=== PATIENT | female | born 1950 | race African-American/Black ===

== ENCOUNTER 2016-06-17 15:31 | Inpatient (IN) | payer MEDICARE, MEDICAID ==
[~2016-06-17] VITALS: Ht 157.5 cm; Wt 64.9 kg
[~2016-06-17 15:31] MED LIST: ASPIRIN-LOW81 MG PO; BENADRYL25 MG PO; CYMBALTA30 MG PO; DEXILANT30 MG ORAL; LISINOPRIL30 MG ORAL; LOSARTAN POTASS50 MG ORAL; NEURONTIN300 MG PO; NORCO 5-325 TA1 EACH PO; PAROXETINE HCL10 MG PO; PERCOCET 5-3251 EACH PO; PHENERGAN25 M1 PO; PROMETHAZI6.25 MG/1 ORAL; PROTONIX40 MG PO; ROBAXIN100 MG/1 M PO; TIZANIDINE HCL4 MG ORAL; TRAMADOL HCL50 MG PO
--- NOTE | 2016-06-17 15:55 | Emergency Room Report ---
History of Present Illness General Chief Complaint: Abdominal Pain Source: Patient, Medical Record Present Illness HPI Patient presents with complaints of left upper abdominal pain onset 3 days ago Patient reports 6/10 pain sharp Denies any vomiting or diarrhea Patient has had gastric surgery many years ago Denies any constipation denies any dysuria frequency Denies any fall or trauma Denies any radiation Patient had total knee surgery on the left knee about one year ago Denies any change with position, denies any change with eating Allergies: Coded Allergies: MORPHINE (Verified Allergy, Severe, Anaphylaxis, 06/18/16) PT RECEIVED 5 DOSES OF OXYCODONE ON PREVIOUS ADMISSION IN 06/2015. AMOXICILLIN (Verified Allergy, Mild, ITCHING, 06/15/15) itching CITRUS AND DERIVATIVES (Verified Allergy, Unknown, BREAKOUT, 06/15/15) breakout HYDROMORPHONE (Verified Allergy, Unknown, CHEST PAIN, 06/15/15) chest pain IODINE (Verified Allergy, Unknown, SWELLING, 06/15/15) swelling PENICILLINS (Verified Allergy, Unknown, ITCHING, 06/15/15) itching Uncoded Allergies: NYLON TAPE (Adverse Reaction, Intermediate, NIEVES THE SKIN, 06/21/15) Patient History Past Medical History: see triage record Pertinent Family History: none Reviewed Nursing Documentation: PMH: Agreed, PSxH: Agreed Nursing Documentation-PMH Past Medical History: No History, Except For Hx Cardiac Problems: No Hx Hypertension: Yes Hx Asthma: Yes Hx Cancer: No Hx Gastrointestinal Problems: Yes - GASTRITIS 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 Review of Systems All Other Systems: negative except mentioned in HPI Physical Exam Vital Signs Date Time Temp Pulse Resp B/P Pulse Ox O2 Delivery O2 Flow Rate FiO2 06/17/16 15:37 97.2 75 12 98 Room Air Sp02 EP Interpretation: reviewed, normal General Appearance: well appearing, no apparent distress Head: normocephalic, atraumatic Eyes: left eye other - Appears to have conjunctivitis of the left eye, bilateral eye EOMI, bilateral eye PERRL ENT: hearing grossly normal, normal pharynx, TMs + canals normal, uvula midline Neck: full range of motion, supple, no meningismus, no bony tend Respiratory: lungs clear, normal breath sounds, no rhonchi, no respiratory distress, no retraction, no accessory muscle use Cardiovascular #1: normal peripheral pulses, regular rate, rhythm, no edema, no gallop, no JVD, no murmur Gastrointestinal: normal bowel sounds, soft, no mass, no organomegaly, non- distended, no guarding, no hernia, no pulsatile mass, no rebound, tenderness - Left upper abdomen, other - obvious mid abdominal previous surgery Genitourinary: no CVA tenderness Musculoskeletal: normal inspection Neurologic: oriented x3, responsive, 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, motor strength/ tone normal, sensory intact Psychiatric: mood/affect normal Skin: normal color, no rash, warm/dry, palpation normal Lymphatic: normal inspection, no adenopathy Medical Decision Making Diagnostic Impression: Primary Impression: Diverticulitis ER Course With the history exam and presentation, multiple differentials considered, including but not limited to appendicitis, gastritis, cholecystitis, diverticulitis Patient's imaging reveals evidence of acute diverticulitis Patient's white blood for count is mildly elevated Patient was given iv antibiotics here and given her age and discomfort was admitted for further care Labs Test 06/17/16 15:50 06/17/16 18:35 White Blood Count 12.1 K/UL (4.8-10.8) Red Blood Count 4.20 M/UL (4.20-5.40) Hemoglobin 13.0 G/DL (12.0-16.0) Hematocrit 38.1 % (37.0-47.0) Mean Corpuscular Volume 91 FL (80-99) Mean Corpuscular Hemoglobin 30.8 PG (27.0-31.0) Mean Corpuscular Hemoglobin Concent 34.0 G/DL (32.0-36.0) Red Cell Distribution Width 13.4 % (11.6-14.8) Platelet Count 359 K/UL (150-450) Mean Platelet Volume 5.7 FL (6.5-10.1) Neutrophils (%) (Auto) 56.7 % (45.0-75.0) Lymphocytes (%) (Auto) 32.2 % (20.0-45.0) Monocytes (%) (Auto) 6.9 % (1.0-10.0) Eosinophils (%) (Auto) 2.8 % (0.0-3.0) Basophils (%) (Auto) 1.5 % (0.0-2.0) Prothrombin Time 9.8 SEC (9.30-11.50) Prothromb Time International Ratio 1.0 (0.9-1.1) Activated Partial Thromboplast Time 29 SEC (23-33) Sodium Level 144 mEQ/L (135-145) Potassium Level 4.8 mEQ/L (3.4-4.9) Chloride Level 101 mEQ/L (98-107) Carbon Dioxide Level 28 mEQ/L (20-30) Anion Gap 15 (5-15) Blood Urea Nitrogen 15 mg/dL (7-23) Creatinine 0.7 mg/dL (0.5-0.9) Estimat Glomerular Filtration Rate > 60 mL/min (>60) Glucose Level 116 mg/dL (74-106) Calcium Level 9.6 mg/dL (8.6-10.2) Total Bilirubin < 0.2 mg/dL (0.0-1.2) Aspartate Amino Transf (AST/SGOT) 11 U/L (5-40) Alanine Aminotransferase (ALT/SGPT) 7 U/L (3-33) Alkaline Phosphatase 88 U/L (35-104) Total Creatine Kinase 56 U/L (26-140) Creatine Kinase MB 2.0 ng/mL (< 3.8) Creatine Kinase MB Relative Index 3.5 Troponin I < 0.30 ng/mL (<=0.30) Pro-B-Type Natriuretic Peptide 46 pg/mL (0-125) Total Protein 6.6 g/dL (6.6-8.7) Albumin 4.0 g/dL (3.5-5.2) Globulin 2.6 g/dL Albumin/Globulin Ratio 1.5 (1.0-2.7) Lipase 28 U/L (< 60) Urine Color Yellow Urine Appearance Clear Urine pH 5 (4.5-8.0) Urine Specific [place] 1.025 (1.005-1.035) Urine Protein Negative (NEGATIVE) Urine Glucose (UA) Negative (NEGATIVE) Urine Ketones Negative (NEGATIVE) Urine Occult Blood Negative (NEGATIVE) Urine Nitrite Negative (NEGATIVE) Urine Bilirubin Negative (NEGATIVE) Urine Urobilinogen 1 MG/DL (0.0-1.0) Urine Leukocyte Esterase Negative (NEGATIVE) EKG Diagnostic Results Rate: normal Rhythm: NSR ST Segments: no acute changes Rhythm Strip Diag. Results EP Interpretation: yes Rate: 77 Rhythm: NSR, no PVC's, no ectopy CT/MRI/US Diagnostic Results CT/MRI/US Diagnostic Results : Impression CT abdomen pelvis: Evidence of acsending diverticulitis Last Vital Signs Date Time Temp Pulse Resp B/P Pulse Ox O2 Delivery O2 Flow Rate FiO2 06/17/16 15:37 97.2 75 12 98 Room Air Status: improved Disposition: ADMITTED INPATIENT Condition: Serious HOWARD BLAIR D.O. Jun 17, 2016 15:55
[2016-06-17 16:01] VITALS: BP 131/54
[2016-06-17 16:10] LABS: BASOPHILS % (AUTO) 1.5 % (0.0-2.0); EOSINOPHILS % (AUTO) 2.8 % (0.0-3.0); LYMPHOCYTES % (AUTO) 32.2 % (20.0-45.0); MEAN CORPUSCULAR HEMOGLOBIN 30.8 PG (27.0-31.0); MEAN CORPUSCULAR VOLUME 91 FL (80-99); MEAN PLATELET VOLUME 5.7 FL (6.5-10.1); MONOCYTES % (AUTO) 6.9 % (1.0-10.0); NEUTROPHILS % (AUTO) 56.7 % (45.0-75.0); PLATELET COUNT 359 K/UL (150-450); RED CELL DISTRIBUTION WIDTH 13.4 % (11.6-14.8); WHITE BLOOD COUNT 12.1 K/UL (4.8-10.8)
[2016-06-17] MEDS ORDERED: NORCO 10-325 T1 EACH ORAL (16:22)
[2016-06-17] MEDS ORDERED: LOSARTAN POTASS50 MG ORAL (16:35)
[2016-06-17 16:38] LABS: PROTHROMBIN TIME 9.8 SEC (9.30-11.50)
[2016-06-17 16:50] LABS: TROPONIN I < 0.30 ng/mL (<=0.30)
[2016-06-17 16:52] LABS: ALANINE AMINOTRANSFERASE 7 U/L (3-33); ALBUMIN/GLOBULIN RATIO 1.5 (1.0-2.7); ANION GAP 15 (5-15); ASPARTATE AMINO TRANSFERASE 11 U/L (5-40); CALCIUM 9.6 mg/dL (8.6-10.2); CARBON DIOXIDE 28 mEQ/L (20-30); CHLORIDE 101 mEQ/L (98-107); CREATININE 0.7 mg/dL (0.5-0.9); GLOMERULAR FILTRATION RATE > 60 mL/min (>60); HEMOLYSIS 1; LIPASE 28 U/L (< 60); POTASSIUM 4.8 mEQ/L (3.4-4.9); SODIUM 144 mEQ/L (135-145); TOTAL PROTEIN 6.6 g/dL (6.6-8.7)
[2016-06-17 18:13] VITALS: BP 119/45
[2016-06-17] MEDS ORDERED: Norco 10mg/325mg tab ORAL ONE ×2 (18:30→20:45)
[2016-06-17] MEDS ORDERED: Ketorolac 30mg Inj IV ONE (18:30)
[2016-06-17] MEDS ORDERED: metroNIDAZOLE 500mg 100 ML IVPB ONE (19:00)
[2016-06-17 19:01] LABS: APPEARANCE,URINE CLEAR; KETONES,URINE NEGATIVE (NEGATIVE); LEUKOCYTE ESTERASE ,URINE NEGATIVE (NEGATIVE); NITRITE,URINE NEGATIVE (NEGATIVE); PH,URINE 5 (4.5-8.0); PROTEIN,URINE NEGATIVE (NEGATIVE); UROBILINOGEN,URINE 1 MG/DL (0.0-1.0)
[2016-06-17 20:13] VITALS: BP 121/51
[2016-06-17] MEDS ORDERED: DuoNeb 0.5-3(2.5)mg/3ml neb HHN PRN (21:00)
[2016-06-17 21:30] VITALS: BP 128/51
[2016-06-17 21:45] VITALS: BP 122/48
[2016-06-17] MEDS ORDERED: Piperacillin/Tazobactam 3.375 GM in D5W 110 ML IVPB SCH (22:00)
[2016-06-17] MEDS: D5 1/2NS 1,000 ML IV SCH (22:51)
[2016-06-17] MEDS: Heparin 5000 units/ml inj SUBQ SCH (23:01)
[2016-06-17] MEDS ORDERED: ALBUTEROL2.5 MG/3 M INH (23:14)
[2016-06-17] MEDS ORDERED: SPIRIVA18 MCG INH (23:14)
[2016-06-17] MEDS ORDERED: AMBIEN10 M1 ORAL (23:14)
[2016-06-17 23:38] VITALS: BP 138/65
[2016-06-18 04:00] VITALS: BP 132/69
[2016-06-18] MEDS: metroNIDAZOLE 500mg 100 ML IVPB SCH ×3 (05:40→22:00)
[2016-06-18] MEDS: Norco 10mg/325mg tab ORAL PRN (05:40)
[2016-06-18] MEDS ORDERED: ALVESCO6.1 G1 IH (06:45)
[2016-06-18] MEDS ORDERED: Albuterol ud Inhalation HHN PRN (07:00)
[2016-06-18 07:03] LABS: ALANINE AMINOTRANSFERASE 6 U/L (3-33); ALBUMIN/GLOBULIN RATIO 1.1 (1.0-2.7); ANION GAP 14 (5-15); ASPARTATE AMINO TRANSFERASE 12 U/L (5-40); CALCIUM 8.5 mg/dL (8.6-10.2); CARBON DIOXIDE 25 mEQ/L (20-30); CHLORIDE 103 mEQ/L (98-107); CREATININE 0.5 mg/dL (0.5-0.9); GLOMERULAR FILTRATION RATE > 60 mL/min (>60); HEMOLYSIS 22; POTASSIUM 3.9 mEQ/L (3.4-4.9); SODIUM 142 mEQ/L (135-145); TOTAL PROTEIN 5.9 g/dL (6.6-8.7)
[2016-06-18 07:11] LABS: BASOPHILS % (AUTO) 1.6 % (0.0-2.0); EOSINOPHILS % (AUTO) 3.5 % (0.0-3.0); LYMPHOCYTES % (AUTO) 31.8 % (20.0-45.0); MEAN CORPUSCULAR HEMOGLOBIN 29.1 PG (27.0-31.0); MEAN CORPUSCULAR VOLUME 91 FL (80-99); MEAN PLATELET VOLUME 6.1 FL (6.5-10.1); MONOCYTES % (AUTO) 6.5 % (1.0-10.0); NEUTROPHILS % (AUTO) 56.6 % (45.0-75.0); PLATELET COUNT 355 K/UL (150-450); RED BLOOD COUNT 3.96 M/UL (4.20-5.40); RED CELL DISTRIBUTION WIDTH 13.7 % (11.6-14.8)
[2016-06-18 08:00] VITALS: BP 109/51
[2016-06-18] MEDS: Losartan 50mg tab ORAL SCH (09:00)
[2016-06-18] MEDS: Cipro 400mg/D5W 200ml IV SCH ×2 (09:20→21:00)
[2016-06-18] MEDS: Aspirin EC 81mg tab ORAL SCH (09:20)
[2016-06-18] MEDS: PARoxetine 10mg tab ORAL SCH ×2 (09:21→17:38)
[2016-06-18] MEDS: Heparin 5000 units/ml inj SUBQ SCH ×2 (09:25→21:00)
--- NOTE | 2016-06-18 09:50 | Diagnostic Imaging Report ---
Indication: Nonradiating abdominal pain left upper quadrant last 3 days Technique: Spiral acquisitions obtained through the abdomen and pelvis. Patient given oral contrast. No IV contrast utilized, due to history of contrast reaction.. Multiplanar reconstructions were generated. Total dose length product 796 mGycm. CTDIvol(s) 17 mGy. Dose reduction achieved using automated exposure control Comparison: 03/04/2012 Findings: Colonic diverticulosis is again demonstrated. There is infiltration of the pericolonic fat of the ascending colon surrounding a large diverticulum. There is mild associated wall thickening. Small prominent lymph nodes are seen immediately adjacent. No extraluminal fluid or gas demonstrated. The appendix is not clearly demonstrated, but there are no findings to suggest acute appendicitis. No small bowel distention or small bowel wall thickening. No free or loculated intraperitoneal air or fluid. There is evidence of prior gastric bypass surgery and possible gastric fundoplication. The distal esophageal wall appears somewhat thickened. Lack of IV contrast limits assessment of solid organs. The liver is unremarkable. The gallbladder is surgically absent. No biliary ductal dilatation. The pancreas, spleen, adrenals, kidneys are unremarkable. No retroperitoneal or mesenteric mass or adenopathy. No pelvic mass or adenopathy. The uterus is not demonstrated, presumed surgically absent. There is an upper pelvic wall surgical scar. There is atrophy of the rectus abdominis muscle, particularly on the right The lung bases demonstrate posterior dependent atelectatic changes. The bones demonstrate degenerative spondylosis changes. There is evidence of prior laminectomies of T11 and T12, which is a new finding since the previous exam. There is been interim removal of previously demonstrated spinal stimulator. Impression: Infiltration of the pericolonic fat of the ascending colon, slight associated wall thickening. Findings are suspicious for uncomplicated acute ascending diverticulitis. There is also local lymphadenopathy Evidence of prior gastric bypass surgery. Abnormal appearing distal esophagus appears similar to the prior exam. Suspect associated surgical changes such as fundoplication, but esophagitis and/or hiatal hernia is a possibility Surgically absent gallbladder and uterus Evidence of interim T11 and T12 laminectomies and removal of previously demonstrated spinal stimulator Rectus abdominis muscular atrophy, also previously demonstrated This agrees with the preliminary interpretation provided overnight by [facility] teleradiology service. The CT scanner at [facility] is accredited by the [employer] and the scans are performed using protocols designed to limit radiation exposure to as low as reasonably achievable to attain images of sufficient resolution adequate for diagnostic evaluation.
[2016-06-18 12:00] VITALS: BP 130/48
--- NOTE | 2016-06-18 13:43 | Cardiology Report ---
APPROVED REPORT EKG Measurement Heart [id number] Normal sinus rhythm Normal ECG
[2016-06-18 16:00] VITALS: BP 129/88
[2016-06-18] MEDS: D5 1/2NS 1,000 ML IV SCH (17:38)
--- NOTE | 2016-06-18 18:18 | History and Physical Report ---
DATE OF ADMISSION: 06/17/2016 CHIEF COMPLAINT: Acute diverticulitis. HISTORY OF PRESENT ILLNESS: The patient is a 65-year-old female, well known to me. She has a history of hypertensive heart disease, asthma/chronic obstructive pulmonary disease, history of osteoarthritis status post knee replacement surgery. She presented with complaints of one week of lower abdominal pain. According to the patient, she was well until a week prior to admission. She developed left-sided lower abdominal pain, initially the pain was intermittent but it became progressively more severe. The patient had some anorexia but no vomiting. No diarrhea. She eventually presented to the emergency room. On evaluation there CT scan of the abdomen showed pericolic fat infiltration and wall thickening of the ascending colon, suspicious for acute diverticulitis. The patient placed on IV fluids, IV antibiotics, and now admitted for further evaluation and care. PAST MEDICAL HISTORY: As above. PAST SURGICAL HISTORY: As above. CURRENT MEDICATIONS: Reconciled and reviewed. ALLERGIES: Include amoxicillin, citrus, hydromorphone, iodine, morphine, penicillin, nylon. FAMILY HISTORY: Noncontributory. SOCIAL HISTORY: The patient was a prior smoker. No alcohol. No drugs. REVIEW OF SYSTEMS: General: No fever or chills. HEENT: No headaches or visual changes. Cardiopulmonary: No chest pain or shortness of breath. Gastrointestinal: Positive abdominal pain. No nausea. No vomiting. No diarrhea. No melena. No bright red blood per rectum. Genitourinary: No urgency or frequency. Musculoskeletal: No joint pain or swelling. Neurologic: No evidence of seizures. PHYSICAL EXAMINATION: VITAL SIGNS: Temperature 97.5, pulse 68, respirations 16, blood pressure 132/69. GENERAL: The patient is a well-developed female in no apparent distress. HEART: Regular rate and rhythm. LUNGS: Lungs. ABDOMEN: soft. Tender mostly on the midepigastric region to the left side. ABDOMEN: soft, nontender, and nondistended. EXTREMITIES: No clubbing or cyanosis. LABORATORY AND DIAGNOSTIC DATA: White count 26699, hemoglobin 13. Potassium 4.8, creatinine was 0.7. LFTs were unremarkable. ASSESSMENT: 1. THIS IS A PLEASANT FEMALE ADMITTED WITH COMPLAINTS OF ACUTE DIVERTICULITIS: 2. Possible early sepsis. 3. Asthma/chronic obstructive pulmonary disease. 4. Hypertension. PLAN: IV hydration, clear liquid diet. Intravenous antibiotics per ID. Follow up cultures. GI and ID consultation has been obtained. The patient will be otherwise continued on her outpatient cardiac and asthma regimen. Demario Hdz M.D. DR: Elmer JOB#: [id number] CC:
[2016-06-18 20:00] VITALS: BP 133/62
--- NOTE | 2016-06-18 21:38 | Consultation ---
DATE OF CONSULTATION: 06/18/2016 INFECTIOUS DISEASES CONSULTATION CONSULTING PHYSICIAN: Hallie Bullard M.D. REFERRING PHYSICIAN: Demario Hdz M.D. REASON FOR CONSULTATION: Diverticulitis. HISTORY OF PRESENTING ILLNESS: This is a 65-year-old lady with history of asthma, hypertension, gastritis, Christiansen's palsy who came in with abdominal pain on the left side. She also had some diarrhea after contrast administration for CT abdomen. An Infectious Diseases consultation has been obtained for antibiotics as she was found to have a diverticulitis. PAST MEDICAL HISTORY: 1. History of asthma. 2. History of hypertension. 3. History of gastritis. 4. History of left-sided Christiansen's palsy. 5. Left knee arthroplasty. SOCIAL HISTORY: She is a smoker. She drinks alcohol rarely. No history of drug use. FAMILY HISTORY: Positive for breast cancer and pancreatic cancer in a sister. REVIEW OF SYSTEMS: Respiratory: No fever, chills, cough, shortness of breath, or chest pain. Cardiac: No chest pain. No palpitations. No dizziness. No syncope. Gastrointestinal: No nausea. No vomiting. She does have abdominal pain on the left side as well as diarrhea. MEDICATIONS: As an inpatient, she is on Ambien, aspirin, gabapentin, Cozaar, Paxil, Spiriva, Cipro, Flagyl subcutaneous heparin, Benadryl, [place], tizanidine, Protonix, albuterol, Zofran, and Restoril. ALLERGIES: 1. Amoxicillin. 2. [place] and derivatives 3. Hydromorphone. 4. Iodine. 5. Morphine. 6. Nylon tape. 7. Penicillin. PHYSICAL EXAMINATION: VITAL SIGNS: Temperature of 97.5, T-max of 97.8, pulse of 57, respiratory of 16, blood pressure 109/51, O2 saturation of 97%. HEENT: Pupils equally reactive to light and accommodation. Mouth appears clean without thrush. NECK: Supple. No adenopathy. No JVD. CARDIOVASCULAR: Regular rate and rhythm. No murmurs. LUNGS: Clear to auscultation bilaterally. No crackles. No wheezes. ABDOMEN: Soft with left-sided tenderness. No organomegaly. EXTREMITIES: No cyanosis, no clubbing, no edema. LABORATORY AND DIAGNOSTIC DATA: White count 12, hemoglobin 11.5, hematocrit 36.1, MCV 91, platelet count of 355,000. Sodium 142, potassium 3.9, chloride 103, bicarb 25, BUN 14, creatinine 0.5, glucose 83. Calcium 8.5. Total bilirubin 0.3, AST 12, ALT 6, alkaline phosphatase 81. Total protein 5.9. Albumin 3.2. Lipase of 28. UA showing leukocyte esterase negative, nitrite negative. CT abdomen and pelvis on 06/17/2016 showing infiltration of the pericolonic fat of the ascending colon with wall thickening suspicious for ascending diverticulitis and local lymphadenopathy. ASSESSMENT: This is a 65-year-old lady with history of asthma and hypertension who comes in with abdominal pain and is found to have acute diverticulitis. 1. Leukocytosis. 2. Hypertension. 3. Asthma. PLAN: 1. Given the penicillin allergy, continue ciprofloxacin and Flagyl. 2. We would suggest a surgical evaluation. I would like to thank, Dr. Hdz for this consultation. Hallie Bullard M.D. DR: Jena JOB#: [id number] CC: Demario Hdz M.D.
[2016-06-19] VITALS: BP 134/71
[2016-06-19] MEDS: Zolpidem 5mg tab ORAL PRN (01:57)
[2016-06-19 04:00] VITALS: BP 133/76
[2016-06-19] MEDS: metroNIDAZOLE 500mg 100 ML IVPB SCH ×3 (06:00→21:25)
[2016-06-19 08:00] VITALS: BP 133/65
[2016-06-19] MEDS: Aspirin EC 81mg tab ORAL SCH (09:00)
[2016-06-19] MEDS: Losartan 50mg tab ORAL SCH (09:01)
[2016-06-19] MEDS: PARoxetine 10mg tab ORAL SCH ×2 (09:01→17:22)
[2016-06-19] MEDS: Heparin 5000 units/ml inj SUBQ SCH ×2 (09:03→20:21)
[2016-06-19] MEDS: Cipro 400mg/D5W 200ml IV SCH ×2 (09:05→20:19)
--- NOTE | 2016-06-19 09:34 | General Progress Note ---
Assessment/Plan Problem List: (1) COPD exacerbation ICD Codes: J44.1 - Chronic obstructive pulmonary disease with (acute) exacerbation SNOMED: 974981053, 978881782 (2) Diverticulitis ICD Codes: K57.92 - Diverticulitis of intestine, part unspecified, without perforation or abscess without bleeding SNOMED: 379283865 (3) Arthritis of knee, left ICD Codes: M19.90 - Unspecified osteoarthritis, unspecified site SNOMED: 851466001 Status: stable Assessment/Plan abx ivf clears surgery eval called pain rx antiemetics Subjective ROS Limited/Unobtainable: No Constitutional: Reports: malaise, weakness HEENT: Reports: no symptoms Cardiovascular: Reports: no symptoms Respiratory: Reports: no symptoms Gastrointestinal/Abdominal: Reports: abdominal pain Genitourinary: Reports: no symptoms Neurologic/Psychiatric: Reports: no symptoms Endocrine: Reports: no symptoms Hematologic/Lymphatic: Reports: no symptoms Allergies: Coded Allergies: MORPHINE (Verified Allergy, Severe, Anaphylaxis, 06/18/16) PT RECEIVED 5 DOSES OF OXYCODONE ON PREVIOUS ADMISSION IN 06/2015. AMOXICILLIN (Verified Allergy, Mild, ITCHING, 06/15/15) itching CITRUS AND DERIVATIVES (Verified Allergy, Unknown, BREAKOUT, 06/15/15) breakout HYDROMORPHONE (Verified Allergy, Unknown, CHEST PAIN, 06/15/15) chest pain IODINE (Verified Allergy, Unknown, SWELLING, 06/15/15) swelling PENICILLINS (Verified Allergy, Unknown, ITCHING, 06/15/15) itching Uncoded Allergies: NYLON TAPE (Adverse Reaction, Intermediate, NIEVES THE SKIN, 06/21/15) Subjective stable. less abd pain. on clears. +bowel movements. on ivf. id noted Objective Last 24 Hour Vital Signs Date Time Temp Pulse Resp B/P Pulse Ox O2 Delivery O2 Flow Rate FiO2 06/19/16 09:01 133/65 06/19/16 08:00 98.1 61 20 133/65 100 Room Air 06/19/16 04:00 97.9 66 18 133/76 100 Room Air 06/19/16 00:00 98.1 71 18 134/71 92 Room Air 06/18/16 20:00 97.9 62 18 133/62 96 Room Air 06/18/16 16:00 97.3 66 20 129/88 95 Room Air 06/18/16 12:00 96.8 58 20 130/48 95 Room Air Intake and Output 06/18/16 06/19/16 19:00 07:00 Intake Total 990 ml 770 ml Balance 990 ml 770 ml Intake Oral 240 ml 120 ml IV Total 750 ml 650 ml # Voids 4 5 # Bowel Movements 1 Height (Feet): 5 Height (Inches): 2.00 Weight (Pounds): 143 General Appearance: WD/WN, alert Neck: supple Cardiovascular: regular rhythm Respiratory/Chest: lungs clear Abdomen: normal bowel sounds, soft, tender Edema: no edema noted Arm (L), no edema noted Arm (R), no edema noted Leg (L), no edema noted Leg (R), no edema noted Pedal (L), no edema noted Pedal (R), no edema noted Generalized 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
--- NOTE | 2016-06-19 10:26 | Consultation ---
History of Present Illness General Date patient seen: Jun 19, 2016 Chief Complaint: Abdominal Pain Present Illness HPI 65 year old female with medical co-morbidities as below presented with acute left lower quadrant abdominal pain. As per patient, she was in her normal state of health until last week (6-7 days ago) when she first began to note some vague cramping left lower quadrant abdominal pain. At first she did not think much of it and the pain would go away without intervention. Over the subsequent few days pain began to worsen and day prior to admission pain was significantly worse so she decided to seek medical attention. Pain described as cramping left sided abdominal pain without radiation. No associated nausea or emesis. No fever or chills. Has never had prior episodes before. Upon admission had CT abdomen/pelvis which demonstrated acute uncomplicated left sided diverticulitis, leukocytosis of 12k, and focal left sided abdominal pain. Surgery called to evaluate. When seen at bedside, patient states pain has resolved and currently just a vague left sided abdominal pain. Had loose BM today and is passing flatus. Is currently hungry and would like food. Allergies: Coded Allergies: MORPHINE (Verified Allergy, Severe, Anaphylaxis, 06/18/16) PT RECEIVED 5 DOSES OF OXYCODONE ON PREVIOUS ADMISSION IN 06/2015. AMOXICILLIN (Verified Allergy, Mild, ITCHING, 06/15/15) itching CITRUS AND DERIVATIVES (Verified Allergy, Unknown, BREAKOUT, 06/15/15) breakout HYDROMORPHONE (Verified Allergy, Unknown, CHEST PAIN, 06/15/15) chest pain IODINE (Verified Allergy, Unknown, SWELLING, 06/15/15) swelling PENICILLINS (Verified Allergy, Unknown, ITCHING, 06/15/15) itching Uncoded Allergies: NYLON TAPE (Adverse Reaction, Intermediate, NIEVES THE SKIN, 06/21/15) Medication History Scheduled Aspirin (Aspirin EC), 81 MG PO DAILY, (Reported) Ciclesonide ([place]), 6.1 GM IH DAILY, (Reported) Dexlansoprazole (Dexilant), 30 MG ORAL DAILY, (Reported) Diphenhydramine Hcl* (Benadryl*), 25 MG PO DAILY, (Reported) Gabapentin (Neurontin), 600 MG PO QID, (Reported) Losartan Potassium* (Losartan Potassium*), Unknown Dose ORAL DAILY, (Reported) Paroxetine Hcl* (Paxil*), 30 MG PO BID, (Reported) Tiotropium [place]* (Spiriva*), 1 PUFF INH DAILY, (Reported) Scheduled PRN Albuterol Sulfate* (Albuterol Sulfate Hhn*), 3 ML INH Q4H PRN for Shortness of Breath, (Reported) Hydrocodone Bit/Acetaminophen 10-325* ([place] 10-325*), 1 TAB ORAL Q6H PRN for For Pain, (Reported) Promethazine Hcl (Promethazine Hcl*), 5 ML ORAL Q6H PRN for For Cough, (Reported ) Tizanidine Hcl* (Zanaflex*), 4 MG ORAL Q6HR PRN for Muscle Spasm, (Reported) Zolpidem Tartrate* (Ambien*), 10 MG ORAL HS PRN for Insomnia, (Reported) Discontinued Medications Hydrocodone Bit/Acetaminophen 5-325* ([place] 5-325*), 1 TAB PO Q6H Discontinued Reason: Medication dose changed Methocarbamol (Robaxin), 750 MG PO THREE TIMES A DAY, (Reported) Discontinued Reason: Therapy completed Patient History History Provided By: Patient Healthcare decision maker N Resuscitation status Full Code Advanced Directive on File No Past Medical/Surgical History Past Medical/Surgical History: (1) Diverticulitis (2) COPD exacerbation (3) Arthritis of knee, left (4) S/P cholecystectomy (5) H/O gastric bypass (6) History of hysterectomy Review of Systems Constitutional: Denies: chills, fever, malaise, no symptoms, other, see HPI, sweats, weakness Eye: Denies: acuity changes, blurred vision, discharge, double vision, eye pain , no symptoms, nose congestion, nose pain, other, see HPI, tearing ENT: Denies: ear discharge, ear pain, hearing loss, mouth pain, nasal discharge , no symptoms, nose congestion, nose pain, other, see HPI, throat pain, throat swelling Respiratory: Denies: MIKE, cough, no symptoms, orthopnea, other, see HPI, shortness of breath, sputum, stridor, wheezing Cardiovascular: Denies: PND, chest pain, edema, no symptoms, other, palpitations, see HPI, syncope Gastrointestinal: Reports: abdominal pain Genitourinary: Denies: discharge, dysuria, frequency, hematuria, incontinence, no symptoms, other, pain, retention, see HPI, urgency, vag bleed/dc Musculoskeletal: Denies: back pain, gout, joint pain, joint swelling, muscle pain, muscle stiffness, no symptoms, other, see HPI Skin: Denies: change in color, change in hair/nails, dryness, lesions, no symptoms, other, rash, see HPI Psychiatric: Denies: HI, SI, anxiety, depressed feelings, emotional problems, hallucinations, no symptoms, other, prior hx, see HPI Neurological: Denies: dizziness, focal weakness, headache, no symptoms, numbness, other, paresthesia, see HPI, seizure, syncope, tingling, tremors Endocrine: Denies: excessive sweating, flushing, increased thirst, increased urine, intolerance to temperature, no symptoms, other, see HPI, unexplained weight loss Hematologic/Lymphatic: Denies: anemia, blood clots, diathesis, easy bleeding, easy bruising, no symptoms, other, see HPI, swollen glands All Other Systems: negative except mentioned in HPI Physical Exam General Appearance: WD/WN, no apparent distress, alert Lines, tubes and drains: peripheral HEENT: normocephalic, atraumatic, PERRL Neck: supple Respiratory/Chest: lungs clear, normal breath sounds Cardiovascular/Chest: normal peripheral pulses Abdomen: normal bowel sounds, non tender, soft, no mass, other - prior surgical scars well healed. 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 II-XII grossly normal, alert, oriented x 3, responsive Last 24 Hour Vital Signs Date Time Temp Pulse Resp B/P Pulse Ox O2 Delivery O2 Flow Rate FiO2 06/19/16 09:01 133/65 06/19/16 08:00 98.1 61 20 133/65 100 Room Air 06/19/16 04:00 97.9 66 18 133/76 100 Room Air 06/19/16 00:00 98.1 71 18 134/71 92 Room Air 06/18/16 20:00 97.9 62 18 133/62 96 Room Air 06/18/16 16:00 97.3 66 20 129/88 95 Room Air 06/18/16 12:00 96.8 58 20 130/48 95 Room Air Intake and Output 06/18/16 06/19/16 19:00 07:00 Intake Total 990 ml 770 ml Balance 990 ml 770 ml Intake Oral 240 ml 120 ml IV Total 750 ml 650 ml # Voids 4 5 # Bowel Movements 1 Height (Feet): 5 Height (Inches): 2.00 Weight (Pounds): 143 Medications Current Medications Medications (Trade) Dose Ordered Sig/Julita Route PRN Reason Start Time Stop Time Status Last Admin Dose Admin Acetaminophen/ Hydrocodone Bitart ([place] 10/325) 1 ea Q6H PRN ORAL For Pain 06/17/16 21:00 06/24/16 20:59 06/18/16 05:40 Albuterol/ Ipratropium (DuoNeb 0.5-3(2.5)mg/3ml) 3 ml Q4H PRN HHN Shortness of Breath 06/17/16 21:00 06/22/16 20:59 Aspirin (Ecotrin) 81 mg DAILY ORAL 06/18/16 09:00 07/18/16 08:59 06/19/16 09:00 Ciprofloxacin (Cipro 400mg/ 200ml premix bag) 200 ml @ 200 mls/hr Q12HR IV 06/18/16 09:00 06/25/16 08:59 06/19/16 09:05 Dextrose/Sodium Chloride (D5 0.45% NS) 1,000 ml @ 50 mls/hr Q20H IV 06/17/16 21:30 07/17/16 21:29 06/18/16 17:38 Diphenhydramine HCl (Benadryl) 25 mg DAILYPRN PRN ORAL Itching 06/17/16 21:00 07/17/16 20:59 Gabapentin (Neurontin) 600 mg TID ORAL 06/18/16 09:00 07/18/16 08:59 06/19/16 09:00 Heparin Sodium (Porcine) (Heparin 5000 units/ml) 5,000 units EVERY 12 HOURS SUBQ 06/17/16 22:00 07/17/16 21:59 06/19/16 09:03 Losartan Potassium (Cozaar) 50 mg DAILY ORAL 06/18/16 09:00 07/18/16 08:59 06/19/16 09:01 Metronidazole 100 ml @ 100 mls/hr Q8HR IVPB 06/18/16 06:00 06/25/16 05:59 06/19/16 06:00 Non-Formulary Medication 1 ea 1 ea DAILY ORAL 06/18/16 09:00 07/18/16 08:59 UNV Ondansetron HCl (Zofran) 4 mg Q6H PRN IVP Nausea & Vomiting 06/17/16 21:00 07/17/16 20:59 Pantoprazole 40 mg 40 mg EVERY 12 HOURS ORAL 06/17/16 21:00 07/17/16 20:59 06/19/16 09:00 Paroxetine HCl (Paxil) 30 mg BID ORAL 06/18/16 09:00 07/18/16 08:59 06/19/16 09:01 Temazepam (Restoril) 15 mg HSPRN PRN ORAL Insomnia 06/17/16 21:00 06/24/16 20:59 Tiotropium [place] (Spiriva Inhaler) 1 puff DAILY INH 06/18/16 09:00 07/18/16 08:59 06/18/16 09:19 Tizanidine HCl (Zanaflex) 4 mg Q6H PRN ORAL Muscle Spasm 06/17/16 21:00 07/17/16 20:59 Zolpidem Tartrate (Ambien) 5 mg QHS PRN ORAL Insomnia 06/18/16 21:00 07/18/16 20:59 06/19/16 01:57 Assessment/Plan Problem List: (1) Diverticulitis Assessment & Plan: 65 F acute uncomplicated diverticulitis. First episode as per patient. Prior colonoscopy 1-2 years ago and benign. Otherwise well. Afebrile, HD stable, leukocytosis 12k, exam with minimal left sided pain. -No acute surgical intervention necessary at this time -Okay for diet as tolerated. -Can transition to oral Abx when ready for discharge -Spoke with patient about diverticular disease. Given first episode and uncomplicated there is no indication for surgical intervention at this time. But if she continues to have similar episodes we can discuss elective colectomy in the future. Explained to her that she could potentially also have complicated episode that may require surgical intervention in the future. Card and office information given to patient for follow up. Thank you for this consultation and for allowing us to participate in Mel Sheldonkellyleonardo's care. ICD Codes: K57.92 - Diverticulitis of intestine, part unspecified, without perforation or abscess without bleeding SNOMED: [id number] Status: doing well, stable Sincere Strange Jun 19, 2016 10:26
--- NOTE | 2016-06-19 11:28 | Infectious Diseases Prog Note ---
Assessment/Plan Assessment/Plan antibiotics : ciprofloxacin, flagyl A 1. acute diverticulitis 2. leucocytosis 3. HTN P 1. continue ciprofloxacin, flagyl 2. will follow up cultures Subjective Constitutional: Denies: chills, fever Respiratory: Denies: dry cough, shortness of breath Gastrointestinal/Abdominal: Reports: diarrhea, nausea, Denies: vomiting Musculoskeletal: Reports: pain - left abdominal Allergies: Coded Allergies: MORPHINE (Verified Allergy, Severe, Anaphylaxis, 06/18/16) PT RECEIVED 5 DOSES OF OXYCODONE ON PREVIOUS ADMISSION IN 06/2015. AMOXICILLIN (Verified Allergy, Mild, ITCHING, 06/15/15) itching CITRUS AND DERIVATIVES (Verified Allergy, Unknown, BREAKOUT, 06/15/15) breakout HYDROMORPHONE (Verified Allergy, Unknown, CHEST PAIN, 06/15/15) chest pain IODINE (Verified Allergy, Unknown, SWELLING, 06/15/15) swelling PENICILLINS (Verified Allergy, Unknown, ITCHING, 06/15/15) itching Uncoded Allergies: NYLON TAPE (Adverse Reaction, Intermediate, NIEVES THE SKIN, 06/21/15) Objective Vital Signs Last 24 Hour Vital Signs Date Time Temp Pulse Resp B/P Pulse Ox O2 Delivery O2 Flow Rate FiO2 06/19/16 09:01 133/65 06/19/16 08:00 98.1 61 20 133/65 100 Room Air 06/19/16 04:00 97.9 66 18 133/76 100 Room Air 06/19/16 00:00 98.1 71 18 134/71 92 Room Air 06/18/16 20:00 97.9 62 18 133/62 96 Room Air 06/18/16 16:00 97.3 66 20 129/88 95 Room Air 06/18/16 12:00 96.8 58 20 130/48 95 Room Air Height (Feet): 5 Height (Inches): 2.00 Weight (Pounds): 143 Respiratory/Chest: lungs clear Cardiovascular: normal rate, regular rhythm, no gallop/murmur Abdomen: tender - on left side Extremities: no edema CASSIDY NOEL Jun 19, 2016 11:28
[2016-06-19 12:00] VITALS: BP 144/56
[2016-06-19] MEDS: D5 1/2NS 1,000 ML IV SCH (13:30)
[2016-06-19 16:00] VITALS: BP 147/59
[2016-06-19 19:00] VITALS: BP 133/59
[2016-06-19] MEDS: Norco 10mg/325mg tab ORAL PRN (19:52)
[2016-06-19] MEDS: Breo Ellipta 100/25mcg - 14 dose INH SCH (20:15)
[2016-06-20] VITALS: BP 128/62
[2016-06-20] MEDS: D5 1/2NS 1,000 ML IV SCH (02:00)
[2016-06-20 04:00] VITALS: BP 128/63
[2016-06-20] MEDS: metroNIDAZOLE 500mg 100 ML IVPB SCH ×3 (05:05→22:10)
[2016-06-20 06:58] LABS: BASOPHILS % (AUTO) 1.8 % (0.0-2.0); EOSINOPHILS % (AUTO) 4.3 % (0.0-3.0); LYMPHOCYTES % (AUTO) 47.2 % (20.0-45.0); MEAN CORPUSCULAR HEMOGLOBIN 29.5 PG (27.0-31.0); MEAN CORPUSCULAR HGB CONC 32.5 G/DL (32.0-36.0); MEAN CORPUSCULAR VOLUME 91 FL (80-99); MEAN PLATELET VOLUME 6.2 FL (6.5-10.1); MONOCYTES % (AUTO) 10.5 % (1.0-10.0); NEUTROPHILS % (AUTO) 36.3 % (45.0-75.0); PLATELET COUNT 333 K/UL (150-450); RED BLOOD COUNT 3.77 M/UL (4.20-5.40); RED CELL DISTRIBUTION WIDTH 13.2 % (11.6-14.8); WHITE BLOOD COUNT 8.2 K/UL (4.8-10.8)
[2016-06-20 07:17] LABS: ALANINE AMINOTRANSFERASE 5 U/L (3-33); ALBUMIN/GLOBULIN RATIO 1.1 (1.0-2.7); ANION GAP 14 (5-15); ASPARTATE AMINO TRANSFERASE 10 U/L (5-40); CALCIUM 8.5 mg/dL (8.6-10.2); CARBON DIOXIDE 25 mEQ/L (20-30); CHLORIDE 103 mEQ/L (98-107); CREATININE 0.6 mg/dL (0.5-0.9); GLOMERULAR FILTRATION RATE > 60 mL/min (>60); HEMOLYSIS 1; SODIUM 142 mEQ/L (135-145); TOTAL PROTEIN 5.8 g/dL (6.6-8.7)
[2016-06-20] MEDS: Breo Ellipta 100/25mcg - 14 dose INH SCH (07:38)
[2016-06-20 08:15] VITALS: BP 118/67
[2016-06-20] MEDS: Cipro 400mg/D5W 200ml IV SCH ×2 (09:01→20:56)
[2016-06-20] MEDS: Aspirin EC 81mg tab ORAL SCH (09:01)
[2016-06-20] MEDS: PARoxetine 10mg tab ORAL SCH ×2 (09:02→18:10)
[2016-06-20] MEDS: Losartan 50mg tab ORAL SCH (09:02)
[2016-06-20] MEDS: Heparin 5000 units/ml inj SUBQ SCH ×2 (09:03→21:00)
--- NOTE | 2016-06-20 10:36 | General Surgery Progress Note ---
General Surgery-Progress Note Subjective Symptoms: improved, tolerating diet Additional Comments patient seen and examined at bedside. no acute events. states she is feeling better today. some mild dull left sided abdominal pain but improving. still with diarrhea. no n/v/f/c/. Objective Last 24 Hour Vital Signs Date Time Temp Pulse Resp B/P Pulse Ox O2 Delivery O2 Flow Rate FiO2 06/20/16 09:02 118/67 06/20/16 08:15 97.1 77 21 118/67 99 Room Air 06/20/16 07:43 68 19 98 Room Air 06/20/16 07:42 19 98 Room Air 21 06/20/16 07:41 18 98 Room Air 06/20/16 07:40 19 98 Room Air 06/20/16 04:00 98.0 68 18 128/63 97 Room Air 06/20/16 00:00 98.0 69 20 128/62 96 Room Air 06/19/16 19:00 98.4 65 20 133/59 96 Room Air 06/19/16 16:00 98.6 70 20 147/59 94 Room Air 06/19/16 13:06 66 20 96 Room Air 21 06/19/16 13:06 66 20 96 Room Air 21 06/19/16 12:00 98.2 66 20 144/56 96 Room Air I&O Intake and Output 06/19/16 06/20/16 19:00 07:00 Intake Total 370 ml 980 ml Balance 370 ml 980 ml Intake Oral 320 ml 480 ml IV Total 50 ml 500 ml # Voids 4 4 Cardiovascular: RSR Respiratory: clear Abdomen: soft, non-tender, present bowel sounds Extremities: no edema Laboratory Tests Test 06/20/16 05:50 White Blood Count 8.2 K/UL (4.8-10.8) Red Blood Count 3.77 M/UL (4.20-5.40) L Hemoglobin 11.1 G/DL (12.0-16.0) L Hematocrit 34.2 % (37.0-47.0) L Mean Corpuscular Volume 91 FL (80-99) Mean Corpuscular Hemoglobin 29.5 PG (27.0-31.0) Mean Corpuscular Hemoglobin Concent 32.5 G/DL (32.0-36.0) Red Cell Distribution Width 13.2 % (11.6-14.8) Platelet Count 333 K/UL (150-450) Mean Platelet Volume 6.2 FL (6.5-10.1) L Neutrophils (%) (Auto) 36.3 % (45.0-75.0) L Lymphocytes (%) (Auto) 47.2 % (20.0-45.0) H Monocytes (%) (Auto) 10.5 % (1.0-10.0) H Eosinophils (%) (Auto) 4.3 % (0.0-3.0) H Basophils (%) (Auto) 1.8 % (0.0-2.0) Sodium Level 142 mEQ/L (135-145) Potassium Level 4.0 mEQ/L (3.4-4.9) Chloride Level 103 mEQ/L (98-107) Carbon Dioxide Level 25 mEQ/L (20-30) Anion Gap 14 (5-15) Blood Urea Nitrogen 11 mg/dL (7-23) Creatinine 0.6 mg/dL (0.5-0.9) Estimat Glomerular Filtration Rate > 60 mL/min (>60) Glucose Level 86 mg/dL (74-106) Calcium Level 8.5 mg/dL (8.6-10.2) L Total Bilirubin < 0.2 mg/dL (0.0-1.2) Aspartate Amino Transf (AST/SGOT) 10 U/L (5-40) Alanine Aminotransferase (ALT/SGPT) 5 U/L (3-33) Alkaline Phosphatase 74 U/L (35-104) Total Protein 5.8 g/dL (6.6-8.7) L Albumin 3.1 g/dL (3.5-5.2) L Globulin 2.7 g/dL Albumin/Globulin Ratio 1.1 (1.0-2.7) Plan Problems: (1) Diverticulitis Assessment & Plan: 65 F acute uncomplicated diverticulitis. First episode as per patient. Prior colonoscopy 1-2 years ago and benign. Otherwise well. Afebrile, HD stable, leukocytosis resolved today, exam benign -No acute surgical intervention necessary at this time -diet as tolerated. -Can transition to oral Abx when ready for discharge Sincere Strange Jun 20, 2016 10:36
[2016-06-20 12:15] VITALS: BP 129/69
--- NOTE | 2016-06-20 15:26 | Infectious Diseases Prog Note ---
Assessment/Plan Assessment/Plan A 1. Acute diverticulitis 2. leucocytosis resolved 3. HPN P 1. continue ciprofloxacin, Flagyl Subjective ROS Limited/Unobtainable: Yes Allergies: Coded Allergies: MORPHINE (Verified Allergy, Severe, Anaphylaxis, 06/18/16) PT RECEIVED 5 DOSES OF OXYCODONE ON PREVIOUS ADMISSION IN 06/2015. AMOXICILLIN (Verified Allergy, Mild, ITCHING, 06/15/15) itching CITRUS AND DERIVATIVES (Verified Allergy, Unknown, BREAKOUT, 06/15/15) breakout HYDROMORPHONE (Verified Allergy, Unknown, CHEST PAIN, 06/15/15) chest pain IODINE (Verified Allergy, Unknown, SWELLING, 06/15/15) swelling PENICILLINS (Verified Allergy, Unknown, ITCHING, 06/15/15) itching Uncoded Allergies: NYLON TAPE (Adverse Reaction, Intermediate, NIEVES THE SKIN, 06/21/15) Objective Vital Signs Last 24 Hour Vital Signs Date Time Temp Pulse Resp B/P Pulse Ox O2 Delivery O2 Flow Rate FiO2 06/20/16 12:15 97.9 56 22 129/69 96 Room Air 06/20/16 09:02 118/67 06/20/16 08:15 97.1 77 21 118/67 99 Room Air 06/20/16 07:43 68 19 98 Room Air 21 06/20/16 07:42 68 19 98 Room Air 21 06/20/16 07:41 67 18 98 Room Air 21 06/20/16 07:40 67 19 98 Room Air 21 06/20/16 04:00 98.0 68 18 128/63 97 Room Air 06/20/16 00:00 98.0 69 20 128/62 96 Room Air 06/19/16 19:00 98.4 65 20 133/59 96 Room Air 06/19/16 16:00 98.6 70 20 147/59 94 Room Air Height (Feet): 5 Height (Inches): 2.00 Weight (Pounds): 143 General Appearance: no acute distress HEENT: mucous membranes moist Respiratory/Chest: lungs clear Cardiovascular: regular rhythm Abdomen: soft, non tender Extremities: no edema Neurologic/Psychiatric: other - sleeping Laboratory Tests Test 06/20/16 05:50 White Blood Count 8.2 K/UL (4.8-10.8) Red Blood Count 3.77 M/UL (4.20-5.40) L Hemoglobin 11.1 G/DL (12.0-16.0) L Hematocrit 34.2 % (37.0-47.0) L Mean Corpuscular Volume 91 FL (80-99) Mean Corpuscular Hemoglobin 29.5 PG (27.0-31.0) Mean Corpuscular Hemoglobin Concent 32.5 G/DL (32.0-36.0) Red Cell Distribution Width 13.2 % (11.6-14.8) Platelet Count 333 K/UL (150-450) Mean Platelet Volume 6.2 FL (6.5-10.1) L Neutrophils (%) (Auto) 36.3 % (45.0-75.0) L Lymphocytes (%) (Auto) 47.2 % (20.0-45.0) H Monocytes (%) (Auto) 10.5 % (1.0-10.0) H Eosinophils (%) (Auto) 4.3 % (0.0-3.0) H Basophils (%) (Auto) 1.8 % (0.0-2.0) Sodium Level 142 mEQ/L (135-145) Potassium Level 4.0 mEQ/L (3.4-4.9) Chloride Level 103 mEQ/L (98-107) Carbon Dioxide Level 25 mEQ/L (20-30) Anion Gap 14 (5-15) Blood Urea Nitrogen 11 mg/dL (7-23) Creatinine 0.6 mg/dL (0.5-0.9) Estimat Glomerular Filtration Rate > 60 mL/min (>60) Glucose Level 86 mg/dL (74-106) Calcium Level 8.5 mg/dL (8.6-10.2) L Total Bilirubin < 0.2 mg/dL (0.0-1.2) Aspartate Amino Transf (AST/SGOT) 10 U/L (5-40) Alanine Aminotransferase (ALT/SGPT) 5 U/L (3-33) Alkaline Phosphatase 74 U/L (35-104) Total Protein 5.8 g/dL (6.6-8.7) L Albumin 3.1 g/dL (3.5-5.2) L Globulin 2.7 g/dL Albumin/Globulin Ratio 1.1 (1.0-2.7) Current Medications Medications (Trade) Dose Ordered Sig/Julita Route PRN Reason Start Time Stop Time Status Last Admin Dose Admin Acetaminophen/ Hydrocodone Bitart ([place] 10/325) 1 ea Q6H PRN ORAL For Pain 06/17/16 21:00 06/24/16 20:59 06/19/16 19:52 Albuterol/ Ipratropium (DuoNeb 0.5-3(2.5)mg/3ml) 3 ml Q4H PRN HHN Shortness of Breath 06/17/16 21:00 06/22/16 20:59 Aspirin (Ecotrin) 81 mg DAILY ORAL 06/18/16 09:00 07/18/16 08:59 06/20/16 09:01 Ciprofloxacin (Cipro 400mg/ 200ml premix bag) 200 ml @ 200 mls/hr Q12HR IV 06/18/16 09:00 06/25/16 08:59 06/20/16 09:01 Dextrose/Sodium Chloride (D5 0.45% NS) 1,000 ml @ 50 mls/hr Q20H IV 06/17/16 21:30 07/17/16 21:29 06/20/16 02:00 Diphenhydramine HCl (Benadryl) 25 mg DAILYPRN PRN ORAL Itching 06/17/16 21:00 07/17/16 20:59 Fluticasone/ Vilanterol (Breo Ellipta 100/25) 1 DAILY INH 06/19/16 20:15 07/19/16 20:14 06/20/16 07:38 Gabapentin (Neurontin) 600 mg TID ORAL 06/18/16 09:00 07/18/16 08:59 06/20/16 13:26 Heparin Sodium (Porcine) (Heparin 5000 units/ml) 5,000 units EVERY 12 HOURS SUBQ 06/17/16 22:00 07/17/16 21:59 06/20/16 09:03 Losartan Potassium (Cozaar) 50 mg DAILY ORAL 06/18/16 09:00 07/18/16 08:59 06/20/16 09:02 Metronidazole 100 ml @ 100 mls/hr Q8HR IVPB 06/18/16 06:00 06/25/16 05:59 06/20/16 13:26 Ondansetron HCl (Zofran) 4 mg Q6H PRN IVP Nausea & Vomiting 06/17/16 21:00 07/17/16 20:59 Pantoprazole 40 mg 40 mg EVERY 12 HOURS ORAL 06/17/16 21:00 07/17/16 20:59 06/20/16 09:02 Paroxetine HCl (Paxil) 30 mg BID ORAL 06/18/16 09:00 07/18/16 08:59 06/20/16 09:02 Temazepam (Restoril) 15 mg HSPRN PRN ORAL Insomnia 06/17/16 21:00 06/24/16 20:59 06/19/16 21:26 Tiotropium [place] (Spiriva Inhaler) 1 puff DAILY INH 06/18/16 09:00 07/18/16 08:59 06/20/16 07:36 Tizanidine HCl (Zanaflex) 4 mg Q6H PRN ORAL Muscle Spasm 06/17/16 21:00 07/17/16 20:59 Zolpidem Tartrate 5 mg 5 mg QHS PRN ORAL Insomnia 06/18/16 21:00 07/18/16 20:59 06/19/16 01:57 LUKE CLARK Jun 20, 2016 15:26
[2016-06-20 20:00] VITALS: BP 143/60
[2016-06-20] MEDS: Zolpidem 5mg tab ORAL PRN (20:55)
[2016-06-21] VITALS: BP 143/66
[2016-06-21 04:00] VITALS: BP 132/54
[2016-06-21] MEDS: D5 1/2NS 1,000 ML IV SCH (06:06)
[2016-06-21] MEDS: metroNIDAZOLE 500mg 100 ML IVPB SCH ×2 (06:06→14:00)
[2016-06-21 08:10] VITALS: BP 129/60
[2016-06-21] MEDS: Norco 10mg/325mg tab ORAL PRN (08:13)
[2016-06-21] MEDS: Cipro 400mg/D5W 200ml IV SCH (09:34)
[2016-06-21] MEDS: PARoxetine 10mg tab ORAL SCH ×2 (09:36→17:55)
[2016-06-21] MEDS: Aspirin EC 81mg tab ORAL SCH (09:36)
[2016-06-21] MEDS: Heparin 5000 units/ml inj SUBQ SCH ×2 (09:37→21:22)
[2016-06-21] MEDS: Losartan 50mg tab ORAL SCH (09:37)
[2016-06-21] MEDS: Breo Ellipta 100/25mcg - 14 dose INH SCH (09:58)
--- NOTE | 2016-06-21 11:14 | General Surgery Progress Note ---
General Surgery-Progress Note Subjective Additional Comments patient seen and examined at bedside. states that she has been doing well but does have some mild pain after breakfast. has cream of wheat and noted some mild left sided abdominal pain. since pain has resolved. no n/v/f/c. +BM's. Objective Last 24 Hour Vital Signs Date Time Temp Pulse Resp B/P Pulse Ox O2 Delivery O2 Flow Rate FiO2 06/21/16 09:54 74 18 97 Room Air 06/21/16 09:51 74 18 97 Room Air 06/21/16 09:48 74 18 97 Room Air 06/21/16 09:46 74 16 96 Room Air 06/21/16 09:37 129/60 06/21/16 08:10 97.6 57 22 129/60 96 Room Air 06/21/16 04:00 97.2 58 18 132/54 97 Room Air 06/21/16 00:00 98.2 59 18 143/66 97 Room Air 06/20/16 20:00 98.1 61 18 143/60 100 Room Air 06/20/16 12:15 97.9 56 22 129/69 96 Room Air I&O Intake and Output 06/20/16 06/21/16 19:00 07:00 Intake Total 1760 ml Balance 1760 ml Intake Oral 960 ml IV Total 800 ml # Voids 2 5 # Bowel Movements 5 Cardiovascular: RSR Respiratory: clear Abdomen: soft, non-tender, present bowel sounds Plan Problems: (1) Diverticulitis Assessment & Plan: 65 F acute uncomplicated diverticulitis. First episode as per patient. Doing well. Afebrile, HD stable, labs okay, exam benign -No acute surgical intervention necessary at this time -diet as tolerated. -Can transition to oral Abx when ready for discharge -can follow up with our group as an outpatient. office information given to patient Sincere Strange Jun 21, 2016 11:14
[2016-06-21 11:53] VITALS: BP 118/45
--- NOTE | 2016-06-21 15:01 | Infectious Diseases Prog Note ---
Assessment/Plan Assessment/Plan A 1. Acute diverticulitis 2. leucocytosis resolved 3. HPN P 1. continue ciprofloxacin, Flagyl Subjective ROS Limited/Unobtainable: No Respiratory: Reports: no symptoms Gastrointestinal/Abdominal: Reports: nausea, other - left lower abdominal pain , loose stol, vomiting Genitourinary: Reports: no symptoms Allergies: Coded Allergies: MORPHINE (Verified Allergy, Severe, Anaphylaxis, 06/18/16) PT RECEIVED 5 DOSES OF OXYCODONE ON PREVIOUS ADMISSION IN 06/2015. AMOXICILLIN (Verified Allergy, Mild, ITCHING, 06/15/15) itching CITRUS AND DERIVATIVES (Verified Allergy, Unknown, BREAKOUT, 06/15/15) breakout HYDROMORPHONE (Verified Allergy, Unknown, CHEST PAIN, 06/15/15) chest pain IODINE (Verified Allergy, Unknown, SWELLING, 06/15/15) swelling PENICILLINS (Verified Allergy, Unknown, ITCHING, 06/15/15) itching Uncoded Allergies: NYLON TAPE (Adverse Reaction, Intermediate, NIEVES THE SKIN, 06/21/15) Objective Vital Signs Last 24 Hour Vital Signs Date Time Temp Pulse Resp B/P Pulse Ox O2 Delivery O2 Flow Rate FiO2 06/21/16 11:53 97.7 55 21 118/45 97 Room Air 06/21/16 09:54 74 18 97 Room Air 06/21/16 09:51 74 18 97 Room Air 06/21/16 09:48 74 18 97 Room Air 06/21/16 09:46 74 16 96 Room Air 06/21/16 09:37 129/60 06/21/16 09:20 97.6 06/21/16 08:10 97.6 57 22 129/60 96 Room Air 06/21/16 04:00 97.2 58 18 132/54 97 Room Air 06/21/16 00:00 98.2 59 18 143/66 97 Room Air 06/20/16 20:00 98.1 61 18 143/60 100 Room Air Height (Feet): 5 Height (Inches): 2.00 Weight (Pounds): 143 General Appearance: no acute distress HEENT: mucous membranes moist Respiratory/Chest: lungs clear Cardiovascular: normal rate Abdomen: tender, other - old LLQ Extremities: no edema Neurologic/Psychiatric: alert, oriented x 3, responsive Current Medications Medications (Trade) Dose Ordered Sig/Julita Route PRN Reason Start Time Stop Time Status Last Admin Dose Admin Acetaminophen/ Hydrocodone Bitart ([place] 10/325) 1 ea Q6H PRN ORAL For Pain 06/17/16 21:00 06/24/16 20:59 06/21/16 08:13 Albuterol/ Ipratropium (DuoNeb 0.5-3(2.5)mg/3ml) 3 ml Q4H PRN HHN Shortness of Breath 06/17/16 21:00 06/22/16 20:59 Aspirin (Ecotrin) 81 mg DAILY ORAL 06/18/16 09:00 07/18/16 08:59 06/21/16 09:36 Ciprofloxacin (Cipro 500mg tab) 500 mg EVERY 12 HOURS ORAL 06/21/16 21:00 06/28/16 20:59 Dextrose/Sodium Chloride (D5 0.45% NS) 1,000 ml @ 50 mls/hr Q20H IV 06/17/16 21:30 07/17/16 21:29 06/21/16 06:06 Diphenhydramine HCl (Benadryl) 25 mg DAILYPRN PRN ORAL Itching 06/17/16 21:00 07/17/16 20:59 Fluticasone/ Vilanterol (Breo Ellipta 100/25) 1 DAILY INH 06/19/16 20:15 07/19/16 20:14 06/21/16 09:58 Gabapentin (Neurontin) 600 mg TID ORAL 06/18/16 09:00 07/18/16 08:59 06/21/16 14:00 Heparin Sodium (Porcine) (Heparin 5000 units/ml) 5,000 units EVERY 12 HOURS SUBQ 06/17/16 22:00 07/17/16 21:59 06/21/16 09:37 Losartan Potassium (Cozaar) 50 mg DAILY ORAL 06/18/16 09:00 07/18/16 08:59 06/21/16 09:37 Metronidazole (Flagyl) 500 mg Q8HR ORAL 06/21/16 22:00 06/28/16 21:59 Ondansetron HCl (Zofran) 4 mg Q6H PRN IVP Nausea & Vomiting 06/17/16 21:00 07/17/16 20:59 Pantoprazole 40 mg 40 mg EVERY 12 HOURS ORAL 06/17/16:00 07/17/16 20:59 06/21/16 09:36 Paroxetine HCl (Paxil) 30 mg BID ORAL 06/18/16 09:00 07/18/16 08:59 06/21/16 09:36 Temazepam (Restoril) 15 mg HSPRN PRN ORAL Insomnia 06/17/16 21:00 06/24/16 20:59 06/19/16 21:26 Tiotropium [place] (Spiriva Inhaler) 1 puff DAILY INH 06/18/16 09:00 07/18/16 08:59 06/21/16 09:54 Tizanidine HCl (Zanaflex) 4 mg Q6H PRN ORAL Muscle Spasm 06/17/16 21:00 07/17/16 20:59 Zolpidem Tartrate (Ambien) 5 mg QHS PRN ORAL Insomnia 06/18/16 21:00 07/18/16 20:59 06/20/16 20:55 LUKE CLARK Jun 21, 2016 15:01
[2016-06-21 16:08] VITALS: BP 115/57
[2016-06-21 20:00] VITALS: BP 124/48
[2016-06-21] MEDS: Ciprofloxacin 500mg tab ORAL SCH (21:15)
[2016-06-21] MEDS: metroNIDAZOLE 500mg tab ORAL SCH (22:05)
[2016-06-21] MEDS: Zolpidem 5mg tab ORAL PRN (22:05)
[2016-06-22] VITALS: BP 132/55
[2016-06-22] MEDS: D5 1/2NS 1,000 ML IV SCH ×2 (01:30→11:42)
--- NOTE | 2016-06-22 01:58 | Progress Note ---
DATE: 06/21/2016 INTERNAL MEDICINE PROGRESS NOTE SUBJECTIVE: The patient remains on antibiotics. Vital signs are stable. No fevers. Pain is improving. She is still has loose stool and vomiting. OBJECTIVE: NECK: Supple. LUNGS: Clear. ABDOMEN: Soft. Mild left lower quadrant tenderness. CARDIAC: Regular. Normal S1 and S2. EXTREMITIES: No edema. IMPRESSION: 1. Diverticulitis, slowly resolving. 2. Hypertension, controlled. PLAN: Continue current therapy. We will reassess for discharge over the next 24 hours. Rosendo Palacios M.D. DR: FAWN JOB#: [id number] CC:
[2016-06-22 04:00] VITALS: BP 135/53
--- NOTE | 2016-06-22 04:17 | Progress Note ---
DATE: 06/20/2016 SUBJECTIVE: Still with some diarrhea. Less abdominal pain. Some nausea. No vomiting today. Tolerating bland diet, mostly liquids. OBJECTIVE: VITAL SIGNS: Blood pressure 118/67, heart rate 77, and respiratory rate 21. NECK: Supple. LUNGS: Clear. CARDIAC: Regular rhythm and rate. Normal S1, S2. No murmur. ABDOMEN: Soft, tender in the left lower quadrant. No guarding. EXTREMITIES: No edema. IMPRESSION: 1. Diverticulitis. 2. Hypertension. 3. Hypovolemia. 4. Dehydration. 5. Protein-calorie malnutrition. PLAN: All improving with current regimen. We will observe as is. Rosendo Palacios M.D. DR: Daryl JOB#: [id number] CC:
[2016-06-22] MEDS: metroNIDAZOLE 500mg tab ORAL SCH ×3 (05:40→22:05)
[2016-06-22 07:28] LABS: EOSINOPHILS % (AUTO) 3.6 % (0.0-3.0); LYMPHOCYTES % (AUTO) 40.8 % (20.0-45.0); MEAN CORPUSCULAR HGB CONC 31.8 G/DL (32.0-36.0); MEAN CORPUSCULAR VOLUME 91 FL (80-99); MONOCYTES % (AUTO) 10.4 % (1.0-10.0); NEUTROPHILS % (AUTO) 43.2 % (45.0-75.0); PLATELET COUNT 370 K/UL (150-450); RED CELL DISTRIBUTION WIDTH 13.5 % (11.6-14.8); WHITE BLOOD COUNT 8.9 K/UL (4.8-10.8)
[2016-06-22 08:01] LABS: ALANINE AMINOTRANSFERASE 5 U/L (3-33); ALBUMIN/GLOBULIN RATIO 1.1 (1.0-2.7); ANION GAP 11 (5-15); ASPARTATE AMINO TRANSFERASE 10 U/L (5-40); CALCIUM 8.8 mg/dL (8.6-10.2); CARBON DIOXIDE 27 mEQ/L (20-30); CHLORIDE 104 mEQ/L (98-107); CREATININE 0.7 mg/dL (0.5-0.9); GLOMERULAR FILTRATION RATE > 60 mL/min (>60); HEMOLYSIS 2; POTASSIUM 4.8 mEQ/L (3.4-4.9); SODIUM 142 mEQ/L (135-145); TOTAL PROTEIN 5.9 g/dL (6.6-8.7)
[2016-06-22 08:06] VITALS: BP 134/64
[2016-06-22] MEDS: Breo Ellipta 100/25mcg - 14 dose INH SCH (08:44)
[2016-06-22] MEDS: Aspirin EC 81mg tab ORAL SCH (09:09)
[2016-06-22] MEDS: Losartan 50mg tab ORAL SCH (09:09)
[2016-06-22] MEDS: Ciprofloxacin 500mg tab ORAL SCH ×2 (09:10→20:56)
[2016-06-22] MEDS: Heparin 5000 units/ml inj SUBQ SCH ×2 (09:11→20:58)
[2016-06-22] MEDS: PARoxetine 10mg tab ORAL SCH ×2 (10:36→17:47)
--- NOTE | 2016-06-22 11:26 | Infectious Diseases Prog Note ---
Assessment/Plan Assessment/Plan antibiotics : ciprofloxacin, flagyl A 1. acute diverticulitis 2. leucocytosis 3. HTN P 1. continue ciprofloxacin, flagyl 2. will follow up cultures Subjective Constitutional: Denies: chills, fever Respiratory: Denies: dry cough, shortness of breath Gastrointestinal/Abdominal: Reports: nausea, vomiting - yesterday, Denies: diarrhea Musculoskeletal: Reports: pain - abdominal decreased Allergies: Coded Allergies: MORPHINE (Verified Allergy, Severe, Anaphylaxis, 06/18/16) PT RECEIVED 5 DOSES OF OXYCODONE ON PREVIOUS ADMISSION IN 06/2015. AMOXICILLIN (Verified Allergy, Mild, ITCHING, 06/15/15) itching CITRUS AND DERIVATIVES (Verified Allergy, Unknown, BREAKOUT, 06/15/15) breakout HYDROMORPHONE (Verified Allergy, Unknown, CHEST PAIN, 06/15/15) chest pain IODINE (Verified Allergy, Unknown, SWELLING, 06/15/15) swelling PENICILLINS (Verified Allergy, Unknown, ITCHING, 06/15/15) itching Uncoded Allergies: NYLON TAPE (Adverse Reaction, Intermediate, NIEVES THE SKIN, 06/21/15) Objective Vital Signs Last 24 Hour Vital Signs Date Time Temp Pulse Resp B/P Pulse Ox O2 Delivery O2 Flow Rate FiO2 06/22/16 09:09 134/64 06/22/16 08:40 78 18 96 Room Air 21 06/22/16 08:40 78 16 96 Room Air 06/22/16 08:40 78 16 96 Room Air 06/22/16 08:40 78 18 96 Room Air 21 06/22/16 08:06 98.4 63 15 134/64 98 Room Air 06/22/16 04:00 98.2 58 20 135/53 94 Room Air 06/22/16 00:00 97.7 65 20 132/55 95 Room Air 21 06/21/16 20:00 98.2 59 20 124/48 94 Room Air 06/21/16 16:08 98.0 62 19 115/57 97 Room Air 06/21/16 11:53 97.7 55 21 118/45 97 Room Air Height (Feet): 5 Height (Inches): 2.00 Weight (Pounds): 143 Respiratory/Chest: lungs clear Cardiovascular: normal rate, regular rhythm, no gallop/murmur Abdomen: tender - LLQ Extremities: no edema Laboratory Tests Test 06/22/16 06:19 White Blood Count 8.9 K/UL (4.8-10.8) Red Blood Count 3.70 M/UL (4.20-5.40) L Hemoglobin 10.7 G/DL (12.0-16.0) L Hematocrit 33.8 % (37.0-47.0) L Mean Corpuscular Volume 91 FL (80-99) Mean Corpuscular Hemoglobin 29.0 PG (27.0-31.0) Mean Corpuscular Hemoglobin Concent 31.8 G/DL (32.0-36.0) L Red Cell Distribution Width 13.5 % (11.6-14.8) Platelet Count 370 K/UL (150-450) Mean Platelet Volume 6.0 FL (6.5-10.1) L Neutrophils (%) (Auto) 43.2 % (45.0-75.0) L Lymphocytes (%) (Auto) 40.8 % (20.0-45.0) Monocytes (%) (Auto) 10.4 % (1.0-10.0) H Eosinophils (%) (Auto) 3.6 % (0.0-3.0) H Basophils (%) (Auto) 2.0 % (0.0-2.0) Sodium Level 142 mEQ/L (135-145) Potassium Level 4.8 mEQ/L (3.4-4.9) Chloride Level 104 mEQ/L (98-107) Carbon Dioxide Level 27 mEQ/L (20-30) Anion Gap 11 (5-15) Blood Urea Nitrogen 11 mg/dL (7-23) Creatinine 0.7 mg/dL (0.5-0.9) Estimat Glomerular Filtration Rate > 60 mL/min (>60) Glucose Level 94 mg/dL (74-106) Calcium Level 8.8 mg/dL (8.6-10.2) Magnesium Level 2.0 mg/dL (1.7-2.5) Total Bilirubin < 0.2 mg/dL (0.0-1.2) Aspartate Amino Transf (AST/SGOT) 10 U/L (5-40) Alanine Aminotransferase (ALT/SGPT) 5 U/L (3-33) Alkaline Phosphatase 72 U/L (35-104) Total Protein 5.9 g/dL (6.6-8.7) L Albumin 3.1 g/dL (3.5-5.2) L Globulin 2.8 g/dL Albumin/Globulin Ratio 1.1 (1.0-2.7) CASSIDY NOEL Jun 22, 2016 11:26
[2016-06-22 11:36] VITALS: BP 126/64
--- NOTE | 2016-06-22 13:44 | General Surgery Progress Note ---
General Surgery-Progress Note Subjective Symptoms: improved, pain absent, tolerating diet, voiding well, passing flatus , BM Objective Last 24 Hour Vital Signs Date Time Temp Pulse Resp B/P Pulse Ox O2 Delivery O2 Flow Rate FiO2 06/22/16 11:36 98.1 64 16 126/64 96 Room Air 06/22/16 09:09 134/64 06/22/16 08:40 78 18 96 Room Air 21 06/22/16 08:40 78 16 96 Room Air 06/22/16 08:40 78 16 96 Room Air 06/22/16 08:40 78 18 96 Room Air 21 06/22/16 08:06 98.4 63 15 134/64 98 Room Air 06/22/16 04:00 98.2 58 20 135/53 94 Room Air 06/22/16 00:00 97.7 65 20 132/55 95 Room Air 06/21/16 20:00 98.2 59 20 124/48 94 Room Air 06/21/16 16:08 98.0 62 19 115/57 97 Room Air I&O Intake and Output 06/21/16 06/22/16 19:00 07:00 Intake Total 1520 ml 450 ml Balance 1520 ml 450 ml Intake Oral 720 ml IV Total 800 ml 450 ml # Voids 1 1 Cardiovascular: RSR Respiratory: clear Abdomen: soft, non-tender, present bowel sounds Extremities: no edema Laboratory Tests Test 06/22/16 06:19 White Blood Count 8.9 K/UL (4.8-10.8) Red Blood Count 3.70 M/UL (4.20-5.40) L Hemoglobin 10.7 G/DL (12.0-16.0) L Hematocrit 33.8 % (37.0-47.0) L Mean Corpuscular Volume 91 FL (80-99) Mean Corpuscular Hemoglobin 29.0 PG (27.0-31.0) Mean Corpuscular Hemoglobin Concent 31.8 G/DL (32.0-36.0) L Red Cell Distribution Width 13.5 % (11.6-14.8) Platelet Count 370 K/UL (150-450) Mean Platelet Volume 6.0 FL (6.5-10.1) L Neutrophils (%) (Auto) 43.2 % (45.0-75.0) L Lymphocytes (%) (Auto) 40.8 % (20.0-45.0) Monocytes (%) (Auto) 10.4 % (1.0-10.0) H Eosinophils (%) (Auto) 3.6 % (0.0-3.0) H Basophils (%) (Auto) 2.0 % (0.0-2.0) Sodium Level 142 mEQ/L (135-145) Potassium Level 4.8 mEQ/L (3.4-4.9) Chloride Level 104 mEQ/L (98-107) Carbon Dioxide Level 27 mEQ/L (20-30) Anion Gap 11 (5-15) Blood Urea Nitrogen 11 mg/dL (7-23) Creatinine 0.7 mg/dL (0.5-0.9) Estimat Glomerular Filtration Rate > 60 mL/min (>60) Glucose Level 94 mg/dL (74-106) Calcium Level 8.8 mg/dL (8.6-10.2) Magnesium Level 2.0 mg/dL (1.7-2.5) Total Bilirubin < 0.2 mg/dL (0.0-1.2) Aspartate Amino Transf (AST/SGOT) 10 U/L (5-40) Alanine Aminotransferase (ALT/SGPT) 5 U/L (3-33) Alkaline Phosphatase 72 U/L (35-104) Total Protein 5.9 g/dL (6.6-8.7) L Albumin 3.1 g/dL (3.5-5.2) L Globulin 2.8 g/dL Albumin/Globulin Ratio 1.1 (1.0-2.7) Plan Problems: (1) Diverticulitis Assessment & Plan: 65 F acute uncomplicated diverticulitis. First episode as per patient. colonoscopy 2013 and negative. Doing well. Afebrile, HD stable, labs okay, exam benign -No acute surgical intervention necessary at this time -Can transition to oral Abx when ready for discharge -okay to d/c from surgical standpoint -can follow up with our group as an outpatient. office information given to patient Sincere Strange Jun 22, 2016 13:44
[2016-06-22 15:45] VITALS: BP 128/51
[2016-06-22 20:00] VITALS: BP 137/57
[2016-06-22] MEDS: Zolpidem 5mg tab ORAL PRN (20:56)
[2016-06-22] MEDS ORDERED: Tubing IV Secondary IV ONE (22:41)
[2016-06-22] MEDS ORDERED: D5 1/2NS 1000ml IV ONE (22:41)
[2016-06-23] VITALS: BP 121/58
--- NOTE | 2016-06-23 03:58 | Progress Note ---
DATE: 06/22/2016 INTERNAL MEDICINE PROGRESS NOTE SUBJECTIVE: Abdominal pain has decreased. Oral intake has improved. No fevers or chills. Still some nausea. No diarrhea. OBJECTIVE: VITAL SIGNS: Afebrile. Blood pressure 126/64, pulse 64, and respiratory rate 16. NECK: Supple. LUNGS: Clear. CARDIAC: Regular rhythm and rate. Normal S1 and S2 with a fourth heart sound. ABDOMEN: Left lower quadrant of abdomen has minimal tenderness. EXTREMITIES: With no edema. LABORATORY DATA: White count 8.9 and hemoglobin 10.7. BUN 11, creatinine 0.7, potassium 4.8, and bicarbonate 27. IMPRESSION: 1. Diverticulitis, improving. 2. History of benign colon polyps. 3. Rehydrated. 4. Calorie malnutrition moderate, now on protein supplement. 5. Hypertension, controlled. PLAN: 1. Transition from IV to oral antibiotics. 2. Oral pain control. 3. Mobilize. 4. Advance diet as tolerated including protein. 5. Discharge planning. Rosendo Palacios M.D. DR: TIARA JOB#: [id number] CC:
[2016-06-23 04:00] VITALS: BP 119/57
[2016-06-23] MEDS: metroNIDAZOLE 500mg tab ORAL SCH (05:27)
[2016-06-23 08:10] VITALS: BP 140/74
[2016-06-23 08:23] VITALS: BP 140/74
[2016-06-23] MEDS: Losartan 50mg tab ORAL SCH (08:23)
[2016-06-23] MEDS: Ciprofloxacin 500mg tab ORAL SCH (08:24)
[2016-06-23] MEDS: Aspirin EC 81mg tab ORAL SCH (08:24)
[2016-06-23] MEDS: PARoxetine 10mg tab ORAL SCH (08:24)
[2016-06-23] MEDS: Heparin 5000 units/ml inj SUBQ SCH (08:27)
[2016-06-23] MEDS ORDERED: CIPROFLOXACIN500 MG PO (08:37)
[2016-06-23] MEDS ORDERED: METRONIDAZOLE500 MG ORAL (08:39)
--- NOTE | 2016-06-26 11:53 | Discharge Summary ---
Discharge Summary Hospital Course Date of Admission Jun 17, 2016 at 20:48 Date of Discharge Jun 23, 2016 at 10:39 Admitting Diagnosis acute diverticulitis HPI Mel Yusuf is a 65 year old female who was admitted on Jun 17, 2016 at 20:48 for Acute Diverticulitis Hospital Course dc summary #[id number] Discharge Medications Continued Medications: Albuterol Sulfate* (Albuterol Sulfate Hhn*) 2.5 Mg/3 Ml Vial.neb 3 ML INH Q4H PRN for Shortness of Breath, EA Aspirin (Aspirin EC) 81 Mg Tabec 81 MG PO DAILY Ciclesonide (Alvesco) 6.1 Gm Hfa.aer.ad 6.1 GM IH DAILY Ciprofloxacin/Ciprofloxa Hcl (Ciprofloxacin Er 500 Mg Tablet) 500 Mg Tbmp.24hr 500 MG PO Q12HR for 5 Days, TAB Dexlansoprazole (Dexilant) 30 Mg Cap.dr.bp 30 MG ORAL DAILY, MG Diphenhydramine Hcl* (Benadryl*) 25 Mg Capsule 25 MG PO DAILY, #15 CAP Take 1 tablet by mouth every 6 hours as needed for itching/rash. Gabapentin (Neurontin) 300 Mg Cap 600 MG PO QID, #15 CAP Take 1 capsule by mouth three times a day. Hydrocodone Bit/Acetaminophen 10-325* ([place] 10-325*) 1 Each Tablet 1 TAB ORAL Q6H PRN for For Pain, #10 TAB 0 Refills PRN PAIN Losartan Potassium* (Losartan Potassium*) 50 Mg Tablet Unknown Dose ORAL DAILY, TAB Metronidazole* (Flagyl*) 500 Mg Tablet 500 MG ORAL THREE TIMES A DAY for 5 Days, #21 TAB 0 Refills Paroxetine Hcl* (Paxil*) 10 Mg Tablet 30 MG PO BID Promethazine Hcl (Promethazine Hcl*) 6.25 Mg/5 Ml Syrup 5 ML ORAL Q6H PRN for For Cough, #120 ML 0 Refills Tiotropium Strang* (Spiriva*) 18 Mcg Cap.w.dev 1 PUFF INH DAILY, EA Tizanidine Hcl* (Zanaflex*) 4 Mg Tablet 4 MG ORAL Q6HR PRN for Muscle Spasm, #90 TAB 0 Refills Zolpidem Tartrate* (Ambien*) 10 Mg Tablet 10 MG ORAL HS PRN for Insomnia, TAB Discharge Condition Upon Discharge: stable Discharge Disposition Patient was discharged to Home (01) Discharge Diagnoses: Discharge Instructions Discharge Instructions Special Instructions I have been assigned to complete a D/C Summary on this account. I was not involved in the patient management Yin Griffin NP (Vanchtein) Jun 26, 2016 11:53
--- NOTE | 2016-06-27 03:08 | Discharge Summary 2 SIG ---
DATE OF ADMISSION: 06/17/2016 DATE OF DISCHARGE: 06/23/2016 REASON FOR ADMISSION: This is a 65-year-old female with a history of hypertensive heart disease, asthma, COPD, osteoarthritis, status post knee replacement, presented with complaints of one week of lower abdominal pain. Left-sided lower abdominal pain initially intermittent, but became progressively more severe. The patient had some anorexia but no vomiting. No diarrhea. She denied fever. Denied chills. On evaluation in the emergency department, CT revealed pericolic fat infiltration and wall thickening of the ascending colon, suspicious for acute uncomplicated ascending diverticulitis. The patient was started on IV fluids, antibiotics, and admitted to the hospital for further management. ADMITTING DIAGNOSES: 1. Acute diverticulitis, possible early sepsis, chronic obstructive pulmonary disease/asthma. 2. Hypertension. HOSPITAL STAY: The patient was admitted. The patient was started on the IV fluids and antibiotics. Surgery consult and Infectious Disease consult were requested. The patient was started on clear liquid diet. Outpatient cardiac and asthma regimen was resumed. The patient was on empiric antibiotics, Levaquin and Flagyl, which was transitioned to oral upon discharge. Surgeon seen and evaluated the patient. This is her first episode of diverticulitis. At this point, no surgical intervention necessary. The surgeon had a lengthy discussion with the patient regarding diverticular disease. Given first and uncomplicated episode, there was no indication for surgical intervention at this time. However, if the patient continued to have similar episode, the patient may be in need of elective colectomy in the future. The patient may also have some complicated episode that may require surgical intervention in the future. office information provided to the patient for followup. The patient was started on clear liquid diet, slowly progressed, able to tolerate diet. Pain management was addressed. DVT and GI prophylaxis provided. Mild leukocytosis initially present resolved. The patient was stable for discharge. DISCHARGE DIAGNOSES: 1. Acute ascending uncomplicated diverticulitis. 2. Possibly early sepsis. 3. Chronic obstructive pulmonary disease/asthma. 4. Hypertension. DISCHARGE MEDICATIONS: See medication reconciliation list. DISCHARGE INSTRUCTIONS: The patient was discharged home. Prescription for antibiotics provided. The patient was educated on low-residue diet for first three weeks until diverticulitis completely resolves. The patient was just to follow up with the surgeon as outpatient. Demario Hdz M.D. I have been assigned to dictate discharge summary on this account and I was not involved in the patient's management. Yin Griffin (vanchtein) [id number] DR: Malissa JOB#: [id number] CC:
== END 2016-06-23 10:39 | disposition home or self-care (01) | DRG 872 ==
LOC: EMR 15:58 → EDBEDREQ 19:22 → 4E 20:48
DX: A41.9 Sepsis, unspecified organism (principal); E44.0 Moderate protein-calorie malnutrition; J44.9 Chronic obstructive pulmonary disease, unspecified; K57.92 Diverticulitis of intestine, part unspecified, without perforation or abscess without bleeding; I11.9 Hypertensive heart disease without heart failure; E46 Unspecified protein-calorie malnutrition; Z88.6 Allergy status to analgesic agent; Z88.1 Allergy status to other antibiotic agents; Z88.0 Allergy status to penicillin; Z88.8 Allergy status to other drugs, medicaments and biological substances; F17.200 Nicotine dependence, unspecified, uncomplicated; M17.12 Unilateral primary osteoarthritis, left knee; E86.0 Dehydration; E86.1 Hypovolemia
CPT/HCPCS: 36415; 74176; 80053; 81003; 82550; 82553; 83690; 83735; 83880; 84484; 85025; 85610; 85730; 93005; 94640

== ENCOUNTER 2016-07-13 10:17 | Emergency (ER) | payer MEDICARE, MEDICAID ==
[~2016-07-13] VITALS: Ht 162.6 cm; Wt 72.6 kg
[~2016-07-13 10:17] MED LIST changes: +ALBUTEROL2.5 MG/3 M INH; +ALVESCO6.1 G1 IH; +AMBIEN10 M1 ORAL; +CIPROFLOXACIN500 MG PO; +METRONIDAZOLE500 MG ORAL; +NORCO 10-325 T1 EACH ORAL; +SPIRIVA18 MCG INH
[2016-07-13 10:54] VITALS: BP 119/57
--- NOTE | 2016-07-13 11:03 | Emergency Room Report ---
History of Present Illness General Chief Complaint: Skin Rash/Abscess Source: Patient Present Illness HPI Patient presents with complaints of redness and swelling to the left forearm Patient reports it has been ongoing for the past several days Patient is emotionally upset reports that she recently lost a family member And wasn't quite sure exactly when this problem started Denies any fevers denies any chest pain or shortness of breath Patient reports pain to that area 6/10 Worse with touch Denies any discharge Allergies: Coded Allergies: MORPHINE (Verified Allergy, Severe, Anaphylaxis, 06/18/16) PT RECEIVED 5 DOSES OF OXYCODONE ON PREVIOUS ADMISSION IN 06/2015. AMOXICILLIN (Verified Allergy, Mild, ITCHING, 06/15/15) itching CITRUS AND DERIVATIVES (Verified Allergy, Unknown, BREAKOUT, 06/15/15) breakout HYDROMORPHONE (Verified Allergy, Unknown, CHEST PAIN, 06/15/15) chest pain IODINE (Verified Allergy, Unknown, SWELLING, 06/15/15) swelling PENICILLINS (Verified Allergy, Unknown, ITCHING, 06/15/15) itching Uncoded Allergies: NYLON TAPE (Adverse Reaction, Intermediate, NIEVES THE SKIN, 06/21/15) Patient History Past Medical History: see triage record Pertinent Family History: none Reviewed Nursing Documentation: PMH: Agreed, PSxH: Agreed Nursing Documentation-PMH Hx Cardiac Problems: No Hx Hypertension: No Hx Pacemaker: No Hx Asthma: No Hx COPD: No Hx Diabetes: No Hx Cancer: No Hx Gastrointestinal Problems: No Hx Dialysis: No History Of Psychiatric Problem: No Hx Neurological Problems: Yes - 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 Hx Cerebrovascular Accident: Yes Hx Seizures: No Review of Systems All Other Systems: negative except mentioned in HPI Physical Exam Vital Signs Date Time Temp Pulse Resp B/P Pulse Ox O2 Delivery O2 Flow Rate FiO2 07/13/16 10:19 98.2 78 16 124/76 98 Room Air Sp02 EP Interpretation: reviewed, normal General Appearance: well appearing, no apparent distress Head: normocephalic, atraumatic Eyes: left eye other - drooping of left eye, bilateral eye EOMI, bilateral eye PERRL ENT: hearing grossly normal, normal pharynx, TMs + canals normal, uvula midline Neck: full range of motion, supple, no meningismus, no bony tend Respiratory: lungs clear, normal breath sounds, no rhonchi, no respiratory distress, no retraction, no accessory muscle use Cardiovascular #1: normal peripheral pulses, regular rate, rhythm, no edema, no gallop, no JVD, no murmur Gastrointestinal: normal bowel sounds, non tender, soft, no mass, no organomegaly, non-distended, no guarding, no hernia, no pulsatile mass, no rebound Genitourinary: no CVA tenderness Musculoskeletal: other - Mild erythema to the left forearm approximately 2 x 3 cm, no obvious fluctuance Neurologic: oriented x3, responsive, director of software development III-XII nml as tested, motor strength/ tone normal, sensory intact Psychiatric: mood/affect normal Skin: other - As above Lymphatic: normal inspection, no adenopathy Medical Decision Making Diagnostic Impression: Primary Impression: Rash and other nonspecific skin eruption Additional Impression: Cellulitis ER Course Multiple differentials considered including but not limited to Cellulitis, abscess, DVT The general appearance appears to be in line with a likely local reaction possible insect bite versus previous IV insertion with cellulitis Patient's blood work is normal Patient maintains afebrile does not appear septic or toxic At this time stable for initial conservative outpatient trial, Labs Test 07/13/16 11:20 White Blood Count 8.0 K/UL (4.8-10.8) Red Blood Count 4.39 M/UL (4.20-5.40) Hemoglobin 12.7 G/DL (12.0-16.0) Hematocrit 39.4 % (37.0-47.0) Mean Corpuscular Volume 90 FL (80-99) Mean Corpuscular Hemoglobin 28.9 PG (27.0-31.0) Mean Corpuscular Hemoglobin Concent 32.2 G/DL (32.0-36.0) Red Cell Distribution Width 13.8 % (11.6-14.8) Platelet Count 315 K/UL (150-450) Mean Platelet Volume 6.0 FL (6.5-10.1) Neutrophils (%) (Auto) 43.1 % (45.0-75.0) Lymphocytes (%) (Auto) 46.2 % (20.0-45.0) Monocytes (%) (Auto) 6.4 % (1.0-10.0) Eosinophils (%) (Auto) 2.9 % (0.0-3.0) Basophils (%) (Auto) 1.4 % (0.0-2.0) Sodium Level 142 mEQ/L (135-145) Potassium Level 4.2 mEQ/L (3.4-4.9) Chloride Level 102 mEQ/L (98-107) Carbon Dioxide Level 25 mEQ/L (20-30) Anion Gap 15 (5-15) Blood Urea Nitrogen 12 mg/dL (7-23) Creatinine 0.5 mg/dL (0.5-0.9) Estimat Glomerular Filtration Rate > 60 mL/min (>60) Glucose Level 90 mg/dL (74-106) Calcium Level 9.0 mg/dL (8.6-10.2) Rhythm Strip Diag. Results EP Interpretation: yes Rate: 77 Rhythm: NSR, no PVC's, no ectopy Last Vital Signs Date Time Temp Pulse Resp B/P Pulse Ox O2 Delivery O2 Flow Rate FiO2 07/13/16 10:54 66 20 119/57 Room Air 07/13/16 10:19 98.2 98 Status: improved Disposition: HOME, SELF-CARE Condition: Improved Scripts Trimethoprim/Sulfamethoxazole 160/800* (BACTRIM DS TABLET*) 1 Each Tablet 1 TAB ORAL Q12H, #10 TAB 0 Refills Prov: HOWARD BLAIR D.O. 07/13/16 Additional Instructions: Patient is provided with the discharge instructions notified to follow up with primary doctor in the next 2-3 days otherwise return to the er with any worsening symptoms. Please note that this report is being documented using DRAGON technology. This can lead to erroneous entry secondary to incorrect interpretation by the dictating instrument. HOWARD BLAIR D.O. July 13, 2016 11:03
[2016-07-13 11:47] LABS: BASOPHILS % (AUTO) 1.4 % (0.0-2.0); EOSINOPHILS % (AUTO) 2.9 % (0.0-3.0); LYMPHOCYTES % (AUTO) 46.2 % (20.0-45.0); MEAN CORPUSCULAR HEMOGLOBIN 28.9 PG (27.0-31.0); MEAN CORPUSCULAR HGB CONC 32.2 G/DL (32.0-36.0); MEAN CORPUSCULAR VOLUME 90 FL (80-99); MONOCYTES % (AUTO) 6.4 % (1.0-10.0); NEUTROPHILS % (AUTO) 43.1 % (45.0-75.0); PLATELET COUNT 315 K/UL (150-450); RED BLOOD COUNT 4.39 M/UL (4.20-5.40); RED CELL DISTRIBUTION WIDTH 13.8 % (11.6-14.8)
[2016-07-13 12:05] LABS: ANION GAP 15 (5-15); CARBON DIOXIDE 25 mEQ/L (20-30); CHLORIDE 102 mEQ/L (98-107); CREATININE 0.5 mg/dL (0.5-0.9); GLOMERULAR FILTRATION RATE > 60 mL/min (>60); HEMOLYSIS 74; POTASSIUM 4.2 mEQ/L (3.4-4.9); SODIUM 142 mEQ/L (135-145)
[2016-07-13] MEDS ORDERED: BACTRIM DS TAB1 EAC1 ORAL (12:19)
[2016-07-13 12:27] VITALS: BP 138/70
== END 2016-07-13 12:30 | disposition home or self-care (01) ==
LOC: EMR 10:43
DX: R21 Rash and other nonspecific skin eruption (principal); L03.90 Cellulitis, unspecified; M79.89 Other specified soft tissue disorders; Z88.5 Allergy status to narcotic agent; Z88.0 Allergy status to penicillin; Z88.8 Allergy status to other drugs, medicaments and biological substances; Z91.018 Allergy to other foods; Z91.048 Other nonmedicinal substance allergy status; Z86.69 Personal history of other diseases of the nervous system and sense organs; Z86.73 Personal history of transient ischemic attack (TIA), and cerebral infarction without residual deficits
CPT/HCPCS: 36415; 80048; 85025; 87040; 99282

== ENCOUNTER 2016-09-26 10:05 | Outpatient (CLI) | payer MEDICARE, MEDICAID ==
[~2016-09-26 10:05] MED LIST changes: +BACTRIM DS TAB1 EAC1 ORAL
--- NOTE | 2016-09-26 12:03 | Diagnostic Imaging Report ---
Indication: Pain, radiculopathy Technique: Sagittal T1 FLAIR PROPELLER, sagittal T2 PROPELLOR, sagittal STIR, axial T2 PROPELLER, axial 3D COSMIC ASPIR images were obtained through the cervical spine Comparison: No comparison MRIs. Reference made to cervical spine radiographs dated 02/17/2006 Findings: The bony alignment is normal. Vertebral marrow signal is normal. Vertebral body heights are preserved. Disc spaces are preserved. The intrinsic cord signal is normal At C3-4, there is minimal circumferential annular bulge, which does not significantly narrow the spinal canal. The neural foramina are preserved. At C4-5, there is circumferential annular bulge, which results in borderline stenosis of the spinal canal, narrowing it to 9 mm on AP dimension. In addition, more focal protrusion on the right may impinge slightly on the right side of the cord. No significant neural foraminal stenosis is evident. At C5-6, there is mild circumferential annular bulge. This results in borderline narrowing of the spinal canal, to just under 10 mm. There is minimal narrowing of the right neural foramen due to facet hypertrophy. No significant left neural foraminal narrowing. At C6-7, there is mild circumferential annular bulge. This results in borderline narrowing of the spinal canal, just under 10 mm, and equivocal slight impingement centrally in the cord. Hypertrophy of the posterior longitudinal ligament extends caudad from the disc, but does not result in any significant spinal canal narrowing. No significant neural foraminal narrowing At the remaining disc levels, no significant disc bulge or protrusion, spinal stenosis, or neural foraminal stenosis. The included extraspinal soft tissues are unremarkable. Impression: Mild multilevel disc bulge, resulting in borderline spinal stenosis at C4-5, C5-6, and C6-7, most notable at C4-5. There may be slight impingement upon the right side of the cord at C4-5 by the asymmetrically bulging disc. No other evidence of significant neural impingement is demonstrated Minimal right C5-6 neural foraminal stenosis Other degenerative changes, as detailed a level by level basis above
== END 2016-09-26 12:05 | disposition home or self-care (01) ==
LOC: MRI 10:05
DX: M54.12 Radiculopathy, cervical region (principal)
CPT/HCPCS: 72141

== ENCOUNTER 2016-10-18 11:17 | Emergency (ER) | payer MEDICARE, MEDICAID ==
[~2016-10-18] VITALS: Ht 157.5 cm; Wt 66.2 kg
[2016-10-18] MEDS ORDERED: SIMVASTATIN40 MG ORAL (11:49)
[2016-10-18 11:50] VITALS: BP 118/71
[2016-10-18] MEDS ORDERED: NUCYNTA ER50 MG PO (11:50)
--- NOTE | 2016-10-18 12:01 | Emergency Room Report ---
History of Present Illness General Chief Complaint: Pain Source: Patient Present Illness HPI Patient presents with complaints of left leg pain Initially reports that she had felt discomfort in the calf area she now feels the pain in the back of the upper leg into the left hip area and some lower back region as well Denies any fall or trauma Patient had recent MRI imaging of her cervical spine Otherwise denies any acute fall or trauma denies any neuropathy However the pain is cramping in nature And worse with movement Denies any saddle paresthesia Allergies: Coded Allergies: MORPHINE (Verified Allergy, Severe, Anaphylaxis, 06/18/16) PT RECEIVED 5 DOSES OF OXYCODONE ON PREVIOUS ADMISSION IN 06/2015. AMOXICILLIN (Verified Allergy, Mild, ITCHING, 06/15/15) itching CITRUS AND DERIVATIVES (Verified Allergy, Unknown, BREAKOUT, 06/15/15) breakout HYDROMORPHONE (Verified Allergy, Unknown, CHEST PAIN, 06/15/15) chest pain IODINE (Verified Allergy, Unknown, SWELLING, 06/15/15) swelling PENICILLINS (Verified Allergy, Unknown, ITCHING, 06/15/15) itching Uncoded Allergies: NYLON TAPE (Adverse Reaction, Intermediate, NIEVES THE SKIN, 06/21/15) Patient History Past Medical History: see triage record Pertinent Family History: none Reviewed Nursing Documentation: PMH: Agreed, PSxH: Agreed Nursing Documentation-PMH Hx Cardiac Problems: No Hx Hypertension: No Hx Pacemaker: No Hx Asthma: No Hx COPD: Yes Hx Diabetes: No Hx Cancer: No Hx Gastrointestinal Problems: No Hx Dialysis: No Hx Neurological Problems: Yes - 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 Hx Cerebrovascular Accident: Yes - TIA Hx Seizures: No Review of Systems All Other Systems: negative except mentioned in HPI Physical Exam Vital Signs Date Time Temp Pulse Resp B/P Pulse Ox O2 Delivery O2 Flow Rate FiO2 10/18/16 11:23 98.8 76 20 119/73 100 Room Air Sp02 EP Interpretation: reviewed, normal General Appearance: mild distress - appeared uncomfortable Head: normocephalic, atraumatic Eyes: bilateral eye EOMI, bilateral eye PERRL ENT: hearing grossly normal, normal pharynx, TMs + canals normal, uvula midline Neck: full range of motion, supple, no meningismus, no bony tend Respiratory: lungs clear, normal breath sounds, no rhonchi, no respiratory distress, no retraction, no accessory muscle use Cardiovascular #1: normal peripheral pulses, regular rate, rhythm, no edema, no gallop, no JVD, no murmur Gastrointestinal: normal bowel sounds, non tender, soft, no mass, no organomegaly, non-distended, no guarding, no hernia, no pulsatile mass, no rebound Genitourinary: no CVA tenderness Musculoskeletal: other - Patient has discomfort to the left calf on palpation very minimal swelling is noted compared to the right side patient has also increased discomfort with any leg raising on the left side no obvious focality seen Neurologic: oriented x3, responsive, farm 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-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 nml as tested, sensory intact Psychiatric: mood/affect normal Skin: normal color, no rash, warm/dry, palpation normal Lymphatic: normal inspection, no adenopathy Medical Decision Making Diagnostic Impression: Primary Impression: Myalgia Additional Impression: Sciatic leg pain ER Course Given the patient's history examined the presentation multiple differentials are considered including but not limited to vascular, musculoskeletal, orthopedic, Given the patient's description I did obtain ultrasound which was negative for DVT patient's baseline blood work including potassium are normal Patient has done well with anti-inflammatory intervention in the ER I did make contact with the patient's primary physician patient has had recent MRI of C-spine And likely will benefit from L-spine MRI as well and is appropriate for close outpatient followup Labs Test 10/18/16 12:30 White Blood Count 9.4 K/UL (4.8-10.8) Red Blood Count 4.74 M/UL (4.20-5.40) Hemoglobin 14.2 G/DL (12.0-16.0) Hematocrit 43.7 % (37.0-47.0) Mean Corpuscular Volume 92 FL (80-99) Mean Corpuscular Hemoglobin 30.1 PG (27.0-31.0) Mean Corpuscular Hemoglobin Concent 32.6 G/DL (32.0-36.0) Red Cell Distribution Width 13.2 % (11.6-14.8) Platelet Count 373 K/UL (150-450) Mean Platelet Volume 6.2 FL (6.5-10.1) Neutrophils (%) (Auto) 46.0 % (45.0-75.0) Lymphocytes (%) (Auto) 42.9 % (20.0-45.0) Monocytes (%) (Auto) 6.9 % (1.0-10.0) Eosinophils (%) (Auto) 2.6 % (0.0-3.0) Basophils (%) (Auto) 1.7 % (0.0-2.0) Sodium Level 136 mEQ/L (135-145) Potassium Level 4.2 mEQ/L (3.4-4.9) Chloride Level 99 mEQ/L (98-107) Carbon Dioxide Level 26 mEQ/L (20-30) Anion Gap 11 (5-15) Blood Urea Nitrogen 12 mg/dL (7-23) Creatinine 0.6 mg/dL (0.5-0.9) Estimat Glomerular Filtration Rate > 60 mL/min (>60) Glucose Level 96 mg/dL (74-106) Calcium Level 9.2 mg/dL (8.6-10.2) CT/MRI/US Diagnostic Results CT/MRI/US Diagnostic Results : Impression Left lower extremity ultrasound: Negative for DVT Last Vital Signs Date Time Temp Pulse Resp B/P Pulse Ox O2 Delivery O2 Flow Rate FiO2 10/18/16 11:23 98.8 76 20 119/73 100 Room Air Status: improved Disposition: HOME, SELF-CARE Condition: Improved Additional Instructions: Patient is provided with the discharge instructions notified to follow up with primary doctor in the next 2-3 days otherwise return to the er with any worsening symptoms. Please note that this report is being documented using [facility] technology. This can lead to erroneous entry secondary to incorrect interpretation by the dictating instrument. HOWARD BLAIR D.O. Oct 18, 2016 12:01
[2016-10-18 13:00] LABS: BASOPHILS % (AUTO) 1.7 % (0.0-2.0); EOSINOPHILS % (AUTO) 2.6 % (0.0-3.0); LYMPHOCYTES % (AUTO) 42.9 % (20.0-45.0); MEAN CORPUSCULAR HEMOGLOBIN 30.1 PG (27.0-31.0); MEAN CORPUSCULAR HGB CONC 32.6 G/DL (32.0-36.0); MEAN CORPUSCULAR VOLUME 92 FL (80-99); MEAN PLATELET VOLUME 6.2 FL (6.5-10.1); MONOCYTES % (AUTO) 6.9 % (1.0-10.0); PLATELET COUNT 373 K/UL (150-450); RED BLOOD COUNT 4.74 M/UL (4.20-5.40); RED CELL DISTRIBUTION WIDTH 13.2 % (11.6-14.8); WHITE BLOOD COUNT 9.4 K/UL (4.8-10.8)
[2016-10-18] MEDS ORDERED: Ketorolac 30mg Inj IV ONE (13:00)
[2016-10-18 13:07] LABS: ANION GAP 11 (5-15); CALCIUM 9.2 mg/dL (8.6-10.2); CARBON DIOXIDE 26 mEQ/L (20-30); CHLORIDE 99 mEQ/L (98-107); CREATININE 0.6 mg/dL (0.5-0.9); GLOMERULAR FILTRATION RATE > 60 mL/min (>60); HEMOLYSIS 24; POTASSIUM 4.2 mEQ/L (3.4-4.9); SODIUM 136 mEQ/L (135-145)
[2016-10-18 13:23] VITALS: BP 110/54
--- NOTE | 2016-10-21 17:51 | Diagnostic Imaging Report ---
APPROVED REPORT CPT Code: 94588 Present Symptoms Comments: Swelling and pain LEFT LEG: Venous imaging reveals a patent deep venous system. There is no evidence of thrombus within the femoral, popliteal or tibial segments. The greater saphenous vein is also within normal limits. Doppler indicates normal spontaneous flow within these segments.
== END 2016-10-18 13:32 | disposition home or self-care (01) ==
LOC: EMR 12:00
DX: M79.1 Myalgia (principal); M54.32 Sciatica, left side; J44.9 Chronic obstructive pulmonary disease, unspecified; Z86.73 Personal history of transient ischemic attack (TIA), and cerebral infarction without residual deficits
CPT/HCPCS: 36415; 80048; 85025; 93971; 96374; 99284; J1885

== ENCOUNTER 2016-11-13 11:12 | Inpatient (IN) | payer MEDICARE, MEDICAID ==
[~2016-11-13] VITALS: Ht 157.5 cm; Wt 72.6 kg
[~2016-11-13 11:12] MED LIST changes: +NUCYNTA ER50 MG PO; +SIMVASTATIN40 MG ORAL
--- NOTE | 2016-11-13 11:36 | Emergency Room Report ---
History of Present Illness General Chief Complaint: Headache Source: Patient, Family Member Present Illness HPI Patient presents with complaints of general weakness And with sounds to be a possible syncope versus near syncopal episode Patient is somewhat groggy and lethargic Reports that she had procedures on both of her feet to remove toenails yesterday Today while sitting at the porch patient began feeling weak and lightheaded And help herself to the ground however it is unclear if she had any last of consciousness patient does complain of a chronic headache at this time however feels is mildly exacerbated diffuse Denies any chest pain or shortness of breath denies any vomiting or diarrhea denies any fevers or chills Allergies: Coded Allergies: MORPHINE (Verified Allergy, Severe, Anaphylaxis, 06/18/16) PT RECEIVED 5 DOSES OF OXYCODONE ON PREVIOUS ADMISSION IN 06/2015. AMOXICILLIN (Verified Allergy, Mild, ITCHING, 06/15/15) itching CITRUS AND DERIVATIVES (Verified Allergy, Unknown, BREAKOUT, 06/15/15) breakout HYDROMORPHONE (Verified Allergy, Unknown, CHEST PAIN, 06/15/15) chest pain IODINE (Verified Allergy, Unknown, SWELLING, 06/15/15) swelling PENICILLINS (Verified Allergy, Unknown, ITCHING, 06/15/15) itching Uncoded Allergies: NYLON TAPE (Adverse Reaction, Intermediate, NIEVES THE SKIN, 06/21/15) Patient History Past Medical History: see triage record Pertinent Family History: none Reviewed Nursing Documentation: PMH: Agreed, PSxH: Agreed Nursing Documentation-PMH Hx Cardiac Problems: No Hx Hypertension: No Hx Pacemaker: No Hx Asthma: No Hx COPD: Yes Hx Diabetes: No Hx Cancer: No Hx Gastrointestinal Problems: No Hx Dialysis: No Hx Neurological Problems: Yes - 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 Hx Cerebrovascular Accident: Yes - TIA Hx Seizures: No Review of Systems All Other Systems: negative except mentioned in HPI Physical Exam Vital Signs Date Time Temp Pulse Resp B/P (MAP) Pulse Ox O2 Delivery O2 Flow Rate FiO2 11/13/16 11:20 97.5 62 13 102/58 99 Room Air Sp02 EP Interpretation: reviewed, normal General Appearance: no apparent distress Head: normocephalic, atraumatic Eyes: bilateral eye PERRL, bilateral eye EOMI ENT: hearing grossly normal, normal pharynx, TMs + canals normal, uvula midline , other - Drooping of the right side of her face, this has been noted on previous visits Neck: full range of motion, supple, no meningismus, no bony tend Respiratory: lungs clear, normal breath sounds, no rhonchi, no respiratory distress, no retraction, no accessory muscle use Cardiovascular #1: normal peripheral pulses, regular rate, rhythm, no edema, no gallop, no JVD, no murmur Gastrointestinal: normal bowel sounds, non tender, soft, no mass, no organomegaly, non-distended, no guarding, no hernia, no pulsatile mass, no rebound Genitourinary: no CVA tenderness Musculoskeletal: other - Patient is generally weak and malaise, history professor are equal bilaterally, no focal deficit Neurologic: oriented x3, responsive, executive steward III-XII nml as tested, sensory intact Psychiatric: other - somewhat of a blunted affect Skin: normal color, no rash, warm/dry, palpation normal Lymphatic: normal inspection, no adenopathy Medical Decision Making Diagnostic Impression: Primary Impression: Syncope Additional Impression: Weakness ER Course Patient is a fairly complex patient with multiple differential to consideration including but not limited to cardiac cardiopulmonary and vascular emergencies Patient has no showing signs of any acute CVA CAT scan does not show any acute pathology Patient's blood work is at baseline levels Given the patient's presentation General lethargy and my concern for outpatient disposition patient was admitted for further care Labs Test 11/13/16 12:00 11/13/16 12:50 White Blood Count 8.0 K/UL (4.8-10.8) Red Blood Count 4.28 M/UL (4.20-5.40) Hemoglobin 13.0 G/DL (12.0-16.0) Hematocrit 40.2 % (37.0-47.0) Mean Corpuscular Volume 94 FL (80-99) Mean Corpuscular Hemoglobin 30.4 PG (27.0-31.0) Mean Corpuscular Hemoglobin Concent 32.3 G/DL (32.0-36.0) Red Cell Distribution Width 13.0 % (11.6-14.8) Platelet Count 342 K/UL (150-450) Mean Platelet Volume 5.8 FL (6.5-10.1) Neutrophils (%) (Auto) 65.6 % (45.0-75.0) Lymphocytes (%) (Auto) 24.2 % (20.0-45.0) Monocytes (%) (Auto) 6.5 % (1.0-10.0) Eosinophils (%) (Auto) 2.4 % (0.0-3.0) Basophils (%) (Auto) 1.3 % (0.0-2.0) Sodium Level 140 mEQ/L (135-145) Potassium Level 4.1 mEQ/L (3.4-4.9) Chloride Level 103 mEQ/L (98-107) Carbon Dioxide Level 26 mEQ/L (20-30) Anion Gap 11 (5-15) Blood Urea Nitrogen 13 mg/dL (7-23) Creatinine 0.6 mg/dL (0.5-0.9) Estimat Glomerular Filtration Rate > 60 mL/min (>60) Glucose Level 116 mg/dL (74-106) Calcium Level 8.7 mg/dL (8.6-10.2) Total Bilirubin 0.2 mg/dL (0.0-1.2) Aspartate Amino Transf (AST/SGOT) 48 U/L (5-40) Alanine Aminotransferase (ALT/SGPT) 27 U/L (3-33) Alkaline Phosphatase 90 U/L (35-104) Total Creatine Kinase 69 U/L (26-140) Creatine Kinase MB 1.8 ng/mL (< 3.8) Creatine Kinase MB Relative Index 2.6 Troponin I < 0.30 ng/mL (<=0.30) Total Protein 6.6 g/dL (6.6-8.7) Albumin 3.7 g/dL (3.5-5.2) Globulin 2.9 g/dL Albumin/Globulin Ratio 1.2 (1.0-2.7) Lipase 18 U/L (< 60) Urine Color Pale yellow Urine Appearance Clear Urine pH 6.5 (4.5-8.0) Urine Specific [place] 1.005 (1.005-1.035) Urine Protein Negative (NEGATIVE) Urine Glucose (UA) Negative (NEGATIVE) Urine Ketones Negative (NEGATIVE) Urine Occult Blood Negative (NEGATIVE) Urine Nitrite Negative (NEGATIVE) Urine Bilirubin Negative (NEGATIVE) Urine Urobilinogen Normal MG/DL (0.0-1.0) Urine Leukocyte Esterase Negative (NEGATIVE) EKG Diagnostic Results Rate: normal Rhythm: NSR ST Segments: no acute changes Rhythm Strip Diag. Results EP Interpretation: yes Rate: 67 Rhythm: NSR, no PVC's, no ectopy Chest X-Ray Diagnostic Results Chest X-Ray Diagnostic Results : Chest X-Ray Ordered: Yes Indication: Chest Pain EP Interpretation: Yes Interpretation: no consolidation, no effusion, no pneumothorax Impression: No acute disease Electronically Signed by: Deshawn Blair, DO CT/MRI/US Diagnostic Results CT/MRI/US Diagnostic Results : Impression CT head no acute disease Last Vital Signs Date Time Temp Pulse Resp B/P (MAP) Pulse Ox O2 Delivery O2 Flow Rate FiO2 11/13/16 11:20 97.5 62 13 102/58 99 Room Air Status: improved Disposition: ADMITTED INPATIENT Condition: Serious DESHAWN BLAIR D.O. Nov 13, 2016 11:36
[2016-11-13] MEDS ORDERED: PRAVASTATIN SOD20 M1 ORAL (11:47)
[2016-11-13] MEDS ORDERED: NUCYNTA50 MG PO (11:47)
[2016-11-13] MEDS ORDERED: FLECTOR1 EACH TP (11:47)
[2016-11-13] MEDS ORDERED: COMBIVENT RESPIM4 GM IH ×2 (11:47→14:09)
[2016-11-13] MEDS ORDERED: PLAVIX75 MG ORAL (11:47)
[2016-11-13 12:32] LABS: BASOPHILS % (AUTO) 1.3 % (0.0-2.0); EOSINOPHILS % (AUTO) 2.4 % (0.0-3.0); LYMPHOCYTES % (AUTO) 24.2 % (20.0-45.0); MEAN CORPUSCULAR HEMOGLOBIN 30.4 PG (27.0-31.0); MEAN CORPUSCULAR HGB CONC 32.3 G/DL (32.0-36.0); MEAN CORPUSCULAR VOLUME 94 FL (80-99); MEAN PLATELET VOLUME 5.8 FL (6.5-10.1); MONOCYTES % (AUTO) 6.5 % (1.0-10.0); NEUTROPHILS % (AUTO) 65.6 % (45.0-75.0); PLATELET COUNT 342 K/UL (150-450); RED BLOOD COUNT 4.28 M/UL (4.20-5.40)
[2016-11-13 12:46] LABS: TROPONIN I < 0.30 ng/mL (<=0.30)
[2016-11-13 12:49] LABS: ALANINE AMINOTRANSFERASE 27 U/L (3-33); ALBUMIN/GLOBULIN RATIO 1.2 (1.0-2.7); ANION GAP 11 (5-15); ASPARTATE AMINO TRANSFERASE 48 U/L (5-40); CALCIUM 8.7 mg/dL (8.6-10.2); CARBON DIOXIDE 26 mEQ/L (20-30); CHLORIDE 103 mEQ/L (98-107); CREATININE 0.6 mg/dL (0.5-0.9); GLOMERULAR FILTRATION RATE > 60 mL/min (>60); HEMOLYSIS 13; LIPASE 18 U/L (< 60); POTASSIUM 4.1 mEQ/L (3.4-4.9); SODIUM 140 mEQ/L (135-145); TOTAL PROTEIN 6.6 g/dL (6.6-8.7)
[2016-11-13 12:59] LABS: CKMB 1.8 ng/mL (< 3.8)
[2016-11-13 13:06] LABS: APPEARANCE,URINE CLEAR; KETONES,URINE NEGATIVE (NEGATIVE); LEUKOCYTE ESTERASE ,URINE NEGATIVE (NEGATIVE); NITRITE,URINE NEGATIVE (NEGATIVE); PH,URINE 6.5 (4.5-8.0); PROTEIN,URINE NEGATIVE (NEGATIVE); UROBILINOGEN,URINE NORMAL MG/DL (0.0-1.0)
--- NOTE | 2016-11-13 13:10 | Diagnostic Imaging Report ---
Indication: Altered mental status Technique: Contiguous 5 mm thick transaxial imaging of the head obtained in a Siemens Sensation [address] scanner. Soft tissue and bone windows generated. Total Dose length Product (DLP): [address] Dose Index Volume (CTDIvol): 70.38, 0.15 mGy Comparison: 12/02/11 Findings: Minimal, patchy, nonspecific, white matter hypoattenuation is noted throughout the brain consistent with chronic small vessel disease. Asymmetric more focal area of low attenuation involving right olivares radiata demonstrated on the right side. This is likely billing representative of an old white matter infarct There is no midline shift, edema, acute hemorrhage, mass effect, or abnormal extra-axial fluid collections. Bones and extra osseous soft tissues are unremarkable. Impression: No acute intracranial bleed, mass effect or edema. Nonspecific white matter hypoattenuation probably due to chronic small vessel disease. 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 is accredited by the [employer] and the scans are performed using dose optimization techniques as appropriate to a performed exam including Automatic Exposure control.
[2016-11-13 13:15] VITALS: BP 125/60
--- NOTE | 2016-11-13 13:31 | Diagnostic Imaging Report ---
Indication: Chest Comparison: 11/30/15 A single view chest radiograph was obtained. Findings: Cardiomediastinal appearance is within normal limits for age. Minimal subsegmental atelectasis demonstrated at the left lung base. Pulmonary vascularity is appropriate. The diaphragmatic contour is smooth and costophrenic angles are sharp. No pleural effusions are identified. The bones are osteopenic. Impression: No acute findings
[2016-11-13 13:47] VITALS: BP 129/60
[2016-11-13] MEDS ORDERED: BREO ELLIPTA 11 EACH IH (14:09)
[2016-11-13] MEDS ORDERED: Zolpidem 5mg tab ORAL PRN (15:00)
[2016-11-13 16:52] VITALS: BP 133/88
[2016-11-13] MEDS: PARoxetine 10mg tab ORAL SCH (17:48)
[2016-11-13 20:00] VITALS: BP 136/89
[2016-11-13] MEDS: Heparin 5000 units/ml inj SUBQ SCH (20:41)
[2016-11-14] VITALS: BP 151/75
[2016-11-14 04:00] VITALS: BP 156/76
[2016-11-14 08:23] LABS: TROPONIN I < 0.30 ng/mL (<=0.30)
[2016-11-14 08:25] VITALS: BP 101/58
[2016-11-14] MEDS: Losartan 50mg tab ORAL SCH (08:43)
[2016-11-14] MEDS: PARoxetine 10mg tab ORAL SCH ×2 (08:43→17:28)
[2016-11-14] MEDS: Heparin 5000 units/ml inj SUBQ SCH ×2 (08:45→21:01)
[2016-11-14] MEDS: Breo Ellipta 100/25mcg - 14 dose INH SCH (09:43)
[2016-11-14 12:38] VITALS: BP 125/57
--- NOTE | 2016-11-14 12:40 | Consultation ---
DATE OF CONSULTATION: 11/13/2016 CARDIOLOGY CONSULTATION CONSULTING PHYSICIAN: Rosendo Palacios M.D. REQUESTING PHYSICIAN: Demario Hdz M.D. REASON FOR CONSULTATION: Syncope. History Of Present Illness: History is known to me from prior care. This 65-year-old -[place] female has a known history of cerebrovascular disease with occluded carotid artery on the right. She has adequate left-sided collaterals. She has been evaluated as an outpatient and felt to be a nonsurgical candidate due to the anatomy. The patient has had some podiatric surgery yesterday and today felt increasingly weak, lethargic, and possibly passed out. She was lightheaded and had to help herself to the ground, but is not sure if she lost consciousness. She has had a headache that was worse during the past day. She has not had any worsening weakness or noted loss of bladder or bowel function. Past Medical History: Hypertension, COPD, right carotid occlusion, and history of cerebrovascular accident. MEDICATIONS: Reviewed and reconciled. Allergies: The patient's allergies include morphine, hydromorphone, iodine, and penicillin as well as nylon tape. Review Of Systems: No fevers or chills. No upper respiratory infection. No cough. No sputum production. No leg swelling. No dysuria. No change in bowel habits. No history of diabetes or thyroid impairment. PHYSICAL EXAMINATION: Vital signs: Afebrile, blood pressure 102/58, pulse 62, and respiratory rate 13. HEENT: Mild facial asymmetry. Conjunctivae are pink. Sclerae are anicteric. Oropharynx is clear. NECK: Supple. LUNGS: Clear. Cardiac: Regular rhythm and rate. Normal S1 and S2 with a fourth heart sound. ABDOMEN: Soft and nontender. EXTREMITIES: Good pulses. No edema. Neurologic: Reveals symmetric strength. No asterixis and no confusion. Diagnostic data: CAT scan of the brain revealed no acute process. EKG with sinus rhythm, no acute abnormalities. Laboratory data: White count is 8 and hemoglobin 13. Potassium is 4.1, BUN 13, and creatinine 0.6. IMPRESSION: 1. Near syncopal episode. 2. Possible transient ischemic attack in the setting of known cerebrovascular disease. 3. Possible vasovagally mediated event due to recent podiatric surgery. 4. Possible orthostatic syncope due to antiHTN meds. PLAN: 1. Cardiac monitoring. 2. Neuro checks. 3. Maintain adequate hydration. 4. Continue anti-platelet therapy. 5. Avoid tight blood pressure control. 6. Carotid Duplex. 7. Consider MRI/MRA. Rosendo Palacios M.D. DR: Usman JOB#: [id number] CC: JAYLIN
--- NOTE | 2016-11-14 14:47 | Cardiology Report ---
APPROVED REPORT EKG Measurement Heart [id number] MI [id number] Normal sinus rhythm Nonspecific ST and T wave abnormality Abnormal ECG
[2016-11-14] MEDS: Norco 10mg/325mg tab ORAL PRN (14:54)
[2016-11-14 16:21] VITALS: BP 139/58
--- NOTE | 2016-11-14 17:31 | History and Physical Report ---
DATE OF ADMISSION: 11/13/2016 CHIEF COMPLAINT: Syncope. History of Present Illness: The patient is a 65-year-old female, well known to me. She has a history of peripheral artery disease, stroke, [place] palsy, COPD, osteoarthritis, and hypertension. She presented from home after a syncopal episode. According to the patient, she was well. She apparently had an ingrown toenail. Procedure done in the morning of admission, she did receive a dose of Tylenol No.3, felt fine but on driving home noticed that she felt a little dizzy. She got to her daughter's house and upon getting out of a car while walking up to the front door she felt as if she was going to pass out, she sat down, she leaned over a bench, and her daughter came out. According to the daughter, she did appear to be unconscious. The patient denies any chest pain. She denies any heart palpitations. She states her p.o. intake has been good. On evaluation in the emergency room, CT scan of the head showed no acute infarct. The patient has been started on IV hydration and is now admitted for further evaluation and care. Initial enzymes have been negative. PAST MEDICAL HISTORY: As above. PAST SURGICAL HISTORY: Includes vascular surgery on the leg. CURRENT MEDICATIONS: Reconciled and reviewed. Allergies: The patient has multiple drug allergies including penicillin, citrus, Dilaudid, iodine, morphine, nylon tape. Social History: The patient is a prior heavy smoker. No alcohol. No drugs. FAMILY HISTORY: Noncontributory. Review Of Systems: General: Positive generalized weakness and malaise. HEENT: No headaches or visual changes. Cardiopulmonary: Positive chest pain. No shortness of breath. Gastrointestinal: No nausea or vomiting. Genitourinary: No urgency or frequency. Musculoskeletal: No joint pain or swelling. Neurologic: No evidence of seizures. PHYSICAL EXAMINATION: Vital Signs: Temperature 98 degrees, blood pressure 156/76, pulse 74, and respirations 20. General: The patient is well-developed female, in no apparent distress. She is awake, alert, and oriented x4. HEENT: Pupils are equal, round, and reactive to light. Sclerae anicteric. Oropharynx clear. NECK: Supple. HEART: Regular rate and rhythm. LUNGS: Clear. ABDOMEN: Soft, nontender, and nondistended. EXTREMITIES: Without clubbing, cyanosis, or edema. Laboratory And Diagnostic Data: White count was 8, hemoglobin 13, and platelet count 342,000. Sodium 140, potassium 4.1, and creatinine was 0.6. Troponins negative x2. Urine was clear. CT scan of the head showed chronic changes. Assessment: This is a pleasant female admitted with complaints of syncope. 1. Syncope, unclear etiology. 2. Chest pain. 3. History of carotid stenosis. 4. Peripheral artery disease. 5. Hypertension. 6. Chronic obstructive pulmonary disease. Plan: Aggressive hydration. Monitor orthostatics. Cardiology consultation. Check her carotid duplex and an echo. PT and OT evaluations. Wound care for foot. Demario Hdz M.D. DR: CHANDLER JOB#: [id number] CC:
[2016-11-14] MEDS ORDERED: Bacitracin Oint UD TOPIC PRN (18:00)
[2016-11-14 20:00] VITALS: BP 123/58
[2016-11-15] VITALS (7 sets, daily range): BP systolic 127–145; BP diastolic 50–92
--- NOTE | 2016-11-15 05:15 | Progress Note ---
DATE: 11/14/2016 CARDIOLOGY PROGRESS NOTE Subjective: The patient does not feel 100% improved yet. She still feels weak, but she has no focal findings or complaints. She denies difficulty chewing, salivation, weakness, nausea, vomiting, or headache. She is ambulating as usual. The patient's carotid duplex is unchanged from prior studies confirming intracranial occlusion of 100% on the right side. The left side remains patent without any significant stenosis. OBJECTIVE: Vital Signs: Blood pressure 125/57, pulse 72, respiratory rate 18, and afebrile. HEENT: Mild facial asymmetry unchanged from baseline. NECK: Supple. No bruits. LUNGS: Clear. Cardiac: Regular rhythm and rate. Normal S1 and S2 with a fourth heart sound. ABDOMEN: Soft. EXTREMITIES: No edema. Gait is unimpaired. IMPRESSION: 1. Unclear etiology for near syncopal episode, likely vasovagal mediated due to hypovolemia and possibly transient cerebrovascular hypoperfusion. The patient has a known right carotid occlusion and prior stroke. Her current clinical parameters are unchanged from despite her baseline. 2. Recommend to continue anti-platelet therapy. 3. Maintain adequate hydration. 4. Avoid tight blood pressure control. 5. Avoid hypovolemia. 6. Physical and occupational therapy assessments. 7. Continue statin drug for anti-lipid benefits. Rosendo Palacios M.D. DR: YANG JOB#: [id number] CC:
[2016-11-15] MEDS: Breo Ellipta 100/25mcg - 14 dose INH SCH (08:19)
--- NOTE | 2016-11-15 08:30 | General Progress Note ---
Assessment/Plan Problem List: (1) Carotid stenosis ICD Codes: I65.29 - Occlusion and stenosis of unspecified carotid artery SNOMED: 24302383 (2) Hemoptysis ICD Codes: R04.2 - Hemoptysis SNOMED: 71757903 (3) Syncope ICD Codes: R55 - Syncope and collapse SNOMED: 032716542 Status: stable, progressing Assessment/Plan sputum cultures ct chest ivf antiplt rx- monitor for worsening hemoptysis pt/ot resp care cough rx Subjective ROS Limited/Unobtainable: No Constitutional: Reports: malaise, weakness HEENT: Reports: no symptoms Cardiovascular: Reports: chest pain Respiratory: Reports: cough Gastrointestinal/Abdominal: Reports: no symptoms Genitourinary: Reports: no symptoms Neurologic/Psychiatric: Reports: pre-existing deficit Endocrine: Reports: no symptoms Hematologic/Lymphatic: Reports: no symptoms Allergies: Coded Allergies: MORPHINE (Verified Allergy, Severe, Anaphylaxis, 11/14/16) PT RECEIVED 5 DOSES OF OXYCODONE ON PREVIOUS ADMISSION IN 06/2015. As per conversation with the patient. Patient denies having allergy reaction with [place]. She said " I have been taking [place] before and i have no allergy reactions. AMOXICILLIN (Verified Allergy, Mild, ITCHING, 06/15/15) itching CITRUS AND DERIVATIVES (Verified Allergy, Unknown, BREAKOUT, 06/15/15) breakout HYDROMORPHONE (Verified Allergy, Unknown, CHEST PAIN, 06/15/15) chest pain IODINE (Verified Allergy, Unknown, SWELLING, 06/15/15) swelling PENICILLINS (Verified Allergy, Unknown, ITCHING, 06/15/15) itching Uncoded Allergies: NYLON TAPE (Adverse Reaction, Intermediate, NIEVES THE SKIN, 06/21/15) All Systems: reviewed and negative except above Subjective c/o chest pain and cough +hemoptysis no dizziness. carotid duplex unchanged. Objective Last 24 Hour Vital Signs Date Time Temp Pulse Resp B/P (MAP) Pulse Ox O2 Delivery O2 Flow Rate FiO2 11/15/16 08:20 72 18 95 Nasal Cannula 2.0 28 11/15/16 08:19 69 18 94 Nasal Cannula 2.0 28 11/15/16 04:00 54 11/15/16 04:00 97.0 53 20 140/50 95 Room Air 11/15/16 00:00 57 11/15/16 00:00 97.0 58 20 132/63 95 Room Air 11/14/16 20:00 97.9 59 20 123/58 93 Nasal Cannula 2.0 11/14/16 20:00 59 11/14/16 16:21 98.2 66 18 139/58 97 Nasal Cannula 2.0 11/14/16 16:00 68 11/14/16 12:38 98.6 72 18 125/57 97 Nasal Cannula 2.0 11/14/16 12:00 68 11/14/16 09:45 69 18 94 Nasal Cannula 2.0 28 11/14/16 09:42 69 18 94 Nasal Cannula 2.0 28 11/14/16 08:43 156/76 Height (Feet): 5 Height (Inches): 2.00 Weight (Pounds): 160 General Appearance: WD/WN, alert Neck: supple Cardiovascular: normal rate, regular rhythm Respiratory/Chest: chest wall non-tender, lungs clear, normal breath sounds, no respiratory distress, no accessory muscle use Abdomen: normal bowel sounds, non tender, soft, no organomegaly, abnormal bowel sounds Edema: no edema noted Arm (L), no edema noted Arm (R), no edema noted Leg (L), no edema noted Leg (R), no edema noted Pedal (L), no edema noted Pedal (R), no edema noted Generalized JOEY CASTILLO Nov 15, 2016 08:30
[2016-11-15] MEDS: Losartan 50mg tab ORAL SCH (09:23)
[2016-11-15] MEDS: Norco 10mg/325mg tab ORAL PRN (09:23)
[2016-11-15] MEDS: PARoxetine 10mg tab ORAL SCH ×2 (09:24→17:23)
[2016-11-15] MEDS: Heparin 5000 units/ml inj SUBQ SCH ×2 (09:26→20:41)
[2016-11-15] MEDS: Promethazine/Codeine 5ml UD ORAL PRN (10:28)
[2016-11-15] MEDS: DuoNeb 0.5-3(2.5)mg/3ml neb HHN SCH ×4 (10:30→19:21)
--- NOTE | 2016-11-15 11:08 | Diagnostic Imaging Report ---
Indication: Chest pain Technique: Continuous helical transaxial imaging of the chest was obtained from the thoracic inlet to the upper abdomen. No intravenous contrast was administered. Coronal 2-D reformats were also obtained. Total Dose length Product (DLP): [address] Dose Index Volume (CTDIvol): 20 mGy Comparison: none Findings: There is a moderate size hiatal hernia. There are staple lines in the stomach consistent with prior gastric bypass surgery. Cholecystectomy also noted. Diverticula are demonstrated within the colon. A patchy consolidation and/or atelectasis noted at the medial right lung base and left lung base. Please correlate clinically. No pleural effusion seen. No adenopathy definitely identified. Axilla. Clear. Impression: Basilar infiltrate versus atelectasis right worse on left. Status post gastric bypass Status post cholecystectomy Atherosclerotic vascular disease Diverticulosis of the colon. The CT scanner at [facility] is accredited by the [employer] and the scans are performed using dose optimization techniques as appropriate to a performed exam including Automatic Exposure control.
[2016-11-15] MEDS: cefTRIAXone 1gm/D5W 55ml IVPB SCH ×2 (20:24)
[2016-11-16] MEDS: DuoNeb 0.5-3(2.5)mg/3ml neb HHN SCH ×4 (01:00→20:07)
[2016-11-16 04:01] VITALS: BP 131/58
--- NOTE | 2016-11-16 05:45 | Progress Note ---
DATE: 11/15/2016 CARDIOLOGY PROGRESS NOTE Subjective: The patient complains of cough and congestion with hemoptysis. She is not short of breath. She has not had fevers or chills. PHYSICAL EXAMINATION: Vital Signs: Blood pressure 145/55, pulse 68, and respirations 19. Afebrile. Oxygen saturation on 3 liters is 98%. LUNGS: Bilateral breath sounds with rhonchi. Heart: Regular rhythm and rate. Normal S1 and S2 with a fourth heart sound. ABDOMEN: Soft. EXTREMITIES: No edema. NEUROLOGIC: No new neurologic deficits. Diagnostic Data: CAT scan of the chest revealed basilar infiltrate versus atelectasis, right greater than left. IMPRESSION: 1. Pneumonia. 2. Hemoptysis. 3. Recent syncopal episodes. 4. Chronic right carotid occlusion. 5. Cerebrovascular disease. 6. Hypertension. PLAN: 1. Cautiously maintain anti-platelet therapy. 2. Observe for worsening hemoptysis. 3. Inhaled bronchodilators. 4. Sputum cultures. 5. Start IV antibiotics empirically. 6. Continue anti-lipid therapy. 7. Avoid hypotension. 8. Respiratory hygiene. Rosendo Palacios M.D. DR: SNEHA JOB#: [id number] CC:
[2016-11-16 06:56] LABS: BASOPHILS % (AUTO) 1.2 % (0.0-2.0); EOSINOPHILS % (AUTO) 3.9 % (0.0-3.0); LYMPHOCYTES % (AUTO) 38.6 % (20.0-45.0); MEAN CORPUSCULAR HEMOGLOBIN 31.8 PG (27.0-31.0); MEAN CORPUSCULAR HGB CONC 33.6 G/DL (32.0-36.0); MEAN CORPUSCULAR VOLUME 95 FL (80-99); MEAN PLATELET VOLUME 5.9 FL (6.5-10.1); MONOCYTES % (AUTO) 8.4 % (1.0-10.0); NEUTROPHILS % (AUTO) 47.9 % (45.0-75.0); PLATELET COUNT 287 K/UL (150-450); RED BLOOD COUNT 3.55 M/UL (4.20-5.40); RED CELL DISTRIBUTION WIDTH 13.2 % (11.6-14.8)
[2016-11-16 07:12] LABS: ALANINE AMINOTRANSFERASE 16 U/L (3-33); ALBUMIN/GLOBULIN RATIO 1.1 (1.0-2.7); ANION GAP 9 (5-15); ASPARTATE AMINO TRANSFERASE 15 U/L (5-40); CALCIUM 8.6 mg/dL (8.6-10.2); CARBON DIOXIDE 27 mEQ/L (20-30); CHLORIDE 108 mEQ/L (98-107); CREATININE 0.6 mg/dL (0.5-0.9); GLOMERULAR FILTRATION RATE > 60 mL/min (>60); HEMOLYSIS 1; MAGNESIUM 1.9 mg/dL (1.7-2.5); SODIUM 144 mEQ/L (135-145); TOTAL PROTEIN 5.9 g/dL (6.6-8.7)
[2016-11-16 08:00] VITALS: BP 150/100
[2016-11-16] MEDS: Breo Ellipta 100/25mcg - 14 dose INH SCH (08:42)
--- NOTE | 2016-11-16 08:50 | General Progress Note ---
Assessment/Plan Problem List: (1) Carotid stenosis ICD Codes: I65.29 - Occlusion and stenosis of unspecified carotid artery SNOMED: 31259489 (2) Hemoptysis ICD Codes: R04.2 - Hemoptysis SNOMED: 14060752 (3) Syncope ICD Codes: R55 - Syncope and collapse SNOMED: 486462650 Status: stable, progressing Assessment/Plan sputum cultures iv abx ivf pulm eval antiplt rx- monitor for worsening hemoptysis pt/ot resp care cough rx Subjective ROS Limited/Unobtainable: No Constitutional: Reports: malaise, weakness HEENT: Reports: no symptoms Cardiovascular: Reports: no symptoms Respiratory: Reports: cough, shortness of breath, wheezing Gastrointestinal/Abdominal: Reports: no symptoms Genitourinary: Reports: no symptoms Neurologic/Psychiatric: Reports: no symptoms Endocrine: Reports: no symptoms Hematologic/Lymphatic: Reports: no symptoms Allergies: Coded Allergies: MORPHINE (Verified Allergy, Severe, Anaphylaxis, 11/14/16) PT RECEIVED 5 DOSES OF OXYCODONE ON PREVIOUS ADMISSION IN 06/2015. As per conversation with the patient. Patient denies having allergy reaction with [place]. She said " I have been taking [place] before and i have no allergy reactions. AMOXICILLIN (Verified Allergy, Mild, ITCHING, 06/15/15) itching CITRUS AND DERIVATIVES (Verified Allergy, Unknown, BREAKOUT, 06/15/15) breakout HYDROMORPHONE (Verified Allergy, Unknown, CHEST PAIN, 06/15/15) chest pain IODINE (Verified Allergy, Unknown, SWELLING, 06/15/15) swelling PENICILLINS (Verified Allergy, Unknown, ITCHING, 06/15/15) itching Uncoded Allergies: NYLON TAPE (Adverse Reaction, Intermediate, NIEVES THE SKIN, 06/21/15) All Systems: reviewed and negative except above Subjective c/o chest pain and cough +hemoptysis Ct shows pna/infiltrate still sob/ruiz Objective Last 24 Hour Vital Signs Date Time Temp Pulse Resp B/P (MAP) Pulse Ox O2 Delivery O2 Flow Rate FiO2 11/16/16 08:43 76 18 96 Nasal Cannula 2.0 28 11/16/16 08:43 75 18 96 Nasal Cannula 2.0 28 11/16/16 08:00 97.5 67 20 150/100 94 Room Air 11/16/16 07:24 Nasal Cannula 2.0 28 9/15/17 07:23 Nasal Cannula 2.0 11/16/16 04:01 98.1 63 17 131/58 95 Nasal Cannula 3.0 11/16/16 04:00 57 11/16/16 01:30 Nasal Cannula 2.0 11/16/16 01:30 2.0 28 11/16/16 00:00 62 11/15/16 23:49 97.7 65 18 143/92 98 Nasal Cannula 3.0 11/15/16 20:00 67 11/15/16 19:52 98.6 68 19 145/55 98 Nasal Cannula 3.0 11/15/16 19:31 28 11/15/16 19:30 79 18 98 Nasal Cannula 2.0 28 11/15/16 19:23 64 18 98 Nasal Cannula 2.0 28 11/15/16 16:00 61 11/15/16 16:00 97.7 62 20 131/61 100 Nasal Cannula 2.0 11/15/16 13:44 81 18 98 Nasal Cannula 2.0 28 11/15/16 13:34 78 18 95 Nasal Cannula 2.0 28 11/15/16 13:34 28 11/15/16 12:00 98.0 54 20 127/61 98 Nasal Cannula 2.0 11/15/16 12:00 66 11/15/16 10:22 97.5 11/15/16 09:23 143/63 Laboratory Tests 11/16/16 04:40: White Blood Count 7.0, Red Blood Count 3.55L, Hemoglobin 11.3L, Hematocrit 33.6L , Mean Corpuscular Volume 95, Mean Corpuscular Hemoglobin 31.8H, Mean Corpuscular Hemoglobin Concent 33.6, Red Cell Distribution Width 13.2, Platelet Count 287, Mean Platelet Volume 5.9L, Neutrophils (%) (Auto) 47.9, Lymphocytes ( %) (Auto) 38.6, Monocytes (%) (Auto) 8.4, Eosinophils (%) (Auto) 3.9H, Basophils (%) (Auto) 1.2, Sodium Level 144, Potassium Level 4.0, Chloride Level 108H, Carbon Dioxide Level 27, Anion Gap 9, Blood Urea Nitrogen 8, Creatinine 0.6, Estimat Glomerular Filtration Rate > 60, Glucose Level 86, Calcium Level 8.6, Magnesium Level 1.9, Total Bilirubin 0.2, Aspartate Amino Transf (AST/SGOT ) 15, Alanine Aminotransferase (ALT/SGPT) 16, Alkaline Phosphatase 77, Total Protein 5.9L, Albumin 3.1L, Globulin 2.8, Albumin/Globulin Ratio 1.1 Height (Feet): 5 Height (Inches): 2.00 Weight (Pounds): 160 Objective General Appearance: WD/WN, alert Neck: supple Cardiovascular: normal rate, regular rhythm Respiratory/Chest: chest wall non-tender, lungs clear, normal breath sounds, no respiratory distress, no accessory muscle use Abdomen: normal bowel sounds, non tender, soft, no organomegaly, abnormal bowel sounds Edema: no edema noted Arm (L), no edema noted Arm (R), no edema noted Leg (L), no edema noted Leg (R), no edema noted Pedal (L), no edema noted Pedal (R), no edema noted Generalized JOEY CASTILLO Nov 16, 2016 08:50
[2016-11-16] MEDS: Losartan 50mg tab ORAL SCH (08:57)
[2016-11-16] MEDS: PARoxetine 10mg tab ORAL SCH ×2 (08:58→18:17)
[2016-11-16] MEDS: Heparin 5000 units/ml inj SUBQ SCH ×2 (08:59→21:13)
[2016-11-16] MEDS: Promethazine/Codeine 5ml UD ORAL PRN ×2 (10:08→21:12)
--- NOTE | 2016-11-16 11:44 | Physician Query ---
PLEASE COMPLETE DOCUMENT BEFORE SIGNING Dear Dr. Estes Date: _11/16/2016 E Business Manager/CDS Name: _Meghana Gaviria MD__ E Business Manager/CDS Phone No.: _Ext# [phone] Exercise your independent professional judgment when responding to the query. Questions asked do not imply a particular answer is desired or expected. We greatly appreciate your clarification on this issue. CLINICAL DOCUMENTATION STATES: "Pneumonia" as per Dr. Palacios's Progress Note on 11/16/2016 Clarification is needed for one (or more) of the following conditions in order to accurately assign the "present on admission' indicator. Please choose the answer that best indicates whether the associated condition was present at the time of the order for inpatient admission. Thank you. DIAGNOSIS:_Pneumonia Was the _Pneumonia__ Present on admission? [ ] YES [ ] NO [ ] Clinically Undeterminable Please also document in your Progress Notes and/or Discharge Summary and indicate if the condition was present on admission. Rosendo Palacios M.D. Date & Time [facility]
[2016-11-16 12:00] VITALS: BP 147/71
[2016-11-16 16:00] VITALS: BP 113/48
[2016-11-16] MEDS: Norco 10mg/325mg tab ORAL PRN (18:21)
[2016-11-16 20:00] VITALS: BP 145/60
[2016-11-16] MEDS: cefTRIAXone 1gm/D5W 55ml IVPB SCH ×2 (20:02)
[2016-11-17] VITALS: BP 158/78
[2016-11-17] MEDS: DuoNeb 0.5-3(2.5)mg/3ml neb HHN SCH ×4 (01:00→19:22)
--- NOTE | 2016-11-17 03:30 | Consultation ---
DATE OF CONSULTATION: 11/16/2016 PULMONARY CONSULTATION CONSULTING PHYSICIAN: Sandeep Roberosn M.D. REASON FOR EVALUATION: Abnormal CAT scan and hemoptysis. History Of Present Illness: This is a 65-year-old female, admitted to the hospital on 11/13/2016. The patient was seen and admitted by Dr. Hdz to the [facility] for concern of carotid artery occlusion. The patient also had hemoptysis and syncope. I was called to assist and evaluate the patient's overall pulmonary problems. The patient has a history of peripheral arterial disease as well as history of COPD, history of arthritis. The patient apparently was dizzy upon getting out of her daughter's house. The patient had a workup including a CT of the head. The patient had been started on IV hydration and had been started on antiplatelet agents. She had some mild hemoptysis. I was asked to evaluate and recommend further. The patient denies any sputum production at this time. The patient has no history of recent smoking from reviewing chart and discussion with the patient. Past Medical History: The patient's past medical history is notable for hypertension, COPD, right carotid artery occlusion, and history of CVA. MEDICATIONS: Reviewed and reconciled. ALLERGIES: Noted and they are multiple. Review Of Systems: All 10 points reviewed, otherwise noncontributory, with the exception of the above. Social History: Reviewed. The patient does have a heavy smoking history prior, but none recent. No alcohol. No drugs. PHYSICAL EXAMINATION: GENERAL: A well-developed female, comfortable at present. Vital Signs: Blood pressure 147/71, heart rate 59, temperature 97 degrees, and O2 saturation 96% on 2 liters. HEENT: Normocephalic and atraumatic. The patient's extraocular movements are grossly intact. Oropharynx is moist. The patient has no evidence of bleeding at this time. The patient has no epistaxis. LUNGS: Moderate air entry. Some crackles at the bases. Cardiac: S1 and S2. Regular rate and rhythm without murmurs, rubs, or gallops. ABDOMEN: Soft, nontender. No distention. EXTREMITIES: No cyanosis or clubbing. No significant edema. Laboratory Data: Reviewed. White count 7, hemoglobin 11, hematocrit 33, and platelets of 287,000. Chemistry is noted, appeared to be essentially normal. The patient's lab data was reviewed. Sputum Gram stain is pending. CAT scan of the chest shows evidence of probable atelectasis. IMPRESSION: 1. Basilar atelectasis without significant pneumonia. 2. Hemoptysis, possibly due to patient's use of antiplatelet agents. 3. Syncope and collapse. 4. Chronic obstructive pulmonary disease per history. Recommendations: Continue same. Monitor clinically and recommend further. Monitor degree of hemoptysis. Consider discontinuation of heparin if hemoptysis persists. Consider bronchoscopy if hemoptysis continues. Care discussed with the patient and updated her son about care and management. Sandeep Roberson M.D. DR: Michelle JOB#: [id number] CC:
[2016-11-17 04:00] VITALS: BP 147/66
--- NOTE | 2016-11-17 07:30 | Progress Note ---
DATE: 11/16/2016 CARDIOLOGY PROGRESS NOTE Subjective: The patient has less shortness of breath, but still with cough, congestion, and some hemoptysis. No chest pain. No focal weakness. No dizziness. She ambulated around the room with no tendencies to fall. OBJECTIVE: Vital Signs: Blood pressure 113/48 to 145/60, heart rate 67, respiratory rate 20, and afebrile. Oxygen saturation on 2 liters 96% to 99%. LUNGS: Few rhonchi at bases. HEART: Regular rhythm and rate. Normal S1 and S2. ABDOMEN: Soft. EXTREMITIES: No edema. Baseline facial asymmetry. No other abnormalities. Laboratory Data: White count 7 and hemoglobin 11. Potassium 4, BUN 8, and creatinine 0.6. Albumin 3.1. IMPRESSION: 1. Pneumonia. 2. Vasovagal syncope. 3. Chronic right carotid occlusion. 4. Cerebrovascular disease. 5. Mild protein-calorie malnutrition. 6. Hypertension. PLAN: 1. Maintain adequate hydration. 2. Protein supplement. 3. Anti-platelet and anti-lipid therapy. 4. DVT prophylaxis. 5. Continue empiric antibiotics. 6. Follow up sputum study. 7. Check natriuretic peptide assay. 8. Continue bronchodilators. Rosendo Palacios M.D. DR: YANG JOB#: [id number] CC: JAYLIN
[2016-11-17 08:08] LABS: EOSINOPHILS % (AUTO) 3.7 % (0.0-3.0); LYMPHOCYTES % (AUTO) 38.2 % (20.0-45.0); MEAN CORPUSCULAR HEMOGLOBIN 30.2 PG (27.0-31.0); MEAN CORPUSCULAR VOLUME 94 FL (80-99); MEAN PLATELET VOLUME 5.5 FL (6.5-10.1); MONOCYTES % (AUTO) 7.7 % (1.0-10.0); NEUTROPHILS % (AUTO) 48.4 % (45.0-75.0); PLATELET COUNT 325 K/UL (150-450); RED BLOOD COUNT 3.84 M/UL (4.20-5.40); RED CELL DISTRIBUTION WIDTH 12.9 % (11.6-14.8); WHITE BLOOD COUNT 7.5 K/UL (4.8-10.8)
[2016-11-17] MEDS: Losartan 50mg tab ORAL SCH (08:13)
[2016-11-17] MEDS: PARoxetine 10mg tab ORAL SCH ×2 (08:14→17:17)
[2016-11-17] MEDS: Heparin 5000 units/ml inj SUBQ SCH ×2 (08:16→20:48)
[2016-11-17 08:19] VITALS: BP 157/65
[2016-11-17 08:37] LABS: ALANINE AMINOTRANSFERASE 13 U/L (3-33); ALBUMIN/GLOBULIN RATIO 1.1 (1.0-2.7); ANION GAP 11 (5-15); ASPARTATE AMINO TRANSFERASE 13 U/L (5-40); CALCIUM 8.6 mg/dL (8.6-10.2); CARBON DIOXIDE 26 mEQ/L (20-30); CHLORIDE 107 mEQ/L (98-107); CREATININE 0.6 mg/dL (0.5-0.9); GLOMERULAR FILTRATION RATE > 60 mL/min (>60); HEMOLYSIS 1; MAGNESIUM 1.8 mg/dL (1.7-2.5); POTASSIUM 4.1 mEQ/L (3.4-4.9); SODIUM 144 mEQ/L (135-145); TOTAL PROTEIN 6.3 g/dL (6.6-8.7)
--- NOTE | 2016-11-17 09:06 | Pulmonology Progress Note ---
Assessment/Plan Assessment/Plan IMPRESSION: 1. Basilar atelectasis without significant pneumonia. 2. Hemoptysis, possibly due to patient's use of antiplatelet agents. 3. Syncope and collapse. 4. Chronic obstructive pulmonary disease per history 5. Respiratory infection PLAN sputum with GNR IV rocephin respiratory care oxygen followup imaging bronchoscopy as outpatient if needed notes no clear OLD history- will obtain outpatient PFT. Subjective Allergies: Coded Allergies: MORPHINE (Verified Allergy, Severe, Anaphylaxis, 11/14/16) PT RECEIVED 5 DOSES OF OXYCODONE ON PREVIOUS ADMISSION IN 06/2015. As per conversation with the patient. Patient denies having allergy reaction with [place]. She said " I have been taking [place] before and i have no allergy reactions. AMOXICILLIN (Verified Allergy, Mild, ITCHING, 06/15/15) itching CITRUS AND DERIVATIVES (Verified Allergy, Unknown, BREAKOUT, 06/15/15) breakout HYDROMORPHONE (Verified Allergy, Unknown, CHEST PAIN, 06/15/15) chest pain IODINE (Verified Allergy, Unknown, SWELLING, 06/15/15) swelling PENICILLINS (Verified Allergy, Unknown, ITCHING, 06/15/15) itching Uncoded Allergies: NYLON TAPE (Adverse Reaction, Intermediate, NIEVES THE SKIN, 06/21/15) Subjective comfortable scant hemoptysis on oxygen Objective Last 24 Hour Vital Signs Date Time Temp Pulse Resp B/P (MAP) Pulse Ox O2 Delivery O2 Flow Rate FiO2 11/17/16 08:19 97.3 64 19 157/65 98 Nasal Cannula 2.0 11/17/16 08:13 157/65 11/17/16 04:00 60 11/17/16 04:00 97.5 63 20 147/66 94 Nasal Cannula 2.0 28 11/17/16 01:56 Nasal Cannula 2.0 11/17/16 01:56 2.0 28 11/17/16 00:00 98.2 65 20 158/78 94 Nasal Cannula 2.0 28 11/17/16 00:00 67 11/16/16 20:18 72 18 99 Nasal Cannula 2.0 28 11/16/16 20:08 28 11/16/16 20:08 75 18 99 Nasal Cannula 2.0 28 11/16/16 20:00 97.9 67 20 145/60 99 Nasal Cannula 2.0 28 11/16/16 20:00 70 11/16/16 16:00 75 11/16/16 16:00 97.9 68 21 113/48 99 Nasal Cannula 2.0 11/16/16 13:17 69 18 98 Nasal Cannula 2.0 28 11/16/16 13:12 28 11/16/16 13:12 68 18 96 Nasal Cannula 2.0 28 11/16/16 12:00 97.7 75 20 147/71 94 Room Air 11/16/16 12:00 59 Intake and Output 11/17/16 11/18/16 19:00 07:00 Intake Total 285 ml Balance 285 ml Intake Oral 285 ml Objective WDWN NAD clear breath sounds bilaterally with some rhonchi [id number] without MRG NABS nontender no HSM no CCE nonfocal Microbiology Date/Time Source Procedure Growth Status 11/15/16 08:50 Sputum Gram Stain - Final Resulted 11/15/16 08:50 Sputum Culture - Preliminary Gram Negative Joe Resulted Laboratory Tests 11/17/16 07:20: White Blood Count 7.5, Red Blood Count 3.84L, Hemoglobin 11.6L, Hematocrit 36.3L , Mean Corpuscular Volume 94, Mean Corpuscular Hemoglobin 30.2, Mean Corpuscular Hemoglobin Concent 32.0, Red Cell Distribution Width 12.9, Platelet Count 325, Mean Platelet Volume 5.5L, Neutrophils (%) (Auto) 48.4, Lymphocytes ( %) (Auto) 38.2, Monocytes (%) (Auto) 7.7, Eosinophils (%) (Auto) 3.7H, Basophils (%) (Auto) 2.0, Sodium Level 144, Potassium Level 4.1, Chloride Level 107, Carbon Dioxide Level 26, Anion Gap 11, Blood Urea Nitrogen 8, Creatinine 0.6, Estimat Glomerular Filtration Rate > 60, Glucose Level 80, Calcium Level 8.6, Magnesium Level 1.8, Total Bilirubin 0.3, Aspartate Amino Transf (AST/SGOT ) 13, Alanine Aminotransferase (ALT/SGPT) 13, Alkaline Phosphatase 78, Pro-B- Type Natriuretic Peptide 467H, Total Protein 6.3L, Albumin 3.4L, Globulin 2.9, Albumin/Globulin Ratio 1.1 Current Medications Medications (Trade) Dose Ordered Sig/Julita Route PRN Reason Start Time Stop Time Status Last Admin Dose Admin Acetaminophen/ Hydrocodone Bitart ([place] 10/325) 1 ea Q4H PRN ORAL For Pain 11/14/16 12:45 11/21/16 12:44 11/16/16 18:21 Albuterol/ Ipratropium (DuoNeb 0.5-3(2.5)mg/3ml) 3 ml Q6HRT HHN 11/15/16 10:30 11/20/16 10:29 11/16/16 20:07 Bacitracin (Bacitracin) 1 applic DAILYPRN PRN TOPIC DRESSING CHANGE 11/14/16 18:00 12/14/16 17:59 Ceftriaxone Sodium 1 gm/ Dextrose 55 ml @ 110 mls/hr Q24H IVPB 11/15/16 20:00 11/22/16 19:59 11/16/16 20:02 Diphenhydramine HCl (Benadryl) 50 mg DAILYPRN PRN ORAL Itching 11/13/16 18:30 12/13/16 18:29 Fluticasone/ Vilanterol (Breo Ellipta 100/25) 1 DAILY INH 11/14/16 09:00 12/14/16 08:59 11/16/16 08:42 Gabapentin (Neurontin) 600 mg QID ORAL 11/13/16 18:00 12/13/16 17:59 11/17/16 08:14 Heparin Sodium (Porcine) (Heparin 5000 units/ml) 5,000 units EVERY 12 HOURS SUBQ 11/13/16 21:00 12/13/16 20:59 11/17/16 08:16 Losartan Potassium (Cozaar) 50 mg DAILY ORAL 11/14/16 09:00 12/14/16 08:59 11/17/16 08:13 Pantoprazole (Protonix) 40 mg ACBREAKFAST ORAL 11/16/16 06:30 12/14/16 08:59 11/17/16 06:38 Paroxetine HCl (Paxil) 30 mg BID ORAL 11/13/16 18:00 12/13/16 17:59 11/17/16 08:14 Pravastatin Sodium (Pravachol) 20 mg BEDTIME ORAL 11/13/16 21:00 12/13/16 20:59 11/16/16 21:12 Promethazine HCl/ Codeine (Phenergan with Codeine) 5 ml Q4H PRN ORAL For Cough 11/15/16 10:30 12/15/16 10:29 11/16/16 21:12 Sodium Chloride 1,000 ml @ 75 mls/hr [id number] IV 11/13/16 21:00 12/13/16 20:59 11/17/16 05:00 Tizanidine HCl (Zanaflex) 4 mg Q6H PRN ORAL Muscle Spasm 11/13/16 15:00 12/13/16 14:59 11/14/16 06:45 Zolpidem Tartrate (Ambien) 5 mg HSPRN PRN ORAL Insomnia 11/13/16 15:00 11/20/16 14:59 MARSHALL RUGGIERO Nov 17, 2016 09:06
--- NOTE | 2016-11-17 09:45 | General Progress Note ---
Assessment/Plan Problem List: (1) Carotid stenosis ICD Codes: I65.29 - Occlusion and stenosis of unspecified carotid artery SNOMED: 00708379 (2) Hemoptysis ICD Codes: R04.2 - Hemoptysis SNOMED: 03222288 (3) Syncope ICD Codes: R55 - Syncope and collapse SNOMED: 395204922 Status: stable, progressing Assessment/Plan sputum cultures iv abx ivf pulm eval appreciated antiplt rx- monitor for worsening hemoptysis pt/ot resp care cough rx outpt bronch Subjective ROS Limited/Unobtainable: No Constitutional: Reports: malaise, weakness HEENT: Reports: no symptoms Cardiovascular: Reports: no symptoms Respiratory: Reports: cough, shortness of breath Gastrointestinal/Abdominal: Reports: no symptoms Genitourinary: Reports: no symptoms Neurologic/Psychiatric: Reports: pre-existing deficit Endocrine: Reports: no symptoms Hematologic/Lymphatic: Reports: no symptoms Allergies: Coded Allergies: MORPHINE (Verified Allergy, Severe, Anaphylaxis, 11/14/16) PT RECEIVED 5 DOSES OF OXYCODONE ON PREVIOUS ADMISSION IN 06/2015. As per conversation with the patient. Patient denies having allergy reaction with [place]. She said " I have been taking [place] before and i have no allergy reactions. AMOXICILLIN (Verified Allergy, Mild, ITCHING, 06/15/15) itching CITRUS AND DERIVATIVES (Verified Allergy, Unknown, BREAKOUT, 06/15/15) breakout HYDROMORPHONE (Verified Allergy, Unknown, CHEST PAIN, 06/15/15) chest pain IODINE (Verified Allergy, Unknown, SWELLING, 06/15/15) swelling PENICILLINS (Verified Allergy, Unknown, ITCHING, 06/15/15) itching Uncoded Allergies: NYLON TAPE (Adverse Reaction, Intermediate, NIEVES THE SKIN, 06/21/15) All Systems: reviewed and negative except above Subjective still with sob and chest tightness. less hemoptysis. Objective Last 24 Hour Vital Signs Date Time Temp Pulse Resp B/P (MAP) Pulse Ox O2 Delivery O2 Flow Rate FiO2 11/17/16 08:19 97.3 64 19 157/65 98 Nasal Cannula 2.0 11/17/16 08:13 157/65 11/17/16 04:00 60 11/17/16 04:00 97.5 63 20 147/66 94 Nasal Cannula 2.0 28 11/17/16 01:56 Nasal Cannula 2.0 11/17/16 01:56 2.0 28 11/17/16 00:00 98.2 65 20 158/78 94 Nasal Cannula 2.0 28 11/17/16 00:00 67 11/16/16 20:18 72 18 99 Nasal Cannula 2.0 28 11/16/16 20:08 28 11/16/16 20:08 75 18 99 Nasal Cannula 2.0 28 11/16/16 20:00 97.9 67 20 145/60 99 Nasal Cannula 2.0 28 11/16/16 20:00 70 11/16/16 16:00 75 11/16/16 16:00 97.9 68 21 113/48 99 Nasal Cannula 2.0 11/16/16 13:17 69 18 98 Nasal Cannula 2.0 28 11/16/16 13:12 28 11/16/16 13:12 68 18 96 Nasal Cannula 2.0 28 11/16/16 12:00 97.7 75 20 147/71 94 Room Air 11/16/16 12:00 59 Intake and Output 11/17/16 11/18/16 19:00 07:00 Intake Total 285 ml Balance 285 ml Intake Oral 285 ml Laboratory Tests 11/17/16 07:20: White Blood Count 7.5, Red Blood Count 3.84L, Hemoglobin 11.6L, Hematocrit 36.3L , Mean Corpuscular Volume 94, Mean Corpuscular Hemoglobin 30.2, Mean Corpuscular Hemoglobin Concent 32.0, Red Cell Distribution Width 12.9, Platelet Count 325, Mean Platelet Volume 5.5L, Neutrophils (%) (Auto) 48.4, Lymphocytes ( %) (Auto) 38.2, Monocytes (%) (Auto) 7.7, Eosinophils (%) (Auto) 3.7H, Basophils (%) (Auto) 2.0, Sodium Level 144, Potassium Level 4.1, Chloride Level 107, Carbon Dioxide Level 26, Anion Gap 11, Blood Urea Nitrogen 8, Creatinine 0.6, Estimat Glomerular Filtration Rate > 60, Glucose Level 80, Calcium Level 8.6, Magnesium Level 1.8, Total Bilirubin 0.3, Aspartate Amino Transf (AST/SGOT ) 13, Alanine Aminotransferase (ALT/SGPT) 13, Alkaline Phosphatase 78, Pro-B- Type Natriuretic Peptide 467H, Total Protein 6.3L, Albumin 3.4L, Globulin 2.9, Albumin/Globulin Ratio 1.1 Height (Feet): 5 Height (Inches): 2.00 Weight (Pounds): 160 Objective General Appearance: WD/WN, alert Neck: supple Cardiovascular: normal rate, regular rhythm Respiratory/Chest: chest wall non-tender, lungs clear, normal breath sounds, no respiratory distress, no accessory muscle use Abdomen: normal bowel sounds, non tender, soft, no organomegaly, abnormal bowel sounds Edema: no edema noted Arm (L), no edema noted Arm (R), no edema noted Leg (L), no edema noted Leg (R), no edema noted Pedal (L), no edema noted Pedal (R), no edema noted Generalized JOEY CASTILLO Nov 17, 2016 09:45
[2016-11-17 11:38] VITALS: BP 129/53
[2016-11-17] MEDS: Breo Ellipta 100/25mcg - 14 dose INH SCH (11:45)
[2016-11-17] MEDS ORDERED: Tubing IV Secondary IV ONE (16:18)
[2016-11-17 16:37] VITALS: BP 120/61
[2016-11-17] MEDS: Promethazine/Codeine 5ml UD ORAL PRN (17:27)
[2016-11-17 20:00] VITALS: BP 148/68
[2016-11-17] MEDS: cefTRIAXone 1gm/D5W 55ml IVPB SCH ×2 (20:44)
[2016-11-18] VITALS: BP 151/65
[2016-11-18] MEDS: DuoNeb 0.5-3(2.5)mg/3ml neb HHN SCH ×4 (01:00→20:18)
[2016-11-18] MEDS: Promethazine/Codeine 5ml UD ORAL PRN ×3 (03:59→23:26)
[2016-11-18 04:00] VITALS: BP 169/74
--- NOTE | 2016-11-18 06:45 | Progress Note ---
DATE: 11/17/2016 CARDIOLOGY PROGRESS NOTE Subjective: Cough is diminished slightly and there is only scant hemoptysis noted. She has less congestion with the respiratory bronchodilator treatments. OBJECTIVE: Vital Signs: Blood pressure 157/65, heart rate 64, and respiratory rate 19. LUNGS: Few rhonchi. HEART: Regular rhythm and rate. Normal S1 and S2. ABDOMEN: Soft. EXTREMITIES: No edema. IMPRESSION: 1. Atelectasis and community-acquired pneumonia with hemoptysis. 2. Vasovagal mediated syncopal episode. 3. Possible chronic obstructive pulmonary disease. 4. Hypertensive heart disease. 5. Chronic right carotid occlusion. PLAN: 1. Antibiotics. 2. Bronchodilators. 3. Nasal oxygen. 4. Titrate antihypertensive. 5. Continue anti-platelet and anti-lipid drugs. Rosendo Palacios M.D. DR: YANG JOB#: [id number] CC:
--- NOTE | 2016-11-18 07:41 | General Progress Note ---
Assessment/Plan Problem List: (1) Carotid stenosis ICD Codes: I65.29 - Occlusion and stenosis of unspecified carotid artery SNOMED: 72524142 (2) Hemoptysis ICD Codes: R04.2 - Hemoptysis SNOMED: 32589548 (3) Syncope ICD Codes: R55 - Syncope and collapse SNOMED: 037132365 Status: stable, not improved Assessment/Plan sputum cultures pending ID eval iv abx cxr pulm eval appreciated antiplt rx- monitor for worsening hemoptysis pt/ot resp care/rx cough rx increase outpt bronch Subjective ROS Limited/Unobtainable: No Constitutional: Reports: malaise, weakness HEENT: Reports: no symptoms Cardiovascular: Reports: no symptoms Respiratory: Reports: cough, sputum Gastrointestinal/Abdominal: Reports: no symptoms Genitourinary: Reports: no symptoms Neurologic/Psychiatric: Reports: pre-existing deficit Endocrine: Reports: no symptoms Hematologic/Lymphatic: Reports: no symptoms Allergies: Coded Allergies: MORPHINE (Verified Allergy, Severe, Anaphylaxis, 11/14/16) PT RECEIVED 5 DOSES OF OXYCODONE ON PREVIOUS ADMISSION IN 06/2015. As per conversation with the patient. Patient denies having allergy reaction with [place]. She said " I have been taking [place] before and i have no allergy reactions. AMOXICILLIN (Verified Allergy, Mild, ITCHING, 06/15/15) itching CITRUS AND DERIVATIVES (Verified Allergy, Unknown, BREAKOUT, 06/15/15) breakout HYDROMORPHONE (Verified Allergy, Unknown, CHEST PAIN, 06/15/15) chest pain IODINE (Verified Allergy, Unknown, SWELLING, 06/15/15) swelling PENICILLINS (Verified Allergy, Unknown, ITCHING, 06/15/15) itching Uncoded Allergies: NYLON TAPE (Adverse Reaction, Intermediate, NIEVES THE SKIN, 06/21/15) All Systems: reviewed and negative except above Subjective still with sob and chest tightness. less hemoptysis. feels "worse." couldnt sleep due to cough. up all night. now with back pain. sputum with gnr Objective Last 24 Hour Vital Signs Date Time Temp Pulse Resp B/P (MAP) Pulse Ox O2 Delivery O2 Flow Rate FiO2 11/18/16 07:25 77 18 100 Nasal Cannula 2.0 28 11/18/16 07:20 74 18 98 Nasal Cannula 2.0 28 11/18/16 07:20 28 11/18/16 04:00 98.2 75 18 169/74 94 Nasal Cannula 11/18/16 04:00 77 11/18/16 01:33 Nasal Cannula 2.0 11/18/16 01:33 2.0 28 11/18/16 00:00 68 11/18/16 00:00 97.4 68 18 151/65 93 Nasal Cannula 2.0 11/17/16 20:00 70 11/17/16 20:00 97.7 78 18 148/68 97 Nasal Cannula 2.0 11/17/16 19:30 75 18 100 Nasal Cannula 2.0 28 11/17/16 19:22 28 11/17/16 19:22 75 18 98 Nasal Cannula 2.0 28 11/17/16 16:37 98.6 80 20 120/61 93 Room Air 11/17/16 16:00 76 11/17/16 13:35 72 18 100 Nasal Cannula 2.0 28 11/17/16 13:30 28 11/17/16 13:30 68 18 99 Nasal Cannula 2.0 28 11/17/16 12:00 64 11/17/16 11:38 98.1 67 20 129/53 93 Nasal Cannula 2.0 11/17/16 09:00 72 18 96 Nasal Cannula 2.0 28 11/17/16 09:00 70 18 98 Nasal Cannula 2.0 28 11/17/16 08:19 97.3 64 19 157/65 98 Nasal Cannula 2.0 11/17/16 08:13 157/65 11/17/16 08:00 73 Height (Feet): 5 Height (Inches): 2.00 Weight (Pounds): 160 Objective General Appearance: WD/WN, alert Neck: supple Cardiovascular: normal rate, regular rhythm Respiratory/Chest: chest wall non-tender, lungs clear, normal breath sounds, no respiratory distress, no accessory muscle use Abdomen: normal bowel sounds, non tender, soft, no organomegaly, abnormal bowel sounds Edema: no edema noted Arm (L), no edema noted Arm (R), no edema noted Leg (L), no edema noted Leg (R), no edema noted Pedal (L), no edema noted Pedal (R), no edema noted Generalized JOEY CASTILLO Nov 18, 2016 07:41
[2016-11-18 08:36] VITALS: BP 138/54
[2016-11-18] MEDS: Losartan 50mg tab ORAL SCH (08:50)
[2016-11-18] MEDS: PARoxetine 10mg tab ORAL SCH ×2 (08:52→18:27)
[2016-11-18] MEDS ORDERED: Cefepime HCl 1 GM in D5W 55 ML IVPB SCH (09:00)
[2016-11-18] MEDS: Heparin 5000 units/ml inj SUBQ SCH ×2 (09:09→21:16)
[2016-11-18] MEDS: Ertapenem 1 GM in NS 55 ML IVPB SCH (09:12)
[2016-11-18] MEDS: Breo Ellipta 100/25mcg - 14 dose INH SCH (09:20)
[2016-11-18] MEDS: Norco 10mg/325mg tab ORAL PRN ×2 (10:03→10:05)
--- NOTE | 2016-11-18 10:06 | Pulmonology Progress Note ---
Assessment/Plan Assessment/Plan IMPRESSION: 1. Basilar atelectasis without significant pneumonia. 2. Hemoptysis, possibly due to patient's use of antiplatelet agents. 3. Syncope and collapse. 4. Chronic obstructive pulmonary disease per history 5. Respiratory infection PLAN sputum with GNR IV rocephin changed to ertapenam respiratory care oxygen followup imaging bronchoscopy as outpatient if needed notes no clear OLD history- will obtain outpatient PFT. will follow up and recommend Subjective Allergies: Coded Allergies: MORPHINE (Verified Allergy, Severe, Anaphylaxis, 11/14/16) PT RECEIVED 5 DOSES OF OXYCODONE ON PREVIOUS ADMISSION IN 06/2015. As per conversation with the patient. Patient denies having allergy reaction with [place]. She said " I have been taking [place] before and i have no allergy reactions. AMOXICILLIN (Verified Allergy, Mild, ITCHING, 06/15/15) itching CITRUS AND DERIVATIVES (Verified Allergy, Unknown, BREAKOUT, 06/15/15) breakout HYDROMORPHONE (Verified Allergy, Unknown, CHEST PAIN, 06/15/15) chest pain IODINE (Verified Allergy, Unknown, SWELLING, 06/15/15) swelling PENICILLINS (Verified Allergy, Unknown, ITCHING, 06/15/15) itching Uncoded Allergies: NYLON TAPE (Adverse Reaction, Intermediate, NIEVES THE SKIN, 06/21/15) Subjective some sob and chest tightness minimal hemoptysis Objective Last 24 Hour Vital Signs Date Time Temp Pulse Resp B/P (MAP) Pulse Ox O2 Delivery O2 Flow Rate FiO2 11/18/16 09:20 80 18 98 Nasal Cannula 2.0 28 11/18/16 09:20 80 18 97 Nasal Cannula 2.0 28 11/18/16 08:50 138/54 11/18/16 08:36 101.2 81 20 138/54 94 Nasal Cannula 2.0 11/18/16 07:25 77 18 100 Nasal Cannula 2.0 28 11/18/16 07:20 74 18 98 Nasal Cannula 2.0 28 11/18/16 07:20 28 11/18/16 04:00 98.2 75 18 169/74 94 Nasal Cannula 11/18/16 04:00 77 11/18/16 01:33 Nasal Cannula 2.0 11/18/16 01:33 2.0 28 11/18/16 00:00 68 11/18/16 00:00 97.4 68 18 151/65 93 Nasal Cannula 2.0 11/17/16 20:00 70 11/17/16 20:00 97.7 78 18 148/68 97 Nasal Cannula 2.0 11/17/16 19:30 75 18 100 Nasal Cannula 2.0 28 11/17/16 19:22 28 11/17/16 19:22 75 18 98 Nasal Cannula 2.0 28 11/17/16 16:37 98.6 80 20 120/61 93 Room Air 11/17/16 16:00 76 11/17/16 13:35 72 18 100 Nasal Cannula 2.0 28 11/17/16 13:30 28 11/17/16 13:30 68 18 99 Nasal Cannula 2.0 28 11/17/16 12:00 64 11/17/16 11:38 98.1 67 20 129/53 93 Nasal Cannula 2.0 Objective WDWN NAD clear breath sounds bilaterally with minimal rhonchi [id number] without MRG NABS nontender no HSM no CCE nonfocal Current Medications Medications (Trade) Dose Ordered Sig/Julita Route PRN Reason Start Time Stop Time Status Last Admin Dose Admin Acetaminophen (Tylenol) 650 mg Q4H PRN ORAL Mild Pain/Temp > 100.5 11/18/16 08:00 12/18/16 07:59 11/18/16 08:54 Acetaminophen/ Hydrocodone Bitart ([place] 10/325) 1 ea Q4H PRN ORAL For Pain 11/14/16 12:45 11/21/16 12:44 11/18/16 10:03 Albuterol/ Ipratropium (DuoNeb 0.5-3(2.5)mg/3ml) 3 ml Q6HRT HHN 11/15/16 10:30 11/20/16 10:29 11/18/16 07:38 Bacitracin (Bacitracin) 1 applic DAILYPRN PRN TOPIC DRESSING CHANGE 11/14/16 18:00 12/14/16 17:59 Diphenhydramine HCl (Benadryl) 50 mg DAILYPRN PRN ORAL Itching 11/13/16 18:30 12/13/16 18:29 Ertapenem 1 gm/ Sodium Chloride 55 ml @ 110 mls/hr Q24H IVPB 11/18/16 09:00 11/23/16 08:59 11/18/16 09:12 Fluticasone/ Vilanterol (Breo Ellipta 100/25) 1 DAILY INH 11/14/16 09:00 12/14/16 08:59 11/18/16 09:20 Gabapentin (Neurontin) 600 mg QID ORAL 11/13/16 18:00 12/13/16 17:59 11/18/16 09:09 Heparin Sodium (Porcine) (Heparin 5000 units/ml) 5,000 units EVERY 12 HOURS SUBQ 11/13/16 21:00 12/13/16 20:59 11/18/16 09:09 Losartan Potassium (Cozaar) 50 mg DAILY ORAL 11/14/16 09:00 12/14/16 08:59 11/18/16 08:50 Pantoprazole (Protonix) 40 mg ACBREAKFAST ORAL 11/16/16 06:30 12/14/16 08:59 11/18/16 06:06 Paroxetine HCl (Paxil) 30 mg BID ORAL 11/13/16 18:00 12/13/16 17:59 11/18/16 08:52 Pravastatin Sodium (Pravachol) 20 mg BEDTIME ORAL 11/13/16 21:00 12/13/16 20:59 11/17/16 20:44 Promethazine HCl/ Codeine (Phenergan with Codeine) 10 ml Q4H PRN ORAL For Cough 11/18/16 10:30 12/18/16 10:29 Sodium Chloride 1,000 ml @ 75 mls/hr [id number] IV 11/13/16 21:00 12/13/16 20:59 11/18/16 07:02 Tizanidine HCl (Zanaflex) 4 mg Q6H PRN ORAL Muscle Spasm 11/13/16 15:00 12/13/16 14:59 11/14/16 06:45 Zolpidem Tartrate (Ambien) 5 mg HSPRN PRN ORAL Insomnia 11/13/16 15:00 11/20/16 14:59 MARSHALL RUGGIERO Nov 18, 2016 10:06
--- NOTE | 2016-11-18 11:15 | Diagnostic Imaging Report ---
Indication: Dyspnea Comparison: 11/13/16 A single view chest radiograph was obtained. Findings: Heart size is normal. Lungs are essentially clear and hypoinflated. Bones are osteopenic. Cholecystectomy clips noted. Impression: No acute disease
[2016-11-18 12:00] VITALS: BP 115/64
[2016-11-18 16:00] VITALS: BP 138/76
[2016-11-18 20:06] VITALS: BP 146/71
--- NOTE | 2016-11-18 23:16 | Diagnostic Imaging Report ---
APPROVED REPORT CPT Code: 43417 Vascular Symptoms Syncope Doppler Spectral Velocity Analysis RightLeft RIGHT SIDE: CCA - The Doppler spectral flow analysis is abnormal (resistive) in the common carotid artery, suggestive of an intracranial occlusion. ICA- Imaging reveals an occlusion in the right internal carotid artery. ECA - Imaging reveals irregular plaque in the external carotid artery. The Doppler signal indicates the degree of stenosis is mild (30-50%) in the external carotid artery. VERTEBRAL - The vertebral artery is patent, without evidence of stenosis or steal. carotid arteries. ECA - Imaging reveals irregular plaque in the external carotid artery. The Doppler signal indicates the degree of stenosis is mild (30-50%) in the external carotid artery. VERTEBRAL - The vertebral artery is patent, without evidence of stenosis or steal. LOUIS Martin was notified of abnormal results at 1100 hours.
[2016-11-19] VITALS: BP 137/62
--- NOTE | 2016-11-19 01:15 | Progress Note ---
DATE: 11/18/2016 CARDIOLOGY PROGRESS NOTE Subjective: The patient is without chest pain and has less shortness of breath, cough, and congestion. Antibiotics have been adjusted for sputum culture results. OBJECTIVE: Vital Signs: Blood pressure 169/74, pulse 75, and respirations 18. Afebrile. LUNGS: Clear. CARDIAC: Regular. Normal S1 and S2 with a fourth heart sound. ABDOMEN: Soft. EXTREMITIES: No edema. IMPRESSION: 1. Pleuritic chest pain. 2. Bronchopneumonia with polymicrobial gram-negative pathogen. 3. Possible chronic obstructive pulmonary disease. 4. Hypertensive heart disease with labile blood pressure. 5. Right carotid occlusion. 6. Status post vasovagally mediated syncope. PLAN: 1. Antimicrobials. 2. Respiratory hygiene. 3. Avoid tighter blood pressure control for now. 4. We will reassess the overall antihypertensive regimen prior to discharge. 5. Continue anti-platelet and statin drugs without change. Rosendo Palacios M.D. DR: SNEHA JOB#: [id number] CC:
[2016-11-19] MEDS: DuoNeb 0.5-3(2.5)mg/3ml neb HHN SCH ×4 (01:47→20:29)
[2016-11-19 04:00] VITALS: BP 139/57
[2016-11-19 08:00] VITALS: BP 132/54
[2016-11-19] MEDS: Breo Ellipta 100/25mcg - 14 dose INH SCH (08:18)
--- NOTE | 2016-11-19 08:37 | General Progress Note ---
Assessment/Plan Problem List: (1) Carotid stenosis ICD Codes: I65.29 - Occlusion and stenosis of unspecified carotid artery SNOMED: 49612025 (2) Hemoptysis ICD Codes: R04.2 - Hemoptysis SNOMED: 11521000 (3) Syncope ICD Codes: R55 - Syncope and collapse SNOMED: 432337908 Status: stable, progressing Assessment/Plan sputum cultures pending ID eval pending iv abx cxr pulm eval appreciated antiplt rx- monitor for worsening hemoptysis. dc subcut heparin pt/ot resp care/rx cough rx increase outpt bronch Subjective ROS Limited/Unobtainable: No Constitutional: Reports: malaise, weakness HEENT: Reports: no symptoms Cardiovascular: Reports: no symptoms Respiratory: Reports: cough, other - scant hemoptysis Gastrointestinal/Abdominal: Reports: no symptoms Genitourinary: Reports: no symptoms Neurologic/Psychiatric: Reports: pre-existing deficit Endocrine: Reports: no symptoms Hematologic/Lymphatic: Reports: no symptoms Allergies: Coded Allergies: MORPHINE (Verified Allergy, Severe, Anaphylaxis, 11/14/16) PT RECEIVED 5 DOSES OF OXYCODONE ON PREVIOUS ADMISSION IN 06/2015. As per conversation with the patient. Patient denies having allergy reaction with [place]. She said " I have been taking [place] before and i have no allergy reactions. AMOXICILLIN (Verified Allergy, Mild, ITCHING, 06/15/15) itching CITRUS AND DERIVATIVES (Verified Allergy, Unknown, BREAKOUT, 06/15/15) breakout HYDROMORPHONE (Verified Allergy, Unknown, CHEST PAIN, 06/15/15) chest pain IODINE (Verified Allergy, Unknown, SWELLING, 06/15/15) swelling PENICILLINS (Verified Allergy, Unknown, ITCHING, 06/15/15) itching Uncoded Allergies: NYLON TAPE (Adverse Reaction, Intermediate, NIEVES THE SKIN, 06/21/15) All Systems: reviewed and negative except above Subjective a little better today. still with cough and sob. no chest pain. scant hemoptysis. sputum with kleb and ecoli. abx changed to imipenem Objective Last 24 Hour Vital Signs Date Time Temp Pulse Resp B/P (MAP) Pulse Ox O2 Delivery O2 Flow Rate FiO2 11/19/16 07:58 78 20 Room Air 21 11/19/16 07:49 72 20 94 Room Air 21 11/19/16 04:00 68 11/19/16 04:00 97.8 74 22 139/57 94 Nasal Cannula 2.0 11/19/16 01:48 74 20 97 Nasal Cannula 2.0 28 11/19/16 01:48 70 20 95 Nasal Cannula 2.0 28 11/19/16 00:00 97.7 73 21 137/62 94 Nasal Cannula 11/19/16 00:00 70 11/18/16 20:06 97.9 78 20 146/71 94 Nasal Cannula 2.0 11/18/16 20:00 71 11/18/16 19:40 78 20 99 Nasal Cannula 2.0 28 11/18/16 19:30 72 20 96 Nasal Cannula 2.0 28 11/18/16 16:23 73 11/18/16 16:00 97.5 70 21 138/76 94 11/18/16 13:18 75 18 98 Nasal Cannula 2.0 28 11/18/16 13:13 28 11/18/16 13:13 71 18 98 Nasal Cannula 2.0 28 11/18/16 12:00 80 11/18/16 12:00 99.2 84 18 115/64 99 Room Air 11/18/16 09:20 80 18 98 Nasal Cannula 2.0 28 11/18/16 09:20 80 18 97 Nasal Cannula 2.0 28 11/18/16 08:50 138/54 11/18/16 08:36 101.2 81 20 138/54 94 Nasal Cannula 2.0 Height (Feet): 5 Height (Inches): 2.00 Weight (Pounds): 160 Objective General Appearance: WD/WN, alert Neck: supple Cardiovascular: normal rate, regular rhythm Respiratory/Chest: chest wall non-tender, lungs clear, normal breath sounds, no respiratory distress, no accessory muscle use Abdomen: normal bowel sounds, non tender, soft, no organomegaly, abnormal bowel sounds Edema: no edema noted Arm (L), no edema noted Arm (R), no edema noted Leg (L), no edema noted Leg (R), no edema noted Pedal (L), no edema noted Pedal (R), no edema noted Generalized JOEY CASTILLO Nov 19, 2016 08:37
--- NOTE | 2016-11-19 08:53 | Pulmonology Progress Note ---
Assessment/Plan Assessment/Plan IMPRESSION: 1. Basilar atelectasis without significant pneumonia. 2. Hemoptysis, possibly due to patient's use of antiplatelet agents. 3. Syncope and collapse. 4. Chronic obstructive pulmonary disease per history 5. Respiratory infection PLAN sputum with Klebsiella IV rocephin changed to ertapenam respiratory care as is hold heparin oxygen followup imaging now negative bronchoscopy as outpatient if needed notes no clear OLD history- will obtain outpatient PFT. will follow up and recommend Subjective Allergies: Coded Allergies: MORPHINE (Verified Allergy, Severe, Anaphylaxis, 11/14/16) PT RECEIVED 5 DOSES OF OXYCODONE ON PREVIOUS ADMISSION IN 06/2015. As per conversation with the patient. Patient denies having allergy reaction with [place]. She said " I have been taking [place] before and i have no allergy reactions. AMOXICILLIN (Verified Allergy, Mild, ITCHING, 06/15/15) itching CITRUS AND DERIVATIVES (Verified Allergy, Unknown, BREAKOUT, 06/15/15) breakout HYDROMORPHONE (Verified Allergy, Unknown, CHEST PAIN, 06/15/15) chest pain IODINE (Verified Allergy, Unknown, SWELLING, 06/15/15) swelling PENICILLINS (Verified Allergy, Unknown, ITCHING, 06/15/15) itching Uncoded Allergies: NYLON TAPE (Adverse Reaction, Intermediate, NIEVES THE SKIN, 06/21/15) Subjective reduced sob and chest tightness minimal hemoptysis care noted and reviewed Objective Last 24 Hour Vital Signs Date Time Temp Pulse Resp B/P (MAP) Pulse Ox O2 Delivery O2 Flow Rate FiO2 11/19/16 07:58 78 20 Room Air 21 11/19/16 07:49 72 20 94 Room Air 21 11/19/16 04:00 68 11/19/16 04:00 97.8 74 22 139/57 94 Nasal Cannula 2.0 11/19/16 01:48 74 20 97 Nasal Cannula 2.0 28 11/19/16 01:48 70 20 95 Nasal Cannula 2.0 28 11/19/16 00:00 97.7 73 21 137/62 94 Nasal Cannula 11/19/16 00:00 70 11/18/16 20:06 97.9 78 20 146/71 94 Nasal Cannula 2.0 11/18/16 20:00 71 11/18/16 19:40 78 20 99 Nasal Cannula 2.0 28 11/18/16 19:30 72 20 96 Nasal Cannula 2.0 28 11/18/16 16:23 73 11/18/16 16:00 97.5 70 21 138/76 94 11/18/16 13:18 75 18 98 Nasal Cannula 2.0 28 11/18/16 13:13 28 11/18/16 13:13 71 18 98 Nasal Cannula 2.0 28 11/18/16 12:00 80 11/18/16 12:00 99.2 84 18 115/64 99 Room Air 11/18/16 09:20 80 18 98 Nasal Cannula 2.0 28 11/18/16 09:20 80 18 97 Nasal Cannula 2.0 28 Objective WDWN NAD reduced breath sounds bilaterally with minimal rhonchi [id number] without MRG NABS nontender no HSM no CCE nonfocal Current Medications Medications (Trade) Dose Ordered Sig/Julita Route PRN Reason Start Time Stop Time Status Last Admin Dose Admin Acetaminophen (Tylenol) 650 mg Q4H PRN ORAL Mild Pain/Temp > 100.5 11/18/16 08:00 12/18/16 07:59 11/18/16 08:54 Acetaminophen/ Hydrocodone Bitart ([place] 10/325) 1 ea Q4H PRN ORAL For Pain 11/14/16 12:45 11/21/16 12:44 11/18/16 10:05 Albuterol/ Ipratropium (DuoNeb 0.5-3(2.5)mg/3ml) 3 ml Q6HRT HHN 11/15/16 10:30 11/20/16 10:29 11/19/16 08:18 Bacitracin (Bacitracin) 1 applic DAILYPRN PRN TOPIC DRESSING CHANGE 11/14/16 18:00 12/14/16 17:59 Diphenhydramine HCl (Benadryl) 50 mg DAILYPRN PRN ORAL Itching 11/13/16 18:30 12/13/16 18:29 Ertapenem 1 gm/ Sodium Chloride 55 ml @ 110 mls/hr Q24H IVPB 11/18/16 09:00 11/23/16 08:59 11/18/16 09:12 Fluticasone/ Vilanterol (Breo Ellipta 100/25) 1 DAILY INH 11/14/16 09:00 12/14/16 08:59 9/18/17 08:18 Gabapentin (Neurontin) 600 mg QID ORAL 11/13/16 18:00 12/13/16 17:59 11/18/16 21:14 Losartan Potassium (Cozaar) 50 mg DAILY ORAL 11/14/16 09:00 12/14/16 08:59 11/18/16 08:50 Pantoprazole (Protonix) 40 mg ACBREAKFAST ORAL 11/16/16 06:30 12/14/16 08:59 11/19/16 06:23 Paroxetine HCl (Paxil) 30 mg BID ORAL 11/13/16 18:00 12/13/16 17:59 11/18/16 18:27 Pravastatin Sodium (Pravachol) 20 mg BEDTIME ORAL 11/13/16 21:00 12/13/16 20:59 11/18/16 21:13 Promethazine HCl/ Codeine (Phenergan with Codeine) 10 ml Q4H PRN ORAL For Cough 11/18/16 10:30 12/18/16 10:29 11/18/16 23:26 Sodium Chloride 1,000 ml @ 75 mls/hr [id number] IV 11/13/16 21:00 12/13/16 20:59 11/18/16 21:12 Tizanidine HCl (Zanaflex) 4 mg Q6H PRN ORAL Muscle Spasm 11/13/16 15:00 12/13/16 14:59 11/14/16 06:45 Zolpidem Tartrate (Ambien) 5 mg HSPRN PRN ORAL Insomnia 11/13/16 15:00 11/20/16 14:59 MARSHALL RUGGIERO Nov 19, 2016 08:53
[2016-11-19] MEDS: PARoxetine 10mg tab ORAL SCH ×2 (09:10→18:04)
[2016-11-19] MEDS: Ertapenem 1 GM in NS 55 ML IVPB SCH (09:11)
[2016-11-19] MEDS: Losartan 50mg tab ORAL SCH (09:11)
--- NOTE | 2016-11-19 09:16 | Consultation ---
DATE OF CONSULTATION: INFECTIOUS DISEASES CONSULTATION This consult is for coverage of Dr. Bullard. CONSULTING PHYSICIAN: Oni Polk M.D. PRIMARY ATTENDING PHYSICIAN: Demario Hdz M.D. REASON FOR CONSULT: Pneumonia. History Of Present Illness: This is a 65-year-old female admitted on 11/13/2016 initially for a syncopal episode. The patient had some podiatric surgery for ingrown toenail the day before admission. She has since then loss of consciousness. Today after admission to the hospital, the patient had coughing and hemoptysis. The patient is afebrile and has leukocytosis. Past Medical History: COPD, hypertension, osteoarthritis, history of peripheral arterial disease, CVA, and Christiansen's palsy. PAST SURGICAL HISTORY: She has history of cholecystectomy. Allergies: Allergic to amoxicillin, penicillin, morphine, iodine, hydromorphone, seafoods, . Medications: Phenergan, cefepime, Protonix, DuoNeb inhaler, [place],losartan, Zanaflex, and Ambien. Social History: She is a smoker, smoking five to six cigarettes a day. She has alcohol and drug abuse. . Currently single, has children, originally from [place]. The patient had this year influenza vaccination. Family History: Significant for cancer in the brother and sister. Sister has pancreatic cancer and found to have cirrhosis and liver cancer. Mother has emphysema and leukemia. Review Of Systems: Productive coughing but there is no more blood in it. No nausea. No vomiting. No diarrhea. PHYSICAL EXAMINATION: VITAL SIGNS: Temperature 98.2, pulse 77, and blood pressure 169/74. Laboratory And Diagnostic Data: Sodium 144, potassium 4.9, chloride 107, bicarbonate 26, BUN 8, and creatinine 0.6. Albumin 3.4. WBC 7.5, hemoglobin 11.6, hematocrit 36.3, and platelets 325. The patient had a sputum culture that grew Klebsiella and E. coli. Klebsiella is resistant to cephalosporin. The patient had a CT scan of the chest that showed atelectasis versus pneumonia in basilar area. IMPRESSION: 1. Aspiration pneumonia. The patient has chronic obstructive pulmonary disease and is active smoker. 2. Carotid stenosis 3. Hemoptysis. 4. Hypertension. Recommendation: We will change antibiotics from cefepime to ertapenem. At the end of my exam, I thank, Dr. Hdz, for involving me in the care of this patient. Oni Polk M.D. DR: RICKY JOB#: [id number] CC: JAYLIN
--- NOTE | 2016-11-19 10:13 | Physician Query ---
PLEASE COMPLETE DOCUMENT BEFORE SIGNING Dear Dr. Soria Date: _11/19/2016 Project Management Professional/CDS Name: _Meghana Gaviria MD__ Project Management Professional/CDS Phone No.: _Ext# [phone] Exercise your independent professional judgment when responding to the query. Questions asked do not imply a particular answer is desired or expected. We greatly appreciate your clarification on this issue. CLINICAL DOCUMENTATION STATES: "Aspiration Pneumonia" as per Dr. Polk's Progress Note on 11/18/2016 Clarification is needed for one (or more) of the following conditions in order to accurately assign the "present on admission' indicator. Please choose the answer that best indicates whether the associated condition was present at the time of the order for inpatient admission. Thank you. DIAGNOSIS:_Aspiration Pneumonia Was the Aspiration Pneumonia Present on admission? [ ] YES [ ] NO [ ] Clinically Undeterminable Please also document in your Progress Notes and/or Discharge Summary and indicate if the condition was present on admission. Oni Polk M.D. Date & Time MTDD
[2016-11-19] MEDS: Promethazine/Codeine 5ml UD ORAL PRN (11:06)
[2016-11-19 12:00] VITALS: BP 114/53
[2016-11-19] MEDS ORDERED: Bacitracin Oint UD TOPIC PRN (12:00)
--- NOTE | 2016-11-19 13:26 | Infectious Diseases Prog Note ---
Assessment/Plan Assessment/Plan antibiotics : ertapenem A 1. klebsiella | e.coli aspiration pneumonia 2. HTN 3. COPD P 1. continue ertapenem 2. will follow up cultures Subjective Constitutional: Denies: fever, chills Respiratory: Reports: shortness of breath, productive cough Gastrointestinal/Abdominal: Denies: nausea, vomiting, diarrhea Musculoskeletal: Reports: pain Allergies: Coded Allergies: MORPHINE (Verified Allergy, Severe, Anaphylaxis, 11/14/16) PT RECEIVED 5 DOSES OF OXYCODONE ON PREVIOUS ADMISSION IN 06/2015. As per conversation with the patient. Patient denies having allergy reaction with [place]. She said " I have been taking [place] before and i have no allergy reactions. AMOXICILLIN (Verified Allergy, Mild, ITCHING, 06/15/15) itching CITRUS AND DERIVATIVES (Verified Allergy, Unknown, BREAKOUT, 06/15/15) breakout HYDROMORPHONE (Verified Allergy, Unknown, CHEST PAIN, 06/15/15) chest pain IODINE (Verified Allergy, Unknown, SWELLING, 06/15/15) swelling PENICILLINS (Verified Allergy, Unknown, ITCHING, 06/15/15) itching Uncoded Allergies: NYLON TAPE (Adverse Reaction, Intermediate, NIEVES THE SKIN, 06/21/15) Objective Vital Signs Last 24 Hour Vital Signs Date Time Temp Pulse Resp B/P (MAP) Pulse Ox O2 Delivery O2 Flow Rate FiO2 11/19/16 09:11 132/54 11/19/16 08:20 76 18 Nasal Cannula 2.0 28 11/19/16 08:18 75 18 98 Room Air 21 11/19/16 08:00 72 11/19/16 08:00 98.2 68 18 132/54 Room Air 11/19/16 07:58 78 20 Room Air 21 11/19/16 07:49 72 20 94 Room Air 21 11/19/16 04:00 68 11/19/16 04:00 97.8 74 22 139/57 94 Nasal Cannula 2.0 11/19/16 01:48 74 20 97 Nasal Cannula 2.0 28 11/19/16 01:48 70 20 95 Nasal Cannula 2.0 28 11/19/16 00:00 97.7 73 21 137/62 94 Nasal Cannula 11/19/16 00:00 70 11/18/16 20:06 97.9 78 20 146/71 94 Nasal Cannula 2.0 11/18/16 20:00 71 11/18/16 19:40 78 20 99 Nasal Cannula 2.0 28 11/18/16 19:30 72 20 96 Nasal Cannula 2.0 28 11/18/16 16:23 73 11/18/16 16:00 97.5 70 21 138/76 94 Height (Feet): 5 Height (Inches): 2.00 Weight (Pounds): 160 Respiratory/Chest: lungs clear Cardiovascular: normal rate, regular rhythm, no gallop/murmur Abdomen: soft, non tender Extremities: no edema CASSIDY NOEL Nov 19, 2016 13:26
[2016-11-19 16:00] VITALS: BP 119/71
[2016-11-19 20:00] VITALS: BP 136/98
[2016-11-19] MEDS ORDERED: Zolpidem 5mg tab ORAL PRN (21:00)
[2016-11-20] VITALS (7 sets, daily range): BP systolic 116–138; BP diastolic 54–88
[2016-11-20] MEDS: DuoNeb 0.5-3(2.5)mg/3ml neb HHN SCH ×2 (01:36→08:26)
[2016-11-20] MEDS: Promethazine/Codeine 5ml UD ORAL PRN ×3 (06:14→21:07)
[2016-11-20 06:32] LABS: BASOPHILS % (AUTO) 2.3 % (0.0-2.0); EOSINOPHILS % (AUTO) 3.4 % (0.0-3.0); LYMPHOCYTES % (AUTO) 23.8 % (20.0-45.0); MEAN CORPUSCULAR HEMOGLOBIN 31.1 PG (27.0-31.0); MEAN CORPUSCULAR HGB CONC 32.4 G/DL (32.0-36.0); MEAN CORPUSCULAR VOLUME 96 FL (80-99); MEAN PLATELET VOLUME 5.7 FL (6.5-10.1); MONOCYTES % (AUTO) 7.9 % (1.0-10.0); NEUTROPHILS % (AUTO) 62.6 % (45.0-75.0); PLATELET COUNT 350 K/UL (150-450); RED BLOOD COUNT 3.72 M/UL (4.20-5.40); RED CELL DISTRIBUTION WIDTH 13.3 % (11.6-14.8); WHITE BLOOD COUNT 10.2 K/UL (4.8-10.8)
[2016-11-20 06:33] LABS: ALANINE AMINOTRANSFERASE 13 U/L (3-33); ALBUMIN/GLOBULIN RATIO 1.6 (1.0-2.7); ANION GAP 12 (5-15); ASPARTATE AMINO TRANSFERASE 18 U/L (5-40); CALCIUM 8.9 mg/dL (8.6-10.2); CARBON DIOXIDE 29 mEQ/L (20-30); CHLORIDE 104 mEQ/L (98-107); HEMOLYSIS 0; POTASSIUM 4.7 mEQ/L (3.4-4.9); SODIUM 145 mEQ/L (135-145); TOTAL PROTEIN 6.7 g/dL (6.6-8.7)
[2016-11-20 07:03] LABS: CREATININE 0.6 mg/dL (0.5-0.9); GLOMERULAR FILTRATION RATE > 60 mL/min (>60)
--- NOTE | 2016-11-20 07:16 | Progress Note ---
DATE: 11/19/2016 CARDIOLOGY PROGRESS NOTE Subjective: The patient has less congestion, less shortness of breath, and less hemoptysis. No chest pain. OBJECTIVE: Vital Signs: Blood pressure 139/57, pulse 74, and respiratory rate 22. LUNGS: Coarse breath sounds. Few rhonchi. HEART: Regular rhythm and rate. Normal S1, S2. ABDOMEN: Soft. EXTREMITIES: No edema. Neurologic: Mild facial asymmetry. Unchanged from baseline. No new neurologic deficits. IMPRESSION: 1. Polymicrobial bronchopneumonia. 2. Possible chronic obstructive pulmonary disease. 3. Vasovagally-mediated syncope. 4. Chronic right carotid occlusion. 5. Hypertensive heart disease. 6. Acute diastolic congestive heart failure, clinically compensated. PLAN: 1. Maintain anti-lipid and anti-platelet therapy. 2. Antimicrobials per Infectious Disease sap ppm consultant. 3. Bronchodilators. 4. Analgesics. 5. Recheck laboratory studies. 6. Avoid positive fluid balance. 7. Consider further tightening of blood pressure control over the next 24 hours. Rosendo Palacios M.D. DR: SNEHA JOB#: [id number] CC:
[2016-11-20] MEDS: Ertapenem 1 GM in NS 55 ML IVPB SCH (08:17)
[2016-11-20] MEDS: Norco 10mg/325mg tab ORAL PRN ×3 (08:18→18:05)
[2016-11-20] MEDS: PARoxetine 10mg tab ORAL SCH ×2 (08:18→18:05)
[2016-11-20] MEDS: Losartan 50mg tab ORAL SCH (08:19)
[2016-11-20] MEDS: Breo Ellipta 100/25mcg - 14 dose INH SCH (08:28)
--- NOTE | 2016-11-20 08:58 | Pulmonology Progress Note ---
Assessment/Plan Assessment/Plan IMPRESSION: 1. Basilar atelectasis without significant pneumonia. 2. Hemoptysis, possibly due to patient's use of antiplatelet agents. 3. Syncope and collapse. 4. Chronic obstructive pulmonary disease per history 5. Respiratory infection PLAN sputum with Klebsiella IV ertapenam respiratory care as is hold heparin oxygen as needed followup imaging now negative bronchoscopy as outpatient to discuss notes no clear OLD history- will obtain outpatient PFT. will follow up and recommend Subjective Allergies: Coded Allergies: MORPHINE (Verified Allergy, Severe, Anaphylaxis, 11/14/16) PT RECEIVED 5 DOSES OF OXYCODONE ON PREVIOUS ADMISSION IN 06/2015. As per conversation with the patient. Patient denies having allergy reaction with [place]. She said " I have been taking [place] before and i have no allergy reactions. AMOXICILLIN (Verified Allergy, Mild, ITCHING, 06/15/15) itching CITRUS AND DERIVATIVES (Verified Allergy, Unknown, BREAKOUT, 06/15/15) breakout HYDROMORPHONE (Verified Allergy, Unknown, CHEST PAIN, 06/15/15) chest pain IODINE (Verified Allergy, Unknown, SWELLING, 06/15/15) swelling PENICILLINS (Verified Allergy, Unknown, ITCHING, 06/15/15) itching Uncoded Allergies: NYLON TAPE (Adverse Reaction, Intermediate, NIEVES THE SKIN, 06/21/15) Subjective stable overall no distress care noted and reviewed Objective Last 24 Hour Vital Signs Date Time Temp Pulse Resp B/P (MAP) Pulse Ox O2 Delivery O2 Flow Rate FiO2 11/20/16 08:28 72 18 Nasal Cannula 2.0 28 11/20/16 08:28 70 18 98 Room Air 11/20/16 08:26 72 20 98 Room Air 11/20/16 08:20 70 20 96 Room Air 11/20/16 08:19 138/71 11/20/16 08:17 98.2 70 19 138/71 95 Room Air 11/20/16 04:18 98.3 68 20 133/56 96 Room Air 11/20/16 01:37 70 20 98 Room Air 11/20/16 01:36 69 20 95 Room Air 11/20/16 00:00 98.2 63 20 133/88 100 Room Air 11/19/16 20:32 72 20 100 Room Air 11/19/16 20:31 70 20 97 Room Air 11/19/16 20:00 98.2 67 19 136/98 100 Room Air 11/19/16 16:00 97.7 86 17 119/71 97 Room Air 11/19/16 13:31 74 18 Room Air 21 11/19/16 13:20 70 20 Room Air 21 11/19/16 12:00 98.4 71 20 114/53 93 Room Air 11/19/16 09:11 132/54 Objective WDWN NAD reduced breath sounds bilaterally with minimal rhonchi [id number] without MRG NABS nontender no HSM no CCE nonfocal Laboratory Tests 11/20/16 06:00: White Blood Count 10.2, Red Blood Count 3.72L, Hemoglobin 11.6L, Hematocrit 35.7L, Mean Corpuscular Volume 96, Mean Corpuscular Hemoglobin 31.1H, Mean Corpuscular Hemoglobin Concent 32.4, Red Cell Distribution Width 13.3, Platelet Count 350, Mean Platelet Volume 5.7L, Neutrophils (%) (Auto) 62.6, Lymphocytes ( %) (Auto) 23.8, Monocytes (%) (Auto) 7.9, Eosinophils (%) (Auto) 3.4H, Basophils (%) (Auto) 2.3H, Sodium Level 145, Potassium Level 4.7, Chloride Level 104, Carbon Dioxide Level 29, Anion Gap 12, Blood Urea Nitrogen 9, Creatinine 0.6, Estimat Glomerular Filtration Rate > 60, Glucose Level 88, Calcium Level 8.9, Total Bilirubin 0.2, Aspartate Amino Transf (AST/SGOT) 18, Alanine Aminotransferase (ALT/SGPT) 13, Alkaline Phosphatase 79, Pro-B-Type Natriuretic Peptide 248H, Total Protein 6.7, Albumin 4.2, Globulin 2.5, Albumin/ Globulin Ratio 1.6 Current Medications Medications (Trade) Dose Ordered Sig/Julita Route PRN Reason Start Time Stop Time Status Last Admin Dose Admin Acetaminophen (Tylenol) 650 mg Q4H PRN ORAL Mild Pain/Temp > 100.5 11/19/16 12:00 12/18/16 07:59 Acetaminophen/ Hydrocodone Bitart ([place] 10/325) 1 ea Q4H PRN ORAL For Pain 11/19/16 12:00 11/21/16 11:59 11/20/16 08:18 Albuterol/ Ipratropium (DuoNeb 0.5-3(2.5)mg/3ml) 3 ml Q6HRT HHN 11/19/16 13:00 11/20/16 10:29 11/20/16 08:26 Bacitracin (Bacitracin) 1 applic DAILYPRN PRN TOPIC DRESSING CHANGE 11/19/16 12:00 12/14/16 11:59 Diphenhydramine HCl (Benadryl) 50 mg DAILYPRN PRN ORAL Itching 11/19/16 12:00 12/13/16 11:59 Ertapenem 1 gm/ Sodium Chloride 55 ml @ 110 mls/hr Q24H IVPB 11/20/16 09:00 11/23/16 08:59 11/20/16 08:17 Fluticasone/ Vilanterol (Breo Ellipta 100/25) 1 DAILY INH 11/20/16 09:00 12/14/16 08:59 11/20/16 08:28 Gabapentin (Neurontin) 600 mg QID ORAL 11/19/16 13:00 12/13/16 17:59 11/20/16 08:17 Losartan Potassium (Cozaar) 50 mg DAILY ORAL 11/20/16 09:00 12/14/16 08:59 11/20/16 08:19 Pantoprazole (Protonix) 40 mg ACBREAKFAST ORAL 11/20/16 06:30 12/14/16 08:59 11/20/16 06:02 Paroxetine HCl (Paxil) 30 mg BID ORAL 11/19/16 18:00 12/13/16 17:59 11/20/16 08:18 Pravastatin Sodium (Pravachol) 20 mg BEDTIME ORAL 11/19/16 21:00 12/13/16 20:59 11/19/16 20:11 Promethazine HCl/ Codeine (Phenergan with Codeine) 10 ml Q4H PRN ORAL For Cough 11/19/16 15:00 12/18/16 14:59 11/20/16 06:14 Sodium Chloride 1,000 ml @ 75 mls/hr [id number] IV 11/19/16 13:00 12/13/16 12:59 11/20/16 01:19 Tizanidine HCl (Zanaflex) 4 mg Q6H PRN ORAL Muscle Spasm 11/19/16 12:30 12/13/16 12:29 Zolpidem Tartrate (Ambien) 5 mg HSPRN PRN ORAL Insomnia 11/19/16 21:00 11/20/16 20:59 MARSHALL RUGGIERO Nov 20, 2016 08:58
--- NOTE | 2016-11-20 10:10 | General Progress Note ---
Assessment/Plan Problem List: (1) Carotid stenosis ICD Codes: I65.29 - Occlusion and stenosis of unspecified carotid artery SNOMED: 96706285 (2) Hemoptysis ICD Codes: R04.2 - Hemoptysis SNOMED: 39888647 (3) Syncope ICD Codes: R55 - Syncope and collapse SNOMED: 161613131 Status: stable, progressing Assessment/Plan iv abx per id monitor cxr antiplt rx- monitor for worsening hemoptysis. dc subcut heparin pt/ot resp care/rx cough rx increased yesterday. per staff pt not asking for cough meds all the time outpt bronch consider snf to complete iv abx. Subjective ROS Limited/Unobtainable: No Constitutional: Reports: malaise, weakness HEENT: Reports: no symptoms Cardiovascular: Reports: no symptoms Respiratory: Reports: cough, shortness of breath, sputum Gastrointestinal/Abdominal: Reports: no symptoms Genitourinary: Reports: no symptoms Neurologic/Psychiatric: Reports: pre-existing deficit Endocrine: Reports: no symptoms Hematologic/Lymphatic: Reports: no symptoms Allergies: Coded Allergies: MORPHINE (Verified Allergy, Severe, Anaphylaxis, 11/14/16) PT RECEIVED 5 DOSES OF OXYCODONE ON PREVIOUS ADMISSION IN 06/2015. As per conversation with the patient. Patient denies having allergy reaction with [place]. She said " I have been taking [place] before and i have no allergy reactions. AMOXICILLIN (Verified Allergy, Mild, ITCHING, 06/15/15) itching CITRUS AND DERIVATIVES (Verified Allergy, Unknown, BREAKOUT, 06/15/15) breakout HYDROMORPHONE (Verified Allergy, Unknown, CHEST PAIN, 06/15/15) chest pain IODINE (Verified Allergy, Unknown, SWELLING, 06/15/15) swelling PENICILLINS (Verified Allergy, Unknown, ITCHING, 06/15/15) itching Uncoded Allergies: NYLON TAPE (Adverse Reaction, Intermediate, NIEVES THE SKIN, 06/21/15) All Systems: reviewed and negative except above Subjective continued cough, congestion and sob. c/o chest tightness. still with intermittent hemoptysis. Objective Last 24 Hour Vital Signs Date Time Temp Pulse Resp B/P (MAP) Pulse Ox O2 Delivery O2 Flow Rate FiO2 11/20/16 09:17 98.3 11/20/16 08:28 72 18 Nasal Cannula 2.0 28 11/20/16 08:28 70 18 98 Room Air 21 11/20/16 08:26 72 20 98 Room Air 21 11/20/16 08:20 70 20 96 Room Air 11/20/16 08:19 138/71 11/20/16 08:17 98.2 70 19 138/71 95 Room Air 11/20/16 04:18 98.3 68 20 133/56 96 Room Air 11/20/16 01:37 70 20 98 Room Air 11/20/16 01:36 69 20 95 Room Air 21 11/20/16 00:00 98.2 63 20 133/88 100 Room Air 11/19/16 20:32 72 20 100 Room Air 11/19/16 20:31 70 20 97 Room Air 11/19/16 20:00 98.2 67 19 136/98 100 Room Air 11/19/16 16:00 97.7 86 17 119/71 97 Room Air 11/19/16 13:31 74 18 Room Air 11/19/16 13:20 70 20 Room Air 11/19/16 12:00 98.4 71 20 114/53 93 Room Air Laboratory Tests 11/20/16 06:00: White Blood Count 10.2, Red Blood Count 3.72L, Hemoglobin 11.6L, Hematocrit 35.7L, Mean Corpuscular Volume 96, Mean Corpuscular Hemoglobin 31.1H, Mean Corpuscular Hemoglobin Concent 32.4, Red Cell Distribution Width 13.3, Platelet Count 350, Mean Platelet Volume 5.7L, Neutrophils (%) (Auto) 62.6, Lymphocytes ( %) (Auto) 23.8, Monocytes (%) (Auto) 7.9, Eosinophils (%) (Auto) 3.4H, Basophils (%) (Auto) 2.3H, Sodium Level 145, Potassium Level 4.7, Chloride Level 104, Carbon Dioxide Level 29, Anion Gap 12, Blood Urea Nitrogen 9, Creatinine 0.6, Estimat Glomerular Filtration Rate > 60, Glucose Level 88, Calcium Level 8.9, Total Bilirubin 0.2, Aspartate Amino Transf (AST/SGOT) 18, Alanine Aminotransferase (ALT/SGPT) 13, Alkaline Phosphatase 79, Pro-B-Type Natriuretic Peptide 248H, Total Protein 6.7, Albumin 4.2, Globulin 2.5, Albumin/ Globulin Ratio 1.6 Height (Feet): 5 Height (Inches): 2.00 Weight (Pounds): 160 Objective General Appearance: WD/WN, alert Neck: supple Cardiovascular: normal rate, regular rhythm Respiratory/Chest: chest wall non-tender, lungs clear, normal breath sounds, no respiratory distress, no accessory muscle use Abdomen: normal bowel sounds, non tender, soft, no organomegaly, abnormal bowel sounds Edema: no edema noted Arm (L), no edema noted Arm (R), no edema noted Leg (L), no edema noted Leg (R), no edema noted Pedal (L), no edema noted Pedal (R), no edema noted Generalized JOEY CASTILLO Nov 20, 2016 10:10
--- NOTE | 2016-11-20 12:55 | Infectious Diseases Prog Note ---
Assessment/Plan Assessment/Plan A 1. klebsiella | e.coli aspiration pneumonia 2. HPN 3. COPD 4. Nicotine dependence P 1. continue ertapenem 2. add NicoDerm Subjective ROS Limited/Unobtainable: No Respiratory: Reports: productive cough Cardiovascular: Reports: no symptoms Gastrointestinal/Abdominal: Reports: no symptoms Genitourinary: Reports: no symptoms Allergies: Coded Allergies: MORPHINE (Verified Allergy, Severe, Anaphylaxis, 11/14/16) PT RECEIVED 5 DOSES OF OXYCODONE ON PREVIOUS ADMISSION IN 06/2015. As per conversation with the patient. Patient denies having allergy reaction with [place]. She said " I have been taking [place] before and i have no allergy reactions. AMOXICILLIN (Verified Allergy, Mild, ITCHING, 06/15/15) itching CITRUS AND DERIVATIVES (Verified Allergy, Unknown, BREAKOUT, 06/15/15) breakout HYDROMORPHONE (Verified Allergy, Unknown, CHEST PAIN, 06/15/15) chest pain IODINE (Verified Allergy, Unknown, SWELLING, 06/15/15) swelling PENICILLINS (Verified Allergy, Unknown, ITCHING, 06/15/15) itching Uncoded Allergies: NYLON TAPE (Adverse Reaction, Intermediate, NIEVES THE SKIN, 06/21/15) Objective Vital Signs Last 24 Hour Vital Signs Date Time Temp Pulse Resp B/P (MAP) Pulse Ox O2 Delivery O2 Flow Rate FiO2 11/20/16 11:35 97.9 68 19 137/74 99 Room Air 11/20/16 09:17 98.3 11/20/16 08:28 72 18 Nasal Cannula 2.0 11/20/16 08:28 70 18 98 Room Air 11/20/16 08:26 72 20 98 Room Air 11/20/16 08:20 70 20 96 Room Air 11/20/16 08:19 138/71 11/20/16 08:17 98.2 70 19 138/71 95 Room Air 11/20/16 04:18 98.3 68 20 133/56 96 Room Air 11/20/16 01:37 70 20 98 Room Air 11/20/16 01:36 69 20 95 Room Air 11/20/16 00:00 98.2 63 20 133/88 100 Room Air 11/19/16 20:32 72 20 100 Room Air 11/19/16 20:31 70 20 97 Room Air 21 11/19/16 20:00 98.2 67 19 136/98 100 Room Air 11/19/16 16:00 97.7 86 17 119/71 97 Room Air 11/19/16 13:31 74 18 Room Air 21 11/19/16 13:20 70 20 Room Air 21 Height (Feet): 5 Height (Inches): 2.00 Weight (Pounds): 160 General Appearance: no acute distress HEENT: mucous membranes moist Respiratory/Chest: lungs clear Cardiovascular: normal rate Abdomen: soft, non tender Extremities: no edema Neurologic/Psychiatric: alert, oriented x 3, responsive Laboratory Tests Test 11/20/16 06:00 White Blood Count 10.2 K/UL (4.8-10.8) Red Blood Count 3.72 M/UL (4.20-5.40) L Hemoglobin 11.6 G/DL (12.0-16.0) L Hematocrit 35.7 % (37.0-47.0) L Mean Corpuscular Volume 96 FL (80-99) Mean Corpuscular Hemoglobin 31.1 PG (27.0-31.0) H Mean Corpuscular Hemoglobin Concent 32.4 G/DL (32.0-36.0) Red Cell Distribution Width 13.3 % (11.6-14.8) Platelet Count 350 K/UL (150-450) Mean Platelet Volume 5.7 FL (6.5-10.1) L Neutrophils (%) (Auto) 62.6 % (45.0-75.0) Lymphocytes (%) (Auto) 23.8 % (20.0-45.0) Monocytes (%) (Auto) 7.9 % (1.0-10.0) Eosinophils (%) (Auto) 3.4 % (0.0-3.0) H Basophils (%) (Auto) 2.3 % (0.0-2.0) H Sodium Level 145 mEQ/L (135-145) Potassium Level 4.7 mEQ/L (3.4-4.9) Chloride Level 104 mEQ/L (98-107) Carbon Dioxide Level 29 mEQ/L (20-30) Anion Gap 12 (5-15) Blood Urea Nitrogen 9 mg/dL (7-23) Creatinine 0.6 mg/dL (0.5-0.9) Estimat Glomerular Filtration Rate > 60 mL/min (>60) Glucose Level 88 mg/dL (74-106) Calcium Level 8.9 mg/dL (8.6-10.2) Total Bilirubin 0.2 mg/dL (0.0-1.2) Aspartate Amino Transf (AST/SGOT) 18 U/L (5-40) Alanine Aminotransferase (ALT/SGPT) 13 U/L (3-33) Alkaline Phosphatase 79 U/L (35-104) Pro-B-Type Natriuretic Peptide 248 pg/mL (0-125) H Total Protein 6.7 g/dL (6.6-8.7) Albumin 4.2 g/dL (3.5-5.2) Globulin 2.5 g/dL Albumin/Globulin Ratio 1.6 (1.0-2.7) Current Medications Medications (Trade) Dose Ordered Sig/Julita Route PRN Reason Start Time Stop Time Status Last Admin Dose Admin Acetaminophen (Tylenol) 650 mg Q4H PRN ORAL Mild Pain/Temp > 100.5 11/19/16 12:00 12/18/16 07:59 Acetaminophen/ Hydrocodone Bitart ([place] 10/325) 1 ea Q4H PRN ORAL For Pain 11/19/16 12:00 11/21/16 11:59 11/20/16 12:46 Bacitracin (Bacitracin) 1 applic DAILYPRN PRN TOPIC DRESSING CHANGE 11/19/16 12:00 12/14/16 11:59 Diphenhydramine HCl (Benadryl) 50 mg DAILYPRN PRN ORAL Itching 11/19/16 12:00 12/13/16 11:59 Ertapenem 1 gm/ Sodium Chloride 55 ml @ 110 mls/hr Q24H IVPB 11/20/16 09:00 11/23/16 08:59 11/20/16 08:17 Fluticasone/ Vilanterol (Breo Ellipta 100/25) 1 DAILY INH 11/20/16 09:00 12/14/16 08:59 11/20/16 08:28 Gabapentin (Neurontin) 600 mg QID ORAL 11/19/16 13:00 12/13/16 17:59 11/20/16 12:45 Losartan Potassium (Cozaar) 50 mg DAILY ORAL 11/20/16 09:00 12/14/16 08:59 11/20/16 08:19 Pantoprazole (Protonix) 40 mg ACBREAKFAST ORAL 11/20/16 06:30 12/14/16 08:59 11/20/16 06:02 Paroxetine HCl (Paxil) 30 mg BID ORAL 11/19/16 18:00 12/13/16 17:59 11/20/16 08:18 Pravastatin Sodium (Pravachol) 20 mg BEDTIME ORAL 11/19/16 21:00 12/13/16 20:59 11/19/16 20:11 Promethazine HCl/ Codeine (Phenergan with Codeine) 10 ml Q4H PRN ORAL For Cough 11/19/16 15:00 12/18/16 14:59 11/20/16 12:46 Sodium Chloride 1,000 ml @ 75 mls/hr [id number] IV 11/19/16 13:00 12/13/16 12:59 11/20/16 01:19 Tizanidine HCl (Zanaflex) 4 mg Q6H PRN ORAL Muscle Spasm 11/19/16 12:30 12/13/16 12:29 Zolpidem Tartrate (Ambien) 5 mg HSPRN PRN ORAL Insomnia 11/19/16 21:00 11/20/16 20:59 LUKE CLARK Nov 20, 2016 12:55
[2016-11-21] VITALS: BP 129/60
[2016-11-21 04:00] VITALS: BP 140/69
--- NOTE | 2016-11-21 07:35 | General Progress Note ---
Assessment/Plan Problem List: (1) Carotid stenosis ICD Codes: I65.29 - Occlusion and stenosis of unspecified carotid artery SNOMED: 51395611 (2) Hemoptysis ICD Codes: R04.2 - Hemoptysis SNOMED: 34960260 (3) Syncope ICD Codes: R55 - Syncope and collapse SNOMED: 119303534 Status: stable, progressing Assessment/Plan iv abx per id monitor cxr antiplt rx- monitor for worsening hemoptysis. dc subcut heparin pt/ot resp care/rx cough rx increased yesterday. per staff pt not asking for cough meds all the time outpt bronch pt declined snf or aru can dc once iv abx complete- defer to id Subjective ROS Limited/Unobtainable: No Constitutional: Reports: malaise, weakness HEENT: Reports: no symptoms Cardiovascular: Reports: no symptoms Respiratory: Reports: cough, sputum Gastrointestinal/Abdominal: Reports: no symptoms Genitourinary: Reports: no symptoms Neurologic/Psychiatric: Reports: pre-existing deficit Endocrine: Reports: no symptoms Hematologic/Lymphatic: Reports: no symptoms Allergies: Coded Allergies: MORPHINE (Verified Allergy, Severe, Anaphylaxis, 11/14/16) PT RECEIVED 5 DOSES OF OXYCODONE ON PREVIOUS ADMISSION IN 06/2015. As per conversation with the patient. Patient denies having allergy reaction with [place]. She said " I have been taking [place] before and i have no allergy reactions. AMOXICILLIN (Verified Allergy, Mild, ITCHING, 06/15/15) itching CITRUS AND DERIVATIVES (Verified Allergy, Unknown, BREAKOUT, 06/15/15) breakout HYDROMORPHONE (Verified Allergy, Unknown, CHEST PAIN, 06/15/15) chest pain IODINE (Verified Allergy, Unknown, SWELLING, 06/15/15) swelling PENICILLINS (Verified Allergy, Unknown, ITCHING, 06/15/15) itching Uncoded Allergies: NYLON TAPE (Adverse Reaction, Intermediate, NIEVES THE SKIN, 06/21/15) All Systems: reviewed and negative except above Subjective continued cough, congestion and sob. c/o chest tightness. still with intermittent hemoptysis. overall less and starting to feel better. offered are or snf to complete abx and get therapy. pt declined. Objective Last 24 Hour Vital Signs Date Time Temp Pulse Resp B/P (MAP) Pulse Ox O2 Delivery O2 Flow Rate FiO2 11/21/16 04:00 97.5 67 20 140/69 91 Room Air 11/21/16 00:00 97.9 68 20 129/60 98 Room Air 11/20/16 20:30 116/59 11/20/16 20:03 Room Air 11/20/16 20:03 Room Air 11/20/16 20:00 97.7 66 21 132/54 92 Room Air 11/20/16 19:04 97.6 11/20/16 16:00 97.6 73 18 126/65 95 Room Air 11/20/16 11:35 97.9 68 19 137/74 99 Room Air 11/20/16 08:28 72 18 Nasal Cannula 2.0 28 11/20/16 08:28 70 18 98 Room Air 21 11/20/16 08:26 72 20 98 Room Air 21 11/20/16 08:20 70 20 96 Room Air 21 11/20/16 08:19 138/71 11/20/16 08:17 98.2 70 19 138/71 95 Room Air Height (Feet): 5 Height (Inches): 2.00 Weight (Pounds): 160 Objective General Appearance: WD/WN, alert Neck: supple Cardiovascular: normal rate, regular rhythm Respiratory/Chest: chest wall non-tender, lungs clear, normal breath sounds, no respiratory distress, no accessory muscle use Abdomen: normal bowel sounds, non tender, soft, no organomegaly, abnormal bowel sounds Edema: no edema noted Arm (L), no edema noted Arm (R), no edema noted Leg (L), no edema noted Leg (R), no edema noted Pedal (L), no edema noted Pedal (R), no edema noted Generalized JOEY CASTILLO Nov 21, 2016 07:35
[2016-11-21 08:00] VITALS: BP 121/75
[2016-11-21] MEDS: Breo Ellipta 100/25mcg - 14 dose INH SCH (08:35)
[2016-11-21] MEDS: Ertapenem 1 GM in NS 55 ML IVPB SCH (08:58)
[2016-11-21] MEDS: Losartan 50mg tab ORAL SCH (08:59)
[2016-11-21] MEDS: PARoxetine 10mg tab ORAL SCH ×2 (08:59→17:57)
[2016-11-21] MEDS: Promethazine/Codeine 5ml UD ORAL PRN ×3 (09:10→20:53)
--- NOTE | 2016-11-21 12:35 | Infectious Diseases Prog Note ---
Assessment/Plan Assessment/Plan antibiotics : ertapenem A 1. klebsiella | e.coli aspiration pneumonia 2. HTN 3. COPD P 1. continue ertapenem 3 more days 2. will follow up cultures Subjective Constitutional: Denies: fever, chills Respiratory: Reports: shortness of breath, productive cough Gastrointestinal/Abdominal: Denies: nausea, vomiting, diarrhea Musculoskeletal: Reports: pain Allergies: Coded Allergies: MORPHINE (Verified Allergy, Severe, Anaphylaxis, 11/14/16) PT RECEIVED 5 DOSES OF OXYCODONE ON PREVIOUS ADMISSION IN 06/2015. As per conversation with the patient. Patient denies having allergy reaction with [place]. She said " I have been taking [place] before and i have no allergy reactions. AMOXICILLIN (Verified Allergy, Mild, ITCHING, 06/15/15) itching CITRUS AND DERIVATIVES (Verified Allergy, Unknown, BREAKOUT, 06/15/15) breakout HYDROMORPHONE (Verified Allergy, Unknown, CHEST PAIN, 06/15/15) chest pain IODINE (Verified Allergy, Unknown, SWELLING, 06/15/15) swelling PENICILLINS (Verified Allergy, Unknown, ITCHING, 06/15/15) itching Uncoded Allergies: NYLON TAPE (Adverse Reaction, Intermediate, NIEVES THE SKIN, 06/21/15) Objective Vital Signs Last 24 Hour Vital Signs Date Time Temp Pulse Resp B/P (MAP) Pulse Ox O2 Delivery O2 Flow Rate FiO2 11/21/16 08:59 121/75 11/21/16 08:37 78 18 Nasal Cannula 2.0 28 11/21/16 08:35 78 18 98 Room Air 21 11/21/16 08:00 98.2 66 18 121/75 94 Room Air 11/21/16 04:00 97.5 67 20 140/69 91 Room Air 11/21/16 00:00 97.9 68 20 129/60 98 Room Air 11/20/16 20:30 116/59 11/20/16 20:03 Room Air 11/20/16 20:03 Room Air 11/20/16 20:00 97.7 66 21 132/54 92 Room Air 11/20/16 19:04 97.6 11/20/16 16:00 97.6 73 18 126/65 95 Room Air Height (Feet): 5 Height (Inches): 2.00 Weight (Pounds): 160 Respiratory/Chest: lungs clear Cardiovascular: normal rate, regular rhythm, no gallop/murmur Abdomen: soft, non tender Extremities: no edema CASSIDY NOEL Nov 21, 2016 12:35
[2016-11-21 12:39] VITALS: BP 124/77
[2016-11-21 16:00] VITALS: BP 120/68
--- NOTE | 2016-11-21 17:33 | Pulmonology Progress Note ---
Assessment/Plan Assessment/Plan IMPRESSION: 1. Basilar atelectasis without significant pneumonia. 2. Hemoptysis, possibly due to patient's use of antiplatelet agents. 3. Syncope and collapse. 4. Chronic obstructive pulmonary disease per history 5. Respiratory infection PLAN sputum with Klebsiella IV ertapenam to complete respiratory care as is hold heparin oxygen as needed followup imaging now negative bronchoscopy as outpatient to discuss notes no clear OLD history- will obtain outpatient PFT. arrange for outpatient followup for testing and recommendations off heparin impression, plan, and exam edited and reviewed in detail care discussed with RN Subjective Allergies: Coded Allergies: MORPHINE (Verified Allergy, Severe, Anaphylaxis, 11/14/16) PT RECEIVED 5 DOSES OF OXYCODONE ON PREVIOUS ADMISSION IN 06/2015. As per conversation with the patient. Patient denies having allergy reaction with [place]. She said " I have been taking [place] before and i have no allergy reactions. AMOXICILLIN (Verified Allergy, Mild, ITCHING, 06/15/15) itching CITRUS AND DERIVATIVES (Verified Allergy, Unknown, BREAKOUT, 06/15/15) breakout HYDROMORPHONE (Verified Allergy, Unknown, CHEST PAIN, 06/15/15) chest pain IODINE (Verified Allergy, Unknown, SWELLING, 06/15/15) swelling PENICILLINS (Verified Allergy, Unknown, ITCHING, 06/15/15) itching Uncoded Allergies: NYLON TAPE (Adverse Reaction, Intermediate, NIEVES THE SKIN, 06/21/15) Subjective stable overall no distress care noted and reviewed asking for cough syrup Objective Last 24 Hour Vital Signs Date Time Temp Pulse Resp B/P (MAP) Pulse Ox O2 Delivery O2 Flow Rate FiO2 11/21/16 16:00 98.0 71 18 120/68 97 Room Air 11/21/16 12:39 98.3 69 18 124/77 96 Room Air 11/21/16 08:59 121/75 11/21/16 08:37 78 18 Nasal Cannula 2.0 28 11/21/16 08:35 78 18 98 Room Air 21 11/21/16 08:00 98.2 66 18 121/75 94 Room Air 11/21/16 04:00 97.5 67 20 140/69 91 Room Air 11/21/16 00:00 97.9 68 20 129/60 98 Room Air 11/20/16 20:30 116/59 11/20/16 20:03 Room Air 11/20/16 20:03 Room Air 11/20/16 20:00 97.7 66 21 132/54 92 Room Air 11/20/16 19:04 97.6 Objective WDWN NAD reduced breath sounds bilaterally without rhonchi or wheeze [id number] without MRG NABS nontender no HSM no CCE nonfocal Current Medications Medications (Trade) Dose Ordered Sig/Julita Route PRN Reason Start Time Stop Time Status Last Admin Dose Admin Acetaminophen (Tylenol) 650 mg Q4H PRN ORAL Mild Pain/Temp > 100.5 11/19/16 12:00 12/18/16 07:59 11/21/16 15:30 Bacitracin (Bacitracin) 1 applic DAILYPRN PRN TOPIC DRESSING CHANGE 11/19/16 12:00 12/14/16 11:59 Diphenhydramine HCl (Benadryl) 50 mg DAILYPRN PRN ORAL Itching 11/19/16 12:00 12/13/16 11:59 Ertapenem 1 gm/ Sodium Chloride 55 ml @ 110 mls/hr Q24H IVPB 11/20/16 09:00 11/26/16 08:59 11/21/16 08:58 Fluticasone/ Vilanterol (Breo Ellipta 100/25) 1 DAILY INH 11/20/16 09:00 12/14/16 08:59 11/21/16 08:35 Gabapentin (Neurontin) 600 mg QID ORAL 11/19/16 13:00 12/13/16 17:59 11/21/16 13:08 Losartan Potassium (Cozaar) 50 mg DAILY ORAL 11/20/16 09:00 12/14/16 08:59 11/21/16 08:59 Nicotine (Nicoderm) 1 patch Q24H TDERMAL 11/20/16 13:00 12/20/16 12:59 11/21/16 13:07 Pantoprazole (Protonix) 40 mg ACBREAKFAST ORAL 11/20/16 06:30 12/14/16 08:59 11/21/16 05:52 Paroxetine HCl (Paxil) 30 mg BID ORAL 11/19/16 18:00 12/13/16 17:59 11/21/16 08:59 Pravastatin Sodium (Pravachol) 20 mg BEDTIME ORAL 11/19/16 21:00 12/13/16 20:59 11/20/16 21:07 Promethazine HCl/ Codeine (Phenergan with Codeine) 10 ml Q4H PRN ORAL For Cough 11/19/16 15:00 12/18/16 14:59 11/21/16 15:29 Sodium Chloride 1,000 ml @ 75 mls/hr [id number] IV 11/19/16 13:00 12/13/16 12:59 11/21/16 05:43 Tizanidine HCl (Zanaflex) 4 mg Q6H PRN ORAL Muscle Spasm 11/19/16 12:30 12/13/16 12:29 MARSHALL RUGGIERO Nov 21, 2016 17:33
[2016-11-21 20:00] VITALS: BP 124/58
[2016-11-22] VITALS: BP 125/55
[2016-11-22] MEDS: Promethazine/Codeine 5ml UD ORAL PRN ×2 (06:32→22:54)
[2016-11-22 06:34] VITALS: BP 149/70
--- NOTE | 2016-11-22 07:47 | General Progress Note ---
Assessment/Plan Problem List: (1) Carotid stenosis ICD Codes: I65.29 - Occlusion and stenosis of unspecified carotid artery SNOMED: 45953713 (2) Hemoptysis ICD Codes: R04.2 - Hemoptysis SNOMED: 39770730 (3) Syncope ICD Codes: R55 - Syncope and collapse SNOMED: [id number] Status: stable, progressing Assessment/Plan iv abx per id monitor cxr antiplt rx- monitor for worsening hemoptysis. pt/ot resp care/rx cough rx increased yesterday. per staff pt not asking for cough meds all the time outpt bronch pt declined snf or aru can dc once iv abx complete- defer to id Subjective ROS Limited/Unobtainable: No Constitutional: Reports: malaise, weakness HEENT: Reports: no symptoms Cardiovascular: Reports: no symptoms Respiratory: Reports: no symptoms, cough Gastrointestinal/Abdominal: Reports: no symptoms Genitourinary: Reports: no symptoms Neurologic/Psychiatric: Reports: pre-existing deficit Endocrine: Reports: no symptoms Hematologic/Lymphatic: Reports: anemia Allergies: Coded Allergies: MORPHINE (Verified Allergy, Severe, Anaphylaxis, 11/14/16) PT RECEIVED 5 DOSES OF OXYCODONE ON PREVIOUS ADMISSION IN 06/2015. As per conversation with the patient. Patient denies having allergy reaction with [place]. She said " I have been taking [place] before and i have no allergy reactions. AMOXICILLIN (Verified Allergy, Mild, ITCHING, 06/15/15) itching CITRUS AND DERIVATIVES (Verified Allergy, Unknown, BREAKOUT, 06/15/15) breakout HYDROMORPHONE (Verified Allergy, Unknown, CHEST PAIN, 06/15/15) chest pain IODINE (Verified Allergy, Unknown, SWELLING, 06/15/15) swelling PENICILLINS (Verified Allergy, Unknown, ITCHING, 06/15/15) itching Uncoded Allergies: NYLON TAPE (Adverse Reaction, Intermediate, NIEVES THE SKIN, 06/21/15) All Systems: reviewed and negative except above Subjective continued cough, congestion and sob. c/o chest tightness. still with intermittent hemoptysis. overall less and starting to feel better. offered are or snf to complete abx and get therapy. pt declined. mental health case manager also arranged home iv abx. pt declined, doesnt fell well enough. still has "chest tightness" Objective Last 24 Hour Vital Signs Date Time Temp Pulse Resp B/P (MAP) Pulse Ox O2 Delivery O2 Flow Rate FiO2 11/22/16 06:34 97.7 72 20 149/70 95 11/22/16 00:00 97.7 74 18 125/55 93 Room Air 11/21/16 20:00 97.5 69 19 124/58 93 Room Air 11/21/16 16:00 98.0 71 18 120/68 97 Room Air 11/21/16 12:39 98.3 69 18 124/77 96 Room Air 11/21/16 08:59 121/75 11/21/16 08:37 78 18 Nasal Cannula 2.0 28 11/21/16 08:35 78 18 98 Room Air 21 11/21/16 08:00 98.2 66 18 121/75 94 Room Air Height (Feet): 5 Height (Inches): 2.00 Weight (Pounds): 160 Objective General Appearance: WD/WN, alert Neck: supple Cardiovascular: normal rate, regular rhythm Respiratory/Chest: chest wall non-tender, minimal wheeaing, no respiratory distress, no accessory muscle use Abdomen: normal bowel sounds, non tender, soft, no organomegaly, abnormal bowel sounds Edema: no edema noted Arm (L), no edema noted Arm (R), no edema noted Leg (L), no edema noted Leg (R), no edema noted Pedal (L), no edema noted Pedal (R), no edema noted Generalized JOEY CASTILLO Nov 22, 2016 07:47
[2016-11-22 08:15] VITALS: BP 149/78
[2016-11-22] MEDS: Breo Ellipta 100/25mcg - 14 dose INH SCH (09:19)
[2016-11-22] MEDS: Losartan 50mg tab ORAL SCH (09:37)
[2016-11-22] MEDS: PARoxetine 10mg tab ORAL SCH ×2 (09:37→17:37)
[2016-11-22] MEDS: Ertapenem 1 GM in NS 55 ML IVPB SCH (09:37)
[2016-11-22 12:12] VITALS: BP 129/69
--- NOTE | 2016-11-22 15:14 | Pulmonology Progress Note ---
Assessment/Plan Assessment/Plan IMPRESSION: 1. Basilar atelectasis without significant pneumonia. 2. Hemoptysis, possibly due to patient's use of antiplatelet agents. 3. Syncope and collapse. 4. Chronic obstructive pulmonary disease per history 5. Respiratory infection PLAN sputum with Klebsiella IV ertapenam to complete per ID respiratory care as is hold heparin bronchoscopy as outpatient to discuss if needed notes no clear OLD history- will obtain outpatient PFT. arrange for outpatient followup for testing and recommendations ok to dc per pulmonary impression, plan, and exam edited and reviewed in detail care discussed with RN Subjective Allergies: Coded Allergies: MORPHINE (Verified Allergy, Severe, Anaphylaxis, 11/14/16) PT RECEIVED 5 DOSES OF OXYCODONE ON PREVIOUS ADMISSION IN 06/2015. As per conversation with the patient. Patient denies having allergy reaction with [place]. She said " I have been taking [place] before and i have no allergy reactions. AMOXICILLIN (Verified Allergy, Mild, ITCHING, 06/15/15) itching CITRUS AND DERIVATIVES (Verified Allergy, Unknown, BREAKOUT, 06/15/15) breakout HYDROMORPHONE (Verified Allergy, Unknown, CHEST PAIN, 06/15/15) chest pain IODINE (Verified Allergy, Unknown, SWELLING, 06/15/15) swelling PENICILLINS (Verified Allergy, Unknown, ITCHING, 06/15/15) itching Uncoded Allergies: NYLON TAPE (Adverse Reaction, Intermediate, NIEVES THE SKIN, 06/21/15) Subjective stable overall no distress care noted and reviewed cough and congestion improved Objective Last 24 Hour Vital Signs Date Time Temp Pulse Resp B/P (MAP) Pulse Ox O2 Delivery O2 Flow Rate FiO2 11/22/16 12:12 98.0 69 21 129/69 99 Room Air 11/22/16 09:37 149/78 11/22/16 09:20 79 18 100 Nasal Cannula 2.0 28 11/22/16 09:19 77 18 98 Room Air 21 11/22/16 08:15 99.5 77 21 149/78 93 Room Air 11/22/16 06:34 97.7 72 20 149/70 95 11/22/16 00:00 97.7 74 18 125/55 93 Room Air 11/21/16 20:00 97.5 69 19 124/58 93 Room Air 11/21/16 16:00 98.0 71 18 120/68 97 Room Air Intake and Output 11/22/16 11/23/16 19:00 07:00 Intake Total 240 ml Balance 240 ml Intake Oral 240 ml # Voids 1 # Bowel Movements 1 Objective WDWN NAD reduced breath sounds bilaterally without rhonchi or wheeze [id number] without MRG NABS nontender no HSM no CCE nonfocal Current Medications Medications (Trade) Dose Ordered Sig/Julita Route PRN Reason Start Time Stop Time Status Last Admin Dose Admin Acetaminophen (Tylenol) 650 mg Q4H PRN ORAL Mild Pain/Temp > 100.5 11/19/16 12:00 12/18/16 07:59 11/21/16 15:30 Bacitracin (Bacitracin) 1 applic DAILYPRN PRN TOPIC DRESSING CHANGE 11/19/16 12:00 12/14/16 11:59 Diphenhydramine HCl (Benadryl) 50 mg DAILYPRN PRN ORAL Itching 11/19/16 12:00 12/13/16 11:59 Ertapenem 1 gm/ Sodium Chloride 55 ml @ 110 mls/hr Q24H IVPB 11/20/16 09:00 11/26/16 08:59 11/22/16 09:37 Fluticasone/ Vilanterol (Breo Ellipta 100/25) 1 DAILY INH 11/20/16 09:00 12/14/16 08:59 11/22/16 09:19 Gabapentin (Neurontin) 600 mg QID ORAL 11/19/16 13:00 12/13/16 17:59 11/22/16 13:20 Losartan Potassium (Cozaar) 50 mg DAILY ORAL 11/20/16 09:00 12/14/16 08:59 11/22/16 09:37 Nicotine (Nicoderm) 1 patch Q24H TDERMAL 11/20/16 13:00 12/20/16 12:59 11/22/16 13:19 Pantoprazole (Protonix) 40 mg ACBREAKFAST ORAL 11/20/16 06:30 12/14/16 08:59 11/22/16 06:30 Paroxetine HCl (Paxil) 30 mg BID ORAL 11/19/16 18:00 12/13/16 17:59 11/22/16 09:37 Pravastatin Sodium (Pravachol) 20 mg BEDTIME ORAL 11/19/16 21:00 12/13/16 20:59 11/21/16 20:53 Promethazine HCl/ Codeine (Phenergan with Codeine) 10 ml Q4H PRN ORAL For Cough 11/19/16 15:00 12/18/16 14:59 11/22/16 06:32 Sodium Chloride 1,000 ml @ 75 mls/hr [id number] IV 11/19/16 13:00 12/13/16 12:59 11/22/16 09:38 Tizanidine HCl (Zanaflex) 4 mg Q6H PRN ORAL Muscle Spasm 11/19/16 12:30 12/13/16 12:29 MARSHALL RUGGIERO Nov 22, 2016 15:14
[2016-11-22 15:56] VITALS: BP 120/51
[2016-11-22 20:00] VITALS: BP 150/73
[2016-11-23] VITALS: BP 147/69
[2016-11-23 04:00] VITALS: BP 129/79
--- NOTE | 2016-11-23 05:30 | Progress Note ---
DATE: 11/20/2016 CARDIOLOGY PROGRESS NOTE Late entry for 11/20/2016 Subjective: The patient still has cough, congestion. Less hemoptysis. Less shortness of breath. No chest pain. OBJECTIVE: Vital Signs: Blood pressure 138/71, pulse rate 70, respiratory rate 19, and afebrile. LUNGS: Few rhonchi. No wheezing. Heart: Regular rhythm and rate. Normal S1, S2 with a fourth heart sound. ABDOMEN: Soft. EXTREMITIES: No edema. Laboratory Studies: White count 10.2, hemoglobin 11.6. Potassium 4.7, BUN 9, and creatinine 0.6. Pro-natriuretic peptide 248. IMPRESSION: 1. Polymicrobial bronchopneumonia. 2. History of cerebrovascular accident. 3. Chronic right carotid occlusion. 4. Hypertensive heart disease. 5. Chronic diastolic congestive heart failure. 6. Protein-calorie malnutrition, recovered. Plan Of Care: Plan of care in place with continued antibiotics, bronchodilators, respiratory hygiene, antitussives. Continue current cardiovascular medications. No plan for additional diuresis at this time. Rosendo Palacios M.D. DR: Daryl JOB#: [id number] CC:
--- NOTE | 2016-11-23 06:30 | Progress Note ---
DATE: 11/22/2016 CARDIOLOGY PROGRESS NOTE Subjective: Some cough and congestion. Less hemoptysis. No shortness of breath. No leg swelling. OBJECTIVE: Vital Signs: Blood pressure 125/55 to 149/70, heart rate 69 to 74, respiratory rate 18 to 20, and afebrile. LUNGS: Good breath sounds. Few rhonchi. HEART: Regular rhythm and rate. Normal S1 and S2. ABDOMEN: Soft. EXTREMITIES: No edema. NEUROLOGIC: Mild facial asymmetry. IMPRESSION: 1. Recovered bronchopneumonia due to polymicrobial, but gram-negative pathogen component of chronic obstructive pulmonary disease. 2. Hypertensive heart disease. 3. Chronic diastolic congestive heart failure. 4. Chronic right carotid occlusion. 5. Prior cerebrovascular accidents. PLAN: 1. Plan of care reviewed. 2. No change in current cardiovascular regimen. 3. Will follow as outpatient. Rosendo Palacios M.D. DR: YANG JOB#: [id number] CC:
--- NOTE | 2016-11-23 08:07 | Pulmonology Progress Note ---
Assessment/Plan Assessment/Plan IMPRESSION: 1. Basilar atelectasis without significant pneumonia. 2. Hemoptysis, possibly due to patient's use of antiplatelet agents. 3. Syncope and collapse. 4. Chronic obstructive pulmonary disease per history 5. Respiratory infection PLAN sputum with Klebsiella IV ertapenam to complete per ID respiratory care as is hold heparin bronchoscopy as outpatient to discuss if needed notes no clear OLD history- will obtain outpatient PFT. arrange for outpatient followup for testing and recommendations ok to dc per pulmonary events noted and reviewed care discussed with patient in detail impression, plan, and exam edited and reviewed in detail care discussed with RN Subjective Allergies: Coded Allergies: MORPHINE (Verified Allergy, Severe, Anaphylaxis, 11/14/16) PT RECEIVED 5 DOSES OF OXYCODONE ON PREVIOUS ADMISSION IN 06/2015. As per conversation with the patient. Patient denies having allergy reaction with [place]. She said " I have been taking [place] before and i have no allergy reactions. AMOXICILLIN (Verified Allergy, Mild, ITCHING, 06/15/15) itching CITRUS AND DERIVATIVES (Verified Allergy, Unknown, BREAKOUT, 06/15/15) breakout HYDROMORPHONE (Verified Allergy, Unknown, CHEST PAIN, 06/15/15) chest pain IODINE (Verified Allergy, Unknown, SWELLING, 06/15/15) swelling PENICILLINS (Verified Allergy, Unknown, ITCHING, 06/15/15) itching Uncoded Allergies: NYLON TAPE (Adverse Reaction, Intermediate, NIEVES THE SKIN, 06/21/15) Subjective stable overall no distress care noted and reviewed cough and congestion stable Objective Last 24 Hour Vital Signs Date Time Temp Pulse Resp B/P (MAP) Pulse Ox O2 Delivery O2 Flow Rate FiO2 11/23/16 04:00 97.2 70 20 129/79 98 Room Air 11/23/16 00:00 98.0 62 20 147/69 94 Room Air 11/22/16 20:00 98.1 66 20 150/73 91 Room Air 11/22/16 15:56 97.4 70 20 120/51 97 Room Air 11/22/16 12:12 98.0 69 21 129/69 99 Room Air 11/22/16 09:37 149/78 11/22/16 09:20 79 18 100 Nasal Cannula 2.0 28 11/22/16 09:19 77 18 98 Room Air 11/22/16 08:15 99.5 77 21 149/78 93 Room Air Objective WDWN NAD reduced breath sounds bilaterally without rhonchi or wheeze [id number] without MRG NABS nontender no HSM no CCE nonfocal Current Medications Medications (Trade) Dose Ordered Sig/Julita Route PRN Reason Start Time Stop Time Status Last Admin Dose Admin Acetaminophen (Tylenol) 650 mg Q4H PRN ORAL Mild Pain/Temp > 100.5 11/19/16 12:00 12/18/16 07:59 11/21/16 15:30 Bacitracin (Bacitracin) 1 applic DAILYPRN PRN TOPIC DRESSING CHANGE 11/19/16 12:00 12/14/16 11:59 Diphenhydramine HCl (Benadryl) 50 mg DAILYPRN PRN ORAL Itching 11/19/16 12:00 12/13/16 11:59 Ertapenem 1 gm/ Sodium Chloride 55 ml @ 110 mls/hr Q24H IVPB 11/20/16 09:00 11/26/16 08:59 11/22/16 09:37 Fluticasone/ Vilanterol (Breo Ellipta 100/25) 1 DAILY INH 11/20/16 09:00 12/14/16 08:59 11/22/16 09:19 Gabapentin (Neurontin) 600 mg QID ORAL 11/19/16 13:00 12/13/16 17:59 11/22/16 22:07 Losartan Potassium (Cozaar) 50 mg DAILY ORAL 11/20/16 09:00 12/14/16 08:59 11/22/16 09:37 Nicotine (Nicoderm) 1 patch Q24H TDERMAL 11/20/16 13:00 12/20/16 12:59 11/22/16 13:19 Pantoprazole (Protonix) 40 mg ACBREAKFAST ORAL 11/20/16 06:30 12/14/16 08:59 11/22/16 22:08 Paroxetine HCl (Paxil) 30 mg BID ORAL 11/19/16 18:00 12/13/16 17:59 11/22/16 17:37 Pravastatin Sodium (Pravachol) 20 mg BEDTIME ORAL 11/19/16 21:00 12/13/16 20:59 11/22/16 22:08 Promethazine HCl/ Codeine (Phenergan with Codeine) 10 ml Q4H PRN ORAL For Cough 11/19/16 15:00 12/18/16 14:59 11/22/16 22:54 Sodium Chloride 1,000 ml @ 75 mls/hr [id number] IV 11/19/16 13:00 12/13/16 12:59 11/22/16 22:13 Tizanidine HCl (Zanaflex) 4 mg Q6H PRN ORAL Muscle Spasm 11/19/16 12:30 12/13/16 12:29 MARSHALL RUGGIERO Nov 23, 2016 08:07
[2016-11-23 08:31] VITALS: BP 142/71
[2016-11-23] MEDS: Ertapenem 1 GM in NS 55 ML IVPB SCH (08:43)
[2016-11-23] MEDS: PARoxetine 10mg tab ORAL SCH ×2 (08:43→17:10)
[2016-11-23] MEDS: Losartan 50mg tab ORAL SCH (08:43)
--- NOTE | 2016-11-23 09:03 | General Progress Note ---
Assessment/Plan Problem List: (1) Carotid stenosis ICD Codes: I65.29 - Occlusion and stenosis of unspecified carotid artery SNOMED: 94114604 (2) Hemoptysis ICD Codes: R04.2 - Hemoptysis SNOMED: 26686046 (3) Syncope ICD Codes: R55 - Syncope and collapse SNOMED: 019896674 Status: stable, progressing Assessment/Plan iv abx per id. last dose tomorrow monitor cxr antiplt rx- monitor for worsening hemoptysis. pt/ot resp care/rx cough rx increased yesterday. per staff pt not asking for cough meds all the time outpt bronch pt declined snf or aru can dc tomorrow after last dose of abx Subjective ROS Limited/Unobtainable: No Constitutional: Reports: malaise, weakness HEENT: Reports: no symptoms Cardiovascular: Reports: no symptoms Respiratory: Reports: cough Gastrointestinal/Abdominal: Reports: no symptoms Genitourinary: Reports: no symptoms Neurologic/Psychiatric: Reports: pre-existing deficit Endocrine: Reports: no symptoms Hematologic/Lymphatic: Reports: anemia Allergies: Coded Allergies: MORPHINE (Verified Allergy, Severe, Anaphylaxis, 11/14/16) PT RECEIVED 5 DOSES OF OXYCODONE ON PREVIOUS ADMISSION IN 06/2015. As per conversation with the patient. Patient denies having allergy reaction with [place]. She said " I have been taking [place] before and i have no allergy reactions. AMOXICILLIN (Verified Allergy, Mild, ITCHING, 06/15/15) itching CITRUS AND DERIVATIVES (Verified Allergy, Unknown, BREAKOUT, 06/15/15) breakout HYDROMORPHONE (Verified Allergy, Unknown, CHEST PAIN, 06/15/15) chest pain IODINE (Verified Allergy, Unknown, SWELLING, 06/15/15) swelling PENICILLINS (Verified Allergy, Unknown, ITCHING, 06/15/15) itching Uncoded Allergies: NYLON TAPE (Adverse Reaction, Intermediate, NIEVES THE SKIN, 06/21/15) All Systems: reviewed and negative except above Subjective less cough. no chest pain less wheezing. no fevers. on iv abx- last dose tomorrow Objective Last 24 Hour Vital Signs Date Time Temp Pulse Resp B/P (MAP) Pulse Ox O2 Delivery O2 Flow Rate FiO2 11/23/16 08:43 142/71 11/23/16 08:31 97.7 73 19 142/71 95 Room Air 11/23/16 04:00 97.2 70 20 129/79 98 Room Air 11/23/16 00:00 98.0 62 20 147/69 94 Room Air 11/22/16 20:00 98.1 66 20 150/73 91 Room Air 11/22/16 15:56 97.4 70 20 120/51 97 Room Air 11/22/16 12:12 98.0 69 21 129/69 99 Room Air 11/22/16 09:37 149/78 11/22/16 09:20 79 18 100 Nasal Cannula 2.0 28 11/22/16 09:19 77 18 98 Room Air 21 Intake and Output 11/23/16 11/24/16 19:00 07:00 # Bowel Movements 1 Height (Feet): 5 Height (Inches): 2.00 Weight (Pounds): 160 Objective General Appearance: WD/WN, alert Neck: supple Cardiovascular: normal rate, regular rhythm Respiratory/Chest: chest wall non-tender, minimal wheeaing, no respiratory distress, no accessory muscle use Abdomen: normal bowel sounds, non tender, soft, no organomegaly, abnormal bowel sounds Edema: no edema noted Arm (L), no edema noted Arm (R), no edema noted Leg (L), no edema noted Leg (R), no edema noted Pedal (L), no edema noted Pedal (R), no edema noted Generalized JOEY CASTILLO Nov 23, 2016 09:03
--- NOTE | 2016-11-23 09:03 | Progress Note ---
DATE: 11/21/2016 CARDIOLOGY PROGRESS NOTE Late entry for November 21, 2016. Subjective: Slow progress, improving, still with hemoptysis, continued on IV antibiotics. OBJECTIVE: Vital Signs: Blood pressure is 140/59, pulse 67, and respiratory rate 20. LUNGS: Few rhonchi. Heart: Regular rhythm and rate. Normal S1 and S2 with a fourth heart sound. ABDOMEN: Soft. EXTREMITIES: No edema. IMPRESSION: Improved, stable cardiovascular parameters. PLAN: 1. Continue current therapy. 2. Home on current cardiovascular regimen once off IV antibiotics. Rosendo Palacios M.D. DR: Usman JOB#: [id number] CC:
[2016-11-23] MEDS: Breo Ellipta 100/25mcg - 14 dose INH SCH (10:48)
[2016-11-23 11:40] VITALS: BP 142/58
--- NOTE | 2016-11-23 12:12 | Infectious Diseases Prog Note ---
Assessment/Plan Assessment/Plan antibiotics : ertapenem A 1. klebsiella | e.coli aspiration pneumonia improving 2. HTN 3. COPD P 1. continue ertapenem 1 more day 2. will follow up cultures Subjective Constitutional: Denies: fever, chills Respiratory: Reports: shortness of breath - decreasing, productive cough - decreasing Gastrointestinal/Abdominal: Denies: nausea, vomiting, diarrhea Musculoskeletal: Reports: pain Allergies: Coded Allergies: MORPHINE (Verified Allergy, Severe, Anaphylaxis, 11/14/16) PT RECEIVED 5 DOSES OF OXYCODONE ON PREVIOUS ADMISSION IN 06/2015. As per conversation with the patient. Patient denies having allergy reaction with [place]. She said " I have been taking [place] before and i have no allergy reactions. AMOXICILLIN (Verified Allergy, Mild, ITCHING, 06/15/15) itching CITRUS AND DERIVATIVES (Verified Allergy, Unknown, BREAKOUT, 06/15/15) breakout HYDROMORPHONE (Verified Allergy, Unknown, CHEST PAIN, 06/15/15) chest pain IODINE (Verified Allergy, Unknown, SWELLING, 06/15/15) swelling PENICILLINS (Verified Allergy, Unknown, ITCHING, 06/15/15) itching Uncoded Allergies: NYLON TAPE (Adverse Reaction, Intermediate, NIEVES THE SKIN, 06/21/15) Objective Vital Signs Last 24 Hour Vital Signs Date Time Temp Pulse Resp B/P (MAP) Pulse Ox O2 Delivery O2 Flow Rate FiO2 11/23/16 11:40 97.8 63 19 142/58 96 Room Air 11/23/16 09:23 68 18 9 Nasal Cannula 2.0 28 11/23/16 09:20 63 18 96 Room Air 21 11/23/16 08:43 142/71 11/23/16 08:31 97.7 73 19 142/71 95 Room Air 11/23/16 04:00 97.2 70 20 129/79 98 Room Air 11/23/16 00:00 98.0 62 20 147/69 94 Room Air 11/22/16 20:00 98.1 66 20 150/73 91 Room Air 11/22/16 15:56 97.4 70 20 120/51 97 Room Air 11/22/16 12:12 98.0 69 21 129/69 99 Room Air Height (Feet): 5 Height (Inches): 2.00 Weight (Pounds): 160 Respiratory/Chest: lungs clear Cardiovascular: normal rate, regular rhythm, no gallop/murmur Abdomen: soft, non tender Extremities: no edema CASSIDY NOEL Nov 23, 2016 12:12
[2016-11-23 15:35] VITALS: BP 145/75
[2016-11-23 20:56] VITALS: BP 134/62
[2016-11-23] MEDS: Promethazine/Codeine 5ml UD ORAL PRN (21:02)
[2016-11-24 00:30] VITALS: BP 141/73
--- NOTE | 2016-11-24 04:15 | Progress Note ---
DATE: 11/23/2016 CARDIOLOGY PROGRESS NOTE Subjective: The patient continues to improve. She remains on IV antibiotics. No chest pain. No shortness of breath. Blood pressure parameters remained overall well-controlled. OBJECTIVE: Vital Signs: Range of blood pressure 120 to 150/50 to 80, heart rate in the 60s, and respiratory rate 18 to 20. No fevers. LUNGS: With few rhonchi. CARDIAC: Regular. No murmur. ABDOMEN: Soft. EXTREMITIES: No edema. IMPRESSION: 1. Stable cardiovascular parameters. 2. Chronic right carotid occlusion. 3. Prior cerebrovascular accident, recovering. 4. Gram-negative polymicrobial. 5. Bronchopneumonia. 6. Chronic obstructive pulmonary disease. PLAN: 1. Complete antibiotics. 2. Maintain current anti-platelet, anti-lipid, and antihypertensive regimen. 3. Outpatient follow up. Rosendo Palacios M.D. DR: YANG JOB#: [id number] CC:
[2016-11-24 04:39] VITALS: BP 107/37
--- NOTE | 2016-11-24 06:02 | Pulmonology Progress Note ---
Assessment/Plan Assessment/Plan IMPRESSION: 1. Basilar atelectasis without significant pneumonia. 2. Hemoptysis, possibly due to patient's use of antiplatelet agents. 3. Syncope and collapse. 4. Chronic obstructive pulmonary disease per history 5. Respiratory infection PLAN sputum with Klebsiella IV ertapenam to complete per ID today respiratory care as is bronchoscopy as outpatient to discuss if needed notes no clear OLD history- will obtain outpatient PFT. arrange for outpatient followup for testing and recommendations ok to dc per pulmonary events noted and reviewed care discussed with patient in detail hope to dc today impression, plan, and exam edited and reviewed in detail care discussed with RN Subjective Allergies: Coded Allergies: MORPHINE (Verified Allergy, Severe, Anaphylaxis, 11/14/16) PT RECEIVED 5 DOSES OF OXYCODONE ON PREVIOUS ADMISSION IN 06/2015. As per conversation with the patient. Patient denies having allergy reaction with [place]. She said " I have been taking [place] before and i have no allergy reactions. AMOXICILLIN (Verified Allergy, Mild, ITCHING, 06/15/15) itching CITRUS AND DERIVATIVES (Verified Allergy, Unknown, BREAKOUT, 06/15/15) breakout HYDROMORPHONE (Verified Allergy, Unknown, CHEST PAIN, 06/15/15) chest pain IODINE (Verified Allergy, Unknown, SWELLING, 06/15/15) swelling PENICILLINS (Verified Allergy, Unknown, ITCHING, 06/15/15) itching Uncoded Allergies: NYLON TAPE (Adverse Reaction, Intermediate, NIEVES THE SKIN, 06/21/15) Subjective stable overall no distress care noted and reviewed cough and congestion controlled per ID, dc antibiotics today Objective Last 24 Hour Vital Signs Date Time Temp Pulse Resp B/P (MAP) Pulse Ox O2 Delivery O2 Flow Rate FiO2 11/24/16 04:39 97.7 61 20 107/37 96 Room Air 11/24/16 00:30 97.7 62 20 141/73 Room Air 11/23/16 20:56 97.7 75 20 134/62 100 Nasal Cannula 11/23/16 15:35 97.9 71 19 145/75 96 Room Air 11/23/16 11:40 97.8 63 19 142/58 96 Room Air 11/23/16 09:23 68 18 9 Nasal Cannula 2.0 28 11/23/16 09:20 63 18 96 Room Air 21 11/23/16 08:43 142/71 11/23/16 08:31 97.7 73 19 142/71 95 Room Air Objective WDWN NAD reduced breath sounds bilaterally without rhonchi or wheeze [id number] without MRG NABS nontender no HSM no CCE nonfocal alert Current Medications Medications (Trade) Dose Ordered Sig/Julita Route PRN Reason Start Time Stop Time Status Last Admin Dose Admin Acetaminophen (Tylenol) 650 mg Q4H PRN ORAL Mild Pain/Temp > 100.5 11/19/16 12:00 12/18/16 07:59 11/21/16 15:30 Bacitracin (Bacitracin) 1 applic DAILYPRN PRN TOPIC DRESSING CHANGE 11/19/16 12:00 12/14/16 11:59 Diphenhydramine HCl (Benadryl) 50 mg DAILYPRN PRN ORAL Itching 11/19/16 12:00 12/13/16 11:59 Ertapenem 1 gm/ Sodium Chloride 55 ml @ 110 mls/hr Q24H IVPB 11/20/16 09:00 11/26/16 08:59 11/23/16 08:43 Fluticasone/ Vilanterol (Breo Ellipta 100/25) 1 DAILY INH 11/20/16 09:00 12/14/16 08:59 11/23/16 10:48 Gabapentin (Neurontin) 600 mg QID ORAL 11/19/16 13:00 12/13/16 17:59 11/23/16 20:59 Losartan Potassium (Cozaar) 50 mg DAILY ORAL 11/20/16 09:00 12/14/16 08:59 11/23/16 08:43 Nicotine (Nicoderm) 1 patch Q24H TDERMAL 11/20/16 13:00 12/20/16 12:59 11/23/16 12:56 Pantoprazole (Protonix) 40 mg ACBREAKFAST ORAL 11/20/16 06:30 12/14/16 08:59 11/22/16 22:08 Paroxetine HCl (Paxil) 30 mg BID ORAL 11/19/16 18:00 12/13/16 17:59 11/23/16 17:10 Pravastatin Sodium (Pravachol) 20 mg BEDTIME ORAL 11/19/16 21:00 12/13/16 20:59 9/22/17 20:58 Promethazine HCl/ Codeine (Phenergan with Codeine) 10 ml Q4H PRN ORAL For Cough 11/19/16 15:00 12/18/16 14:59 11/23/16 21:02 Sodium Chloride 1,000 ml @ 75 mls/hr [id number] IV 11/19/16 13:00 12/13/16 12:59 11/24/16 00:12 Tizanidine HCl (Zanaflex) 4 mg Q6H PRN ORAL Muscle Spasm 11/19/16 12:30 12/13/16 12:29 MARSHALL RUGGIERO Nov 24, 2016 06:02
[2016-11-24 08:19] VITALS: BP 148/64
[2016-11-24] MEDS: Breo Ellipta 100/25mcg - 14 dose INH SCH (08:21)
[2016-11-24] MEDS: Ertapenem 1 GM in NS 55 ML IVPB SCH (08:37)
[2016-11-24] MEDS: Losartan 50mg tab ORAL SCH (08:37)
[2016-11-24] MEDS: PARoxetine 10mg tab ORAL SCH (08:38)
[2016-11-24 12:00] VITALS: BP 140/72
--- NOTE | 2016-11-24 17:45 | Discharge Summary ---
DATE OF ADMISSION: 11/13/2016 DATE OF DISCHARGE: 11/24/2016 ADMISSION DIAGNOSES: 1. Syncope. 2. Dehydration. 3. Community-acquired pneumonia. 4. Hypertension. 5. History of stroke. 6. History of carotid stenosis. DISCHARGE DIAGNOSES: 1. Syncope. 2. Dehydration. 3. Community-acquired pneumonia. 4. Hypertension. 5. History of stroke. 6. History of carotid stenosis. Hospital Course: The patient is a pleasant female, who was admitted with a syncopal episode. She was admitted and hydrated. She was noted to have some cough. Upon admission, she had worsening cough and hemoptysis. She had a CAT scan of the chest that showed a possible pneumonia. She was started on broad-spectrum IV antibiotic therapy. She also had a COPD exacerbation. Her course was prolonged because of continued cough and hemoptysis, she did improve. She was treated with IV antibiotic therapy, was recommended that she go to a long-term facility or go home with home IV antibiotics but the patient refused. She completed all IV antibiotic therapy here in house. Discharge Medications: Please see discharge medication list for discharge medications. DIET: Cardiac diet. ACTIVITIES: Ad-litzy. Followup: The patient will be followed up in the office in one to two weeks. Demario Hdz M.D. DR: MAKAYLA JOB#: [id number] CC:
--- NOTE | 2016-11-24 18:15 | Progress Note ---
DATE: 11/24/2016 CARDIOLOGY PROGRESS NOTE Subjective: The patient is completing IV antibiotics today. Her cough has diminished. She has no hemoptysis. She is not short of breath. She denies leg swelling. OBJECTIVE: Vital Signs: Blood pressure is 107/37, pulse 61, and respiratory rate 20. LUNGS: Good breath sounds. Few rhonchi. Cardiac: Regular rhythm and rate. Normal S1 and S2 with a fourth heart sound. ABDOMEN: Soft. No edema. Mild facial asymmetry. IMPRESSION: 1. Polymicrobial gram-negative bronchopneumonia, resolved. 2. Possible chronic obstructive pulmonary disease, stable with no bronchospasm. 3. Hypertensive heart disease with controlled blood pressure. 4. Chronic right carotid occlusion with no acute neurologic deficits. 5. Vasovagally-mediated syncope on admission likely due to acute infection. PLAN: 1. Off antibiotics. 2. Continue current cardiovascular regimen including anti-platelet and anti-lipid drugs as well as current antihypertensive. 3. Outpatient followup. Rosendo Palacios M.D. DR: RIDDHI JOB#: [id number] CC:
== END 2016-11-24 13:43 | disposition home or self-care (01) | DRG 178 ==
LOC: EMR 12:00 → 2E 12:33 → EDBEDREQ 12:49 → 4E 11-19 11:10
DX: J69.0 Pneumonitis due to inhalation of food and vomit (principal); R04.2 Hemoptysis; I50.32 Chronic diastolic (congestive) heart failure; J44.9 Chronic obstructive pulmonary disease, unspecified; I11.0 Hypertensive heart disease with heart failure; E44.1 Mild protein-calorie malnutrition; E86.1 Hypovolemia; I65.21 Occlusion and stenosis of right carotid artery; R55 Syncope and collapse; Z86.73 Personal history of transient ischemic attack (TIA), and cerebral infarction without residual deficits; Z68.29 Body mass index [BMI] 29.0-29.9, adult; Z88.6 Allergy status to analgesic agent; Z88.0 Allergy status to penicillin; Z88.8 Allergy status to other drugs, medicaments and biological substances; F17.200 Nicotine dependence, unspecified, uncomplicated; I73.9 Peripheral vascular disease, unspecified; J15.5 Pneumonia due to Escherichia coli; J15.0 Pneumonia due to Klebsiella pneumoniae
CPT/HCPCS: 36415; 70450; 71010; 71250; 80053; 80300; 81003; 82550; 82553; 83690; 83735; 83880; 84484; 85025; 87070; 87181; 87205; 93005; 93880; 94640; 99285; J7620

== ENCOUNTER 2017-01-03 09:54 | Inpatient (IN) | payer MEDICARE, MEDICAID ==
[~2017-01-03] VITALS: Ht 157.5 cm; Wt 73.5 kg
[2017-01-03 02:00] VITALS: BP 121/50
[2017-01-03 04:02] VITALS: BP 121/50
[~2017-01-03 09:54] MED LIST changes: +BREO ELLIPTA 11 EACH IH; +COMBIVENT RESPIM4 GM IH; +FLECTOR1 EACH TP; +NUCYNTA50 MG PO; +PLAVIX75 MG ORAL; +PRAVASTATIN SOD20 M1 ORAL
[2017-01-03 10:01] VITALS: BP 129/66
[2017-01-03] MEDS ORDERED: Sodium Chloride 500ML 500 ML IV ONE (10:12)
[2017-01-03] MEDS ORDERED: Ipratropium 0.02% Inh Soln 2.5ml UD HHN ONE (10:15)
[2017-01-03] MEDS ORDERED: Solu-MEDROL 125mg Inj IVP ONE (10:15)
[2017-01-03] MEDS ORDERED: Albuterol ud Inhalation HHN ONE (10:15)
[2017-01-03 10:54] LABS: HEMATOCRIT 41.1 % (37.0-47.0); HEMOGLOBIN 13.3 G/DL (12.0-16.0); MEAN CORPUSCULAR VOLUME 94 FL (80-99); PLATELET COUNT 376 K/UL (150-450); RED BLOOD COUNT 4.35 M/UL (4.20-5.40); RED CELL DISTRIBUTION WIDTH 13.3 % (11.6-14.8); WHITE BLOOD COUNT 21.1 K/UL (4.8-10.8)
[2017-01-03 11:19] LABS: ALANINE AMINOTRANSFERASE 14 U/L (12-78); ALBUMIN 3.6 G/DL (3.4-5.0); ALKALINE PHOSPHATASE 87 U/L (46-116); ANION GAP 7 mmol/L (5-15); ASPARTATE AMINO TRANSFERASE 17 U/L (15-37); BILIRUBIN,TOTAL 0.3 MG/DL (0.2-1.0); BLOOD UREA NITROGEN 11 mg/dL (7-18); CALCIUM 8.7 MG/DL (8.5-10.1); CARBON DIOXIDE 27 MMOL/L (21-32); CHLORIDE 102 MMOL/L (98-107); CKMB 1.5 NG/ML (0.0-3.6); CREATINE KINASE 75 U/L (26-308); CREATININE 0.8 MG/DL (0.55-1.30); POTASSIUM 3.8 MMOL/L (3.5-5.1); SODIUM 136 MMOL/L (136-145)
[2017-01-03] MEDS ORDERED: NS 1000ml 2,200 ML IVLG ONE (11:45)
[2017-01-03 12:00] VITALS: BP 113/82
[2017-01-03] MEDS ORDERED: Norco 10mg/325mg tab ORAL PRN (13:15)
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
--- NOTE | 2017-01-03 15:11 | Diagnostic Imaging Report ---
Indication: SOB Technique: One view of the chest Comparison: 11/18/2016 Findings: Interim development of infiltrate at the left lung base. Normal heart size. There is some atelectasis at the right lung base. The aorta is tortuous. Impression: Left basilar infiltrate and right basilar atelectasis, new since 11/18/2016
[2017-01-03] MEDS: Albuterol/Ipratropium 3ml neb HHN SCH ×3 (15:48→22:22)
[2017-01-03] MEDS: PARoxetine 10mg tab ORAL SCH (17:17)
[2017-01-03] MEDS: cefTRIAXone 1 GM in D5W 55 ML IVPB SCH (17:18)
[2017-01-03] MEDS: Solu-MEDROL 40mg Inj IVP SCH (17:18)
[2017-01-03 20:00] VITALS: BP 121/50
[2017-01-03] MEDS ORDERED: Zolpidem 5mg tab ORAL PRN (21:00)
[2017-01-04] MEDS: Albuterol/Ipratropium 3ml neb HHN SCH ×6 (03:43→23:08)
[2017-01-04 04:00] VITALS: BP 119/56
[2017-01-04] MEDS: Solu-MEDROL 40mg Inj IVP SCH ×2 (05:30→22:35)
[2017-01-04 08:00] VITALS: BP 129/47
--- NOTE | 2017-01-04 08:55 | General Progress Note ---
Assessment/Plan Problem List: (1) Hemoptysis ICD Codes: R04.2 - Hemoptysis SNOMED: 65070174 (2) Carotid stenosis ICD Codes: I65.29 - Occlusion and stenosis of unspecified carotid artery SNOMED: 52608008 (3) Pneumonia ICD Codes: J18.9 - Pneumonia, unspecified organism SNOMED: 067234784 Qualifiers: Qualified Codes: J18.9 - Pneumonia, unspecified organism (4) COPD exacerbation ICD Codes: J44.1 - Chronic obstructive pulmonary disease with (acute) exacerbation SNOMED: 803905528, [id number] Status: stable, progressing Status Narrative iv steroids resp rx iv abx follow up cultures cough rx consider chest ct Subjective ROS Limited/Unobtainable: No Constitutional: Reports: fever, malaise, weakness HEENT: Reports: no symptoms Cardiovascular: Reports: no symptoms Respiratory: Reports: cough, sputum Gastrointestinal/Abdominal: Reports: no symptoms Genitourinary: Reports: no symptoms Neurologic/Psychiatric: Reports: pre-existing deficit Endocrine: Reports: no symptoms Hematologic/Lymphatic: Reports: no symptoms Allergies: Coded Allergies: MORPHINE (Verified Allergy, Severe, Anaphylaxis, 11/14/16) PT RECEIVED 5 DOSES OF OXYCODONE ON PREVIOUS ADMISSION IN 06/2015. As per conversation with the patient. Patient denies having allergy reaction with [place]. She said " I have been taking [place] before and i have no allergy reactions. AMOXICILLIN (Verified Allergy, Mild, ITCHING, 06/15/15) itching CITRUS AND DERIVATIVES (Verified Allergy, Unknown, BREAKOUT, 06/15/15) breakout HYDROMORPHONE (Verified Allergy, Unknown, CHEST PAIN, 06/15/15) chest pain IODINE (Verified Allergy, Unknown, SWELLING, 06/15/15) swelling PENICILLINS (Verified Allergy, Unknown, ITCHING, 06/15/15) itching Uncoded Allergies: NYLON TAPE (Adverse Reaction, Intermediate, NIEVES THE SKIN, 06/21/15) Subjective feels a little better today. still with cough and sob. +hemoptysis Objective Last 24 Hour Vital Signs Date Time Temp Pulse Resp B/P (MAP) Pulse Ox O2 Delivery O2 Flow Rate FiO2 01/04/17 08:38 78 16 99 Nasal Cannula 3.0 32 01/04/17 08:30 28 01/04/17 08:30 81 16 96 Nasal Cannula 2.0 28 01/04/17 08:00 97.5 80 19 129/47 93 Room Air 01/04/17 04:00 97.9 85 16 119/56 Nasal Cannula 3.0 01/04/17 04:00 81 01/04/17 03:51 72 16 96 Nasal Cannula 3.0 32 01/04/17 03:42 72 16 94 Nasal Cannula 3.0 32 01/04/17 03:42 32 01/04/17 00:00 73 01/03/17 22:39 68 16 94 Nasal Cannula 3.0 32 01/03/17 22:24 28 01/03/17 22:23 66 16 92 Nasal Cannula 2.0 28 01/03/17 20:00 97.5 69 18 121/50 Room Air 01/03/17 20:00 97.5 69 121/50 100 Room Air 01/03/17 19:54 74 18 95 Nasal Cannula 2.0 01/03/17 19:46 70 18 92 Nasal Cannula 2.0 01/03/17 19:46 28 01/03/17 16:00 85 01/03/17 15:45 28 01/03/17 15:45 85 18 93 Nasal Cannula 2.0 01/03/17 14:15 99.0 89 16 106/78 97 Nasal Cannula 2.0 01/03/17 12:00 99.0 99 20 113/82 98 Nasal Cannula 2.0 01/03/17 10:37 90 18 99 Nasal Cannula 2.0 01/03/17 10:22 95 18 95 Nasal Cannula 2.0 01/03/17 10:22 28 01/03/17 10:22 95 18 Nasal Cannula 2.0 01/03/17 10:01 100.2 101 20 129/66 94 Room Air 01/03/17 10:01 101 20 Room Air 01/03/17 10:01 100.2 101 20 129/66 94 Room Air Laboratory Tests 01/03/17 10:45: White Blood Count 21.1H, Red Blood Count 4.35, Hemoglobin 13.3, Hematocrit 41.1 , Mean Corpuscular Volume 94, Mean Corpuscular Hemoglobin 30.4, Mean Corpuscular Hemoglobin Concent 32.2, Red Cell Distribution Width 13.3, Platelet Count 376, Mean Platelet Volume 6.3L, Neutrophils (%) (Auto) , Lymphocytes (%) ( Auto) , Monocytes (%) (Auto) , Eosinophils (%) (Auto) , Basophils (%) (Auto) , Differential Total Cells Counted 100, Neutrophils % (Manual) 81H, Lymphocytes % (Manual) 5L, Monocytes % (Manual) 4, Eosinophils % (Manual) 0, Basophils % ( Manual) 0, Band Neutrophils 10H, Platelet Estimate Adequate, Platelet Morphology Normal, Red Blood Cell Morphology Normal, Sodium Level 136, Potassium Level 3.8, Chloride Level 102, Carbon Dioxide Level 27, Anion Gap 7, Blood Urea Nitrogen 11, Creatinine 0.8, Estimat Glomerular Filtration Rate > 60 , Glucose Level 97, Lactic Acid Level 2.00, Calcium Level 8.7, Total Bilirubin 0.3, Aspartate Amino Transf (AST/SGOT) 17, Alanine Aminotransferase (ALT/SGPT) 14, Alkaline Phosphatase 87, Total Creatine Kinase 75, Creatine Kinase MB 1.5, Creatine Kinase MB Relative Index 2.0, Troponin I 0.017, Pro-B-Type Natriuretic Peptide 122, Total Protein 7.1, Albumin 3.6, Globulin 3.5, Albumin/Globulin Ratio 1.0 01/03/17 11:40: Lactic Acid Level 2.30H 01/04/17 08:10: Lactic Acid Level [Pending] Height (Feet): 5 Height (Inches): 2.00 Weight (Pounds): 162 General Appearance: WD/WN, alert Neck: supple Cardiovascular: normal rate Respiratory/Chest: rhonchi - bilaterally, expiratory wheezing Abdomen: normal bowel sounds, non tender, soft, no organomegaly Edema: no edema noted Arm (L), no edema noted Arm (R), no edema noted Leg (L), no edema noted Leg (R), no edema noted Pedal (L), no edema noted Pedal (R), no edema noted Generalized JOEY CASTILLO Jan 04, 2017 08:55
[2017-01-04] MEDS: Levofloxacin 500mg tab ORAL SCH (09:02)
[2017-01-04] MEDS: Losartan 50mg tab ORAL SCH (09:02)
[2017-01-04] MEDS: Aspirin EC 81mg tab ORAL SCH (09:03)
[2017-01-04] MEDS: PARoxetine 10mg tab ORAL SCH ×2 (09:03→17:50)
--- NOTE | 2017-01-04 11:46 | Infectious Diseases Prog Note ---
Assessment/Plan Assessment/Plan Full consult dictated: A) 1) cap pna, influenza negative, copd, sepsis, leukocytosis, fevers, ? viral syndrome 2) pmh noted 3) allergies - pcn, multiple P) 1) ceftriaxone and levofloxacin 2) check cultures, serology and chest x-ray, f/u labs 3) orders entered 4) thank you Subjective Allergies: Coded Allergies: MORPHINE (Verified Allergy, Severe, Anaphylaxis, 11/14/16) PT RECEIVED 5 DOSES OF OXYCODONE ON PREVIOUS ADMISSION IN 06/2015. As per conversation with the patient. Patient denies having allergy reaction with [place]. She said " I have been taking [place] before and i have no allergy reactions. AMOXICILLIN (Verified Allergy, Mild, ITCHING, 06/15/15) itching CITRUS AND DERIVATIVES (Verified Allergy, Unknown, BREAKOUT, 06/15/15) breakout HYDROMORPHONE (Verified Allergy, Unknown, CHEST PAIN, 06/15/15) chest pain IODINE (Verified Allergy, Unknown, SWELLING, 06/15/15) swelling PENICILLINS (Verified Allergy, Unknown, ITCHING, 06/15/15) itching Uncoded Allergies: NYLON TAPE (Adverse Reaction, Intermediate, NIEVES THE SKIN, 06/21/15) Objective Vital Signs Last 24 Hour Vital Signs Date Time Temp Pulse Resp B/P (MAP) Pulse Ox O2 Delivery O2 Flow Rate FiO2 01/04/17 11:28 83 16 98 Nasal Cannula 3.0 32 01/04/17 11:20 75 16 94 Nasal Cannula 2.0 28 01/04/17 11:20 28 01/04/17 09:02 129/47 01/04/17 08:38 78 16 99 Nasal Cannula 3.0 32 01/04/17 08:30 28 01/04/17 08:30 81 16 96 Nasal Cannula 2.0 28 01/04/17 08:00 97.5 80 19 129/47 93 Room Air 01/04/17 04:00 97.9 85 16 119/56 Nasal Cannula 3.0 01/04/17 04:00 81 01/04/17 03:51 72 16 96 Nasal Cannula 3.0 32 01/04/17 03:42 72 16 94 Nasal Cannula 3.0 32 01/04/17 03:42 32 01/04/17 00:00 73 01/03/17 22:39 68 16 94 Nasal Cannula 3.0 32 01/03/17 22:24 28 01/03/17 22:23 66 16 92 Nasal Cannula 2.0 28 01/03/17 20:00 97.5 69 18 121/50 Room Air 01/03/17 20:00 97.5 69 121/50 100 Room Air 01/03/17 19:54 74 18 95 Nasal Cannula 2.0 28 01/03/17 19:46 70 18 92 Nasal Cannula 2.0 28 01/03/17 19:46 28 01/03/17 16:00 85 01/03/17 15:45 28 01/03/17 15:45 85 18 93 Nasal Cannula 2.0 28 01/03/17 14:15 99.0 89 16 106/78 97 Nasal Cannula 2.0 28 01/03/17 12:00 99.0 99 20 113/82 98 Nasal Cannula 2.0 28 Height (Feet): 5 Height (Inches): 2.00 Weight (Pounds): 162 Microbiology Date/Time Source Procedure Growth Status 01/03/17 11:00 Nasal Nares Influenza Types A,B Antigen (GERBER) - Final Complete Laboratory Tests Test 01/04/17 08:10 Lactic Acid Level 4.10 mmol/L (0.66-2.22) H Current Medications Medications (Trade) Dose Ordered Sig/Julita Route PRN Reason Start Time Stop Time Status Last Admin Dose Admin Acetaminophen/ Hydrocodone Bitart ([place] 10/325) 1 ea Q4H PRN ORAL PAIN 4-10 01/03/17 13:15 01/10/17 13:14 Albuterol/ Ipratropium (Albuterol/ Ipratropium) 3 ml Q4HRT HHN 01/03/17 15:00 01/08/17 14:59 01/04/17 11:20 Aspirin (Ecotrin) 81 mg DAILY ORAL 01/04/17 09:00 02/03/17 08:59 01/04/17 09:03 Ceftriaxone Sodium 1 gm/ Dextrose 55 ml @ 110 mls/hr Q24H IVPB 01/03/17 16:00 01/10/17 15:59 01/03/17 17:18 Clopidogrel Bisulfate (Plavix) 75 mg DAILY ORAL 01/04/17 09:00 02/03/17 08:59 01/04/17 09:03 Gabapentin (Neurontin) 600 mg Q6HR ORAL 01/03/17 18:00 02/02/17 17:59 01/04/17 05:30 Levofloxacin (Levaquin) 500 mg DAILY ORAL 01/04/17 09:00 01/11/17 08:59 01/04/17 09:02 Losartan Potassium (Cozaar) 50 mg DAILY ORAL 01/04/17 09:00 02/03/17 08:59 01/04/17 09:02 Methylprednisolone Sodium Succinate (Solu-MEDROL) 40 mg EVERY 8 HOURS IVP 01/03/17 18:00 02/02/17 17:59 01/04/17 05:30 Pantoprazole (Protonix) 40 mg ACBREAKFAST ORAL 01/04/17 06:30 02/03/17 06:29 01/04/17 05:30 Paroxetine HCl (Paxil) 30 mg BID ORAL 01/03/17 18:00 02/02/17 17:59 01/04/17 09:03 Pravastatin Sodium (Pravachol) 20 mg BEDTIME ORAL 01/03/17 21:00 02/02/17 20:59 01/03/17 22:52 Promethazine HCl/ Codeine (Phenergan with Codeine) 5 ml Q4H PRN ORAL For Cough 01/04/17 09:00 02/03/17 08:59 Tizanidine HCl (Zanaflex) 4 mg Q6H PRN ORAL Muscle Spasm 01/03/17 13:15 02/02/17 13:14 Zolpidem Tartrate (Ambien) 5 mg QHS PRN ORAL Insomnia 01/03/17 21:00 01/10/17 20:59 CHANDLER CASTRO Jan 04, 2017 11:46
[2017-01-04 11:50] VITALS: BP 131/53
[2017-01-04] MEDS: Promethazine/Codeine 5ml UD ORAL PRN ×2 (12:22→22:37)
[2017-01-04 12:42] LABS: APPEARANCE,URINE SLIGHTLY CLOUDY; BILIRUBIN, URINE NEGATIVE (NEGATIVE); GLUCOSE, URINE (UA) NEGATIVE (NEGATIVE); KETONES,URINE NEGATIVE (NEGATIVE); LEUKOCYTE ESTERASE ,URINE 1+ (NEGATIVE); NITRITE,URINE NEGATIVE (NEGATIVE); PH,URINE 5 (4.5-8.0); PROTEIN,URINE 1+ (NEGATIVE); UROBILINOGEN,URINE NORMAL MG/DL (0.0-1.0)
[2017-01-04 12:46] LABS: COLOR,URINE YELLOW
[2017-01-04] MEDS: cefTRIAXone 1 GM in D5W 55 ML IVPB SCH (15:41)
[2017-01-04 16:00] VITALS: BP 126/55
[2017-01-04 16:43] LABS: HEMATOCRIT 35.4 % (37.0-47.0); HEMOGLOBIN 11.6 G/DL (12.0-16.0); MEAN CORPUSCULAR VOLUME 93 FL (80-99); PLATELET COUNT 318 K/UL (150-450); RED BLOOD COUNT 3.79 M/UL (4.20-5.40); RED CELL DISTRIBUTION WIDTH 13.2 % (11.6-14.8)
[2017-01-04 16:55] LABS: WHITE BLOOD COUNT 29.1 K/UL (4.8-10.8)
[2017-01-04 17:25] LABS: ALANINE AMINOTRANSFERASE 12 U/L (12-78); ALBUMIN/GLOBULIN RATIO 0.8 (1.0-2.7); ALKALINE PHOSPHATASE 69 U/L (46-116); ANION GAP 12 mmol/L (5-15); ASPARTATE AMINO TRANSFERASE 9 U/L (15-37); BILIRUBIN,TOTAL 0.2 MG/DL (0.2-1.0); BLOOD UREA NITROGEN 15 mg/dL (7-18); CALCIUM 8.7 MG/DL (8.5-10.1); CARBON DIOXIDE 23 MMOL/L (21-32); CHLORIDE 106 MMOL/L (98-107); CREATININE 0.9 MG/DL (0.55-1.30); SODIUM 141 MMOL/L (136-145)
[2017-01-04] MEDS ORDERED: metroNIDAZOLE 500mg tab ORAL SCH (18:00)
[2017-01-04 20:00] VITALS: BP 132/52
--- NOTE | 2017-01-04 21:00 | History and Physical Report ---
DATE OF ADMISSION: 01/03/2017 HISTORY OF PRESENT ILLNESS: This patient was seen in the emergency room. The patient is a pleasant 66-year-old female who presents with complaints of shortness of breath, fevers, and chills. The patient was previously seen in the office just several days prior to admission, was doing well. On the evening of admission, the patient developed fevers, rigors and chills, cough and shortness of breath. She took a nebulizer but her shortness of breath did not improve. She presented to the emergency room where she was diagnosed with COPD exacerbation as well as community-acquired pneumonia. She has been started on broad-spectrum IV antibiotic therapy and is now admitted for further evaluation and care. PAST MEDICAL HISTORY: As above. She has a history of stroke, hypertension, Christiansen's palsy, history of COPD, and history of carotid stenosis. CURRENT MEDICATIONS: Reconciled and reviewed. ALLERGIES: Include amoxicillin, citrus, Dilaudid, iodine, morphine, and penicillin. FAMILY HISTORY: Noncontributory. SOCIAL HISTORY: There is no known history of tobacco, ethanol, or drugs. REVIEW OF SYSTEMS: GENERAL: Positive fevers and chills but no night sweats. HEENT: No headaches or visual changes. CARDIOPULMONARY: Positive shortness of breath, chest pain, and shortness of breath. Positive productive cough. GASTROINTESTINAL: No nausea or vomiting. MUSCULOSKELETAL: No joint pain or swelling. NEUROLOGIC: No evidence of seizures. PHYSICAL EXAMINATION: VITAL SIGNS: Temperature 98 degrees, blood pressure 120/52, pulse 70, and respirations 20. GENERAL: The patient is a well-developed female, in no apparent distress. She is dyspneic and short of breath. NECK: Supple. There is no jugular vein distention. HEART: Regular rate and rhythm. LUNGS: Significant for bilateral wheezes and rhonchi. ABDOMEN: Soft, nontender, and nondistended. EXTREMITIES: Without clubbing, cyanosis, or edema. PERTINENT DATA: Chest x-ray showed left basilar infiltrate. [place] count [place] [address]. Lactic acid was 2.3. ASSESSMENT: This is a pleasant female with history of chronic obstructive pulmonary disease, hypertension, history of stroke, atherosclerotic heart disease, carotid stenosis admitted with community-acquired pneumonia and chronic obstructive pulmonary disease exacerbation. 1. Community acquired pneumonia. 2. Chronic obstructive pulmonary disease exacerbation. 3. Hypertension. 4. Prior history of stroke and carotid stenosis. PLAN: Broad-spectrum IV antibiotic therapy. Intravenous steroids. Respiratory treatments [id number]. Continue outpatient cardiac regimen. We will followup cultures. Demario Hdz M.D. DR: CHANDLER JOB#: [id number] CC:
[2017-01-04] MEDS: Heparin 5000 units/ml inj SUBQ SCH (22:36)
--- NOTE | 2017-01-04 23:30 | Progress Note ---
DATE: 01/04/2017 CARDIOLOGY PROGRESS NOTE SUBJECTIVE: The patient continues to have cough, productive of sputum, and shortness of breath. No chest pain. The patient's sputum is reviewed. It was seen during her evaluation and was noted to be bloody. OBJECTIVE: VITAL SIGNS: Blood pressure 131/53, pulse 83, and respiratory rate 20. She is afebrile. Room air oxygen saturation 99%. LUNGS: Coarse breath sounds. Scattered rhonchi. Few wheezes. HEART: Regular rhythm and rate. Normal S1 and S2 with a fourth heart sound. ABDOMEN: Soft. EXTREMITIES: No edema. LABORATORY DATA: Lactic acid this morning is 4.1. Remaining labs are pending. IMPRESSION: 1. Pneumonia. 2. Sepsis. 3. Lactic acidosis. 4. Acute myocardial ischemia. 5. Chronic obstructive pulmonary disease exacerbation with acute bronchospasm. 6. Hemoptysis. PLAN: 1. Serial lactic acid. 2. Hydration. 3. Antimicrobials. 4. Inhaled bronchodilators. 5. Steroids with taper. 6. Antiplatelet therapy and antitussives. 7. Repeat chest x-ray. 8. Follow up sputum cultures. Rosendo Palacios M.D. DR: YANG JOB#: [id number] CC:
[2017-01-04 23:58] VITALS: BP 120/60
--- NOTE | 2017-01-05 00:15 | Consultation ---
DATE OF CONSULTATION: 01/03/2017 CARDIOLOGY CONSULTATION CONSULTING PHYSICIAN: Rosendo Palacios M.D. REQUESTING PHYSICIAN: Demario Hdz M.D. REASON FOR CONSULTATION: Shortness of breath. HISTORY OF PRESENT ILLNESS: This is an 66-year-old female, who was seen in my office earlier today. She noted no shortness of breath, cough, or congestion and was doing quite well. She even had a 2D echocardiogram that revealed no pulmonary hypertension. That evening, she went to bed, feeling well; however, during the night, she became congested, short of breath, and had wheezing. She felt regurgitation as well as food contents and started coughing. She took a breathing treatment, but did not improve and came to the emergency room. PAST MEDICAL HISTORY: Cerebrovascular disease with cerebrovascular accident, right carotid stenosis, COPD, hypertension, and hyperlipidemia. MEDICATIONS: Medications prior to admission reviewed and reconciled. ALLERGIES: Penicillin, morphine, hydromorphone, iodine, and citrus derivatives as well as nylon tape. SOCIAL HISTORY: Negative for smoking, alcohol, or substance abuse. FAMILY HISTORY: Noncontributory. REVIEW OF SYSTEMS: A 10-point review of systems performed. All systems negative other than noted above. PHYSICAL EXAMINATION: VITAL SIGNS: Blood pressure 129/66, heart rate 101, respiratory rate 20, temperature 100.2, oxygen saturation on room air 94%. HEENT: Normocephalic and atraumatic. Right facial asymmetry. Oropharynx clear with no thrush. No accessory muscle use. NECK: Supple. LUNGS: With coarse breath sounds, rhonchi, and few expiratory wheezes. CARDIAC: Regular rhythm and rate. Normal S1, S2 with a 4th heart sound. ABDOMEN: Soft and nontender. EXTREMITIES: With no edema. LABORATORY AND DIAGNOSTIC DATA: EKG with sinus rhythm. No acute ST-T wave changes. Chest x-ray with basilar infiltrates on the right greater than left. Labs, white count 21, hemoglobin 13, potassium 3.8, BUN 11, creatinine 0.8. Lactic acid 2. Repeat lactic acid 2.3. Troponin 0.017. IMPRESSION: 1. Acute bronchospasm. 2. Acute pneumonia, likely aspiration. 3. Lactic acidosis. 4. Acute myocardial ischemia and possible non-ST elevation infarction. 5. Chronic obstructive pulmonary disease with exacerbation and bronchospasm. PLAN: 1. Panculture, broad-spectrum antibiotics, intravenous steroids, and inhaled bronchodilators. 2. DVT prophylaxis. 3. Antiplatelet therapy with aspirin. Rosendo Palacios M.D. DR: Daryl JOB#: [id number] CC:
[2017-01-05] MEDS: Albuterol/Ipratropium 3ml neb HHN SCH ×5 (03:21→23:04)
[2017-01-05 04:00] VITALS: BP 126/62
[2017-01-05 08:01] LABS: HEMATOCRIT 35.3 % (37.0-47.0); HEMOGLOBIN 11.5 G/DL (12.0-16.0); MEAN CORPUSCULAR VOLUME 95 FL (80-99); PLATELET COUNT 345 K/UL (150-450); RED BLOOD COUNT 3.72 M/UL (4.20-5.40); RED CELL DISTRIBUTION WIDTH 13.5 % (11.6-14.8); WHITE BLOOD COUNT 8.6 K/UL (4.8-10.8)
[2017-01-05 08:17] LABS: ALANINE AMINOTRANSFERASE 13 U/L (12-78); ALBUMIN/GLOBULIN RATIO 0.9 (1.0-2.7); ALKALINE PHOSPHATASE 70 U/L (46-116); ANION GAP 9 mmol/L (5-15); ASPARTATE AMINO TRANSFERASE 9 U/L (15-37); BILIRUBIN,TOTAL 0.2 MG/DL (0.2-1.0); BLOOD UREA NITROGEN 13 mg/dL (7-18); CALCIUM 8.4 MG/DL (8.5-10.1); CARBON DIOXIDE 24 MMOL/L (21-32); CHLORIDE 110 MMOL/L (98-107); CREATININE 0.7 MG/DL (0.55-1.30); POTASSIUM 4.5 MMOL/L (3.5-5.1); SODIUM 143 MMOL/L (136-145)
[2017-01-05 08:40] VITALS: BP 140/74
[2017-01-05] MEDS: Losartan 50mg tab ORAL SCH (10:09)
[2017-01-05] MEDS: Aspirin EC 81mg tab ORAL SCH (10:10)
[2017-01-05] MEDS: Levofloxacin 500mg tab ORAL SCH (10:10)
[2017-01-05] MEDS: PARoxetine 10mg tab ORAL SCH ×2 (10:10→18:17)
[2017-01-05] MEDS: Solu-MEDROL 40mg Inj IVP SCH (10:11)
[2017-01-05] MEDS: Promethazine/Codeine 5ml UD ORAL PRN ×2 (10:12→16:15)
[2017-01-05] MEDS: Heparin 5000 units/ml inj SUBQ SCH ×2 (10:14→20:21)
[2017-01-05 11:53] VITALS: BP 103/67
--- NOTE | 2017-01-05 12:20 | General Progress Note ---
Assessment/Plan Problem List: (1) Hemoptysis ICD Codes: R04.2 - Hemoptysis SNOMED: 72215911 (2) Carotid stenosis ICD Codes: I65.29 - Occlusion and stenosis of unspecified carotid artery SNOMED: 04590510 (3) Pneumonia ICD Codes: J18.9 - Pneumonia, unspecified organism SNOMED: 306594529 Qualifiers: Qualified Codes: J18.9 - Pneumonia, unspecified organism (4) COPD exacerbation ICD Codes: J44.1 - Chronic obstructive pulmonary disease with (acute) exacerbation SNOMED: 048929666, [id number] Status: stable, progressing Assessment/Plan iv abx wean steroids resp rx cough rx pain rx bp rx per cards antiplt rx Subjective ROS Limited/Unobtainable: No Constitutional: Reports: fever, malaise HEENT: Reports: no symptoms Cardiovascular: Reports: no symptoms Respiratory: Reports: cough, sputum Gastrointestinal/Abdominal: Reports: no symptoms Genitourinary: Reports: no symptoms Neurologic/Psychiatric: Reports: pre-existing deficit Endocrine: Reports: no symptoms Hematologic/Lymphatic: Reports: no symptoms Allergies: Coded Allergies: MORPHINE (Verified Allergy, Severe, Anaphylaxis, 11/14/16) PT RECEIVED 5 DOSES OF OXYCODONE ON PREVIOUS ADMISSION IN 06/2015. As per conversation with the patient. Patient denies having allergy reaction with [place]. She said " I have been taking [place] before and i have no allergy reactions. AMOXICILLIN (Verified Allergy, Mild, ITCHING, 06/15/15) itching CITRUS AND DERIVATIVES (Verified Allergy, Unknown, BREAKOUT, 06/15/15) breakout HYDROMORPHONE (Verified Allergy, Unknown, CHEST PAIN, 06/15/15) chest pain IODINE (Verified Allergy, Unknown, SWELLING, 06/15/15) swelling PENICILLINS (Verified Allergy, Unknown, ITCHING, 06/15/15) itching Uncoded Allergies: NYLON TAPE (Adverse Reaction, Intermediate, NIEVES THE SKIN, 06/21/15) All Systems: reviewed and negative except above Subjective feels a little better today. still with cough and sob. feels cold. no cp Objective Last 24 Hour Vital Signs Date Time Temp Pulse Resp B/P (MAP) Pulse Ox O2 Delivery O2 Flow Rate FiO2 01/05/17 11:53 97.5 77 18 103/67 98 Room Air 01/05/17 11:12 78 19 95 Nasal Cannula 2.0 28 01/05/17 10:59 75 20 100 Nasal Cannula 2.0 28 01/05/17 10:09 140/74 01/05/17 08:40 97.2 89 20 140/74 98 Room Air 01/05/17 07:31 80 18 99 Nasal Cannula 2.0 28 01/05/17 07:20 Nasal Cannula 2.0 28 01/05/17 07:20 98 Nasal Cannula 2.0 28 01/05/17 07:20 81 18 98 Nasal Cannula 2.0 28 01/05/17 04:00 84 01/05/17 04:00 97.6 79 20 126/62 96 Nasal Cannula 2.0 01/05/17 03:31 82 18 98 Nasal Cannula 2.0 28 01/05/17 03:21 86 20 94 Nasal Cannula 2.0 28 01/05/17 00:00 84 01/04/17 23:58 97.9 84 20 120/60 94 Nasal Cannula 2.0 01/04/17 23:16 80 18 98 Nasal Cannula 2.0 28 01/04/17 23:08 73 18 93 Nasal Cannula 2.0 28 01/04/17 20:00 97.7 73 20 132/52 96 Nasal Cannula 2.0 01/04/17 20:00 84 01/04/17 19:43 79 18 99 Nasal Cannula 2.0 28 01/04/17 19:35 94 Nasal Cannula 2.0 28 01/04/17 19:35 Nasal Cannula 2.0 28 01/04/17 19:35 76 18 94 Nasal Cannula 2.0 28 01/04/17 16:00 97.2 73 19 126/55 98 Room Air 01/04/17 16:00 74 01/04/17 15:47 77 18 94 Nasal Cannula 2.0 28 01/04/17 15:37 76 18 93 Room Air 21 Intake and Output 01/05/17 01/06/17 19:00 07:00 Intake Total 120 ml Balance 120 ml Intake Oral 120 ml Laboratory Tests 01/04/17 12:22: Urine Color Yellow, Urine Appearance Slightly cloudy, Urine pH 5, Urine Specific [place] 1.020, Urine Protein 1+H, Urine Glucose (UA) Negative, Urine Ketones Negative, Urine Occult Blood Negative, Urine Nitrite Negative, Urine Bilirubin Negative, Urine Urobilinogen Normal, Urine Leukocyte Esterase 1+H, Urine RBC 0-2, Urine WBC 2-4, Urine Squamous Epithelial Cells ModerateH, Urine Bacteria Few 01/04/17 16:00: White Blood Count 29.1*H, Red Blood Count 3.79L, Hemoglobin 11.6L, Hematocrit 35.4L, Mean Corpuscular Volume 93, Mean Corpuscular Hemoglobin 30.5, Mean Corpuscular Hemoglobin Concent 32.6, Red Cell Distribution Width 13.2, Platelet Count 318, Mean Platelet Volume 6.3L, Neutrophils (%) (Auto) , Lymphocytes (%) ( Auto) , Monocytes (%) (Auto) , Eosinophils (%) (Auto) , Basophils (%) (Auto) , Differential Total Cells Counted 100, Neutrophils % (Manual) 89H, Lymphocytes % (Manual) 7L, Monocytes % (Manual) 4, Eosinophils % (Manual) 0, Basophils % ( Manual) 0, Band Neutrophils 0, Platelet Estimate Adequate, Platelet Morphology Normal, Hypochromasia 1+, Anisocytosis 1+, Sodium Level 141, Potassium Level 4.0 , Chloride Level 106, Carbon Dioxide Level 23, Anion Gap 12, Blood Urea Nitrogen 15, Creatinine 0.9, Estimat Glomerular Filtration Rate > 60, Glucose Level 151H, Lactic Acid Level 2.50H, Calcium Level 8.7, Total Bilirubin 0.2, Aspartate Amino Transf (AST/SGOT) 9L, Alanine Aminotransferase (ALT/SGPT) 12, Alkaline Phosphatase 69, Troponin I 0.000, Total Protein 6.7, Albumin 3.0L, Globulin 3.7, Albumin/Globulin Ratio 0.8L 01/05/17 05:20: White Blood Count 8.6#, Red Blood Count 3.72L, Hemoglobin 11.5L, Hematocrit 35.3L, Mean Corpuscular Volume 95, Mean Corpuscular Hemoglobin 31.1H, Mean Corpuscular Hemoglobin Concent 32.7, Red Cell Distribution Width 13.5, Platelet Count 345, Mean Platelet Volume 6.6, Neutrophils (%) (Auto) , Lymphocytes (%) ( Auto) , Monocytes (%) (Auto) , Eosinophils (%) (Auto) , Basophils (%) (Auto) , Differential Total Cells Counted 100, Neutrophils % (Manual) 90H, Lymphocytes % (Manual) 8L, Monocytes % (Manual) 2, Eosinophils % (Manual) 0, Basophils % ( Manual) 0, Band Neutrophils 0, Platelet Estimate Adequate, Platelet Morphology Normal, Sodium Level 143, Potassium Level 4.5, Chloride Level 110H, Carbon Dioxide Level 24, Anion Gap 9, Blood Urea Nitrogen 13, Creatinine 0.7, Estimat Glomerular Filtration Rate > 60, Glucose Level 116H, Lactic Acid Level 1.90, Calcium Level 8.4L, Total Bilirubin 0.2, Aspartate Amino Transf (AST/SGOT) 9L, Alanine Aminotransferase (ALT/SGPT) 13, Alkaline Phosphatase 70, Total Protein 6.5, Albumin 3.0L, Globulin 3.5, Albumin/Globulin Ratio 0.9L Height (Feet): 5 Height (Inches): 2.00 Weight (Pounds): 162 General Appearance: WD/WN, alert Neck: supple Cardiovascular: normal rate, regular rhythm Respiratory/Chest: chest wall non-tender, rhonchi - bilaterally, expiratory wheezing Abdomen: normal bowel sounds, non tender, soft, no organomegaly Neurologic: gaming 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
--- NOTE | 2017-01-05 12:20 | General Progress Note ---
Assessment/Plan Problem List: (1) Hemoptysis ICD Codes: R04.2 - Hemoptysis SNOMED: 76792225 (2) Carotid stenosis ICD Codes: I65.29 - Occlusion and stenosis of unspecified carotid artery SNOMED: 72746623 (3) Pneumonia ICD Codes: J18.9 - Pneumonia, unspecified organism SNOMED: 521160194 Qualifiers: Qualified Codes: J18.9 - Pneumonia, unspecified organism (4) COPD exacerbation ICD Codes: J44.1 - Chronic obstructive pulmonary disease with (acute) exacerbation SNOMED: 443220651, 061771288 Status: stable, progressing Assessment/Plan iv abx wean steroids resp rx cough rx pain rx bp rx per cards antiplt rx Subjective ROS Limited/Unobtainable: No Constitutional: Reports: fever, malaise HEENT: Reports: no symptoms Cardiovascular: Reports: no symptoms Respiratory: Reports: cough, sputum Gastrointestinal/Abdominal: Reports: no symptoms Genitourinary: Reports: no symptoms Neurologic/Psychiatric: Reports: pre-existing deficit Endocrine: Reports: no symptoms Hematologic/Lymphatic: Reports: no symptoms Allergies: Coded Allergies: MORPHINE (Verified Allergy, Severe, Anaphylaxis, 11/14/16) PT RECEIVED 5 DOSES OF OXYCODONE ON PREVIOUS ADMISSION IN 06/2015. As per conversation with the patient. Patient denies having allergy reaction with [place]. She said " I have been taking [place] before and i have no allergy reactions. AMOXICILLIN (Verified Allergy, Mild, ITCHING, 06/15/15) itching CITRUS AND DERIVATIVES (Verified Allergy, Unknown, BREAKOUT, 06/15/15) breakout HYDROMORPHONE (Verified Allergy, Unknown, CHEST PAIN, 06/15/15) chest pain IODINE (Verified Allergy, Unknown, SWELLING, 06/15/15) swelling PENICILLINS (Verified Allergy, Unknown, ITCHING, 06/15/15) itching Uncoded Allergies: NYLON TAPE (Adverse Reaction, Intermediate, NIEVES THE SKIN, 06/21/15) All Systems: reviewed and negative except above Subjective feels a little better today. still with cough and sob. feels cold. no cp Objective Last 24 Hour Vital Signs Date Time Temp Pulse Resp B/P (MAP) Pulse Ox O2 Delivery O2 Flow Rate FiO2 01/05/17 11:53 97.5 77 18 103/67 98 Room Air 01/05/17 11:12 78 19 95 Nasal Cannula 2.0 28 01/05/17 10:59 75 20 100 Nasal Cannula 2.0 28 01/05/17 10:09 140/74 01/05/17 08:40 97.2 89 20 140/74 98 Room Air 01/05/17 07:31 80 18 99 Nasal Cannula 2.0 28 01/05/17 07:20 Nasal Cannula 2.0 28 01/05/17 07:20 98 Nasal Cannula 2.0 28 01/05/17 07:20 81 18 98 Nasal Cannula 2.0 28 01/05/17 04:00 84 01/05/17 04:00 97.6 79 20 126/62 96 Nasal Cannula 2.0 01/05/17 03:31 82 18 98 Nasal Cannula 2.0 28 01/05/17 03:21 86 20 94 Nasal Cannula 2.0 28 01/05/17 00:00 84 01/04/17 23:58 97.9 84 20 120/60 94 Nasal Cannula 2.0 01/04/17 23:16 80 18 98 Nasal Cannula 2.0 28 01/04/17 23:08 73 18 93 Nasal Cannula 2.0 28 01/04/17 20:00 97.7 73 20 132/52 96 Nasal Cannula 2.0 01/04/17 20:00 84 01/04/17 19:43 79 18 99 Nasal Cannula 2.0 28 01/04/17 19:35 94 Nasal Cannula 2.0 28 01/04/17 19:35 Nasal Cannula 2.0 28 01/04/17 19:35 76 18 94 Nasal Cannula 2.0 28 01/04/17 16:00 97.2 73 19 126/55 98 Room Air 01/04/17 16:00 74 01/04/17 15:47 77 18 94 Nasal Cannula 2.0 28 01/04/17 15:37 76 18 93 Room Air 21 Intake and Output 01/05/17 01/06/17 19:00 07:00 Intake Total 120 ml Balance 120 ml Intake Oral 120 ml Laboratory Tests 01/04/17 12:22: Urine Color Yellow, Urine Appearance Slightly cloudy, Urine pH 5, Urine Specific [place] 1.020, Urine Protein 1+H, Urine Glucose (UA) Negative, Urine Ketones Negative, Urine Occult Blood Negative, Urine Nitrite Negative, Urine Bilirubin Negative, Urine Urobilinogen Normal, Urine Leukocyte Esterase 1+H, Urine RBC 0-2, Urine WBC 2-4, Urine Squamous Epithelial Cells ModerateH, Urine Bacteria Few 01/04/17 16:00: White Blood Count 29.1*H, Red Blood Count 3.79L, Hemoglobin 11.6L, Hematocrit 35.4L, Mean Corpuscular Volume 93, Mean Corpuscular Hemoglobin 30.5, Mean Corpuscular Hemoglobin Concent 32.6, Red Cell Distribution Width 13.2, Platelet Count 318, Mean Platelet Volume 6.3L, Neutrophils (%) (Auto) , Lymphocytes (%) ( Auto) , Monocytes (%) (Auto) , Eosinophils (%) (Auto) , Basophils (%) (Auto) , Differential Total Cells Counted 100, Neutrophils % (Manual) 89H, Lymphocytes % (Manual) 7L, Monocytes % (Manual) 4, Eosinophils % (Manual) 0, Basophils % ( Manual) 0, Band Neutrophils 0, Platelet Estimate Adequate, Platelet Morphology Normal, Hypochromasia 1+, Anisocytosis 1+, Sodium Level 141, Potassium Level 4.0 , Chloride Level 106, Carbon Dioxide Level 23, Anion Gap 12, Blood Urea Nitrogen 15, Creatinine 0.9, Estimat Glomerular Filtration Rate > 60, Glucose Level 151H, Lactic Acid Level 2.50H, Calcium Level 8.7, Total Bilirubin 0.2, Aspartate Amino Transf (AST/SGOT) 9L, Alanine Aminotransferase (ALT/SGPT) 12, Alkaline Phosphatase 69, Troponin I 0.000, Total Protein 6.7, Albumin 3.0L, Globulin 3.7, Albumin/Globulin Ratio 0.8L 01/05/17 05:20: White Blood Count 8.6#, Red Blood Count 3.72L, Hemoglobin 11.5L, Hematocrit 35.3L, Mean Corpuscular Volume 95, Mean Corpuscular Hemoglobin 31.1H, Mean Corpuscular Hemoglobin Concent 32.7, Red Cell Distribution Width 13.5, Platelet Count 345, Mean Platelet Volume 6.6, Neutrophils (%) (Auto) , Lymphocytes (%) ( Auto) , Monocytes (%) (Auto) , Eosinophils (%) (Auto) , Basophils (%) (Auto) , Differential Total Cells Counted 100, Neutrophils % (Manual) 90H, Lymphocytes % (Manual) 8L, Monocytes % (Manual) 2, Eosinophils % (Manual) 0, Basophils % ( Manual) 0, Band Neutrophils 0, Platelet Estimate Adequate, Platelet Morphology Normal, Sodium Level 143, Potassium Level 4.5, Chloride Level 110H, Carbon Dioxide Level 24, Anion Gap 9, Blood Urea Nitrogen 13, Creatinine 0.7, Estimat Glomerular Filtration Rate > 60, Glucose Level 116H, Lactic Acid Level 1.90, Calcium Level 8.4L, Total Bilirubin 0.2, Aspartate Amino Transf (AST/SGOT) 9L, Alanine Aminotransferase (ALT/SGPT) 13, Alkaline Phosphatase 70, Total Protein 6.5, Albumin 3.0L, Globulin 3.5, Albumin/Globulin Ratio 0.9L Height (Feet): 5 Height (Inches): 2.00 Weight (Pounds): 162 General Appearance: WD/WN, alert Neck: supple Cardiovascular: normal rate, regular rhythm Respiratory/Chest: chest wall non-tender, rhonchi - bilaterally, expiratory wheezing Abdomen: normal bowel sounds, non tender, soft, no organomegaly Neurologic: repairing calibrator II-XII grossly normal, no motor/sensory deficits, abnormal gait , alert, oriented x 3 Lymphatic: normal anterior cervical (L), normal anterior cervical (R), normal posterior cervical (L), normal posterior cervical (R), normal submandibular (L) , normal submandibular (R), normal supraclavicular (L), normal supraclavicular ( R), normal axillary (L), normal axillary (R), normal inguinal (L), normal inguinal (R), normal other JOEY CASTILLO Jan 05, 2017 12:20
--- NOTE | 2017-01-05 14:50 | Cardiology Report ---
APPROVED REPORT EKG Measurement Heart [id number] 136P45 [id number] Normal sinus rhythm Normal ECG
--- NOTE | 2017-01-05 14:50 | Cardiology Report ---
APPROVED REPORT EKG Measurement Heart [id number] 136P45 [id number] Normal sinus rhythm Normal ECG
--- NOTE | 2017-01-05 14:50 | Cardiology Report ---
APPROVED REPORT EKG Measurement Heart [id number] [place] 136P45 [id number] Normal sinus rhythm Normal ECG
--- NOTE | 2017-01-05 14:50 | Infectious Diseases Prog Note ---
Assessment/Plan Assessment/Plan Full consult dictated: A) 1) cap pna, influenza negative, copd, sepsis, leukocytosis, fevers, ? viral syndrome, steroids 2) pmh noted 3) allergies - pcn, multiple P) 1) ceftriaxone and levofloxacin, flagyl 2) check cultures, serology and chest x-ray, f/u labs 3) orders entered 4) continue per primary and consultants Subjective Allergies: Coded Allergies: MORPHINE (Verified Allergy, Severe, Anaphylaxis, 11/14/16) PT RECEIVED 5 DOSES OF OXYCODONE ON PREVIOUS ADMISSION IN 06/2015. As per conversation with the patient. Patient denies having allergy reaction with [place]. She said " I have been taking [place] before and i have no allergy reactions. AMOXICILLIN (Verified Allergy, Mild, ITCHING, 06/15/15) itching CITRUS AND DERIVATIVES (Verified Allergy, Unknown, BREAKOUT, 06/15/15) breakout HYDROMORPHONE (Verified Allergy, Unknown, CHEST PAIN, 06/15/15) chest pain IODINE (Verified Allergy, Unknown, SWELLING, 06/15/15) swelling PENICILLINS (Verified Allergy, Unknown, ITCHING, 06/15/15) itching Uncoded Allergies: NYLON TAPE (Adverse Reaction, Intermediate, NIEVES THE SKIN, 06/21/15) Objective Vital Signs Last 24 Hour Vital Signs Date Time Temp Pulse Resp B/P (MAP) Pulse Ox O2 Delivery O2 Flow Rate FiO2 01/05/17 11:53 97.5 77 18 103/67 98 Room Air 01/05/17 11:12 78 19 95 Nasal Cannula 2.0 01/05/17 10:59 75 20 100 Nasal Cannula 2.0 01/05/17 10:09 140/74 01/05/17 08:40 97.2 89 20 140/74 98 Room Air 01/05/17 08:00 89 01/05/17 07:31 80 18 99 Nasal Cannula 2.0 28 01/05/17 07:20 Nasal Cannula 2.0 28 01/05/17 07:20 98 Nasal Cannula 2.0 28 01/05/17 07:20 81 18 98 Nasal Cannula 2.0 28 01/05/17 04:00 84 01/05/17 04:00 97.6 79 20 126/62 96 Nasal Cannula 2.0 01/05/17 03:31 82 18 98 Nasal Cannula 2.0 28 01/05/17 03:21 86 20 94 Nasal Cannula 2.0 28 01/05/17 00:00 84 01/04/17 23:58 97.9 84 20 120/60 94 Nasal Cannula 2.0 01/04/17 23:16 80 18 98 Nasal Cannula 2.0 28 01/04/17 23:08 73 18 93 Nasal Cannula 2.0 28 01/04/17 20:00 97.7 73 20 132/52 96 Nasal Cannula 2.0 01/04/17 20:00 84 01/04/17 19:43 79 18 99 Nasal Cannula 2.0 28 01/04/17 19:35 94 Nasal Cannula 2.0 28 01/04/17 19:35 Nasal Cannula 2.0 28 01/04/17 19:35 76 18 94 Nasal Cannula 2.0 28 01/04/17 16:00 97.2 73 19 126/55 98 Room Air 01/04/17 16:00 74 01/04/17 15:47 77 18 94 Nasal Cannula 2.0 28 01/04/17 15:37 76 18 93 Room Air 21 Height (Feet): 5 Height (Inches): 2.00 Weight (Pounds): 162 Microbiology Date/Time Source Procedure Growth Status 01/03/17 11:40 Blood Blood Culture - Preliminary NO GROWTH AFTER 24 HOURS Resulted 01/03/17 11:20 Blood Blood Culture - Preliminary NO GROWTH AFTER 24 HOURS Resulted 01/04/17 12:22 Sputum Induced Gram Stain - Final Resulted 01/04/17 12:22 Sputum Induced Sputum Culture Pending Resulted 01/03/17 11:00 Nasal Nares Influenza Types A,B Antigen (GERBER) - Final Complete Laboratory Tests Test 01/04/17 16:00 01/05/17 05:20 White Blood Count 29.1 K/UL (4.8-10.8) *H 8.6 K/UL (4.8-10.8) # Red Blood Count 3.79 M/UL (4.20-5.40) L 3.72 M/UL (4.20-5.40) L Hemoglobin 11.6 G/DL (12.0-16.0) L 11.5 G/DL (12.0-16.0) L Hematocrit 35.4 % (37.0-47.0) L 35.3 % (37.0-47.0) L Mean Corpuscular Volume 93 FL (80-99) 95 FL (80-99) Mean Corpuscular Hemoglobin 30.5 PG (27.0-31.0) 31.1 PG (27.0-31.0) H Mean Corpuscular Hemoglobin Concent 32.6 G/DL (32.0-36.0) 32.7 G/DL (32.0-36.0) Red Cell Distribution Width 13.2 % (11.6-14.8) 13.5 % (11.6-14.8) Platelet Count 318 K/UL (150-450) 345 K/UL (150-450) Mean Platelet Volume 6.3 FL (6.5-10.1) L 6.6 FL (6.5-10.1) Neutrophils (%) (Auto) % (45.0-75.0) % (45.0-75.0) Lymphocytes (%) (Auto) % (20.0-45.0) % (20.0-45.0) Monocytes (%) (Auto) % (1.0-10.0) % (1.0-10.0) Eosinophils (%) (Auto) % (0.0-3.0) % (0.0-3.0) Basophils (%) (Auto) % (0.0-2.0) % (0.0-2.0) Differential Total Cells Counted 100 100 Neutrophils % (Manual) 89 % (45-75) H 90 % (45-75) H Lymphocytes % (Manual) 7 % (20-45) L 8 % (20-45) L Monocytes % (Manual) 4 % (1-10) 2 % (1-10) Eosinophils % (Manual) 0 % (0-3) 0 % (0-3) Basophils % (Manual) 0 % (0-2) 0 % (0-2) Band Neutrophils 0 % (0-8) 0 % (0-8) Platelet Estimate Adequate Adequate Platelet Morphology Normal Normal Hypochromasia 1+ Anisocytosis 1+ Sodium Level 141 MMOL/L (136-145) 143 MMOL/L (136-145) Potassium Level 4.0 MMOL/L (3.5-5.1) 4.5 MMOL/L (3.5-5.1) Chloride Level 106 MMOL/L (98-107) 110 MMOL/L (98-107) H Carbon Dioxide Level 23 MMOL/L (21-32) 24 MMOL/L (21-32) Anion Gap 12 mmol/L (5-15) 9 mmol/L (5-15) Blood Urea Nitrogen 15 mg/dL (7-18) 13 mg/dL (7-18) Creatinine 0.9 MG/DL (0.55-1.30) 0.7 MG/DL (0.55-1.30) Estimat Glomerular Filtration Rate > 60 mL/min (>60) > 60 mL/min (>60) Glucose Level 151 MG/DL (74-106) H 116 MG/DL (74-106) H Lactic Acid Level 2.50 mmol/L (0.66-2.22) H 1.90 mmol/L (0.66-2.22) Calcium Level 8.7 MG/DL (8.5-10.1) 8.4 MG/DL (8.5-10.1) L Total Bilirubin 0.2 MG/DL (0.2-1.0) 0.2 MG/DL (0.2-1.0) Aspartate Amino Transf (AST/SGOT) 9 U/L (15-37) L 9 U/L (15-37) L Alanine Aminotransferase (ALT/SGPT) 12 U/L (12-78) 13 U/L (12-78) Alkaline Phosphatase 69 U/L (46-116) 70 U/L (46-116) Troponin I 0.000 ng/mL (0.000-0.056) Total Protein 6.7 G/DL (6.4-8.2) 6.5 G/DL (6.4-8.2) Albumin 3.0 G/DL (3.4-5.0) L 3.0 G/DL (3.4-5.0) L Globulin 3.7 g/dL 3.5 g/dL Albumin/Globulin Ratio 0.8 (1.0-2.7) L 0.9 (1.0-2.7) L Current Medications Medications (Trade) Dose Ordered Sig/Julita Route PRN Reason Start Time Stop Time Status Last Admin Dose Admin Acetaminophen/ Hydrocodone Bitart ([place] 10/325) 1 ea Q4H PRN ORAL PAIN 4-10 01/03/17 13:15 01/10/17 13:14 01/05/17 14:28 Albuterol/ Ipratropium (Albuterol/ Ipratropium) 3 ml Q4HRT HHN 01/03/17 15:00 01/08/17 14:59 01/05/17 10:59 Aspirin (Ecotrin) 81 mg DAILY ORAL 01/04/17 09:00 02/03/17 08:59 01/05/17 10:10 Ceftriaxone Sodium 1 gm/ Dextrose 55 ml @ 110 mls/hr Q24H IVPB 01/03/17 16:00 01/10/17 15:59 01/04/17 15:41 Clopidogrel Bisulfate (Plavix) 75 mg DAILY ORAL 01/04/17 09:00 02/03/17 08:59 01/05/17 10:10 Gabapentin (Neurontin) 600 mg Q6HR ORAL 01/03/17 18:00 02/02/17 17:59 01/05/17 12:57 Heparin Sodium (Porcine) (Heparin 5000 units/ml) 5,000 units EVERY 12 HOURS SUBQ 01/04/17 21:00 02/03/17 20:59 01/05/17 10:14 Levofloxacin (Levaquin) 500 mg DAILY ORAL 01/04/17 09:00 01/11/17 08:59 01/05/17 10:10 Losartan Potassium (Cozaar) 50 mg DAILY ORAL 01/04/17 09:00 02/03/17 08:59 01/05/17 10:09 Methylprednisolone Sodium Succinate (Solu-MEDROL) 40 mg DAILY IVP 01/06/17 09:00 02/02/17 17:59 Metronidazole 100 ml @ 100 mls/hr Q8HR IVPB 01/04/17 18:00 01/11/17 17:59 01/05/17 04:32 Pantoprazole (Protonix) 40 mg ACBREAKFAST ORAL 01/04/17 06:30 02/03/17 06:29 01/05/17 04:32 Paroxetine HCl (Paxil) 30 mg BID ORAL 01/03/17 18:00 02/02/17 17:59 01/05/17 10:10 Pravastatin Sodium (Pravachol) 20 mg BEDTIME ORAL 01/03/17 21:00 02/02/17 20:59 01/04/17 22:28 Promethazine HCl/ Codeine (Phenergan with Codeine) 5 ml Q4H PRN ORAL For Cough 01/04/17 09:00 02/03/17 08:59 01/05/17 10:12 Sodium Chloride 1,000 ml @ 100 mls/hr Q10H IV 01/04/17 13:45 02/03/17 13:44 01/05/17 10:11 Tizanidine HCl (Zanaflex) 4 mg Q6H PRN ORAL Muscle Spasm 01/03/17 13:15 02/02/17 13:14 Zolpidem Tartrate (Ambien) 5 mg QHS PRN ORAL Insomnia 01/03/17 21:00 01/10/17 20:59 CHANDLER CASTRO Jan 05, 2017 14:50
[2017-01-05 16:00] VITALS: BP 159/72
[2017-01-05] MEDS: cefTRIAXone 1 GM in D5W 55 ML IVPB SCH (16:12)
[2017-01-05] MEDS ORDERED: Tubing IV Secondary IV ONE (17:56)
[2017-01-05] MEDS ORDERED: NS 275ml ONE (17:56)
[2017-01-05 20:00] VITALS: BP 127/54
--- NOTE | 2017-01-05 20:15 | Consultation ---
DATE OF CONSULTATION: 01/05/2017 INFECTIOUS DISEASE CONSULTATION CONSULTING PHYSICIAN: Scott Hair M.D. ATTENDING PHYSICIAN: Demario Hdz M.D. REASON FOR CONSULTATION: Pneumonia, possible sepsis, leukocytosis, and fevers. CHIEF COMPLAINT: The patient's chief complaint coming in is COPD exacerbation. HISTORY OF PRESENT ILLNESS: This is a 66-year-old female, who comes in to [facility] with congestion, shortness of breath, and COPD exacerbation. The patient was noted to have pneumonia, likely has community-acquired pneumonia with secondary sepsis, leukocytosis, and fevers. She is on steroids. Infectious disease consultation was requested for antibiotic management. The patient was seen yesterday and placed on Rocephin and Levaquin. I have added Flagyl because her white count worsened; however, she is on steroids. Sputum culture at this time is pending and other serology is pending. MAR was noted. Orders were noted. Notes and records were reviewed. The patient has had symptoms for at least 48-72 hours. These symptoms include congestion, shortness of breath, and cough. PAST MEDICAL HISTORY: The patient's past medical history includes history of the following. The patient has past medical history of COPD. She has history of stroke, CVA, hypertension, Christiansen palsy. She has history of COPD, history of carotid stenosis, hypertension, CVA. She has history of TIA. Please see past medical history in medical order. She could also have history of hyperlipidemia. MEDICATIONS: Upon reviewing the MAR, she is on the following medications. She is on methylprednisolone, heparin. She is on Rocephin, Flagyl, Levaquin. She is on clopidogrel, losartan, Cozaar, promethazine, pantoprazole, atorvastatin, zolpidem, Neurontin, paroxetine, albuterol, hydrocodone, and Zanaflex. ALLERGIES: Include amoxicillin, citrus derivatives, hydromorphone, iodine, morphine, nylon, and penicillin. SOCIAL HISTORY: At this time, negative for smoking, alcohol, and drug abuse. FAMILY HISTORY: Noncontributory. Negative for exposure to tuberculosis or cancer. REVIEW OF SYSTEMS: CONSTITUTIONAL: The patient has generalized weakness and fatigue. She came in with fever and chills. HEAD AND NECK: No head pain or neck pain. She has no thrush or dysphagia. CARDIAC: No chest pain or palpitation. GASTROINTESTINAL: No nausea, vomiting, or diarrhea. GENITOURINARY: No dysuria or frequency. PULMONARY: She has congestion and shortness of breath. She has no hemoptysis or secretions. SKIN: No rash or itching. EXTREMITIES: No extremity pain. NEUROLOGIC: No seizures. PHYSICAL EXAMINATION: VITAL SIGNS: Temperature 97.5, pulse rate 77, respiratory rate 18, blood pressure 103/67, and saturation 98%. Pulse rate has been as high as 105 and respiratory rate has been as high as 20. GENERAL: Alert, responsive, and in no acute distress. She is alert and oriented x3. HEAD AND NECK: Oral exam, no thrush. Eye exam, no icterus. Normocephalic. No facial droop. No neck stiffness. Neck is supple. HEART: Regular. No gallop or murmur. ABDOMEN: Soft. Positive bowel sounds. Nontender. No organomegaly. LUNGS: Right-sided rales. Few rhonchi bilaterally also. SKIN: No rash. MUSCULOSKELETAL: No effusion. EXTREMITIES: Legs are without cellulitis. PERIPHERAL VASCULAR: No cyanosis or gangrene. RECTAL: Deferred. GENITOURINARY: No Roman. No CVA tenderness. LINES: Line sites without phlebitis. NEUROLOGIC: She has generalized weakness but responsive. LABORATORY AND DIAGNOSTIC DATA: Laboratory data as follows. White count on admission 21.1, followup white count 29.1, and now it is 8.6 and hemoglobin 11.5. Creatinine 0.7. Sputum culture is pending. Serology for Legionella and Mycoplasma is pending. Blood cultures are negative. Urinalysis was 2-4 white blood cells. Chest x-ray was reviewed and noted and showed left basilar infiltrate and right basilar atelectasis. ASSESSMENT AND PLAN: 1. The patient has likely community-acquired pneumonia. The patient is also at risk for aspiration pneumonia with sepsis, leukocytosis, and fevers. Continue Rocephin, Levaquin, and Flagyl. Check sputum culture, Legionella, and Mycoplasma. Continue antibiotics. Check followup labs, chest x-ray, serology, and sputum culture. Continue Levaquin, Flagyl, and Rocephin for now. 2. The patient had anemia. 3. Sepsis, elevated white count, and fevers. 4. Systemic inflammatory response syndrome criteria. 5. Anemia. 6. Hypertension. 7. Possible hyperlipidemia. 8. Chronic obstructive pulmonary disease. 9. Stroke. 10. Cerebrovascular accident, transient ischemic attack. 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 12. Carotid stenosis. 13. Social history is negative. 14. Family history is noncontributory. 15. MAR was noted. 16. Case was discussed with RN. 17. Allergies to amoxicillin, citrus, hydromorphone, iodine, morphine, nylon tape, and penicillin. 18. Continue treatment per primary consultants. 19. Notes and records were noted. Scott Hair M.D. DR: Hood JOB#: [id number] CC:
[2017-01-05] MEDS ORDERED: Zolpidem 5mg tab ORAL PRN (21:00)
[2017-01-05 21:03] VITALS: BP 127/54
[2017-01-06] VITALS (7 sets, daily range): BP systolic 137–171; BP diastolic 63–80
--- NOTE | 2017-01-06 00:02 | Progress Note ---
DATE: 01/05/2017 CARDIOLOGY PROGRESS NOTE SUBJECTIVE: The patient remains on riveter, sinus rhythm noted, no ectopy. The patient still has cough with hemoptysis at this time and congestion. She is not short of breath at rest. OBJECTIVE: VITAL SIGNS: Blood pressure 103/67, pulse 77, respiratory rate 18, and afebrile. NECK: Supple. LUNGS: Coarse breath sounds and rhonchi. CARDIAC: Regular rhythm and rate. Normal S1 and S2 with a fourth heart sound. ABDOMEN: Soft. No edema. LABORATORY DATA: White count 8.6, hemoglobin 11.5, potassium 4.5, BUN 13, and creatinine 0.7. Lactic acid now 1.9. Albumin 3. Troponin negative. IMPRESSION: 1. Pneumonia. 2. Sepsis. 3. Recovered lactic acidosis. 4. Mild protein-calorie malnutrition. 5. Chronic obstructive pulmonary disease. 6. Hypertensive heart disease. 7. Cerebrovascular disease. 8. Steroid-induced hyperglycemia. PLAN: 1. Discontinue cardiac monitoring. 2. Continue antimicrobials. 3. Inhaled bronchodilators. 4. Respiratory hygiene. 5. Protein supplement. 6. Maintain anti-lipid and anti-platelet therapy. 7. Monitor for further bleeding. 8. Consider CAT scan of the chest. Rosendo Palacios M.D. DR: ANTHONY JOB#: [id number] CC:
--- NOTE | 2017-01-06 00:02 | Progress Note ---
DATE: 01/05/2017 CARDIOLOGY PROGRESS NOTE SUBJECTIVE: The patient remains on cardiac monitor technician, sinus rhythm noted, no ectopy. The patient still has cough with hemoptysis at this time and congestion. She is not short of breath at rest. OBJECTIVE: VITAL SIGNS: Blood pressure 103/67, pulse 77, respiratory rate 18, and afebrile. NECK: Supple. LUNGS: Coarse breath sounds and rhonchi. CARDIAC: Regular rhythm and rate. Normal S1 and S2 with a fourth heart sound. ABDOMEN: Soft. No edema. LABORATORY DATA: White count 8.6, hemoglobin 11.5, potassium 4.5, BUN 13, and creatinine 0.7. Lactic acid now 1.9. Albumin 3. Troponin negative. IMPRESSION: 1. Pneumonia. 2. Sepsis. 3. Recovered lactic acidosis. 4. Mild protein-calorie malnutrition. 5. Chronic obstructive pulmonary disease. 6. Hypertensive heart disease. 7. Cerebrovascular disease. 8. Steroid-induced hyperglycemia. PLAN: 1. Discontinue cardiac monitoring. 2. Continue antimicrobials. 3. Inhaled bronchodilators. 4. Respiratory hygiene. 5. Protein supplement. 6. Maintain anti-lipid and anti-platelet therapy. 7. Monitor for further bleeding. 8. Consider CAT scan of the chest. Rosendo Palacios M.D. DR: ANTHONY JOB#: [id number] CC:
--- NOTE | 2017-01-06 00:02 | Progress Note ---
DATE: 01/05/2017 CARDIOLOGY PROGRESS NOTE SUBJECTIVE: The patient remains on classroom monitor, sinus rhythm noted, no ectopy. The patient still has cough with hemoptysis at this time and congestion. She is not short of breath at rest. OBJECTIVE: VITAL SIGNS: Blood pressure 103/67, pulse 77, respiratory rate 18, and afebrile. NECK: Supple. LUNGS: Coarse breath sounds and rhonchi. CARDIAC: Regular rhythm and rate. Normal S1 and S2 with a fourth heart sound. ABDOMEN: Soft. No edema. LABORATORY DATA: White count 8.6, hemoglobin 11.5, potassium 4.5, BUN 13, and creatinine 0.7. Lactic acid now 1.9. Albumin 3. Troponin negative. IMPRESSION: 1. Pneumonia. 2. Sepsis. 3. Recovered lactic acidosis. 4. Mild protein-calorie malnutrition. 5. Chronic obstructive pulmonary disease. 6. Hypertensive heart disease. 7. Cerebrovascular disease. 8. Steroid-induced hyperglycemia. PLAN: 1. Discontinue cardiac monitoring. 2. Continue antimicrobials. 3. Inhaled bronchodilators. 4. Respiratory hygiene. 5. Protein supplement. 6. Maintain anti-lipid and anti-platelet therapy. 7. Monitor for further bleeding. 8. Consider CAT scan of the chest. Rosendo Palacios M.D. DR: ANTHONY JOB#: [id number] CC:
[2017-01-06] MEDS: Albuterol/Ipratropium 3ml neb HHN SCH ×6 (03:00→23:17)
[2017-01-06] MEDS: Promethazine/Codeine 5ml UD ORAL PRN ×2 (04:53→20:19)
[2017-01-06 07:14] LABS: BASOPHILS % (AUTO) 0.5 % (0.0-2.0); EOSINOPHILS % (AUTO) 0.3 % (0.0-3.0); HEMATOCRIT 33.7 % (37.0-47.0); HEMOGLOBIN 10.8 G/DL (12.0-16.0); LYMPHOCYTES % (AUTO) 24.3 % (20.0-45.0); MEAN CORPUSCULAR VOLUME 95 FL (80-99); MONOCYTES % (AUTO) 6.6 % (1.0-10.0); NEUTROPHILS % (AUTO) 68.4 % (45.0-75.0); PLATELET COUNT 327 K/UL (150-450); RED BLOOD COUNT 3.56 M/UL (4.20-5.40); RED CELL DISTRIBUTION WIDTH 13.2 % (11.6-14.8); WHITE BLOOD COUNT 15.3 K/UL (4.8-10.8)
[2017-01-06 07:29] LABS: ANION GAP 8 mmol/L (5-15); BLOOD UREA NITROGEN 10 mg/dL (7-18); CALCIUM 8.4 MG/DL (8.5-10.1); CARBON DIOXIDE 26 MMOL/L (21-32); CHLORIDE 111 MMOL/L (98-107); CREATININE 0.6 MG/DL (0.55-1.30); POTASSIUM 3.8 MMOL/L (3.5-5.1); SODIUM 145 MMOL/L (136-145)
--- NOTE | 2017-01-06 08:43 | General Progress Note ---
Assessment/Plan Problem List: (1) Hemoptysis ICD Codes: R04.2 - Hemoptysis SNOMED: 48068901 (2) Carotid stenosis ICD Codes: I65.29 - Occlusion and stenosis of unspecified carotid artery SNOMED: 81118424 (3) Pneumonia ICD Codes: J18.9 - Pneumonia, unspecified organism SNOMED: 542805936 Qualifiers: Qualified Codes: J18.9 - Pneumonia, unspecified organism (4) COPD exacerbation ICD Codes: J44.1 - Chronic obstructive pulmonary disease with (acute) exacerbation SNOMED: 260466601, 237335874 Status: stable, progressing, tolerating diet Assessment/Plan iv abx wean steroids- convert to po resp rx cough rx pain rx bp rx per cards antiplt rx Subjective ROS Limited/Unobtainable: No Constitutional: Reports: malaise, weakness HEENT: Reports: no symptoms Cardiovascular: Reports: no symptoms Respiratory: Reports: cough, shortness of breath, sputum Gastrointestinal/Abdominal: Reports: no symptoms Genitourinary: Reports: no symptoms Neurologic/Psychiatric: Reports: pre-existing deficit Endocrine: Reports: no symptoms Hematologic/Lymphatic: Reports: no symptoms Allergies: Coded Allergies: MORPHINE (Verified Allergy, Severe, Anaphylaxis, 11/14/16) PT RECEIVED 5 DOSES OF OXYCODONE ON PREVIOUS ADMISSION IN 06/2015. As per conversation with the patient. Patient denies having allergy reaction with [place]. She said " I have been taking [place] before and i have no allergy reactions. AMOXICILLIN (Verified Allergy, Mild, ITCHING, 06/15/15) itching CITRUS AND DERIVATIVES (Verified Allergy, Unknown, BREAKOUT, 06/15/15) breakout HYDROMORPHONE (Verified Allergy, Unknown, CHEST PAIN, 06/15/15) chest pain IODINE (Verified Allergy, Unknown, SWELLING, 06/15/15) swelling PENICILLINS (Verified Allergy, Unknown, ITCHING, 06/15/15) itching Uncoded Allergies: NYLON TAPE (Adverse Reaction, Intermediate, NIEVES THE SKIN, 06/21/15) All Systems: reviewed and negative except above Subjective continued productive cough and congestion. +cp. no fever or chills. Objective Last 24 Hour Vital Signs Date Time Temp Pulse Resp B/P (MAP) Pulse Ox O2 Delivery O2 Flow Rate FiO2 01/06/17 07:45 86 18 100 Nasal Cannula 2.0 28 11/5/17 07:30 97 Nasal Cannula 2.0 28 01/06/17 07:30 Nasal Cannula 2.0 01/06/17 07:30 76 18 97 Nasal Cannula 2.0 01/06/17 04:00 97.9 70 20 147/69 95 Nasal Cannula 2.0 01/06/17 03:29 Nasal Cannula 2.0 01/06/17 03:29 Nasal Cannula 01/06/17 00:20 98.0 65 19 143/65 96 Room Air 01/05/17 23:13 82 18 98 Nasal Cannula 2.0 01/05/17 23:05 73 18 100 Nasal Cannula 2.0 01/05/17 21:03 98.0 73 19 127/54 98 Nasal Cannula 01/05/17 20:00 98.0 73 19 127/54 99 Nasal Cannula 01/05/17 19:40 80 18 97 Nasal Cannula 2.0 01/05/17 19:32 Nasal Cannula 2.0 01/05/17 19:32 98 Nasal Cannula 2.0 01/05/17 19:31 68 18 100 Nasal Cannula 2.0 01/05/17 16:00 98.2 74 20 159/72 96 Nasal Cannula 2.0 01/05/17 15:40 Nasal Cannula 01/05/17 15:40 Nasal Cannula 01/05/17 11:53 97.5 77 18 103/67 98 Room Air 01/05/17 11:12 78 19 95 Nasal Cannula 2.0 01/05/17 10:59 75 20 100 Nasal Cannula 2.0 01/05/17 10:09 140/74 Laboratory Tests 01/06/17 05:10: White Blood Count 15.3#H, Red Blood Count 3.56L, Hemoglobin 10.8L, Hematocrit 33.7L, Mean Corpuscular Volume 95, Mean Corpuscular Hemoglobin 30.2, Mean Corpuscular Hemoglobin Concent 31.9L, Red Cell Distribution Width 13.2, Platelet Count 327, Mean Platelet Volume 6.4L, Neutrophils (%) (Auto) 68.4, Lymphocytes (%) (Auto) 24.3, Monocytes (%) (Auto) 6.6, Eosinophils (%) (Auto) 0.3, Basophils (%) (Auto) 0.5, Sodium Level 145, Potassium Level 3.8, Chloride Level 111H, Carbon Dioxide Level 26, Anion Gap 8, Blood Urea Nitrogen 10, Creatinine 0.6, Estimat Glomerular Filtration Rate > 60, Glucose Level 82, Calcium Level 8.4L Height (Feet): 5 Height (Inches): 2.00 Weight (Pounds): 162 Objective General Appearance: WD/WN, alert Neck: supple Cardiovascular: normal rate, regular rhythm Respiratory/Chest: chest wall non-tender, rhonchi - bilaterally, expiratory wheezing Abdomen: normal bowel sounds, non tender, soft, no organomegaly 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
--- NOTE | 2017-01-06 08:43 | General Progress Note ---
Assessment/Plan Problem List: (1) Hemoptysis ICD Codes: R04.2 - Hemoptysis SNOMED: 48451524 (2) Carotid stenosis ICD Codes: I65.29 - Occlusion and stenosis of unspecified carotid artery SNOMED: 79014685 (3) Pneumonia ICD Codes: J18.9 - Pneumonia, unspecified organism SNOMED: 510968562 Qualifiers: Qualified Codes: J18.9 - Pneumonia, unspecified organism (4) COPD exacerbation ICD Codes: J44.1 - Chronic obstructive pulmonary disease with (acute) exacerbation SNOMED: 460736260, 328512591 Status: stable, progressing, tolerating diet Assessment/Plan iv abx wean steroids- convert to po resp rx cough rx pain rx bp rx per cards antiplt rx Subjective ROS Limited/Unobtainable: No Constitutional: Reports: malaise, weakness HEENT: Reports: no symptoms Cardiovascular: Reports: no symptoms Respiratory: Reports: cough, shortness of breath, sputum Gastrointestinal/Abdominal: Reports: no symptoms Genitourinary: Reports: no symptoms Neurologic/Psychiatric: Reports: pre-existing deficit Endocrine: Reports: no symptoms Hematologic/Lymphatic: Reports: no symptoms Allergies: Coded Allergies: MORPHINE (Verified Allergy, Severe, Anaphylaxis, 11/14/16) PT RECEIVED 5 DOSES OF OXYCODONE ON PREVIOUS ADMISSION IN 06/2015. As per conversation with the patient. Patient denies having allergy reaction with [place]. She said " I have been taking [place] before and i have no allergy reactions. AMOXICILLIN (Verified Allergy, Mild, ITCHING, 06/15/15) itching CITRUS AND DERIVATIVES (Verified Allergy, Unknown, BREAKOUT, 06/15/15) breakout HYDROMORPHONE (Verified Allergy, Unknown, CHEST PAIN, 06/15/15) chest pain IODINE (Verified Allergy, Unknown, SWELLING, 06/15/15) swelling PENICILLINS (Verified Allergy, Unknown, ITCHING, 06/15/15) itching Uncoded Allergies: NYLON TAPE (Adverse Reaction, Intermediate, NIEVES THE SKIN, 06/21/15) All Systems: reviewed and negative except above Subjective continued productive cough and congestion. +cp. no fever or chills. Objective Last 24 Hour Vital Signs Date Time Temp Pulse Resp B/P (MAP) Pulse Ox O2 Delivery O2 Flow Rate FiO2 01/06/17 07:45 86 18 100 Nasal Cannula 2.0 28 11/5/17 07:30 97 Nasal Cannula 2.0 28 01/06/17 07:30 Nasal Cannula 2.0 01/06/17 07:30 76 18 97 Nasal Cannula 2.0 01/06/17 04:00 97.9 70 20 147/69 95 Nasal Cannula 2.0 01/06/17 03:29 Nasal Cannula 2.0 01/06/17 03:29 Nasal Cannula 01/06/17 00:20 98.0 65 19 143/65 96 Room Air 01/05/17 23:13 82 18 98 Nasal Cannula 2.0 01/05/17 23:05 73 18 100 Nasal Cannula 2.0 01/05/17 21:03 98.0 73 19 127/54 98 Nasal Cannula 01/05/17 20:00 98.0 73 19 127/54 99 Nasal Cannula 01/05/17 19:40 80 18 97 Nasal Cannula 2.0 01/05/17 19:32 Nasal Cannula 2.0 01/05/17 19:32 98 Nasal Cannula 2.0 01/05/17 19:31 68 18 100 Nasal Cannula 2.0 01/05/17 16:00 98.2 74 20 159/72 96 Nasal Cannula 2.0 01/05/17 15:40 Nasal Cannula 01/05/17 15:40 Nasal Cannula 01/05/17 11:53 97.5 77 18 103/67 98 Room Air 01/05/17 11:12 78 19 95 Nasal Cannula 2.0 01/05/17 10:59 75 20 100 Nasal Cannula 2.0 01/05/17 10:09 140/74 Laboratory Tests 01/06/17 05:10: White Blood Count 15.3#H, Red Blood Count 3.56L, Hemoglobin 10.8L, Hematocrit 33.7L, Mean Corpuscular Volume 95, Mean Corpuscular Hemoglobin 30.2, Mean Corpuscular Hemoglobin Concent 31.9L, Red Cell Distribution Width 13.2, Platelet Count 327, Mean Platelet Volume 6.4L, Neutrophils (%) (Auto) 68.4, Lymphocytes (%) (Auto) 24.3, Monocytes (%) (Auto) 6.6, Eosinophils (%) (Auto) 0.3, Basophils (%) (Auto) 0.5, Sodium Level 145, Potassium Level 3.8, Chloride Level 111H, Carbon Dioxide Level 26, Anion Gap 8, Blood Urea Nitrogen 10, Creatinine 0.6, Estimat Glomerular Filtration Rate > 60, Glucose Level 82, Calcium Level 8.4L Height (Feet): 5 Height (Inches): 2.00 Weight (Pounds): 162 Objective General Appearance: WD/WN, alert Neck: supple Cardiovascular: normal rate, regular rhythm Respiratory/Chest: chest wall non-tender, rhonchi - bilaterally, expiratory wheezing Abdomen: normal bowel sounds, non tender, soft, no organomegaly 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
--- NOTE | 2017-01-06 08:43 | General Progress Note ---
Assessment/Plan Problem List: (1) Hemoptysis ICD Codes: R04.2 - Hemoptysis SNOMED: 76829417 (2) Carotid stenosis ICD Codes: I65.29 - Occlusion and stenosis of unspecified carotid artery SNOMED: 53288577 (3) Pneumonia ICD Codes: J18.9 - Pneumonia, unspecified organism SNOMED: 498527888 Qualifiers: Qualified Codes: J18.9 - Pneumonia, unspecified organism (4) COPD exacerbation ICD Codes: J44.1 - Chronic obstructive pulmonary disease with (acute) exacerbation SNOMED: 691810200, 417991115 Status: stable, progressing, tolerating diet Assessment/Plan iv abx wean steroids- convert to po resp rx cough rx pain rx bp rx per cards antiplt rx Subjective ROS Limited/Unobtainable: No Constitutional: Reports: malaise, weakness HEENT: Reports: no symptoms Cardiovascular: Reports: no symptoms Respiratory: Reports: cough, shortness of breath, sputum Gastrointestinal/Abdominal: Reports: no symptoms Genitourinary: Reports: no symptoms Neurologic/Psychiatric: Reports: pre-existing deficit Endocrine: Reports: no symptoms Hematologic/Lymphatic: Reports: no symptoms Allergies: Coded Allergies: MORPHINE (Verified Allergy, Severe, Anaphylaxis, 11/14/16) PT RECEIVED 5 DOSES OF OXYCODONE ON PREVIOUS ADMISSION IN 06/2015. As per conversation with the patient. Patient denies having allergy reaction with [place]. She said " I have been taking [place] before and i have no allergy reactions. AMOXICILLIN (Verified Allergy, Mild, ITCHING, 06/15/15) itching CITRUS AND DERIVATIVES (Verified Allergy, Unknown, BREAKOUT, 06/15/15) breakout HYDROMORPHONE (Verified Allergy, Unknown, CHEST PAIN, 06/15/15) chest pain IODINE (Verified Allergy, Unknown, SWELLING, 06/15/15) swelling PENICILLINS (Verified Allergy, Unknown, ITCHING, 06/15/15) itching Uncoded Allergies: NYLON TAPE (Adverse Reaction, Intermediate, NIEVES THE SKIN, 06/21/15) All Systems: reviewed and negative except above Subjective continued productive cough and congestion. +cp. no fever or chills. Objective Last 24 Hour Vital Signs Date Time Temp Pulse Resp B/P (MAP) Pulse Ox O2 Delivery O2 Flow Rate FiO2 01/06/17 07:45 86 18 100 Nasal Cannula 2.0 28 11/5/17 07:30 97 Nasal Cannula 2.0 28 01/06/17 07:30 Nasal Cannula 2.0 01/06/17 07:30 76 18 97 Nasal Cannula 2.0 01/06/17 04:00 97.9 70 20 147/69 95 Nasal Cannula 2.0 01/06/17 03:29 Nasal Cannula 2.0 01/06/17 03:29 Nasal Cannula 01/06/17 00:20 98.0 65 19 143/65 96 Room Air 01/05/17 23:13 82 18 98 Nasal Cannula 2.0 01/05/17 23:05 73 18 100 Nasal Cannula 2.0 01/05/17 21:03 98.0 73 19 127/54 98 Nasal Cannula 01/05/17 20:00 98.0 73 19 127/54 99 Nasal Cannula 01/05/17 19:40 80 18 97 Nasal Cannula 2.0 01/05/17 19:32 Nasal Cannula 2.0 01/05/17 19:32 98 Nasal Cannula 2.0 01/05/17 19:31 68 18 100 Nasal Cannula 2.0 01/05/17 16:00 98.2 74 20 159/72 96 Nasal Cannula 2.0 01/05/17 15:40 Nasal Cannula 01/05/17 15:40 Nasal Cannula 01/05/17 11:53 97.5 77 18 103/67 98 Room Air 01/05/17 11:12 78 19 95 Nasal Cannula 2.0 01/05/17 10:59 75 20 100 Nasal Cannula 2.0 01/05/17 10:09 140/74 Laboratory Tests 01/06/17 05:10: White Blood Count 15.3#H, Red Blood Count 3.56L, Hemoglobin 10.8L, Hematocrit 33.7L, Mean Corpuscular Volume 95, Mean Corpuscular Hemoglobin 30.2, Mean Corpuscular Hemoglobin Concent 31.9L, Red Cell Distribution Width 13.2, Platelet Count 327, Mean Platelet Volume 6.4L, Neutrophils (%) (Auto) 68.4, Lymphocytes (%) (Auto) 24.3, Monocytes (%) (Auto) 6.6, Eosinophils (%) (Auto) 0.3, Basophils (%) (Auto) 0.5, Sodium Level 145, Potassium Level 3.8, Chloride Level 111H, Carbon Dioxide Level 26, Anion Gap 8, Blood Urea Nitrogen 10, Creatinine 0.6, Estimat Glomerular Filtration Rate > 60, Glucose Level 82, Calcium Level 8.4L Height (Feet): 5 Height (Inches): 2.00 Weight (Pounds): 162 Objective General Appearance: WD/WN, alert Neck: supple Cardiovascular: normal rate, regular rhythm Respiratory/Chest: chest wall non-tender, rhonchi - bilaterally, expiratory wheezing Abdomen: normal bowel sounds, non tender, soft, no organomegaly 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
[2017-01-06] MEDS ORDERED: Solu-MEDROL 40mg Inj IVP SCH ×2 (09:00)
[2017-01-06] MEDS: Aspirin EC 81mg tab ORAL SCH (09:50)
[2017-01-06] MEDS: PARoxetine 10mg tab ORAL SCH ×2 (09:50→18:54)
[2017-01-06] MEDS: Levofloxacin 500mg tab ORAL SCH (09:50)
[2017-01-06] MEDS: Losartan 50mg tab ORAL SCH (09:50)
[2017-01-06] MEDS: Heparin 5000 units/ml inj SUBQ SCH ×2 (09:52→20:23)
--- NOTE | 2017-01-06 11:09 | Diagnostic Imaging Report ---
Indication: SOB Technique: CHEST 1 VIEW. Comparison: 01/03/2017 Findings: The cardiomediastinal silhouette is stable. There are no acute infiltrates. Previous infiltrates have resolved. No pleural fluid. Impression: No acute abnormality. .
[2017-01-06] MEDS: cefTRIAXone 1 GM in D5W 55 ML IVPB SCH (16:49)
[2017-01-06] MEDS: Norco 10mg/325mg tab ORAL PRN (18:59)
[2017-01-07] VITALS: BP 136/55
[2017-01-07] MEDS: Albuterol/Ipratropium 3ml neb HHN SCH ×6 (02:36→23:05)
[2017-01-07 04:00] VITALS: BP 132/82
[2017-01-07 08:00] VITALS: BP 129/58
[2017-01-07] MEDS: Heparin 5000 units/ml inj SUBQ SCH ×2 (08:26→21:23)
[2017-01-07] MEDS: Levofloxacin 500mg tab ORAL SCH (08:29)
[2017-01-07] MEDS: PARoxetine 10mg tab ORAL SCH ×2 (08:29→18:22)
[2017-01-07] MEDS: Aspirin EC 81mg tab ORAL SCH (08:30)
[2017-01-07] MEDS: Losartan 50mg tab ORAL SCH (08:30)
[2017-01-07] MEDS: Promethazine/Codeine 5ml UD ORAL PRN ×3 (08:40→23:33)
--- NOTE | 2017-01-07 08:42 | General Progress Note ---
Assessment/Plan Problem List: (1) Hemoptysis ICD Codes: R04.2 - Hemoptysis SNOMED: 01346209 (2) Carotid stenosis ICD Codes: I65.29 - Occlusion and stenosis of unspecified carotid artery SNOMED: 19474436 (3) Pneumonia ICD Codes: J18.9 - Pneumonia, unspecified organism SNOMED: 402625111 Qualifiers: Qualified Codes: J18.9 - Pneumonia, unspecified organism (4) COPD exacerbation ICD Codes: J44.1 - Chronic obstructive pulmonary disease with (acute) exacerbation SNOMED: 683329049, 873043197 Status: stable, progressing Assessment/Plan iv abx resume iv steroids- worse with conversion to po resp rx cough rx pain rx bp rx per cards antiplt rx Subjective ROS Limited/Unobtainable: No Constitutional: Reports: malaise, weakness HEENT: Reports: no symptoms Cardiovascular: Reports: chest pain Respiratory: Reports: cough, shortness of breath, wheezing Gastrointestinal/Abdominal: Reports: no symptoms Genitourinary: Reports: no symptoms Neurologic/Psychiatric: Reports: pre-existing deficit Endocrine: Reports: no symptoms Hematologic/Lymphatic: Reports: no symptoms Allergies: Coded Allergies: MORPHINE (Verified Allergy, Severe, Anaphylaxis, 11/14/16) PT RECEIVED 5 DOSES OF OXYCODONE ON PREVIOUS ADMISSION IN 06/2015. As per conversation with the patient. Patient denies having allergy reaction with [place]. She said " I have been taking [place] before and i have no allergy reactions. AMOXICILLIN (Verified Allergy, Mild, ITCHING, 06/15/15) itching CITRUS AND DERIVATIVES (Verified Allergy, Unknown, BREAKOUT, 06/15/15) breakout HYDROMORPHONE (Verified Allergy, Unknown, CHEST PAIN, 06/15/15) chest pain IODINE (Verified Allergy, Unknown, SWELLING, 06/15/15) swelling PENICILLINS (Verified Allergy, Unknown, ITCHING, 06/15/15) itching Uncoded Allergies: NYLON TAPE (Adverse Reaction, Intermediate, NIEVES THE SKIN, 06/21/15) All Systems: reviewed and negative except above Subjective continued productive cough and congestion. +cp. no fever or chills. cxr shows resolution of infiltrate. still does not feel well. c/o increase wheezing and chest tightness Objective Last 24 Hour Vital Signs Date Time Temp Pulse Resp B/P (MAP) Pulse Ox O2 Delivery O2 Flow Rate FiO2 01/07/17 08:30 120/67 01/07/17 08:30 67 18 100 Nasal Cannula 2.0 01/07/17 08:25 66 18 98 Nasal Cannula 2.0 28 01/07/17 08:25 Nasal Cannula 2.0 28 01/07/17 08:25 98 Nasal Cannula 2.0 01/07/17 04:00 97.7 63 20 132/82 96 Nasal Cannula 2.0 01/07/17 02:37 Nasal Cannula 2.0 01/07/17 02:36 Nasal Cannula 2.0 01/07/17 00:00 97.9 69 20 136/55 95 Room Air 01/06/17 23:28 81 18 100 Nasal Cannula 2.0 01/06/17 23:18 74 18 98 Nasal Cannula 2.0 01/06/17 21:39 161/70 01/06/17 20:00 97.7 64 20 161/70 97 Room Air 01/06/17 19:47 76 18 100 Nasal Cannula 2.0 01/06/17 19:34 Nasal Cannula 2.0 01/06/17 19:34 98 Nasal Cannula 2.0 01/06/17 19:33 73 18 97 Nasal Cannula 2.0 01/06/17 18:56 62 158/72 01/06/17 16:48 163/78 01/06/17 16:00 97.3 74 20 171/80 94 Room Air 01/06/17 15:23 68 18 100 Nasal Cannula 2.0 01/06/17 15:18 78 18 97 Nasal Cannula 2.0 01/06/17 12:00 98.2 83 20 155/74 97 Room Air 01/06/17 11:02 69 18 100 Nasal Cannula 2.0 01/06/17 10:50 85 18 92 Nasal Cannula 2.0 28 01/06/17 09:50 137/63 Height (Feet): 5 Height (Inches): 2.00 Weight (Pounds): 162 Objective General Appearance: WD/WN, alert Neck: supple Cardiovascular: normal rate, regular rhythm Respiratory/Chest: chest wall non-tender, rhonchi - bilaterally, expiratory wheezing Abdomen: normal bowel sounds, non tender, soft, no organomegaly 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
--- NOTE | 2017-01-07 08:42 | General Progress Note ---
Assessment/Plan Problem List: (1) Hemoptysis ICD Codes: R04.2 - Hemoptysis SNOMED: 88509549 (2) Carotid stenosis ICD Codes: I65.29 - Occlusion and stenosis of unspecified carotid artery SNOMED: 25080814 (3) Pneumonia ICD Codes: J18.9 - Pneumonia, unspecified organism SNOMED: 273076461 Qualifiers: Qualified Codes: J18.9 - Pneumonia, unspecified organism (4) COPD exacerbation ICD Codes: J44.1 - Chronic obstructive pulmonary disease with (acute) exacerbation SNOMED: 221632265, 304870693 Status: stable, progressing Assessment/Plan iv abx resume iv steroids- worse with conversion to po resp rx cough rx pain rx bp rx per cards antiplt rx Subjective ROS Limited/Unobtainable: No Constitutional: Reports: malaise, weakness HEENT: Reports: no symptoms Cardiovascular: Reports: chest pain Respiratory: Reports: cough, shortness of breath, wheezing Gastrointestinal/Abdominal: Reports: no symptoms Genitourinary: Reports: no symptoms Neurologic/Psychiatric: Reports: pre-existing deficit Endocrine: Reports: no symptoms Hematologic/Lymphatic: Reports: no symptoms Allergies: Coded Allergies: MORPHINE (Verified Allergy, Severe, Anaphylaxis, 11/14/16) PT RECEIVED 5 DOSES OF OXYCODONE ON PREVIOUS ADMISSION IN 06/2015. As per conversation with the patient. Patient denies having allergy reaction with [place]. She said " I have been taking [place] before and i have no allergy reactions. AMOXICILLIN (Verified Allergy, Mild, ITCHING, 06/15/15) itching CITRUS AND DERIVATIVES (Verified Allergy, Unknown, BREAKOUT, 06/15/15) breakout HYDROMORPHONE (Verified Allergy, Unknown, CHEST PAIN, 06/15/15) chest pain IODINE (Verified Allergy, Unknown, SWELLING, 06/15/15) swelling PENICILLINS (Verified Allergy, Unknown, ITCHING, 06/15/15) itching Uncoded Allergies: NYLON TAPE (Adverse Reaction, Intermediate, NIEVES THE SKIN, 06/21/15) All Systems: reviewed and negative except above Subjective continued productive cough and congestion. +cp. no fever or chills. cxr shows resolution of infiltrate. still does not feel well. c/o increase wheezing and chest tightness Objective Last 24 Hour Vital Signs Date Time Temp Pulse Resp B/P (MAP) Pulse Ox O2 Delivery O2 Flow Rate FiO2 01/07/17 08:30 120/67 01/07/17 08:30 67 18 100 Nasal Cannula 2.0 01/07/17 08:25 66 18 98 Nasal Cannula 2.0 28 01/07/17 08:25 Nasal Cannula 2.0 28 01/07/17 08:25 98 Nasal Cannula 2.0 01/07/17 04:00 97.7 63 20 132/82 96 Nasal Cannula 2.0 01/07/17 02:37 Nasal Cannula 2.0 01/07/17 02:36 Nasal Cannula 2.0 01/07/17 00:00 97.9 69 20 136/55 95 Room Air 01/06/17 23:28 81 18 100 Nasal Cannula 2.0 01/06/17 23:18 74 18 98 Nasal Cannula 2.0 01/06/17 21:39 161/70 01/06/17 20:00 97.7 64 20 161/70 97 Room Air 01/06/17 19:47 76 18 100 Nasal Cannula 2.0 01/06/17 19:34 Nasal Cannula 2.0 01/06/17 19:34 98 Nasal Cannula 2.0 01/06/17 19:33 73 18 97 Nasal Cannula 2.0 01/06/17 18:56 62 158/72 01/06/17 16:48 163/78 01/06/17 16:00 97.3 74 20 171/80 94 Room Air 01/06/17 15:23 68 18 100 Nasal Cannula 2.0 01/06/17 15:18 78 18 97 Nasal Cannula 2.0 01/06/17 12:00 98.2 83 20 155/74 97 Room Air 01/06/17 11:02 69 18 100 Nasal Cannula 2.0 01/06/17 10:50 85 18 92 Nasal Cannula 2.0 28 01/06/17 09:50 137/63 Height (Feet): 5 Height (Inches): 2.00 Weight (Pounds): 162 Objective General Appearance: WD/WN, alert Neck: supple Cardiovascular: normal rate, regular rhythm Respiratory/Chest: chest wall non-tender, rhonchi - bilaterally, expiratory wheezing Abdomen: normal bowel sounds, non tender, soft, no organomegaly 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
--- NOTE | 2017-01-07 08:42 | General Progress Note ---
Assessment/Plan Problem List: (1) Hemoptysis ICD Codes: R04.2 - Hemoptysis SNOMED: 50436447 (2) Carotid stenosis ICD Codes: I65.29 - Occlusion and stenosis of unspecified carotid artery SNOMED: 30142806 (3) Pneumonia ICD Codes: J18.9 - Pneumonia, unspecified organism SNOMED: 964865689 Qualifiers: Qualified Codes: J18.9 - Pneumonia, unspecified organism (4) COPD exacerbation ICD Codes: J44.1 - Chronic obstructive pulmonary disease with (acute) exacerbation SNOMED: 771545182, 917342932 Status: stable, progressing Assessment/Plan iv abx resume iv steroids- worse with conversion to po resp rx cough rx pain rx bp rx per cards antiplt rx Subjective ROS Limited/Unobtainable: No Constitutional: Reports: malaise, weakness HEENT: Reports: no symptoms Cardiovascular: Reports: chest pain Respiratory: Reports: cough, shortness of breath, wheezing Gastrointestinal/Abdominal: Reports: no symptoms Genitourinary: Reports: no symptoms Neurologic/Psychiatric: Reports: pre-existing deficit Endocrine: Reports: no symptoms Hematologic/Lymphatic: Reports: no symptoms Allergies: Coded Allergies: MORPHINE (Verified Allergy, Severe, Anaphylaxis, 11/14/16) PT RECEIVED 5 DOSES OF OXYCODONE ON PREVIOUS ADMISSION IN 06/2015. As per conversation with the patient. Patient denies having allergy reaction with [place]. She said " I have been taking [place] before and i have no allergy reactions. AMOXICILLIN (Verified Allergy, Mild, ITCHING, 06/15/15) itching CITRUS AND DERIVATIVES (Verified Allergy, Unknown, BREAKOUT, 06/15/15) breakout HYDROMORPHONE (Verified Allergy, Unknown, CHEST PAIN, 06/15/15) chest pain IODINE (Verified Allergy, Unknown, SWELLING, 06/15/15) swelling PENICILLINS (Verified Allergy, Unknown, ITCHING, 06/15/15) itching Uncoded Allergies: NYLON TAPE (Adverse Reaction, Intermediate, NIEVES THE SKIN, 06/21/15) All Systems: reviewed and negative except above Subjective continued productive cough and congestion. +cp. no fever or chills. cxr shows resolution of infiltrate. still does not feel well. c/o increase wheezing and chest tightness Objective Last 24 Hour Vital Signs Date Time Temp Pulse Resp B/P (MAP) Pulse Ox O2 Delivery O2 Flow Rate FiO2 01/07/17 08:30 120/67 01/07/17 08:30 67 18 100 Nasal Cannula 2.0 01/07/17 08:25 66 18 98 Nasal Cannula 2.0 28 01/07/17 08:25 Nasal Cannula 2.0 28 01/07/17 08:25 98 Nasal Cannula 2.0 01/07/17 04:00 97.7 63 20 132/82 96 Nasal Cannula 2.0 01/07/17 02:37 Nasal Cannula 2.0 01/07/17 02:36 Nasal Cannula 2.0 01/07/17 00:00 97.9 69 20 136/55 95 Room Air 01/06/17 23:28 81 18 100 Nasal Cannula 2.0 01/06/17 23:18 74 18 98 Nasal Cannula 2.0 01/06/17 21:39 161/70 01/06/17 20:00 97.7 64 20 161/70 97 Room Air 01/06/17 19:47 76 18 100 Nasal Cannula 2.0 01/06/17 19:34 Nasal Cannula 2.0 01/06/17 19:34 98 Nasal Cannula 2.0 01/06/17 19:33 73 18 97 Nasal Cannula 2.0 01/06/17 18:56 62 158/72 01/06/17 16:48 163/78 01/06/17 16:00 97.3 74 20 171/80 94 Room Air 01/06/17 15:23 68 18 100 Nasal Cannula 2.0 01/06/17 15:18 78 18 97 Nasal Cannula 2.0 01/06/17 12:00 98.2 83 20 155/74 97 Room Air 01/06/17 11:02 69 18 100 Nasal Cannula 2.0 01/06/17 10:50 85 18 92 Nasal Cannula 2.0 28 01/06/17 09:50 137/63 Height (Feet): 5 Height (Inches): 2.00 Weight (Pounds): 162 Objective General Appearance: WD/WN, alert Neck: supple Cardiovascular: normal rate, regular rhythm Respiratory/Chest: chest wall non-tender, rhonchi - bilaterally, expiratory wheezing Abdomen: normal bowel sounds, non tender, soft, no organomegaly 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
[2017-01-07] MEDS: Solu-MEDROL 40mg Inj IVP SCH ×3 (09:59→21:22)
[2017-01-07 12:00] VITALS: BP 131/61
--- NOTE | 2017-01-07 12:00 | Progress Note ---
DATE: 01/06/2017 CARDIOLOGY PROGRESS NOTE SUBJECTIVE: The patient continues to have cough with hemoptysis. OBJECTIVE: VITAL SIGNS: Stable. Blood pressure control is adequate. Blood pressure max 149/67. LUNGS: Coarse breath sounds with rhonchi. HEART: Regular rhythm and rate. Normal S1, S2. ABDOMEN: Soft. EXTREMITIES: No edema. LABORATORY DATA: White count 15, hemoglobin 10.8. Chemistry panel within normal limits. Chest x-ray today reveals no acute process with resolution of prior infiltrates. IMPRESSION: Radiographically improved, clinically still with symptoms. PLAN: 1. Antimicrobials. 2. Respiratory hygiene. 3. Maintain current cardiovascular regimen. 4. Consider CT of the chest. Rosendo Palacios M.D. DR: MIMI JOB#: [id number] CC:
[2017-01-07] MEDS ORDERED: Amikacin Rx to dose MISC PRN (14:15)
--- NOTE | 2017-01-07 14:21 | Infectious Diseases Prog Note ---
Assessment/Plan Assessment/Plan ASSESSMENT AND PLAN: 1. 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 leukocytosis and fevers - continue levofloxacin and add amikacin - day # 3 abx - patient has severe pcn allergy c/w hives in d/w patient and will try to avoid carbapenems for now which are esbl drug of choice - chest x-ray improved but still sob - consider pulmonary evaluation and CT chest - d/w Dr. Palacios - d/w RN - dw/ patient - on steroids 2. The patient had anemia. 3. Sepsis, elevated white count, and fevers. 4. Systemic inflammatory response syndrome criteria. 5. Anemia. 6. Hypertension. 7. Possible hyperlipidemia. 8. Chronic obstructive pulmonary disease. 9. Stroke. 10. Cerebrovascular accident, transient ischemic attack. 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 12. Carotid stenosis. 13. Social history is negative. 14. Family history is noncontributory. 15. MAR was noted. 16. Case was discussed with RN. 17. Allergies to amoxicillin, citrus, hydromorphone, iodine, morphine, nylon tape, and penicillin.- d/w patient and gets hives with pcn 18. Continue treatment per primary consultants. 19. Notes and records were noted. Subjective Constitutional: Denies: fever HEENT: Reports: congestion Respiratory: Reports: shortness of breath Cardiovascular: Denies: chest pain Gastrointestinal/Abdominal: Denies: nausea, vomiting, diarrhea Genitourinary: Reports: other - no mcdermott Psychiatric: Denies: depression Skin: Denies: rash Musculoskeletal: Denies: pain Allergies: Coded Allergies: MORPHINE (Verified Allergy, Severe, Anaphylaxis, 11/14/16) PT RECEIVED 5 DOSES OF OXYCODONE ON PREVIOUS ADMISSION IN 06/2015. As per conversation with the patient. Patient denies having allergy reaction with [place]. She said " I have been taking [place] before and i have no allergy reactions. AMOXICILLIN (Verified Allergy, Mild, ITCHING, 06/15/15) itching CITRUS AND DERIVATIVES (Verified Allergy, Unknown, BREAKOUT, 06/15/15) breakout HYDROMORPHONE (Verified Allergy, Unknown, CHEST PAIN, 06/15/15) chest pain IODINE (Verified Allergy, Unknown, SWELLING, 06/15/15) swelling PENICILLINS (Verified Allergy, Unknown, ITCHING, 06/15/15) itching Uncoded Allergies: NYLON TAPE (Adverse Reaction, Intermediate, NIEVES THE SKIN, 06/21/15) Objective Vital Signs Last 24 Hour Vital Signs Date Time Temp Pulse Resp B/P (MAP) Pulse Ox O2 Delivery O2 Flow Rate FiO2 01/07/17 11:10 70 18 100 Nasal Cannula 2.0 28 01/07/17 11:05 68 18 98 Nasal Cannula 2.0 28 01/07/17 08:30 120/67 01/07/17 08:30 67 18 100 Nasal Cannula 2.0 28 01/07/17 08:25 66 18 98 Nasal Cannula 2.0 28 01/07/17 08:25 Nasal Cannula 2.0 28 01/07/17 08:25 98 Nasal Cannula 2.0 28 01/07/17 08:00 97.5 77 20 129/58 94 Room Air 01/07/17 08:00 97.5 77 20 129/58 94 Nasal Cannula 3.0 01/07/17 04:00 97.7 63 20 132/82 96 Nasal Cannula 2.0 01/07/17 02:37 Nasal Cannula 2.0 28 01/07/17 02:36 Nasal Cannula 2.0 28 01/07/17 00:00 97.9 69 20 136/55 95 Room Air 01/06/17 23:28 81 18 100 Nasal Cannula 2.0 01/06/17 23:18 74 18 98 Nasal Cannula 2.0 01/06/17 21:39 161/70 01/06/17 20:00 97.7 64 20 161/70 97 Room Air 01/06/17 19:47 76 18 100 Nasal Cannula 2.0 01/06/17 19:34 Nasal Cannula 2.0 28 01/06/17 19:34 98 Nasal Cannula 2.0 28 01/06/17 19:33 73 18 97 Nasal Cannula 2.0 28 01/06/17 18:56 62 158/72 01/06/17 16:48 163/78 01/06/17 16:00 97.3 74 20 171/80 94 Room Air 01/06/17 15:23 68 18 100 Nasal Cannula 2.0 28 01/06/17 15:18 78 18 97 Nasal Cannula 2.0 28 Height (Feet): 5 Height (Inches): 2.00 Weight (Pounds): 162 General Appearance: no acute distress HEENT: normocephalic, atraumatic, anicteric, mucous membranes moist, supple, no JVD Respiratory/Chest: crackles/rales, rhonchi - bilaterally Cardiovascular: normal rate, regular rhythm, no gallop/murmur, no JVD Abdomen: normal bowel sounds, soft, non tender, no organomegaly, non distended Genitourinary: other - no mdcermott, no cva pain Extremities: no cyanosis Skin: no rash 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 There are no acute infiltrates. Previous infiltrates have resolved. No pleural fluid. Impression: No acute abnormality. . Microbiology Date/Time Source Procedure Growth Status 01/03/17 11:40 Blood Blood Culture - Preliminary NO GROWTH AFTER 72 HOURS Resulted 01/04/17 12:22 Sputum Induced Gram Stain - Final Complete 01/04/17 12:22 Sputum Culture - Final Pooja Famata Klebsiella Pneumoniae Complete Labs Test 01/04/17 16:00 01/05/17 05:20 01/06/17 05:10 White Blood Count 29.1 K/UL (4.8-10.8) 8.6 K/UL (4.8-10.8) 15.3 K/UL (4.8-10.8) Red Blood Count 3.79 M/UL (4.20-5.40) 3.72 M/UL (4.20-5.40) 3.56 M/UL (4.20-5.40) Hemoglobin 11.6 G/DL (12.0-16.0) 11.5 G/DL (12.0-16.0) 10.8 G/DL (12.0-16.0) Hematocrit 35.4 % (37.0-47.0) 35.3 % (37.0-47.0) 33.7 % (37.0-47.0) Mean Corpuscular Volume 93 FL (80-99) 95 FL (80-99) 95 FL (80-99) Mean Corpuscular Hemoglobin 30.5 PG (27.0-31.0) 31.1 PG (27.0-31.0) 30.2 PG (27.0-31.0) Mean Corpuscular Hemoglobin Concent 32.6 G/DL (32.0-36.0) 32.7 G/DL (32.0-36.0) 31.9 G/DL (32.0-36.0) Red Cell Distribution Width 13.2 % (11.6-14.8) 13.5 % (11.6-14.8) 13.2 % (11.6-14.8) Platelet Count 318 K/UL (150-450) 345 K/UL (150-450) 327 K/UL (150-450) Mean Platelet Volume 6.3 FL (6.5-10.1) 6.6 FL (6.5-10.1) 6.4 FL (6.5-10.1) Neutrophils (%) (Auto) % (45.0-75.0) % (45.0-75.0) 68.4 % (45.0-75.0) Lymphocytes (%) (Auto) % (20.0-45.0) % (20.0-45.0) 24.3 % (20.0-45.0) Monocytes (%) (Auto) % (1.0-10.0) % (1.0-10.0) 6.6 % (1.0-10.0) Eosinophils (%) (Auto) % (0.0-3.0) % (0.0-3.0) 0.3 % (0.0-3.0) Basophils (%) (Auto) % (0.0-2.0) % (0.0-2.0) 0.5 % (0.0-2.0) Differential Total Cells Counted 100 100 Neutrophils % (Manual) 89 % (45-75) 90 % (45-75) Lymphocytes % (Manual) 7 % (20-45) 8 % (20-45) Monocytes % (Manual) 4 % (1-10) 2 % (1-10) Eosinophils % (Manual) 0 % (0-3) 0 % (0-3) Basophils % (Manual) 0 % (0-2) 0 % (0-2) Band Neutrophils 0 % (0-8) 0 % (0-8) Platelet Estimate Adequate Adequate Platelet Morphology Normal Normal Hypochromasia 1+ Anisocytosis 1+ Sodium Level 141 MMOL/L (136-145) 143 MMOL/L (136-145) 145 MMOL/L (136-145) Potassium Level 4.0 MMOL/L (3.5-5.1) 4.5 MMOL/L (3.5-5.1) 3.8 MMOL/L (3.5-5.1) Chloride Level 106 MMOL/L (98-107) 110 MMOL/L (98-107) 111 MMOL/L (98-107) Carbon Dioxide Level 23 MMOL/L (21-32) 24 MMOL/L (21-32) 26 MMOL/L (21-32) Anion Gap 12 mmol/L (5-15) 9 mmol/L (5-15) 8 mmol/L (5-15) Blood Urea Nitrogen 15 mg/dL (7-18) 13 mg/dL (7-18) 10 mg/dL (7-18) Creatinine 0.9 MG/DL (0.55-1.30) 0.7 MG/DL (0.55-1.30) 0.6 MG/DL (0.55-1.30) Estimat Glomerular Filtration Rate > 60 mL/min (>60) > 60 mL/min (>60) > 60 mL/min (>60) Glucose Level 151 MG/DL (74-106) 116 MG/DL (74-106) 82 MG/DL (74-106) Lactic Acid Level 2.50 mmol/L (0.66-2.22) 1.90 mmol/L (0.66-2.22) Calcium Level 8.7 MG/DL (8.5-10.1) 8.4 MG/DL (8.5-10.1) 8.4 MG/DL (8.5-10.1) Total Bilirubin 0.2 MG/DL (0.2-1.0) 0.2 MG/DL (0.2-1.0) Aspartate Amino Transf (AST/SGOT) 9 U/L (15-37) 9 U/L (15-37) Alanine Aminotransferase (ALT/SGPT) 12 U/L (12-78) 13 U/L (12-78) Alkaline Phosphatase 69 U/L (46-116) 70 U/L (46-116) Troponin I 0.000 ng/mL (0.000-0.056) Total Protein 6.7 G/DL (6.4-8.2) 6.5 G/DL (6.4-8.2) Albumin 3.0 G/DL (3.4-5.0) 3.0 G/DL (3.4-5.0) Globulin 3.7 g/dL 3.5 g/dL Albumin/Globulin Ratio 0.8 (1.0-2.7) 0.9 (1.0-2.7) Current Medications Medications (Trade) Dose Ordered Sig/Julita Route PRN Reason Start Time Stop Time Status Last Admin Dose Admin Acetaminophen/ Hydrocodone Bitart ([place] 10/325) 1 ea Q4H PRN ORAL PAIN 4-10 01/05/17 16:00 01/10/17 15:59 01/06/17 18:59 Albuterol/ Ipratropium (Albuterol/ Ipratropium) 3 ml Q4HRT HHN 01/05/17 19:00 01/08/17 14:59 01/07/17 11:14 Aspirin (Ecotrin) 81 mg DAILY ORAL 01/06/17 09:00 02/03/17 08:59 01/07/17 08:30 Clonidine HCl (Catapres) 0.1 mg Q4H PRN ORAL SBP >160 01/06/17 16:30 02/05/17 16:29 01/06/17 21:39 Clopidogrel Bisulfate (Plavix) 75 mg DAILY ORAL 01/06/17 09:00 02/03/17 08:59 01/07/17 08:31 Gabapentin (Neurontin) 600 mg Q6HR ORAL 01/05/17 18:00 02/02/17 17:59 01/07/17 12:16 Heparin Sodium (Porcine) (Heparin 5000 units/ml) 5,000 units EVERY 12 HOURS SUBQ 01/05/17 21:00 02/03/17 20:59 01/07/17 08:26 Losartan Potassium (Cozaar) 50 mg DAILY ORAL 01/06/17 09:00 02/03/17 08:59 01/07/17 08:30 Methylprednisolone Sodium Succinate (Solu-MEDROL) 40 mg EVERY 8 HOURS IVP 01/07/17 10:00 02/06/17 09:59 01/07/17 09:59 Pantoprazole (Protonix) 40 mg ACBREAKFAST ORAL 01/06/17 06:30 02/03/17 06:29 01/07/17 06:40 Paroxetine HCl (Paxil) 30 mg BID ORAL 01/05/17 18:00 02/02/17 17:59 01/07/17 08:29 Pravastatin Sodium (Pravachol) 20 mg BEDTIME ORAL 01/05/17 21:00 02/02/17 20:59 01/06/17 20:19 Prednisone (predniSONE) 20 mg DAILY ORAL 01/06/17 09:00 02/05/17 08:59 01/07/17 08:29 Promethazine HCl/ Codeine (Phenergan with Codeine) 5 ml Q4H PRN ORAL For Cough 01/05/17 16:00 02/03/17 15:59 01/07/17 08:40 Sodium Chloride 1,000 ml @ 100 mls/hr Q10H IV 01/05/17 16:00 02/03/17 15:59 01/07/17 08:32 Tizanidine HCl (Zanaflex) 4 mg Q6H PRN ORAL Muscle Spasm 01/05/17 16:00 02/02/17 15:59 Zolpidem Tartrate (Ambien) 5 mg QHS PRN ORAL Insomnia 01/05/17 21:00 01/10/17 20:59 CHANDLER CASTRO Jan 07, 2017 14:21
[2017-01-07 16:00] VITALS: BP 128/60
--- NOTE | 2017-01-07 16:37 | Diagnostic Imaging Report ---
Indication: Chest pain Technique: A ventilation/perfusion scan was performed. Ventilation was performed utilizing 40 mCi of Technetium 99m-DTPA. Perfusion was performed with 5.4 mCi of technetium 99m-MAA injected intravenously. Multiple side by side projections obtained. Findings: Ventilation is minimally heterogeneous. No defects are identified. Perfusion is minimally heterogeneous. No defects are identified. There are no mismatched defects. Impression: Low probability for pulmonary embolus
[2017-01-07] MEDS ORDERED: Amikacin 1,000 MG in NS 110 ML IV SCH (18:00)
--- NOTE | 2017-01-07 19:39 | Consultation ---
Consult Note Consult Note PULMONARY CONSULTATION CONSULTING PHYSICIAN: Marshall Roberson M.D. REASON FOR EVALUATION: hemoptysis. History Of Present Illness: 65-year-old female, previously admitted to the hospital in November 2016. The patient was seen and admitted by Dr. Hdz to the medical center with cough and congestion. The patient also had hemoptysis but notes that it has improved. I was called to assist and evaluate the patient's overall pulmonary problems. The patient has a history of COPD, but never followed up in my office. I was asked to evaluate and recommend further. The patient admits to sputum production and has been compliant with therapy The patient has no history of recent smoking from reviewing chart and discussion with the patient. Past Medical History: The patient's past medical history is notable for hypertension, COPD, right carotid artery occlusion, and history of CVA. MEDICATIONS: Reviewed and reconciled. ALLERGIES: Noted and they are multiple. Review Of Systems: All 10 points reviewed, otherwise noncontributory, with the exception of the above. Social History: Reviewed. The patient does have a heavy smoking history prior, but none recent. No alcohol. No drugs. PHYSICAL EXAMINATION: GENERAL: A well-developed female, NAD Vital Signs: Blood pressure 132/80, heart rate 69, temperature 98.2 degrees, and O2 saturation 95% on 2 liters. HEENT: Normocephalic and atraumatic. The patient's extraocular movements are grossly intact. Oropharynx is moist. The patient has no evidence of bleeding at this time. The patient has no epistaxis. LUNGS: Moderate air entry. minimal rhonchi and wheeze Cardiac: S1 and S2. Regular rate and rhythm without murmurs, rubs, or gallops. ABDOMEN: Soft, nontender. No distention. EXTREMITIES: No cyanosis or clubbing. No significant edema. Labs Test 01/05/17 05:20 01/06/17 05:10 White Blood Count 8.6 K/UL (4.8-10.8) 15.3 K/UL (4.8-10.8) Red Blood Count 3.72 M/UL (4.20-5.40) 3.56 M/UL (4.20-5.40) Hemoglobin 11.5 G/DL (12.0-16.0) 10.8 G/DL (12.0-16.0) Hematocrit 35.3 % (37.0-47.0) 33.7 % (37.0-47.0) Mean Corpuscular Volume 95 FL (80-99) 95 FL (80-99) Mean Corpuscular Hemoglobin 31.1 PG (27.0-31.0) 30.2 PG (27.0-31.0) Mean Corpuscular Hemoglobin Concent 32.7 G/DL (32.0-36.0) 31.9 G/DL (32.0-36.0) Red Cell Distribution Width 13.5 % (11.6-14.8) 13.2 % (11.6-14.8) Platelet Count 345 K/UL (150-450) 327 K/UL (150-450) Mean Platelet Volume 6.6 FL (6.5-10.1) 6.4 FL (6.5-10.1) Neutrophils (%) (Auto) % (45.0-75.0) 68.4 % (45.0-75.0) Lymphocytes (%) (Auto) % (20.0-45.0) 24.3 % (20.0-45.0) Monocytes (%) (Auto) % (1.0-10.0) 6.6 % (1.0-10.0) Eosinophils (%) (Auto) % (0.0-3.0) 0.3 % (0.0-3.0) Basophils (%) (Auto) % (0.0-2.0) 0.5 % (0.0-2.0) Differential Total Cells Counted 100 Neutrophils % (Manual) 90 % (45-75) Lymphocytes % (Manual) 8 % (20-45) Monocytes % (Manual) 2 % (1-10) Eosinophils % (Manual) 0 % (0-3) Basophils % (Manual) 0 % (0-2) Band Neutrophils 0 % (0-8) Platelet Estimate Adequate Platelet Morphology Normal Sodium Level 143 MMOL/L (136-145) 145 MMOL/L (136-145) Potassium Level 4.5 MMOL/L (3.5-5.1) 3.8 MMOL/L (3.5-5.1) Chloride Level 110 MMOL/L (98-107) 111 MMOL/L (98-107) Carbon Dioxide Level 24 MMOL/L (21-32) 26 MMOL/L (21-32) Anion Gap 9 mmol/L (5-15) 8 mmol/L (5-15) Blood Urea Nitrogen 13 mg/dL (7-18) 10 mg/dL (7-18) Creatinine 0.7 MG/DL (0.55-1.30) 0.6 MG/DL (0.55-1.30) Estimat Glomerular Filtration Rate > 60 mL/min (>60) > 60 mL/min (>60) Glucose Level 116 MG/DL (74-106) 82 MG/DL (74-106) Lactic Acid Level 1.90 mmol/L (0.66-2.22) Calcium Level 8.4 MG/DL (8.5-10.1) 8.4 MG/DL (8.5-10.1) Total Bilirubin 0.2 MG/DL (0.2-1.0) Aspartate Amino Transf (AST/SGOT) 9 U/L (15-37) Alanine Aminotransferase (ALT/SGPT) 13 U/L (12-78) Alkaline Phosphatase 70 U/L (46-116) Total Protein 6.5 G/DL (6.4-8.2) Albumin 3.0 G/DL (3.4-5.0) Globulin 3.5 g/dL Albumin/Globulin Ratio 0.9 (1.0-2.7) IMPRESSION: 1. negative chest Xray 2. Hemoptysis, 3. bronchitis 4. Chronic obstructive pulmonary disease per history. Recommendations: Continue same. Patient did not follow up after last discharge. Consider bronchoscopy if hemoptysis continues and to evaluate airway. Care discussed with the patient. agree with management as outlined. chest Xray reviewed and clear. discontinue prednisone for now until IV solumedrol tapered to off. impression, plan, and exam edited and reviewed in detail care discussed with MARSHALL RUSSELL Jan 07, 2017 19:39
[2017-01-07 20:00] VITALS: BP 130/66
[2017-01-08] VITALS (7 sets, daily range): BP systolic 139–165; BP diastolic 67–83
--- NOTE | 2017-01-08 00:45 | Progress Note ---
DATE: 01/07/2017 CARDIOLOGY PROGRESS NOTE SUBJECTIVE: The patient still has some cough with bloody sputum production. She is less short of breath. Sputum culture is positive for ESBL. OBJECTIVE: VITAL SIGNS: Blood pressure control remains adequate 130/66, heart rate 72, and respiratory rate 18. LUNGS: Few rhonchi. No wheezes. CARDIOVASCULAR: Regular rhythm and rate. Normal S1, S2. ABDOMEN: Soft. No edema. IMPRESSION: 1. Hemoptysis. 2. Bronchitis. 3. Chronic obstructive pulmonary disease. 4. Extended-spectrum beta lactamase pneumonia, resolving. 5. Hypertensive heart disease. 6. Cerebrovascular accident. 7. Carotid occlusion on the right. PLAN: 1. Anti-platelet and anti-lipid drugs. 2. Antibiotics per Infectious Disease telecom sales consultant. 3. Consider CAT scan of the chest. 4. Monitor blood counts. 5. Respiratory hygiene. Rosendo Palacios M.D. DR: Daryl JOB#: [id number] CC:
--- NOTE | 2017-01-08 00:45 | Progress Note ---
DATE: 01/07/2017 CARDIOLOGY PROGRESS NOTE SUBJECTIVE: The patient still has some cough with bloody sputum production. She is less short of breath. Sputum culture is positive for ESBL. OBJECTIVE: VITAL SIGNS: Blood pressure control remains adequate 130/66, heart rate 72, and respiratory rate 18. LUNGS: Few rhonchi. No wheezes. CARDIOVASCULAR: Regular rhythm and rate. Normal S1, S2. ABDOMEN: Soft. No edema. IMPRESSION: 1. Hemoptysis. 2. Bronchitis. 3. Chronic obstructive pulmonary disease. 4. Extended-spectrum beta lactamase pneumonia, resolving. 5. Hypertensive heart disease. 6. Cerebrovascular accident. 7. Carotid occlusion on the right. PLAN: 1. Anti-platelet and anti-lipid drugs. 2. Antibiotics per Infectious Disease security consultant. 3. Consider CAT scan of the chest. 4. Monitor blood counts. 5. Respiratory hygiene. Rosendo Palacios M.D. DR: Daryl JOB#: [id number] CC:
--- NOTE | 2017-01-08 00:45 | Progress Note ---
DATE: 01/07/2017 CARDIOLOGY PROGRESS NOTE SUBJECTIVE: The patient still has some cough with bloody sputum production. She is less short of breath. Sputum culture is positive for ESBL. OBJECTIVE: VITAL SIGNS: Blood pressure control remains adequate 130/66, heart rate 72, and respiratory rate 18. LUNGS: Few rhonchi. No wheezes. CARDIOVASCULAR: Regular rhythm and rate. Normal S1, S2. ABDOMEN: Soft. No edema. IMPRESSION: 1. Hemoptysis. 2. Bronchitis. 3. Chronic obstructive pulmonary disease. 4. Extended-spectrum beta lactamase pneumonia, resolving. 5. Hypertensive heart disease. 6. Cerebrovascular accident. 7. Carotid occlusion on the right. PLAN: 1. Anti-platelet and anti-lipid drugs. 2. Antibiotics per Infectious Disease retirement consultant. 3. Consider CAT scan of the chest. 4. Monitor blood counts. 5. Respiratory hygiene. Rosendo Palacios M.D. DR: Daryl JOB#: [id number] CC:
[2017-01-08] MEDS: Albuterol/Ipratropium 3ml neb HHN SCH ×4 (03:00→14:52)
[2017-01-08] MEDS: Solu-MEDROL 40mg Inj IVP SCH (05:46)
[2017-01-08 06:55] LABS: BASOPHILS % (AUTO) 0.3 % (0.0-2.0); HEMATOCRIT 38.4 % (37.0-47.0); HEMOGLOBIN 12.3 G/DL (12.0-16.0); LYMPHOCYTES % (AUTO) 10.2 % (20.0-45.0); MEAN CORPUSCULAR VOLUME 95 FL (80-99); MONOCYTES % (AUTO) 4.6 % (1.0-10.0); NEUTROPHILS % (AUTO) 84.8 % (45.0-75.0); PLATELET COUNT 400 K/UL (150-450); RED BLOOD COUNT 4.02 M/UL (4.20-5.40); RED CELL DISTRIBUTION WIDTH 13.4 % (11.6-14.8); WHITE BLOOD COUNT 14.4 K/UL (4.8-10.8)
[2017-01-08 07:10] LABS: ANION GAP 11 mmol/L (5-15); BLOOD UREA NITROGEN 11 mg/dL (7-18); CALCIUM 8.7 MG/DL (8.5-10.1); CARBON DIOXIDE 26 MMOL/L (21-32); CHLORIDE 107 MMOL/L (98-107); CREATININE 0.7 MG/DL (0.55-1.30); POTASSIUM 4.3 MMOL/L (3.5-5.1); SODIUM 143 MMOL/L (136-145)
--- NOTE | 2017-01-08 09:43 | Pulmonology Progress Note ---
Assessment/Plan Assessment/Plan IMPRESSION: 1. Pulmonary congestion 2. Hemoptysis, 3. bronchitis 4. Chronic obstructive pulmonary disease per history. Recommendations: Continue same. Consider bronchoscopy if hemoptysis continues and to evaluate airway. Care discussed with the patient. agree with management as outlined. chest Xray reviewed and clear. discontinue prednisone for now and solumedrol taper as respiratory status improved. impression, plan, and exam edited and reviewed in detail care discussed with RN Subjective Allergies: Coded Allergies: MORPHINE (Verified Allergy, Severe, Anaphylaxis, 11/14/16) PT RECEIVED 5 DOSES OF OXYCODONE ON PREVIOUS ADMISSION IN 06/2015. As per conversation with the patient. Patient denies having allergy reaction with [place]. She said " I have been taking [place] before and i have no allergy reactions. AMOXICILLIN (Verified Allergy, Mild, ITCHING, 06/15/15) itching CITRUS AND DERIVATIVES (Verified Allergy, Unknown, BREAKOUT, 06/15/15) breakout HYDROMORPHONE (Verified Allergy, Unknown, CHEST PAIN, 06/15/15) chest pain IODINE (Verified Allergy, Unknown, SWELLING, 06/15/15) swelling PENICILLINS (Verified Allergy, Unknown, ITCHING, 06/15/15) itching Uncoded Allergies: NYLON TAPE (Adverse Reaction, Intermediate, NIEVES THE SKIN, 06/21/15) Subjective scant sputum minimal blood overall more comfortable Objective Last 24 Hour Vital Signs Date Time Temp Pulse Resp B/P (MAP) Pulse Ox O2 Delivery O2 Flow Rate FiO2 01/08/17 08:00 98.4 69 15 164/83 97 Nasal Cannula 2.0 01/08/17 07:25 78 18 98 Nasal Cannula 2.0 28 01/08/17 07:00 83 18 97 Nasal Cannula 2.0 28 01/08/17 07:00 Nasal Cannula 2.0 28 01/08/17 07:00 96 Nasal Cannula 2.0 28 01/08/17 04:00 98.0 74 18 139/69 94 Nasal Cannula 2.0 01/08/17 03:11 Nasal Cannula 2.0 28 01/08/17 03:11 Nasal Cannula 2.0 28 01/08/17 00:00 98.1 71 18 147/72 93 Nasal Cannula 2.0 01/07/17 23:17 71 18 99 Nasal Cannula 2.0 28 01/07/17 23:05 71 16 98 Nasal Cannula 2.0 28 01/07/17 20:00 98.1 72 18 130/66 90 Nasal Cannula 2.0 01/07/17 19:20 70 18 99 Nasal Cannula 2.0 28 01/07/17 19:10 Nasal Cannula 2.0 28 01/07/17 19:10 99 Nasal Cannula 2.0 28 01/07/17 19:08 68 16 98 Nasal Cannula 2.0 28 01/07/17 16:00 97.8 81 18 128/60 98 Nasal Cannula 3.0 01/07/17 15:14 73 18 100 Nasal Cannula 2.0 28 01/07/17 15:06 64 18 98 Nasal Cannula 2.0 28 01/07/17 12:00 98.0 80 20 131/61 95 Room Air 01/07/17 11:10 70 18 100 Nasal Cannula 2.0 28 01/07/17 11:05 68 18 98 Nasal Cannula 2.0 28 Objective WDWN NAD reduced breath sounds bilaterally without rhonchi or wheeze [id number] without MRG NABS nontender no HSM no CCE nonfocal Laboratory Tests 01/08/17 05:20: White Blood Count 14.4H, Red Blood Count 4.02L, Hemoglobin 12.3, Hematocrit 38.4 , Mean Corpuscular Volume 95, Mean Corpuscular Hemoglobin 30.6, Mean Corpuscular Hemoglobin Concent 32.1, Red Cell Distribution Width 13.4, Platelet Count 400, Mean Platelet Volume 5.8L, Neutrophils (%) (Auto) 84.8H, Lymphocytes (%) (Auto) 10.2L, Monocytes (%) (Auto) 4.6, Eosinophils (%) (Auto) 0.0, Basophils (%) (Auto) 0.3, Sodium Level 143, Potassium Level 4.3, Chloride Level 107, Carbon Dioxide Level 26, Anion Gap 11, Blood Urea Nitrogen 11, Creatinine 0.7, Estimat Glomerular Filtration Rate > 60, Glucose Level 110H, Calcium Level 8.7 Current Medications Medications (Trade) Dose Ordered Sig/Julita Route PRN Reason Start Time Stop Time Status Last Admin Dose Admin Acetaminophen/ Hydrocodone Bitart ([place] 10/325) 1 ea Q4H PRN ORAL PAIN 4-10 01/05/17 16:00 01/10/17 15:59 01/06/17 18:59 Albuterol/ Ipratropium (Albuterol/ Ipratropium) 3 ml Q4HRT HHN 01/05/17 19:00 01/08/17 14:59 01/08/17 07:43 Amikacin Protocol (Amikacin pharmacy to dose) 1 ea DAILY PRN MISC Per rx protocol 01/07/17 14:15 02/06/17 14:14 Amikacin Sulfate 1000 mg/Sodium Chloride 114 ml @ 114 mls/hr Q24H IV 01/07/17 18:00 01/14/17 17:59 01/07/17 18:23 Aspirin (Ecotrin) 81 mg DAILY ORAL 01/06/17 09:00 02/03/17 08:59 01/07/17 08:30 Clonidine HCl (Catapres) 0.1 mg Q4H PRN ORAL SBP >160 01/06/17 16:30 02/05/17 16:29 01/06/17 21:39 Clopidogrel Bisulfate (Plavix) 75 mg DAILY ORAL 01/06/17 09:00 02/03/17 08:59 01/07/17 08:31 Gabapentin (Neurontin) 600 mg Q6HR ORAL 01/05/17 18:00 02/02/17 17:59 01/08/17 05:44 Heparin Sodium (Porcine) (Heparin 5000 units/ml) 5,000 units EVERY 12 HOURS SUBQ 01/05/17 21:00 02/03/17 20:59 01/07/17 21:23 Levofloxacin 150 ml @ 100 mls/hr Q24H IVPB 01/07/17 15:00 01/14/17 14:59 01/07/17 15:45 Losartan Potassium (Cozaar) 50 mg DAILY ORAL 01/06/17 09:00 02/03/17 08:59 01/07/17 08:30 Methylprednisolone Sodium Succinate (Solu-MEDROL) 40 mg EVERY 8 HOURS IVP 01/07/17 10:00 02/06/17 09:59 01/08/17 05:46 Pantoprazole (Protonix) 40 mg ACBREAKFAST ORAL 01/06/17 06:30 02/03/17 06:29 01/08/17 05:44 Paroxetine HCl (Paxil) 30 mg BID ORAL 01/05/17 18:00 02/02/17 17:59 11/6/17 18:22 Pravastatin Sodium (Pravachol) 20 mg BEDTIME ORAL 01/05/17 21:00 02/02/17 20:59 01/07/17 21:21 Promethazine HCl/ Codeine (Phenergan with Codeine) 5 ml Q4H PRN ORAL For Cough 01/05/17 16:00 02/03/17 15:59 01/07/17 23:33 Sodium Chloride 1,000 ml @ 100 mls/hr Q10H IV 01/05/17 16:00 02/03/17 15:59 01/08/17 05:43 Tizanidine HCl (Zanaflex) 4 mg Q6H PRN ORAL Muscle Spasm 01/05/17 16:00 02/02/17 15:59 Zolpidem Tartrate (Ambien) 5 mg QHS PRN ORAL Insomnia 01/05/17 21:00 01/10/17 20:59 MARSHALL RUGGIERO Jan 08, 2017 09:43
[2017-01-08] MEDS: Losartan 50mg tab ORAL SCH (09:58)
[2017-01-08] MEDS: Aspirin EC 81mg tab ORAL SCH (09:58)
[2017-01-08] MEDS: PARoxetine 10mg tab ORAL SCH ×2 (09:59→18:57)
[2017-01-08] MEDS: Heparin 5000 units/ml inj SUBQ SCH ×2 (10:08→20:57)
--- NOTE | 2017-01-08 10:11 | General Progress Note ---
Assessment/Plan Problem List: (1) Hemoptysis ICD Codes: R04.2 - Hemoptysis SNOMED: 99998883 (2) Carotid stenosis ICD Codes: I65.29 - Occlusion and stenosis of unspecified carotid artery SNOMED: 74909785 (3) Pneumonia ICD Codes: J18.9 - Pneumonia, unspecified organism SNOMED: 083129408 Qualifiers: Qualified Codes: J18.9 - Pneumonia, unspecified organism (4) COPD exacerbation ICD Codes: J44.1 - Chronic obstructive pulmonary disease with (acute) exacerbation SNOMED: 777153662, 321077136 Status: stable, progressing Status Narrative iv steroids resumed. iv abx per ID follow up ct scan monitor bp resp rx cough rx Assessment/Plan iv abx resume iv steroids- worse with conversion to po resp rx cough rx pain rx bp rx per cards antiplt rx Subjective ROS Limited/Unobtainable: No Constitutional: Reports: malaise, weakness HEENT: Reports: no symptoms Cardiovascular: Reports: no symptoms Respiratory: Reports: cough, shortness of breath Gastrointestinal/Abdominal: Reports: no symptoms Genitourinary: Reports: no symptoms Neurologic/Psychiatric: Reports: pre-existing deficit Endocrine: Reports: no symptoms Hematologic/Lymphatic: Reports: no symptoms Allergies: Coded Allergies: MORPHINE (Verified Allergy, Severe, Anaphylaxis, 11/14/16) PT RECEIVED 5 DOSES OF OXYCODONE ON PREVIOUS ADMISSION IN 06/2015. As per conversation with the patient. Patient denies having allergy reaction with [place]. She said " I have been taking [place] before and i have no allergy reactions. AMOXICILLIN (Verified Allergy, Mild, ITCHING, 06/15/15) itching CITRUS AND DERIVATIVES (Verified Allergy, Unknown, BREAKOUT, 06/15/15) breakout HYDROMORPHONE (Verified Allergy, Unknown, CHEST PAIN, 06/15/15) chest pain IODINE (Verified Allergy, Unknown, SWELLING, 06/15/15) swelling PENICILLINS (Verified Allergy, Unknown, ITCHING, 06/15/15) itching Uncoded Allergies: NYLON TAPE (Adverse Reaction, Intermediate, NIEVES THE SKIN, 06/21/15) All Systems: reviewed and negative except above Subjective still with sob. vq scan negative. CT ordered by ID. still with significant dyspnea. pulm noted. Objective Last 24 Hour Vital Signs Date Time Temp Pulse Resp B/P (MAP) Pulse Ox O2 Delivery O2 Flow Rate FiO2 01/08/17 09:58 152/75 01/08/17 08:00 98.4 69 15 164/83 97 Nasal Cannula 2.0 01/08/17 07:25 78 18 98 Nasal Cannula 2.0 28 01/08/17 07:00 83 18 97 Nasal Cannula 2.0 28 01/08/17 07:00 Nasal Cannula 2.0 28 01/08/17 07:00 96 Nasal Cannula 2.0 28 01/08/17 04:00 98.0 74 18 139/69 94 Nasal Cannula 2.0 01/08/17 03:11 Nasal Cannula 2.0 28 01/08/17 03:11 Nasal Cannula 2.0 28 01/08/17 00:00 98.1 71 18 147/72 93 Nasal Cannula 2.0 01/07/17 23:17 71 18 99 Nasal Cannula 2.0 28 01/07/17 23:05 71 16 98 Nasal Cannula 2.0 28 01/07/17 20:00 98.1 72 18 130/66 90 Nasal Cannula 2.0 01/07/17 19:20 70 18 99 Nasal Cannula 2.0 28 01/07/17 19:10 Nasal Cannula 2.0 28 01/07/17 19:10 99 Nasal Cannula 2.0 28 01/07/17 19:08 68 16 98 Nasal Cannula 2.0 28 01/07/17 16:00 97.8 81 18 128/60 98 Nasal Cannula 3.0 01/07/17 15:14 73 18 100 Nasal Cannula 2.0 28 01/07/17 15:06 64 18 98 Nasal Cannula 2.0 28 01/07/17 12:00 98.0 80 20 131/61 95 Room Air 01/07/17 11:10 70 18 100 Nasal Cannula 2.0 28 01/07/17 11:05 68 18 98 Nasal Cannula 2.0 28 Laboratory Tests 01/08/17 05:20: White Blood Count 14.4H, Red Blood Count 4.02L, Hemoglobin 12.3, Hematocrit 38.4 , Mean Corpuscular Volume 95, Mean Corpuscular Hemoglobin 30.6, Mean Corpuscular Hemoglobin Concent 32.1, Red Cell Distribution Width 13.4, Platelet Count 400, Mean Platelet Volume 5.8L, Neutrophils (%) (Auto) 84.8H, Lymphocytes (%) (Auto) 10.2L, Monocytes (%) (Auto) 4.6, Eosinophils (%) (Auto) 0.0, Basophils (%) (Auto) 0.3, Sodium Level 143, Potassium Level 4.3, Chloride Level 107, Carbon Dioxide Level 26, Anion Gap 11, Blood Urea Nitrogen 11, Creatinine 0.7, Estimat Glomerular Filtration Rate > 60, Glucose Level 110H, Calcium Level 8.7 Height (Feet): 5 Height (Inches): 2.00 Weight (Pounds): 162 Objective General Appearance: WD/WN, alert Neck: supple Cardiovascular: normal rate, regular rhythm Respiratory/Chest: chest wall non-tender, rhonchi - bilaterally, expiratory wheezing Abdomen: normal bowel sounds, non tender, soft, no organomegaly 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
--- NOTE | 2017-01-08 10:11 | General Progress Note ---
Assessment/Plan Problem List: (1) Hemoptysis ICD Codes: R04.2 - Hemoptysis SNOMED: 10504415 (2) Carotid stenosis ICD Codes: I65.29 - Occlusion and stenosis of unspecified carotid artery SNOMED: 57277570 (3) Pneumonia ICD Codes: J18.9 - Pneumonia, unspecified organism SNOMED: 146184388 Qualifiers: Qualified Codes: J18.9 - Pneumonia, unspecified organism (4) COPD exacerbation ICD Codes: J44.1 - Chronic obstructive pulmonary disease with (acute) exacerbation SNOMED: 744089764, 392835082 Status: stable, progressing Status Narrative iv steroids resumed. iv abx per ID follow up ct scan monitor bp resp rx cough rx Assessment/Plan iv abx resume iv steroids- worse with conversion to po resp rx cough rx pain rx bp rx per cards antiplt rx Subjective ROS Limited/Unobtainable: No Constitutional: Reports: malaise, weakness HEENT: Reports: no symptoms Cardiovascular: Reports: no symptoms Respiratory: Reports: cough, shortness of breath Gastrointestinal/Abdominal: Reports: no symptoms Genitourinary: Reports: no symptoms Neurologic/Psychiatric: Reports: pre-existing deficit Endocrine: Reports: no symptoms Hematologic/Lymphatic: Reports: no symptoms Allergies: Coded Allergies: MORPHINE (Verified Allergy, Severe, Anaphylaxis, 11/14/16) PT RECEIVED 5 DOSES OF OXYCODONE ON PREVIOUS ADMISSION IN 06/2015. As per conversation with the patient. Patient denies having allergy reaction with [place]. She said " I have been taking [place] before and i have no allergy reactions. AMOXICILLIN (Verified Allergy, Mild, ITCHING, 06/15/15) itching CITRUS AND DERIVATIVES (Verified Allergy, Unknown, BREAKOUT, 06/15/15) breakout HYDROMORPHONE (Verified Allergy, Unknown, CHEST PAIN, 06/15/15) chest pain IODINE (Verified Allergy, Unknown, SWELLING, 06/15/15) swelling PENICILLINS (Verified Allergy, Unknown, ITCHING, 06/15/15) itching Uncoded Allergies: NYLON TAPE (Adverse Reaction, Intermediate, NIEVES THE SKIN, 06/21/15) All Systems: reviewed and negative except above Subjective still with sob. vq scan negative. CT ordered by ID. still with significant dyspnea. pulm noted. Objective Last 24 Hour Vital Signs Date Time Temp Pulse Resp B/P (MAP) Pulse Ox O2 Delivery O2 Flow Rate FiO2 01/08/17 09:58 152/75 01/08/17 08:00 98.4 69 15 164/83 97 Nasal Cannula 2.0 01/08/17 07:25 78 18 98 Nasal Cannula 2.0 28 01/08/17 07:00 83 18 97 Nasal Cannula 2.0 28 01/08/17 07:00 Nasal Cannula 2.0 28 01/08/17 07:00 96 Nasal Cannula 2.0 28 01/08/17 04:00 98.0 74 18 139/69 94 Nasal Cannula 2.0 01/08/17 03:11 Nasal Cannula 2.0 28 01/08/17 03:11 Nasal Cannula 2.0 28 01/08/17 00:00 98.1 71 18 147/72 93 Nasal Cannula 2.0 01/07/17 23:17 71 18 99 Nasal Cannula 2.0 28 01/07/17 23:05 71 16 98 Nasal Cannula 2.0 28 01/07/17 20:00 98.1 72 18 130/66 90 Nasal Cannula 2.0 01/07/17 19:20 70 18 99 Nasal Cannula 2.0 28 01/07/17 19:10 Nasal Cannula 2.0 28 01/07/17 19:10 99 Nasal Cannula 2.0 28 01/07/17 19:08 68 16 98 Nasal Cannula 2.0 28 01/07/17 16:00 97.8 81 18 128/60 98 Nasal Cannula 3.0 01/07/17 15:14 73 18 100 Nasal Cannula 2.0 28 01/07/17 15:06 64 18 98 Nasal Cannula 2.0 28 01/07/17 12:00 98.0 80 20 131/61 95 Room Air 01/07/17 11:10 70 18 100 Nasal Cannula 2.0 28 01/07/17 11:05 68 18 98 Nasal Cannula 2.0 28 Laboratory Tests 01/08/17 05:20: White Blood Count 14.4H, Red Blood Count 4.02L, Hemoglobin 12.3, Hematocrit 38.4 , Mean Corpuscular Volume 95, Mean Corpuscular Hemoglobin 30.6, Mean Corpuscular Hemoglobin Concent 32.1, Red Cell Distribution Width 13.4, Platelet Count 400, Mean Platelet Volume 5.8L, Neutrophils (%) (Auto) 84.8H, Lymphocytes (%) (Auto) 10.2L, Monocytes (%) (Auto) 4.6, Eosinophils (%) (Auto) 0.0, Basophils (%) (Auto) 0.3, Sodium Level 143, Potassium Level 4.3, Chloride Level 107, Carbon Dioxide Level 26, Anion Gap 11, Blood Urea Nitrogen 11, Creatinine 0.7, Estimat Glomerular Filtration Rate > 60, Glucose Level 110H, Calcium Level 8.7 Height (Feet): 5 Height (Inches): 2.00 Weight (Pounds): 162 Objective General Appearance: WD/WN, alert Neck: supple Cardiovascular: normal rate, regular rhythm Respiratory/Chest: chest wall non-tender, rhonchi - bilaterally, expiratory wheezing Abdomen: normal bowel sounds, non tender, soft, no organomegaly 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
--- NOTE | 2017-01-08 10:11 | General Progress Note ---
Assessment/Plan Problem List: (1) Hemoptysis ICD Codes: R04.2 - Hemoptysis SNOMED: 14743476 (2) Carotid stenosis ICD Codes: I65.29 - Occlusion and stenosis of unspecified carotid artery SNOMED: 34006405 (3) Pneumonia ICD Codes: J18.9 - Pneumonia, unspecified organism SNOMED: 358362141 Qualifiers: Qualified Codes: J18.9 - Pneumonia, unspecified organism (4) COPD exacerbation ICD Codes: J44.1 - Chronic obstructive pulmonary disease with (acute) exacerbation SNOMED: 250711347, 252590940 Status: stable, progressing Status Narrative iv steroids resumed. iv abx per ID follow up ct scan monitor bp resp rx cough rx Assessment/Plan iv abx resume iv steroids- worse with conversion to po resp rx cough rx pain rx bp rx per cards antiplt rx Subjective ROS Limited/Unobtainable: No Constitutional: Reports: malaise, weakness HEENT: Reports: no symptoms Cardiovascular: Reports: no symptoms Respiratory: Reports: cough, shortness of breath Gastrointestinal/Abdominal: Reports: no symptoms Genitourinary: Reports: no symptoms Neurologic/Psychiatric: Reports: pre-existing deficit Endocrine: Reports: no symptoms Hematologic/Lymphatic: Reports: no symptoms Allergies: Coded Allergies: MORPHINE (Verified Allergy, Severe, Anaphylaxis, 11/14/16) PT RECEIVED 5 DOSES OF OXYCODONE ON PREVIOUS ADMISSION IN 06/2015. As per conversation with the patient. Patient denies having allergy reaction with [place]. She said " I have been taking [place] before and i have no allergy reactions. AMOXICILLIN (Verified Allergy, Mild, ITCHING, 06/15/15) itching CITRUS AND DERIVATIVES (Verified Allergy, Unknown, BREAKOUT, 06/15/15) breakout HYDROMORPHONE (Verified Allergy, Unknown, CHEST PAIN, 06/15/15) chest pain IODINE (Verified Allergy, Unknown, SWELLING, 06/15/15) swelling PENICILLINS (Verified Allergy, Unknown, ITCHING, 06/15/15) itching Uncoded Allergies: NYLON TAPE (Adverse Reaction, Intermediate, NIEVES THE SKIN, 06/21/15) All Systems: reviewed and negative except above Subjective still with sob. vq scan negative. CT ordered by ID. still with significant dyspnea. pulm noted. Objective Last 24 Hour Vital Signs Date Time Temp Pulse Resp B/P (MAP) Pulse Ox O2 Delivery O2 Flow Rate FiO2 01/08/17 09:58 152/75 01/08/17 08:00 98.4 69 15 164/83 97 Nasal Cannula 2.0 01/08/17 07:25 78 18 98 Nasal Cannula 2.0 28 01/08/17 07:00 83 18 97 Nasal Cannula 2.0 28 01/08/17 07:00 Nasal Cannula 2.0 28 01/08/17 07:00 96 Nasal Cannula 2.0 28 01/08/17 04:00 98.0 74 18 139/69 94 Nasal Cannula 2.0 01/08/17 03:11 Nasal Cannula 2.0 28 01/08/17 03:11 Nasal Cannula 2.0 28 01/08/17 00:00 98.1 71 18 147/72 93 Nasal Cannula 2.0 01/07/17 23:17 71 18 99 Nasal Cannula 2.0 28 01/07/17 23:05 71 16 98 Nasal Cannula 2.0 28 01/07/17 20:00 98.1 72 18 130/66 90 Nasal Cannula 2.0 01/07/17 19:20 70 18 99 Nasal Cannula 2.0 28 01/07/17 19:10 Nasal Cannula 2.0 28 01/07/17 19:10 99 Nasal Cannula 2.0 28 01/07/17 19:08 68 16 98 Nasal Cannula 2.0 28 01/07/17 16:00 97.8 81 18 128/60 98 Nasal Cannula 3.0 01/07/17 15:14 73 18 100 Nasal Cannula 2.0 28 01/07/17 15:06 64 18 98 Nasal Cannula 2.0 28 01/07/17 12:00 98.0 80 20 131/61 95 Room Air 01/07/17 11:10 70 18 100 Nasal Cannula 2.0 28 01/07/17 11:05 68 18 98 Nasal Cannula 2.0 28 Laboratory Tests 01/08/17 05:20: White Blood Count 14.4H, Red Blood Count 4.02L, Hemoglobin 12.3, Hematocrit 38.4 , Mean Corpuscular Volume 95, Mean Corpuscular Hemoglobin 30.6, Mean Corpuscular Hemoglobin Concent 32.1, Red Cell Distribution Width 13.4, Platelet Count 400, Mean Platelet Volume 5.8L, Neutrophils (%) (Auto) 84.8H, Lymphocytes (%) (Auto) 10.2L, Monocytes (%) (Auto) 4.6, Eosinophils (%) (Auto) 0.0, Basophils (%) (Auto) 0.3, Sodium Level 143, Potassium Level 4.3, Chloride Level 107, Carbon Dioxide Level 26, Anion Gap 11, Blood Urea Nitrogen 11, Creatinine 0.7, Estimat Glomerular Filtration Rate > 60, Glucose Level 110H, Calcium Level 8.7 Height (Feet): 5 Height (Inches): 2.00 Weight (Pounds): 162 Objective General Appearance: WD/WN, alert Neck: supple Cardiovascular: normal rate, regular rhythm Respiratory/Chest: chest wall non-tender, rhonchi - bilaterally, expiratory wheezing Abdomen: normal bowel sounds, non tender, soft, no organomegaly 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
[2017-01-08] MEDS: Promethazine/Codeine 5ml UD ORAL PRN ×2 (10:23→23:54)
--- NOTE | 2017-01-08 10:24 | Diagnostic Imaging Report ---
Indication: Shortness of breath. Chest pain Technique: Continuous helical transaxial imaging of the chest was obtained from the thoracic inlet to the upper abdomen. No intravenous contrast was administered. Coronal 2-D reformats were also obtained. Total Dose length Product (DLP): [address] Dose Index Volume (CTDIvol): 0.15, 20.73 mGy Comparison: 11/15/16 Findings: There is a mild focus of airspace disease and some associated linear reticular densities at the right lung base suspicious for infiltrate on the prior examination. This has essentially resolved. There is some mild linear reticular densities present at both lung bases likely in store marketing representative of atelectasis or scarring. There is no consolidation identified. There is slight thickening of the cranial aspect of the right major fissure. Aorta is calcified. Slight thickening or fluid within the pericardial sac noted. There is a hiatal hernia present. There is no pleural effusion. A staple line noted within the stomach. Again noted is a small ringlike tubular focus which may be constricting device or a laparoscopic band in the upper stomach as well as surgical clips. Please correlate to surgical history. Cholecystectomy noted. In pression: No evidence of pneumonia at this time. Small posterior medial infiltrate at the right lung base previously demonstrated has shown interval resolution. Currently there is evidence of minimal basilar atelectasis or scarring. Status post stomach surgery. Status post cholecystectomy. Atherosclerotic disease. Trace pericardial fluid or thickening of the pericardial sac. The CT scanner at [facility] is accredited by the [employer] and the scans are performed using dose optimization techniques as appropriate to a performed exam including Automatic Exposure control.
--- NOTE | 2017-01-08 10:24 | Diagnostic Imaging Report ---
Indication: Shortness of breath. Chest pain Technique: Continuous helical transaxial imaging of the chest was obtained from the thoracic inlet to the upper abdomen. No intravenous contrast was administered. Coronal 2-D reformats were also obtained. Total Dose length Product (DLP): [address] Dose Index Volume (CTDIvol): 0.15, 20.73 mGy Comparison: 11/15/16 Findings: There is a mild focus of airspace disease and some associated linear reticular densities at the right lung base suspicious for infiltrate on the prior examination. This has essentially resolved. There is some mild linear reticular densities present at both lung bases likely c s s representative of atelectasis or scarring. There is no consolidation identified. There is slight thickening of the cranial aspect of the right major fissure. Aorta is calcified. Slight thickening or fluid within the pericardial sac noted. There is a hiatal hernia present. There is no pleural effusion. A staple line noted within the stomach. Again noted is a small ringlike tubular focus which may be constricting device or a laparoscopic band in the upper stomach as well as surgical clips. Please correlate to surgical history. Cholecystectomy noted. In pression: No evidence of pneumonia at this time. Small posterior medial infiltrate at the right lung base previously demonstrated has shown interval resolution. Currently there is evidence of minimal basilar atelectasis or scarring. Status post stomach surgery. Status post cholecystectomy. Atherosclerotic disease. Trace pericardial fluid or thickening of the pericardial sac. The CT scanner at [facility] is accredited by the [employer] and the scans are performed using dose optimization techniques as appropriate to a performed exam including Automatic Exposure control.
--- NOTE | 2017-01-08 10:24 | Diagnostic Imaging Report ---
Indication: Shortness of breath. Chest pain Technique: Continuous helical transaxial imaging of the chest was obtained from the thoracic inlet to the upper abdomen. No intravenous contrast was administered. Coronal 2-D reformats were also obtained. Total Dose length Product (DLP): [address] Dose Index Volume (CTDIvol): 0.15, 20.73 mGy Comparison: 11/15/16 Findings: There is a mild focus of airspace disease and some associated linear reticular densities at the right lung base suspicious for infiltrate on the prior examination. This has essentially resolved. 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 There is no consolidation identified. There is slight thickening of the cranial aspect of the right major fissure. Aorta is calcified. Slight thickening or fluid within the pericardial sac noted. There is a hiatal hernia present. There is no pleural effusion. A staple line noted within the stomach. Again noted is a small ringlike tubular focus which may be constricting device or a laparoscopic band in the upper stomach as well as surgical clips. Please correlate to surgical history. Cholecystectomy noted. In pression: No evidence of pneumonia at this time. Small posterior medial infiltrate at the right lung base previously demonstrated has shown interval resolution. Currently there is evidence of minimal basilar atelectasis or scarring. Status post stomach surgery. Status post cholecystectomy. Atherosclerotic disease. Trace pericardial fluid or thickening of the pericardial sac. The CT scanner at is accredited by the [employer] and the scans are performed using dose optimization techniques as appropriate to a performed exam including Automatic Exposure control.
[2017-01-08] MEDS: Norco 10mg/325mg tab ORAL PRN (12:22)
[2017-01-08] MEDS: Amikacin 1,000 MG in NS 275 ML IV SCH (18:57)
[2017-01-09] VITALS (7 sets, daily range): BP systolic 132–169; BP diastolic 61–77
--- NOTE | 2017-01-09 08:01 | General Progress Note ---
Assessment/Plan Problem List: (1) Hemoptysis ICD Codes: R04.2 - Hemoptysis SNOMED: 77350883 (2) Carotid stenosis ICD Codes: I65.29 - Occlusion and stenosis of unspecified carotid artery SNOMED: 67929727 (3) Pneumonia ICD Codes: J18.9 - Pneumonia, unspecified organism SNOMED: 838853559 Qualifiers: Qualified Codes: J18.9 - Pneumonia, unspecified organism (4) COPD exacerbation ICD Codes: J44.1 - Chronic obstructive pulmonary disease with (acute) exacerbation SNOMED: 144526435, 657264158 Status: stable, progressing Assessment/Plan abx steroids per pulm o2 mobilize dc planning when cleared by consultants Subjective ROS Limited/Unobtainable: No Constitutional: Reports: malaise, weakness HEENT: Reports: no symptoms Cardiovascular: Reports: no symptoms Respiratory: Reports: cough, SOB with excertion, wheezing Gastrointestinal/Abdominal: Reports: no symptoms Genitourinary: Reports: no symptoms Neurologic/Psychiatric: Reports: no symptoms Endocrine: Reports: no symptoms Hematologic/Lymphatic: Reports: no symptoms Allergies: Coded Allergies: MORPHINE (Verified Allergy, Severe, Anaphylaxis, 11/14/16) PT RECEIVED 5 DOSES OF OXYCODONE ON PREVIOUS ADMISSION IN 06/2015. As per conversation with the patient. Patient denies having allergy reaction with [place]. She said " I have been taking [place] before and i have no allergy reactions. AMOXICILLIN (Verified Allergy, Mild, ITCHING, 06/15/15) itching CITRUS AND DERIVATIVES (Verified Allergy, Unknown, BREAKOUT, 06/15/15) breakout HYDROMORPHONE (Verified Allergy, Unknown, CHEST PAIN, 06/15/15) chest pain IODINE (Verified Allergy, Unknown, SWELLING, 06/15/15) swelling PENICILLINS (Verified Allergy, Unknown, ITCHING, 06/15/15) itching Uncoded Allergies: NYLON TAPE (Adverse Reaction, Intermediate, NIEVES THE SKIN, 06/21/15) All Systems: reviewed and negative except above Subjective less sob. +cp with deep inspiration. vq and ct negative. Objective Last 24 Hour Vital Signs Date Time Temp Pulse Resp B/P (MAP) Pulse Ox O2 Delivery O2 Flow Rate FiO2 01/09/17 07:57 98.6 71 19 169/77 95 Room Air 01/09/17 07:13 95 Nasal Cannula 2.0 28 01/09/17 07:13 Nasal Cannula 2.0 28 01/09/17 04:00 98.2 68 18 156/71 94 Room Air 01/09/17 00:00 97.5 70 132/64 92 Room Air 01/08/17 20:00 97.5 68 18 150/71 97 Room Air 01/08/17 19:43 70 18 97 Nasal Cannula 2.0 28 01/08/17 19:43 Nasal Cannula 2.0 28 01/08/17 19:43 97 Nasal Cannula 2.0 28 01/08/17 18:00 70 143/67 01/08/17 16:00 97.9 78 17 165/72 98 2.0 01/08/17 14:56 66 20 100 Nasal Cannula 2.0 28 01/08/17 14:50 73 18 94 Nasal Cannula 2.0 28 01/08/17 12:00 98.2 68 15 152/70 98 Nasal Cannula 2.0 01/08/17 10:46 67 18 100 Nasal Cannula 2.0 28 01/08/17 10:41 74 18 95 Nasal Cannula 2.0 28 01/08/17 09:58 152/75 Laboratory Tests 01/09/17 05:20: Random Amikacin Level [Pending] Height (Feet): 5 Height (Inches): 2.00 Weight (Pounds): 162 Objective General Appearance: WD/WN, alert Neck: supple Cardiovascular: normal rate, regular rhythm Respiratory/Chest: chest wall non-tender, rhonchi - bilaterally, expiratory wheezing Abdomen: normal bowel sounds, non tender, soft, no organomegaly 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
--- NOTE | 2017-01-09 08:01 | General Progress Note ---
Assessment/Plan Problem List: (1) Hemoptysis ICD Codes: R04.2 - Hemoptysis SNOMED: 58051110 (2) Carotid stenosis ICD Codes: I65.29 - Occlusion and stenosis of unspecified carotid artery SNOMED: 17815818 (3) Pneumonia ICD Codes: J18.9 - Pneumonia, unspecified organism SNOMED: 485496309 Qualifiers: Qualified Codes: J18.9 - Pneumonia, unspecified organism (4) COPD exacerbation ICD Codes: J44.1 - Chronic obstructive pulmonary disease with (acute) exacerbation SNOMED: 167195240, 337039272 Status: stable, progressing Assessment/Plan abx steroids per pulm o2 mobilize dc planning when cleared by consultants Subjective ROS Limited/Unobtainable: No Constitutional: Reports: malaise, weakness HEENT: Reports: no symptoms Cardiovascular: Reports: no symptoms Respiratory: Reports: cough, SOB with excertion, wheezing Gastrointestinal/Abdominal: Reports: no symptoms Genitourinary: Reports: no symptoms Neurologic/Psychiatric: Reports: no symptoms Endocrine: Reports: no symptoms Hematologic/Lymphatic: Reports: no symptoms Allergies: Coded Allergies: MORPHINE (Verified Allergy, Severe, Anaphylaxis, 11/14/16) PT RECEIVED 5 DOSES OF OXYCODONE ON PREVIOUS ADMISSION IN 06/2015. As per conversation with the patient. Patient denies having allergy reaction with [place]. She said " I have been taking [place] before and i have no allergy reactions. AMOXICILLIN (Verified Allergy, Mild, ITCHING, 06/15/15) itching CITRUS AND DERIVATIVES (Verified Allergy, Unknown, BREAKOUT, 06/15/15) breakout HYDROMORPHONE (Verified Allergy, Unknown, CHEST PAIN, 06/15/15) chest pain IODINE (Verified Allergy, Unknown, SWELLING, 06/15/15) swelling PENICILLINS (Verified Allergy, Unknown, ITCHING, 06/15/15) itching Uncoded Allergies: NYLON TAPE (Adverse Reaction, Intermediate, NIEVES THE SKIN, 06/21/15) All Systems: reviewed and negative except above Subjective less sob. +cp with deep inspiration. vq and ct negative. Objective Last 24 Hour Vital Signs Date Time Temp Pulse Resp B/P (MAP) Pulse Ox O2 Delivery O2 Flow Rate FiO2 01/09/17 07:57 98.6 71 19 169/77 95 Room Air 01/09/17 07:13 95 Nasal Cannula 2.0 28 01/09/17 07:13 Nasal Cannula 2.0 28 01/09/17 04:00 98.2 68 18 156/71 94 Room Air 01/09/17 00:00 97.5 70 132/64 92 Room Air 01/08/17 20:00 97.5 68 18 150/71 97 Room Air 01/08/17 19:43 70 18 97 Nasal Cannula 2.0 28 01/08/17 19:43 Nasal Cannula 2.0 28 01/08/17 19:43 97 Nasal Cannula 2.0 28 01/08/17 18:00 70 143/67 01/08/17 16:00 97.9 78 17 165/72 98 2.0 01/08/17 14:56 66 20 100 Nasal Cannula 2.0 28 01/08/17 14:50 73 18 94 Nasal Cannula 2.0 28 01/08/17 12:00 98.2 68 15 152/70 98 Nasal Cannula 2.0 01/08/17 10:46 67 18 100 Nasal Cannula 2.0 28 01/08/17 10:41 74 18 95 Nasal Cannula 2.0 28 01/08/17 09:58 152/75 Laboratory Tests 01/09/17 05:20: Random Amikacin Level [Pending] Height (Feet): 5 Height (Inches): 2.00 Weight (Pounds): 162 Objective General Appearance: WD/WN, alert Neck: supple Cardiovascular: normal rate, regular rhythm Respiratory/Chest: chest wall non-tender, rhonchi - bilaterally, expiratory wheezing Abdomen: normal bowel sounds, non tender, soft, no organomegaly 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
--- NOTE | 2017-01-09 08:01 | General Progress Note ---
Assessment/Plan Problem List: (1) Hemoptysis ICD Codes: R04.2 - Hemoptysis SNOMED: 56197831 (2) Carotid stenosis ICD Codes: I65.29 - Occlusion and stenosis of unspecified carotid artery SNOMED: 15137016 (3) Pneumonia ICD Codes: J18.9 - Pneumonia, unspecified organism SNOMED: 904917877 Qualifiers: Qualified Codes: J18.9 - Pneumonia, unspecified organism (4) COPD exacerbation ICD Codes: J44.1 - Chronic obstructive pulmonary disease with (acute) exacerbation SNOMED: 557703060, 232890724 Status: stable, progressing Assessment/Plan abx steroids per pulm o2 mobilize dc planning when cleared by consultants Subjective ROS Limited/Unobtainable: No Constitutional: Reports: malaise, weakness HEENT: Reports: no symptoms Cardiovascular: Reports: no symptoms Respiratory: Reports: cough, SOB with excertion, wheezing Gastrointestinal/Abdominal: Reports: no symptoms Genitourinary: Reports: no symptoms Neurologic/Psychiatric: Reports: no symptoms Endocrine: Reports: no symptoms Hematologic/Lymphatic: Reports: no symptoms Allergies: Coded Allergies: MORPHINE (Verified Allergy, Severe, Anaphylaxis, 11/14/16) PT RECEIVED 5 DOSES OF OXYCODONE ON PREVIOUS ADMISSION IN 06/2015. As per conversation with the patient. Patient denies having allergy reaction with [place]. She said " I have been taking [place] before and i have no allergy reactions. AMOXICILLIN (Verified Allergy, Mild, ITCHING, 06/15/15) itching CITRUS AND DERIVATIVES (Verified Allergy, Unknown, BREAKOUT, 06/15/15) breakout HYDROMORPHONE (Verified Allergy, Unknown, CHEST PAIN, 06/15/15) chest pain IODINE (Verified Allergy, Unknown, SWELLING, 06/15/15) swelling PENICILLINS (Verified Allergy, Unknown, ITCHING, 06/15/15) itching Uncoded Allergies: NYLON TAPE (Adverse Reaction, Intermediate, NIEVES THE SKIN, 06/21/15) All Systems: reviewed and negative except above Subjective less sob. +cp with deep inspiration. vq and ct negative. Objective Last 24 Hour Vital Signs Date Time Temp Pulse Resp B/P (MAP) Pulse Ox O2 Delivery O2 Flow Rate FiO2 01/09/17 07:57 98.6 71 19 169/77 95 Room Air 01/09/17 07:13 95 Nasal Cannula 2.0 28 01/09/17 07:13 Nasal Cannula 2.0 28 01/09/17 04:00 98.2 68 18 156/71 94 Room Air 01/09/17 00:00 97.5 70 132/64 92 Room Air 01/08/17 20:00 97.5 68 18 150/71 97 Room Air 01/08/17 19:43 70 18 97 Nasal Cannula 2.0 28 01/08/17 19:43 Nasal Cannula 2.0 28 01/08/17 19:43 97 Nasal Cannula 2.0 28 01/08/17 18:00 70 143/67 01/08/17 16:00 97.9 78 17 165/72 98 2.0 01/08/17 14:56 66 20 100 Nasal Cannula 2.0 28 01/08/17 14:50 73 18 94 Nasal Cannula 2.0 28 01/08/17 12:00 98.2 68 15 152/70 98 Nasal Cannula 2.0 01/08/17 10:46 67 18 100 Nasal Cannula 2.0 28 01/08/17 10:41 74 18 95 Nasal Cannula 2.0 28 01/08/17 09:58 152/75 Laboratory Tests 01/09/17 05:20: Random Amikacin Level [Pending] Height (Feet): 5 Height (Inches): 2.00 Weight (Pounds): 162 Objective General Appearance: WD/WN, alert Neck: supple Cardiovascular: normal rate, regular rhythm Respiratory/Chest: chest wall non-tender, rhonchi - bilaterally, expiratory wheezing Abdomen: normal bowel sounds, non tender, soft, no organomegaly 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
[2017-01-09] MEDS: Aspirin EC 81mg tab ORAL SCH (08:56)
[2017-01-09] MEDS: PARoxetine 10mg tab ORAL SCH ×2 (08:56→18:01)
[2017-01-09] MEDS: Losartan 50mg tab ORAL SCH (08:57)
[2017-01-09] MEDS: Heparin 5000 units/ml inj SUBQ SCH ×2 (08:58→21:05)
[2017-01-09] MEDS ORDERED: Solu-MEDROL 40mg Inj IVP SCH (09:00)
[2017-01-09] MEDS: Promethazine/Codeine 5ml UD ORAL PRN ×3 (09:08→18:01)
--- NOTE | 2017-01-09 10:02 | Pulmonology Progress Note ---
Assessment/Plan Assessment/Plan IMPRESSION: 1. Pulmonary congestion 2. Hemoptysis, 3. bronchitis 4. Chronic obstructive pulmonary disease per history. Recommendations: Continue same. Consider bronchoscopy if hemoptysis continues and to evaluate airway. Care discussed with the patient. agree with management as outlined. chest Xray reviewed and clear. discontinue solumedrol and monitor off. Proceed with dc planning and again discussed outpatient evaluation with pulmonary function testing and maintainence therapy impression, plan, and exam edited and reviewed in detail care discussed with RN Subjective Allergies: Coded Allergies: MORPHINE (Verified Allergy, Severe, Anaphylaxis, 11/14/16) PT RECEIVED 5 DOSES OF OXYCODONE ON PREVIOUS ADMISSION IN 06/2015. As per conversation with the patient. Patient denies having allergy reaction with [place]. She said " I have been taking [place] before and i have no allergy reactions. AMOXICILLIN (Verified Allergy, Mild, ITCHING, 06/15/15) itching CITRUS AND DERIVATIVES (Verified Allergy, Unknown, BREAKOUT, 06/15/15) breakout HYDROMORPHONE (Verified Allergy, Unknown, CHEST PAIN, 06/15/15) chest pain IODINE (Verified Allergy, Unknown, SWELLING, 06/15/15) swelling PENICILLINS (Verified Allergy, Unknown, ITCHING, 06/15/15) itching Uncoded Allergies: NYLON TAPE (Adverse Reaction, Intermediate, NIEVES THE SKIN, 06/21/15) Subjective scant sputum no hemoptysis overall more comfortable and no distress Objective Last 24 Hour Vital Signs Date Time Temp Pulse Resp B/P (MAP) Pulse Ox O2 Delivery O2 Flow Rate FiO2 01/09/17 08:57 134/67 01/09/17 08:24 72 134/67 01/09/17 07:57 98.6 71 19 169/77 95 Room Air 01/09/17 07:13 95 Nasal Cannula 2.0 28 01/09/17 07:13 Nasal Cannula 2.0 28 01/09/17 04:00 98.2 68 18 156/71 94 Room Air 01/09/17 00:00 97.5 70 132/64 92 Room Air 01/08/17 20:00 97.5 68 18 150/71 97 Room Air 01/08/17 19:43 70 18 97 Nasal Cannula 2.0 28 01/08/17 19:43 Nasal Cannula 2.0 28 01/08/17 19:43 97 Nasal Cannula 2.0 28 01/08/17 18:00 70 143/67 01/08/17 16:00 97.9 78 17 165/72 98 2.0 01/08/17 14:56 66 20 100 Nasal Cannula 2.0 28 01/08/17 14:50 73 18 94 Nasal Cannula 2.0 28 01/08/17 12:00 98.2 68 15 152/70 98 Nasal Cannula 2.0 01/08/17 10:46 67 18 100 Nasal Cannula 2.0 28 01/08/17 10:41 74 18 95 Nasal Cannula 2.0 28 Objective WDWN NAD reduced breath sounds bilaterally without rhonchi or wheeze [id number] without MRG NABS nontender no HSM no CCE nonfocal fully alert Laboratory Tests 01/09/17 05:20: Random Amikacin Level [Pending] Current Medications Medications (Trade) Dose Ordered Sig/Julita Route PRN Reason Start Time Stop Time Status Last Admin Dose Admin Acetaminophen/ Hydrocodone Bitart ([place] 10/325) 1 ea Q4H PRN ORAL PAIN 4-10 01/05/17 16:00 01/10/17 15:59 01/08/17 12:22 Al Hydroxide/Mg Hydroxide (Mylanta) 15 ml TIDPRN PRN ORAL Dyspepsia 01/08/17 19:30 02/07/17 19:29 Amikacin Protocol (Amikacin pharmacy to dose) 1 ea DAILY PRN MISC Per rx protocol 01/07/17 14:15 02/06/17 14:14 Amikacin Sulfate 1000 mg/Sodium Chloride 279 ml @ 279 mls/hr Q24H IV 01/08/17 18:00 01/15/17 17:59 01/08/17 18:57 Aspirin (Ecotrin) 81 mg DAILY ORAL 01/06/17 09:00 02/03/17 08:59 01/09/17 08:56 Clonidine HCl (Catapres) 0.1 mg Q4H PRN ORAL SBP >160 01/06/17 16:30 02/05/17 16:29 01/06/17 21:39 Clopidogrel Bisulfate (Plavix) 75 mg DAILY ORAL 01/06/17 09:00 02/03/17 08:59 01/09/17 08:56 Gabapentin (Neurontin) 600 mg Q6HR ORAL 01/05/17 18:00 02/02/17 17:59 01/09/17 06:20 Heparin Sodium (Porcine) (Heparin 5000 units/ml) 5,000 units EVERY 12 HOURS SUBQ 01/05/17 21:00 02/03/17 20:59 01/09/17 08:58 Levofloxacin 150 ml @ 100 mls/hr Q24H IVPB 01/07/17 15:00 01/14/17 14:59 01/08/17 14:52 Losartan Potassium (Cozaar) 50 mg DAILY ORAL 01/06/17 09:00 02/03/17 08:59 01/09/17 08:57 Methylprednisolone Sodium Succinate (Solu-MEDROL) 40 mg DAILY IVP 01/09/17 09:00 02/06/17 09:59 01/09/17 08:57 Nicotine (Nicoderm) 1 patch Q24H TDERMAL 01/08/17 13:30 02/07/17 13:29 01/08/17 13:46 Pantoprazole (Protonix) 40 mg ACBREAKFAST ORAL 01/06/17 06:30 02/03/17 06:29 01/09/17 06:20 Paroxetine HCl (Paxil) 30 mg BID ORAL 01/05/17 18:00 02/02/17 17:59 01/09/17 08:56 Pravastatin Sodium (Pravachol) 20 mg BEDTIME ORAL 01/05/17 21:00 02/02/17 20:59 01/08/17 20:51 Promethazine HCl/ Codeine (Phenergan with Codeine) 5 ml Q4H PRN ORAL For Cough 01/05/17 16:00 02/03/17 15:59 01/09/17 09:08 Sodium Chloride 1,000 ml @ 100 mls/hr Q10H IV 01/05/17 16:00 02/03/17 15:59 01/09/17 04:19 Tizanidine HCl (Zanaflex) 4 mg Q6H PRN ORAL Muscle Spasm 01/05/17 16:00 02/02/17 15:59 Zolpidem Tartrate (Ambien) 5 mg QHS PRN ORAL Insomnia 01/05/17 21:00 01/10/17 20:59 MARSHALL RUGGIERO Jan 09, 2017 10:02
--- NOTE | 2017-01-09 12:17 | Progress Note ---
DATE: 01/08/2017 CARDIOLOGY PROGRESS NOTE SUBJECTIVE: The patient is back on IV steroids and IV antibiotics. She continues to have cough, congestion, and wheezing. OBJECTIVE: VITAL SIGNS: Blood pressure 152/75, pulse 69, respiratory rate 15, and oxygen saturation on 2 liters is 90% to 98%. LUNGS: Coarse breath sounds, rhonchi, few wheezes. CARDIAC: Regular rhythm and rate. Normal S1, S2 with a fourth heart sound. ABDOMEN: Soft. EXTREMITIES: No edema. LABORATORY DATA: White count 14.4, hemoglobin 12.3, potassium 4.3, BUN 11, creatinine 0.7. IMPRESSION: 1. Cerebrovascular disease with chronic right carotid occlusion. 2. Paroxysmal bronchospasm. 3. Gram-negative extended-spectrum beta-lactamases pneumonia. 4. Hypertensive heart disease. PLAN: 1. Continue steroids, antimicrobials, and antitussives. 2. Continue anti-platelet therapy and current antihypertensives. 3. Monitor cardiorenal parameters and pulmonary parameters. 4. Further CT imaging and bronchoscopy are under consideration depending on clinical course. Rosendo Palacios M.D. DR: BRO JOB#: [id number] CC:
--- NOTE | 2017-01-09 13:33 | Infectious Diseases Prog Note ---
Assessment/Plan Assessment/Plan ASSESSMENT AND PLAN: 1. 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 leukocytosis and fevers - continue levofloxacin and add amikacin - day # 5 abx - can discharge on juan levofloxacin x 5 days soon - CT with resolution of infiltrate - patient has severe pcn allergy c/w hives in d/w patient and will try to avoid carbapenems for now which are esbl drug of choice - check f/u labs and chest x-ray - d/w RN - dw/ patient - steroids discontinued 2. The patient had anemia. 3. Sepsis, elevated white count, and fevers. 4. Systemic inflammatory response syndrome criteria. 5. Anemia. 6. Hypertension. 7. Possible hyperlipidemia. 8. Chronic obstructive pulmonary disease. 9. Stroke. 10. Cerebrovascular accident, transient ischemic attack. 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 12. Carotid stenosis. 13. Social history is negative. 14. Family history is noncontributory. 15. MAR was noted. 16. Case was discussed with RN. 17. Allergies to amoxicillin, citrus, hydromorphone, iodine, morphine, nylon tape, and penicillin.- d/w patient and gets hives with pcn 18. Continue treatment per primary consultants. 19. Notes and records were noted. Subjective Constitutional: Reports: fever, anorexia HEENT: Reports: congestion - less Respiratory: Reports: shortness of breath - less Cardiovascular: Denies: chest pain Gastrointestinal/Abdominal: Denies: nausea, vomiting, diarrhea Genitourinary: Reports: other - + mcdermott Neurologic: Denies: headache Psychiatric: Denies: depression Hematologic: Denies: bleeding Musculoskeletal: Denies: pain Allergies: Coded Allergies: MORPHINE (Verified Allergy, Severe, Anaphylaxis, 11/14/16) PT RECEIVED 5 DOSES OF OXYCODONE ON PREVIOUS ADMISSION IN 06/2015. As per conversation with the patient. Patient denies having allergy reaction with [place]. She said " I have been taking [place] before and i have no allergy reactions. AMOXICILLIN (Verified Allergy, Mild, ITCHING, 06/15/15) itching CITRUS AND DERIVATIVES (Verified Allergy, Unknown, BREAKOUT, 06/15/15) breakout HYDROMORPHONE (Verified Allergy, Unknown, CHEST PAIN, 06/15/15) chest pain IODINE (Verified Allergy, Unknown, SWELLING, 06/15/15) swelling PENICILLINS (Verified Allergy, Unknown, ITCHING, 06/15/15) itching Uncoded Allergies: NYLON TAPE (Adverse Reaction, Intermediate, NIEVES THE SKIN, 06/21/15) Objective Vital Signs Last 24 Hour Vital Signs Date Time Temp Pulse Resp B/P (MAP) Pulse Ox O2 Delivery O2 Flow Rate FiO2 01/09/17 11:31 98.2 61 19 146/72 95 Room Air 01/09/17 08:57 134/67 01/09/17 08:24 72 134/67 01/09/17 07:57 98.6 71 19 169/77 95 Room Air 01/09/17 07:13 95 Nasal Cannula 2.0 28 01/09/17 07:13 Nasal Cannula 2.0 28 01/09/17 04:00 98.2 68 18 156/71 94 Room Air 01/09/17 00:00 97.5 70 132/64 92 Room Air 01/08/17 20:00 97.5 68 18 150/71 97 Room Air 01/08/17 19:43 70 18 97 Nasal Cannula 2.0 28 01/08/17 19:43 Nasal Cannula 2.0 28 01/08/17 19:43 97 Nasal Cannula 2.0 28 01/08/17 18:00 70 143/67 01/08/17 16:00 97.9 78 17 165/72 98 2.0 01/08/17 14:56 66 20 100 Nasal Cannula 2.0 28 01/08/17 14:50 73 18 94 Nasal Cannula 2.0 28 Height (Feet): 5 Height (Inches): 2.00 Weight (Pounds): 162 General Appearance: no acute distress HEENT: normocephalic, atraumatic, anicteric, mucous membranes moist, EOMI, pharynx normal, supple, no JVD Respiratory/Chest: crackles/rales - less, rhonchi - bilaterally Cardiovascular: normal rate, regular rhythm, no gallop/murmur, no JVD Abdomen: normal bowel sounds, soft, non tender, no organomegaly, non distended Genitourinary: other - no mcdermott, no cva pain Extremities: no cyanosis, no edema Skin: no rash 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 There are no acute infiltrates. Previous infiltrates have resolved. No pleural fluid. Impression: No acute abnormality. . CT chest: Impression: No evidence of pneumonia at this time. Small posterior medial infiltrate at the right lung base previously demonstrated has shown interval resolution. Currently there is evidence of minimal basilar atelectasis or scarring. Status post stomach surgery. Status post cholecystectomy. Atherosclerotic disease. Trace pericardial fluid or thickening of the pericardial sac. Microbiology Date/Time Source Procedure Growth Status 01/03/17 11:40 Blood Blood Culture - Final NO GROWTH AFTER 5 DAYS Complete 01/04/17 12:22 Sputum Induced Gram Stain - Final Complete 01/04/17 12:22 Sputum Culture - Final Johana Famata Klebsiella Pneumoniae Complete Labs Test 01/08/17 05:20 01/09/17 05:20 White Blood Count 14.4 K/UL (4.8-10.8) Red Blood Count 4.02 M/UL (4.20-5.40) Hemoglobin 12.3 G/DL (12.0-16.0) Hematocrit 38.4 % (37.0-47.0) Mean Corpuscular Volume 95 FL (80-99) Mean Corpuscular Hemoglobin 30.6 PG (27.0-31.0) Mean Corpuscular Hemoglobin Concent 32.1 G/DL (32.0-36.0) Red Cell Distribution Width 13.4 % (11.6-14.8) Platelet Count 400 K/UL (150-450) Mean Platelet Volume 5.8 FL (6.5-10.1) Neutrophils (%) (Auto) 84.8 % (45.0-75.0) Lymphocytes (%) (Auto) 10.2 % (20.0-45.0) Monocytes (%) (Auto) 4.6 % (1.0-10.0) Eosinophils (%) (Auto) 0.0 % (0.0-3.0) Basophils (%) (Auto) 0.3 % (0.0-2.0) Sodium Level 143 MMOL/L (136-145) Potassium Level 4.3 MMOL/L (3.5-5.1) Chloride Level 107 MMOL/L (98-107) Carbon Dioxide Level 26 MMOL/L (21-32) Anion Gap 11 mmol/L (5-15) Blood Urea Nitrogen 11 mg/dL (7-18) Creatinine 0.7 MG/DL (0.55-1.30) Estimat Glomerular Filtration Rate > 60 mL/min (>60) Glucose Level 110 MG/DL (74-106) Calcium Level 8.7 MG/DL (8.5-10.1) Random Amikacin Level < 2.5 ug/mL Laboratory Tests Test 01/09/17 05:20 Random Amikacin Level < 2.5 ug/mL Current Medications Medications (Trade) Dose Ordered Sig/Julita Route PRN Reason Start Time Stop Time Status Last Admin Dose Admin Acetaminophen/ Hydrocodone Bitart ([place] 10325) 1 ea Q4H PRN ORAL PAIN 4-10 01/05/17 16:00 01/10/17 15:59 01/08/17 12:22 Al Hydroxide/Mg Hydroxide (Mylanta) 15 ml TIDPRN PRN ORAL Dyspepsia 01/08/17 19:30 02/07/17 19:29 Amikacin Protocol (Amikacin pharmacy to dose) 1 ea DAILY PRN MISC Per rx protocol 01/07/17 14:15 02/06/17 14:14 Amikacin Sulfate 1000 mg/Sodium Chloride 279 ml @ 279 mls/hr Q24H IV 01/08/17 18:00 01/15/17 17:59 01/08/17 18:57 Aspirin (Ecotrin) 81 mg DAILY ORAL 01/06/17 09:00 02/03/17 08:59 01/09/17 08:56 Clonidine HCl (Catapres) 0.1 mg Q4H PRN ORAL SBP >160 01/06/17 16:30 02/05/17 16:29 01/06/17 21:39 Clopidogrel Bisulfate (Plavix) 75 mg DAILY ORAL 01/06/17 09:00 02/03/17 08:59 01/09/17 08:56 Gabapentin (Neurontin) 600 mg Q6HR ORAL 01/05/17 18:00 02/02/17 17:59 01/09/17 12:43 Heparin Sodium (Porcine) (Heparin 5000 units/ml) 5,000 units EVERY 12 HOURS SUBQ 01/05/17 21:00 02/03/17 20:59 01/09/17 08:58 Levofloxacin 150 ml @ 100 mls/hr Q24H IVPB 01/07/17 15:00 01/14/17 14:59 01/08/17 14:52 Losartan Potassium (Cozaar) 50 mg DAILY ORAL 01/06/17 09:00 02/03/17 08:59 01/09/17 08:57 Nicotine (Nicoderm) 1 patch Q24H TDERMAL 01/08/17 13:30 02/07/17 13:29 01/08/17 13:46 Pantoprazole (Protonix) 40 mg ACBREAKFAST ORAL 01/06/17 06:30 02/03/17 06:29 01/09/17 06:20 Paroxetine HCl (Paxil) 30 mg BID ORAL 01/05/17 18:00 02/02/17 17:59 01/09/17 08:56 Pravastatin Sodium (Pravachol) 20 mg BEDTIME ORAL 01/05/17 21:00 02/02/17 20:59 01/08/17 20:51 Promethazine HCl/ Codeine (Phenergan with Codeine) 5 ml Q4H PRN ORAL For Cough 01/05/17 16:00 02/03/17 15:59 01/09/17 09:08 Sodium Chloride 1,000 ml @ 100 mls/hr Q10H IV 01/05/17 16:00 02/03/17 15:59 01/09/17 04:19 Tizanidine HCl (Zanaflex) 4 mg Q6H PRN ORAL Muscle Spasm 01/05/17 16:00 02/02/17 15:59 Zolpidem Tartrate (Ambien) 5 mg QHS PRN ORAL Insomnia 01/05/17 21:00 01/10/17 20:59 CHANDLER CASTRO Jan 09, 2017 13:33
[2017-01-09] MEDS: Amikacin 1,000 MG in NS 275 ML IV SCH (18:01)
[2017-01-10] VITALS: BP 145/59
--- NOTE | 2017-01-10 00:45 | Progress Note ---
DATE: 01/09/2017 CARDIOLOGY PROGRESS NOTE SUBJECTIVE: The patient has chest pain on the left lower rib margin. She has complained of this in the past. She had a CAT scan today, which revealed some thickening of the pericardial sac, resolution of prior infiltrates on the right and no acute process. OBJECTIVE: VITAL SIGNS: Blood pressure 146/72, heart rate of 61 and room air oxygen saturation 95%. CHEST: Tenderness left lower rib margin laterally. NECK: Supple. LUNGS: With few rhonchi. ABDOMEN: Soft. No edema. IMPRESSION: 1. Pneumonia, recovering. 2. Cerebrovascular accident. 3. Occluded right carotid. 4. Hypertensive heart disease. 5. Left rib pain likely due to pulmonary symptoms. 6. Hemodynamically insignificant pericardial fluid. PLAN: 1. Pain control. 2. Steroid taper. 3. Complete antibiotics. 4. Continue inhaled bronchodilators. 5. Continue anti-platelet therapy and current cardiovascular regimen. 6. Nicotine patch for withdrawal symptoms. Rosendo Palacios M.D. DR: RIDDHI JOB#: [id number] CC:
[2017-01-10 03:38] VITALS: BP 151/60
[2017-01-10 06:52] LABS: BASOPHILS % (AUTO) 1.4 % (0.0-2.0); EOSINOPHILS % (AUTO) 0.8 % (0.0-3.0); HEMATOCRIT 38.5 % (37.0-47.0); HEMOGLOBIN 11.7 G/DL (12.0-16.0); LYMPHOCYTES % (AUTO) 35.9 % (20.0-45.0); MEAN CORPUSCULAR VOLUME 98 FL (80-99); MONOCYTES % (AUTO) 8.3 % (1.0-10.0); NEUTROPHILS % (AUTO) 53.6 % (45.0-75.0); PLATELET COUNT 330 K/UL (150-450); RED BLOOD COUNT 3.94 M/UL (4.20-5.40); RED CELL DISTRIBUTION WIDTH 13.6 % (11.6-14.8); WHITE BLOOD COUNT 14.2 K/UL (4.8-10.8)
[2017-01-10 07:01] LABS: ANION GAP 7 mmol/L (5-15); BLOOD UREA NITROGEN 13 mg/dL (7-18); CALCIUM 8.5 MG/DL (8.5-10.1); CARBON DIOXIDE 30 MMOL/L (21-32); CHLORIDE 108 MMOL/L (98-107); CREATININE 0.8 MG/DL (0.55-1.30); POTASSIUM 4.1 MMOL/L (3.5-5.1); SODIUM 144 MMOL/L (136-145)
[2017-01-10 08:00] VITALS: BP 133/77
[2017-01-10] MEDS: PARoxetine 10mg tab ORAL SCH ×2 (09:02→18:14)
[2017-01-10] MEDS: Aspirin EC 81mg tab ORAL SCH (09:02)
[2017-01-10] MEDS: Losartan 50mg tab ORAL SCH (09:02)
[2017-01-10] MEDS: Heparin 5000 units/ml inj SUBQ SCH ×2 (09:07→22:29)
--- NOTE | 2017-01-10 09:30 | Pulmonology Progress Note ---
Assessment/Plan Assessment/Plan IMPRESSION: 1. Pulmonary congestion 2. Hemoptysis, 3. bronchitis 4. Chronic obstructive pulmonary disease per history. Recommendations: Off solumedrol. Consider bronchoscopy if hemoptysis continues and to evaluate airway. Care discussed with the patient. agree with management as outlined. Proceed with dc planning and again discussed outpatient evaluation with pulmonary function testing and maintainence therapy. likely will benefit from inhaled steroids impression, plan, and exam edited and reviewed in detail care discussed with RN Subjective Allergies: Coded Allergies: MORPHINE (Verified Allergy, Severe, Anaphylaxis, 11/14/16) PT RECEIVED 5 DOSES OF OXYCODONE ON PREVIOUS ADMISSION IN 06/2015. As per conversation with the patient. Patient denies having allergy reaction with [place]. She said " I have been taking Oneill before and i have no allergy reactions. AMOXICILLIN (Verified Allergy, Mild, ITCHING, 06/15/15) itching CITRUS AND DERIVATIVES (Verified Allergy, Unknown, BREAKOUT, 06/15/15) breakout HYDROMORPHONE (Verified Allergy, Unknown, CHEST PAIN, 06/15/15) chest pain IODINE (Verified Allergy, Unknown, SWELLING, 06/15/15) swelling PENICILLINS (Verified Allergy, Unknown, ITCHING, 06/15/15) itching Uncoded Allergies: NYLON TAPE (Adverse Reaction, Intermediate, NIEVES THE SKIN, 06/21/15) Subjective still on antibiotics no hemoptysis remains comfortable and no distress Objective Last 24 Hour Vital Signs Date Time Temp Pulse Resp B/P (MAP) Pulse Ox O2 Delivery O2 Flow Rate FiO2 01/10/17 09:02 133/77 01/10/17 08:00 97.3 72 22 133/77 98 Room Air 01/10/17 03:38 96.6 65 20 151/60 98 Room Air 01/10/17 00:00 97.7 60 19 145/59 95 Room Air 01/09/17 20:00 98.4 65 19 157/76 94 Room Air 01/09/17 15:44 98.0 62 19 146/61 95 Room Air 01/09/17 11:31 98.2 61 19 146/72 95 Room Air Intake and Output 01/10/17 01/11/17 19:00 07:00 Intake Total 240 ml Balance 240 ml Intake Oral 240 ml Objective WDWN NAD reduced breath sounds bilaterally without rhonchi or wheeze [id number] without MRG NABS nontender no HSM no CCE nonfocal fully alert Laboratory Tests 01/10/17 05:10: White Blood Count 14.2H, Red Blood Count 3.94L, Hemoglobin 11.7L, Hematocrit 38.5, Mean Corpuscular Volume 98, Mean Corpuscular Hemoglobin 29.7, Mean Corpuscular Hemoglobin Concent 30.4L, Red Cell Distribution Width 13.6, Platelet Count 330, Mean Platelet Volume 5.4L, Neutrophils (%) (Auto) 53.6, Lymphocytes (%) (Auto) 35.9, Monocytes (%) (Auto) 8.3, Eosinophils (%) (Auto) 0.8, Basophils (%) (Auto) 1.4, Sodium Level 144, Potassium Level 4.1, Chloride Level 108H, Carbon Dioxide Level 30, Anion Gap 7, Blood Urea Nitrogen 13, Creatinine 0.8, Estimat Glomerular Filtration Rate > 60, Glucose Level 87, Calcium Level 8.5 Current Medications Medications (Trade) Dose Ordered Sig/Julita Route PRN Reason Start Time Stop Time Status Last Admin Dose Admin Acetaminophen/ Hydrocodone Bitart ([place] 10/325) 1 ea Q4H PRN ORAL PAIN 4-10 01/05/17 16:00 01/10/17 15:59 01/08/17 12:22 Al Hydroxide/Mg Hydroxide (Mylanta) 15 ml TIDPRN PRN ORAL Dyspepsia 01/08/17 19:30 02/07/17 19:29 Amikacin Protocol (Amikacin pharmacy to dose) 1 ea DAILY PRN MISC Per rx protocol 01/07/17 14:15 02/06/17 14:14 Amikacin Sulfate 1000 mg/Sodium Chloride 279 ml @ 279 mls/hr Q24H IV 01/08/17 18:00 01/15/17 17:59 01/09/17 18:01 Aspirin (Ecotrin) 81 mg DAILY ORAL 01/06/17 09:00 02/03/17 08:59 01/10/17 09:02 Clonidine HCl (Catapres) 0.1 mg Q4H PRN ORAL SBP >160 01/06/17 16:30 02/05/17 16:29 01/06/17 21:39 Clopidogrel Bisulfate (Plavix) 75 mg DAILY ORAL 01/06/17 09:00 02/03/17 08:59 01/10/17 09:02 Gabapentin (Neurontin) 600 mg Q6HR ORAL 01/05/17 18:00 02/02/17 17:59 01/10/17 05:47 Heparin Sodium (Porcine) (Heparin 5000 units/ml) 5,000 units EVERY 12 HOURS SUBQ 01/05/17 21:00 02/03/17 20:59 01/10/17 09:07 Levofloxacin 150 ml @ 100 mls/hr Q24H IVPB 01/07/17 15:00 01/14/17 14:59 01/09/17 14:57 Losartan Potassium (Cozaar) 50 mg DAILY ORAL 01/06/17 09:00 02/03/17 08:59 01/10/17 09:02 Nicotine (Nicoderm) 1 patch Q24H TDERMAL 01/08/17 13:30 02/07/17 13:29 01/09/17 13:34 Pantoprazole (Protonix) 40 mg ACBREAKFAST ORAL 01/06/17 06:30 02/03/17 06:29 01/10/17 05:47 Paroxetine HCl (Paxil) 30 mg BID ORAL 01/05/17 18:00 02/02/17 17:59 01/10/17 09:02 Pravastatin Sodium (Pravachol) 20 mg BEDTIME ORAL 01/05/17 21:00 02/02/17 20:59 01/09/17 21:04 Promethazine HCl/ Codeine (Phenergan with Codeine) 5 ml Q4H PRN ORAL For Cough 01/05/17 16:00 02/03/17 15:59 01/09/17 18:01 Sodium Chloride 1,000 ml @ 100 mls/hr Q10H IV 01/05/17 16:00 02/03/17 15:59 01/10/17 03:43 Tizanidine HCl (Zanaflex) 4 mg Q6H PRN ORAL Muscle Spasm 01/05/17 16:00 02/02/17 15:59 Zolpidem Tartrate (Ambien) 5 mg QHS PRN ORAL Insomnia 01/05/17 21:00 01/10/17 20:59 MARSHALL RUGGIERO Jan 10, 2017 09:30
--- NOTE | 2017-01-10 11:28 | Infectious Diseases Prog Note ---
Assessment/Plan Assessment/Plan ASSESSMENT AND PLAN: 1. 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 leukocytosis and fevers - clinically improved - continue levofloxacin and amikacin - day # 6 abx - can change/discharge to po levofloxacin x 5 days soon if chest x-ray today is stable - CT with resolution of infiltrate - patient has severe pcn allergy c/w hives in d/w patient and will try to avoid carbapenems for now which are esbl drug of choice - check f/u labs and chest x-ray - d/w RN - dw/ patient - steroids discontinued - watch labs, cr, wbc 2. The patient had anemia. 3. Sepsis, elevated white count, and fevers. 4. Systemic inflammatory response syndrome criteria. 5. Anemia. 6. Hypertension. 7. Possible hyperlipidemia. 8. Chronic obstructive pulmonary disease. 9. Stroke. 10. Cerebrovascular accident, transient ischemic attack. 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 12. Carotid stenosis. 13. Social history is negative. 14. Family history is noncontributory. 15. MAR was noted. 16. Case was discussed with RN. 17. Allergies to amoxicillin, citrus, hydromorphone, iodine, morphine, nylon tape, and penicillin.- d/w patient and gets hives with pcn 18. Continue treatment per primary consultants. 19. Notes and records were noted. Subjective Constitutional: Reports: fatigue, Denies: fever HEENT: Reports: congestion - less Respiratory: Reports: shortness of breath - less, dry cough, other - less sputum Cardiovascular: Denies: chest pain Gastrointestinal/Abdominal: Denies: nausea, vomiting, diarrhea Genitourinary: Reports: other - no mcdermott Neurologic: Denies: headache Psychiatric: Denies: depression Skin: Denies: rash Hematologic: Denies: bleeding Allergies: Coded Allergies: MORPHINE (Verified Allergy, Severe, Anaphylaxis, 11/14/16) PT RECEIVED 5 DOSES OF OXYCODONE ON PREVIOUS ADMISSION IN 06/2015. As per conversation with the patient. Patient denies having allergy reaction with [place]. She said " I have been taking Hazen before and i have no allergy reactions. AMOXICILLIN (Verified Allergy, Mild, ITCHING, 06/15/15) itching CITRUS AND DERIVATIVES (Verified Allergy, Unknown, BREAKOUT, 06/15/15) breakout HYDROMORPHONE (Verified Allergy, Unknown, CHEST PAIN, 06/15/15) chest pain IODINE (Verified Allergy, Unknown, SWELLING, 06/15/15) swelling PENICILLINS (Verified Allergy, Unknown, ITCHING, 06/15/15) itching Uncoded Allergies: NYLON TAPE (Adverse Reaction, Intermediate, NIEVES THE SKIN, 06/21/15) Objective Vital Signs Last 24 Hour Vital Signs Date Time Temp Pulse Resp B/P (MAP) Pulse Ox O2 Delivery O2 Flow Rate FiO2 01/10/17 09:02 133/77 01/10/17 08:00 97.3 72 22 133/77 98 Room Air 01/10/17 03:38 96.6 65 20 151/60 98 Room Air 01/10/17 00:00 97.7 60 19 145/59 95 Room Air 01/09/17 20:00 98.4 65 19 157/76 94 Room Air 01/09/17 15:44 98.0 62 19 146/61 95 Room Air 01/09/17 11:31 98.2 61 19 146/72 95 Room Air Height (Feet): 5 Height (Inches): 2.00 Weight (Pounds): 162 General Appearance: no acute distress HEENT: normocephalic, atraumatic, anicteric, mucous membranes moist Respiratory/Chest: no accessory muscle use, crackles/rales - less, rhonchi - bilaterally - less Cardiovascular: normal rate, regular rhythm, no gallop/murmur, no JVD Abdomen: normal bowel sounds, soft, non tender, no organomegaly, non distended Genitourinary: other - no mcdermott Extremities: no cyanosis Skin: no rash 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 There are no acute infiltrates. Previous infiltrates have resolved. No pleural fluid. Impression: No acute abnormality. . CT chest: Impression: No evidence of pneumonia at this time. Small posterior medial infiltrate at the right lung base previously demonstrated has shown interval resolution. Currently there is evidence of minimal basilar atelectasis or scarring. Status post stomach surgery. Status post cholecystectomy. Atherosclerotic disease. Trace pericardial fluid or thickening of the pericardial sac. Microbiology Date/Time Source Procedure Growth Status 01/03/17 11:40 Blood Blood Culture - Final NO GROWTH AFTER 5 DAYS Complete 01/04/17 12:22 Sputum Induced Gram Stain - Final Complete 01/04/17 12:22 Sputum Culture - Final Pooja Famata Klebsiella Pneumoniae Complete Laboratory Tests Test 01/10/17 05:10 White Blood Count 14.2 K/UL (4.8-10.8) H Red Blood Count 3.94 M/UL (4.20-5.40) L Hemoglobin 11.7 G/DL (12.0-16.0) L Hematocrit 38.5 % (37.0-47.0) Mean Corpuscular Volume 98 FL (80-99) Mean Corpuscular Hemoglobin 29.7 PG (27.0-31.0) Mean Corpuscular Hemoglobin Concent 30.4 G/DL (32.0-36.0) L Red Cell Distribution Width 13.6 % (11.6-14.8) Platelet Count 330 K/UL (150-450) Mean Platelet Volume 5.4 FL (6.5-10.1) L Neutrophils (%) (Auto) 53.6 % (45.0-75.0) Lymphocytes (%) (Auto) 35.9 % (20.0-45.0) Monocytes (%) (Auto) 8.3 % (1.0-10.0) Eosinophils (%) (Auto) 0.8 % (0.0-3.0) Basophils (%) (Auto) 1.4 % (0.0-2.0) Sodium Level 144 MMOL/L (136-145) Potassium Level 4.1 MMOL/L (3.5-5.1) Chloride Level 108 MMOL/L (98-107) H Carbon Dioxide Level 30 MMOL/L (21-32) Anion Gap 7 mmol/L (5-15) Blood Urea Nitrogen 13 mg/dL (7-18) Creatinine 0.8 MG/DL (0.55-1.30) Estimat Glomerular Filtration Rate > 60 mL/min (>60) Glucose Level 87 MG/DL (74-106) Calcium Level 8.5 MG/DL (8.5-10.1) Current Medications Medications (Trade) Dose Ordered Sig/Julita Route PRN Reason Start Time Stop Time Status Last Admin Dose Admin Acetaminophen/ Hydrocodone Bitart ([place] 10/325) 1 ea Q4H PRN ORAL PAIN 4-10 01/05/17 16:00 01/10/17 15:59 01/08/17 12:22 Al Hydroxide/Mg Hydroxide (Mylanta) 15 ml TIDPRN PRN ORAL Dyspepsia 01/08/17 19:30 02/07/17 19:29 Aspirin (Ecotrin) 81 mg DAILY ORAL 01/06/17 09:00 02/03/17 08:59 01/10/17 09:02 Clonidine HCl (Catapres) 0.1 mg Q4H PRN ORAL SBP >160 01/06/17 16:30 02/05/17 16:29 01/06/17 21:39 Clopidogrel Bisulfate (Plavix) 75 mg DAILY ORAL 01/06/17 09:00 02/03/17 08:59 01/10/17 09:02 Fluticasone/ Vilanterol (Breo Ellipta 200/25) 1 puffs DAILY INH 01/11/17 11:00 02/10/17 10:59 Gabapentin (Neurontin) 600 mg Q6HR ORAL 01/05/17 18:00 02/02/17 17:59 01/10/17 05:47 Heparin Sodium (Porcine) (Heparin 5000 units/ml) 5,000 units EVERY 12 HOURS SUBQ 01/05/17 21:00 02/03/17 20:59 01/10/17 09:07 Levofloxacin (Levaquin) 750 mg DAILY ORAL 01/11/17 09:00 01/18/17 08:59 UNV Losartan Potassium (Cozaar) 50 mg DAILY ORAL 01/06/17 09:00 02/03/17 08:59 01/10/17 09:02 Nicotine (Nicoderm) 1 patch Q24H TDERMAL 01/08/17 13:30 02/07/17 13:29 01/09/17 13:34 Pantoprazole (Protonix) 40 mg ACBREAKFAST ORAL 01/06/17 06:30 02/03/17 06:29 01/10/17 05:47 Paroxetine HCl (Paxil) 30 mg BID ORAL 01/05/17 18:00 02/02/17 17:59 01/10/17 09:02 Pravastatin Sodium (Pravachol) 20 mg BEDTIME ORAL 01/05/17 21:00 02/02/17 20:59 01/09/17 21:04 Promethazine HCl/ Codeine (Phenergan with Codeine) 5 ml Q4H PRN ORAL For Cough 01/05/17 16:00 02/03/17 15:59 01/09/17 18:01 Sodium Chloride 1,000 ml @ 100 mls/hr Q10H IV 01/05/17 16:00 02/03/17 15:59 01/10/17 03:43 Tizanidine HCl (Zanaflex) 4 mg Q6H PRN ORAL Muscle Spasm 01/05/17 16:00 02/02/17 15:59 Zolpidem Tartrate (Ambien) 5 mg QHS PRN ORAL Insomnia 01/05/17 21:00 01/10/17 20:59 CHANDLER CASTRO Jan 10, 2017 11:28
[2017-01-10] MEDS ORDERED: Amikacin Rx to dose MISC PRN (11:30)
[2017-01-10 12:00] VITALS: BP 166/76
[2017-01-10] MEDS: Norco 10mg/325mg tab ORAL PRN (12:22)
--- NOTE | 2017-01-10 12:48 | General Progress Note ---
Assessment/Plan Problem List: (1) Hemoptysis ICD Codes: R04.2 - Hemoptysis SNOMED: 36913878 (2) Carotid stenosis ICD Codes: I65.29 - Occlusion and stenosis of unspecified carotid artery SNOMED: 79881982 (3) Pneumonia ICD Codes: J18.9 - Pneumonia, unspecified organism SNOMED: 256274992 Qualifiers: Qualified Codes: J18.9 - Pneumonia, unspecified organism (4) COPD exacerbation ICD Codes: J44.1 - Chronic obstructive pulmonary disease with (acute) exacerbation SNOMED: 191631648, 063848018 Status: stable, progressing Assessment/Plan iv abx per id steroids per pulm o2 mobilize dc planning when cleared by consultants hopefully tomorrow Subjective ROS Limited/Unobtainable: No Constitutional: Reports: malaise, weakness HEENT: Reports: no symptoms Cardiovascular: Reports: chest pain Respiratory: Reports: no symptoms, cough Gastrointestinal/Abdominal: Reports: no symptoms Genitourinary: Reports: no symptoms Neurologic/Psychiatric: Reports: no symptoms Endocrine: Reports: no symptoms Hematologic/Lymphatic: Reports: no symptoms Allergies: Coded Allergies: MORPHINE (Verified Allergy, Severe, Anaphylaxis, 11/14/16) PT RECEIVED 5 DOSES OF OXYCODONE ON PREVIOUS ADMISSION IN 06/2015. As per conversation with the patient. Patient denies having allergy reaction with [place]. She said " I have been taking [place] before and i have no allergy reactions. AMOXICILLIN (Verified Allergy, Mild, ITCHING, 06/15/15) itching CITRUS AND DERIVATIVES (Verified Allergy, Unknown, BREAKOUT, 06/15/15) breakout HYDROMORPHONE (Verified Allergy, Unknown, CHEST PAIN, 06/15/15) chest pain IODINE (Verified Allergy, Unknown, SWELLING, 06/15/15) swelling PENICILLINS (Verified Allergy, Unknown, ITCHING, 06/15/15) itching Uncoded Allergies: NYLON TAPE (Adverse Reaction, Intermediate, NIEVES THE SKIN, 06/21/15) All Systems: reviewed and negative except above Subjective less sob. +cp with deep inspiration. vq and ct negative. remains on iv abx. off iv steroids Objective Last 24 Hour Vital Signs Date Time Temp Pulse Resp B/P (MAP) Pulse Ox O2 Delivery O2 Flow Rate FiO2 01/10/17 12:25 166/76 01/10/17 09:02 133/77 01/10/17 08:00 97.3 72 22 133/77 98 Room Air 01/10/17 03:38 96.6 65 20 151/60 98 Room Air 01/10/17 00:00 97.7 60 19 145/59 95 Room Air 01/09/17 20:00 98.4 65 19 157/76 94 Room Air 01/09/17 15:44 98.0 62 19 146/61 95 Room Air Intake and Output 01/10/17 01/11/17 19:00 07:00 Intake Total 540 ml Balance 540 ml Intake Oral 240 ml IV Total 300 ml Laboratory Tests 01/10/17 05:10: White Blood Count 14.2H, Red Blood Count 3.94L, Hemoglobin 11.7L, Hematocrit 38.5, Mean Corpuscular Volume 98, Mean Corpuscular Hemoglobin 29.7, Mean Corpuscular Hemoglobin Concent 30.4L, Red Cell Distribution Width 13.6, Platelet Count 330, Mean Platelet Volume 5.4L, Neutrophils (%) (Auto) 53.6, Lymphocytes (%) (Auto) 35.9, Monocytes (%) (Auto) 8.3, Eosinophils (%) (Auto) 0.8, Basophils (%) (Auto) 1.4, Sodium Level 144, Potassium Level 4.1, Chloride Level 108H, Carbon Dioxide Level 30, Anion Gap 7, Blood Urea Nitrogen 13, Creatinine 0.8, Estimat Glomerular Filtration Rate > 60, Glucose Level 87, Calcium Level 8.5 Height (Feet): 5 Height (Inches): 2.00 Weight (Pounds): 162 Objective General Appearance: WD/WN, alert Neck: supple Cardiovascular: normal rate, regular rhythm Respiratory/Chest: chest wall non-tender, rhonchi - bilaterally, expiratory wheezing Abdomen: normal bowel sounds, non tender, soft, no organomegaly 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
--- NOTE | 2017-01-10 12:48 | General Progress Note ---
Assessment/Plan Problem List: (1) Hemoptysis ICD Codes: R04.2 - Hemoptysis SNOMED: 59118579 (2) Carotid stenosis ICD Codes: I65.29 - Occlusion and stenosis of unspecified carotid artery SNOMED: 46150978 (3) Pneumonia ICD Codes: J18.9 - Pneumonia, unspecified organism SNOMED: 885258663 Qualifiers: Qualified Codes: J18.9 - Pneumonia, unspecified organism (4) COPD exacerbation ICD Codes: J44.1 - Chronic obstructive pulmonary disease with (acute) exacerbation SNOMED: 376542468, 189977162 Status: stable, progressing Assessment/Plan iv abx per id steroids per pulm o2 mobilize dc planning when cleared by consultants hopefully tomorrow Subjective ROS Limited/Unobtainable: No Constitutional: Reports: malaise, weakness HEENT: Reports: no symptoms Cardiovascular: Reports: chest pain Respiratory: Reports: no symptoms, cough Gastrointestinal/Abdominal: Reports: no symptoms Genitourinary: Reports: no symptoms Neurologic/Psychiatric: Reports: no symptoms Endocrine: Reports: no symptoms Hematologic/Lymphatic: Reports: no symptoms Allergies: Coded Allergies: MORPHINE (Verified Allergy, Severe, Anaphylaxis, 11/14/16) PT RECEIVED 5 DOSES OF OXYCODONE ON PREVIOUS ADMISSION IN 06/2015. As per conversation with the patient. Patient denies having allergy reaction with [place]. She said " I have been taking [place] before and i have no allergy reactions. AMOXICILLIN (Verified Allergy, Mild, ITCHING, 06/15/15) itching CITRUS AND DERIVATIVES (Verified Allergy, Unknown, BREAKOUT, 06/15/15) breakout HYDROMORPHONE (Verified Allergy, Unknown, CHEST PAIN, 06/15/15) chest pain IODINE (Verified Allergy, Unknown, SWELLING, 06/15/15) swelling PENICILLINS (Verified Allergy, Unknown, ITCHING, 06/15/15) itching Uncoded Allergies: NYLON TAPE (Adverse Reaction, Intermediate, NIEVES THE SKIN, 06/21/15) All Systems: reviewed and negative except above Subjective less sob. +cp with deep inspiration. vq and ct negative. remains on iv abx. off iv steroids Objective Last 24 Hour Vital Signs Date Time Temp Pulse Resp B/P (MAP) Pulse Ox O2 Delivery O2 Flow Rate FiO2 01/10/17 12:25 166/76 01/10/17 09:02 133/77 01/10/17 08:00 97.3 72 22 133/77 98 Room Air 01/10/17 03:38 96.6 65 20 151/60 98 Room Air 01/10/17 00:00 97.7 60 19 145/59 95 Room Air 01/09/17 20:00 98.4 65 19 157/76 94 Room Air 01/09/17 15:44 98.0 62 19 146/61 95 Room Air Intake and Output 01/10/17 01/11/17 19:00 07:00 Intake Total 540 ml Balance 540 ml Intake Oral 240 ml IV Total 300 ml Laboratory Tests 01/10/17 05:10: White Blood Count 14.2H, Red Blood Count 3.94L, Hemoglobin 11.7L, Hematocrit 38.5, Mean Corpuscular Volume 98, Mean Corpuscular Hemoglobin 29.7, Mean Corpuscular Hemoglobin Concent 30.4L, Red Cell Distribution Width 13.6, Platelet Count 330, Mean Platelet Volume 5.4L, Neutrophils (%) (Auto) 53.6, Lymphocytes (%) (Auto) 35.9, Monocytes (%) (Auto) 8.3, Eosinophils (%) (Auto) 0.8, Basophils (%) (Auto) 1.4, Sodium Level 144, Potassium Level 4.1, Chloride Level 108H, Carbon Dioxide Level 30, Anion Gap 7, Blood Urea Nitrogen 13, Creatinine 0.8, Estimat Glomerular Filtration Rate > 60, Glucose Level 87, Calcium Level 8.5 Height (Feet): 5 Height (Inches): 2.00 Weight (Pounds): 162 Objective General Appearance: WD/WN, alert Neck: supple Cardiovascular: normal rate, regular rhythm Respiratory/Chest: chest wall non-tender, rhonchi - bilaterally, expiratory wheezing Abdomen: normal bowel sounds, non tender, soft, no organomegaly 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
--- NOTE | 2017-01-10 12:48 | General Progress Note ---
Assessment/Plan Problem List: (1) Hemoptysis ICD Codes: R04.2 - Hemoptysis SNOMED: 82677621 (2) Carotid stenosis ICD Codes: I65.29 - Occlusion and stenosis of unspecified carotid artery SNOMED: 40357021 (3) Pneumonia ICD Codes: J18.9 - Pneumonia, unspecified organism SNOMED: 404324313 Qualifiers: Qualified Codes: J18.9 - Pneumonia, unspecified organism (4) COPD exacerbation ICD Codes: J44.1 - Chronic obstructive pulmonary disease with (acute) exacerbation SNOMED: 733380318, 432858497 Status: stable, progressing Assessment/Plan iv abx per id steroids per pulm o2 mobilize dc planning when cleared by consultants hopefully tomorrow Subjective ROS Limited/Unobtainable: No Constitutional: Reports: malaise, weakness HEENT: Reports: no symptoms Cardiovascular: Reports: chest pain Respiratory: Reports: no symptoms, cough Gastrointestinal/Abdominal: Reports: no symptoms Genitourinary: Reports: no symptoms Neurologic/Psychiatric: Reports: no symptoms Endocrine: Reports: no symptoms Hematologic/Lymphatic: Reports: no symptoms Allergies: Coded Allergies: MORPHINE (Verified Allergy, Severe, Anaphylaxis, 11/14/16) PT RECEIVED 5 DOSES OF OXYCODONE ON PREVIOUS ADMISSION IN 06/2015. As per conversation with the patient. Patient denies having allergy reaction with [place]. She said " I have been taking [place] before and i have no allergy reactions. AMOXICILLIN (Verified Allergy, Mild, ITCHING, 06/15/15) itching CITRUS AND DERIVATIVES (Verified Allergy, Unknown, BREAKOUT, 06/15/15) breakout HYDROMORPHONE (Verified Allergy, Unknown, CHEST PAIN, 06/15/15) chest pain IODINE (Verified Allergy, Unknown, SWELLING, 06/15/15) swelling PENICILLINS (Verified Allergy, Unknown, ITCHING, 06/15/15) itching Uncoded Allergies: NYLON TAPE (Adverse Reaction, Intermediate, NIEVES THE SKIN, 06/21/15) All Systems: reviewed and negative except above Subjective less sob. +cp with deep inspiration. vq and ct negative. remains on iv abx. off iv steroids Objective Last 24 Hour Vital Signs Date Time Temp Pulse Resp B/P (MAP) Pulse Ox O2 Delivery O2 Flow Rate FiO2 01/10/17 12:25 166/76 01/10/17 09:02 133/77 01/10/17 08:00 97.3 72 22 133/77 98 Room Air 01/10/17 03:38 96.6 65 20 151/60 98 Room Air 01/10/17 00:00 97.7 60 19 145/59 95 Room Air 01/09/17 20:00 98.4 65 19 157/76 94 Room Air 01/09/17 15:44 98.0 62 19 146/61 95 Room Air Intake and Output 01/10/17 01/11/17 19:00 07:00 Intake Total 540 ml Balance 540 ml Intake Oral 240 ml IV Total 300 ml Laboratory Tests 01/10/17 05:10: White Blood Count 14.2H, Red Blood Count 3.94L, Hemoglobin 11.7L, Hematocrit 38.5, Mean Corpuscular Volume 98, Mean Corpuscular Hemoglobin 29.7, Mean Corpuscular Hemoglobin Concent 30.4L, Red Cell Distribution Width 13.6, Platelet Count 330, Mean Platelet Volume 5.4L, Neutrophils (%) (Auto) 53.6, Lymphocytes (%) (Auto) 35.9, Monocytes (%) (Auto) 8.3, Eosinophils (%) (Auto) 0.8, Basophils (%) (Auto) 1.4, Sodium Level 144, Potassium Level 4.1, Chloride Level 108H, Carbon Dioxide Level 30, Anion Gap 7, Blood Urea Nitrogen 13, Creatinine 0.8, Estimat Glomerular Filtration Rate > 60, Glucose Level 87, Calcium Level 8.5 Height (Feet): 5 Height (Inches): 2.00 Weight (Pounds): 162 Objective General Appearance: WD/WN, alert Neck: supple Cardiovascular: normal rate, regular rhythm Respiratory/Chest: chest wall non-tender, rhonchi - bilaterally, expiratory wheezing Abdomen: normal bowel sounds, non tender, soft, no organomegaly 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
--- NOTE | 2017-01-10 14:11 | Diagnostic Imaging Report ---
Indication: Dyspnea Comparison: None A single view chest radiograph was obtained. Findings: Cardiomediastinal appearance is within normal limits for age. Pulmonary vascularity is appropriate. The diaphragmatic contour is smooth and costophrenic angles are sharp. No pleural effusions are identified. The bones are osteopenic. Impression: No acute findings
[2017-01-10 16:00] VITALS: BP 136/56
[2017-01-10] MEDS: Amikacin 1,000 MG in NS 275 ML IV SCH (18:15)
[2017-01-10 20:00] VITALS: BP 138/62
[2017-01-10] MEDS: Promethazine/Codeine 5ml UD ORAL PRN (23:24)
[2017-01-11 00:15] VITALS: BP 121/65
--- NOTE | 2017-01-11 01:00 | Progress Note ---
DATE: 01/10/2017 CARDIOLOGY PROGRESS NOTE SUBJECTIVE: The patient is not having any withdrawal symptoms with the nicotine patch. She is happy about stopping smoking for now. The patient has less cough. No hemoptysis. No congestion. OBJECTIVE: VITAL SIGNS: Blood pressure is 166/76 earlier and now 126/56 with heart rate 66, respiratory rate 20, and afebrile. Room air oxygen saturation is 98%. HEENT/NECK: Supple. Facial asymmetry. LUNGS: With coarse breath sounds. CARDIAC: Regular rhythm and rate. Normal S1 and S2 with a fourth heart sound. ABDOMEN: Soft. EXTREMITIES: No edema. LABORATORY STUDIES: White count is 14 and hemoglobin 11.7. Potassium is 4.1, BUN 13, and creatinine 0.8. IMPRESSION: Significantly improved. Blood pressure lability is likely due to steroids. Neurologic deficits are chronic. The patient does not have any hypoxic criteria for home oxygen. PLAN: Anticipate discharge home tomorrow. Discharge planning in progress. Medications reviewed and updated. Nicotine patch will be continued. Rosendo Palacios M.D. DR: Usman JOB#: [id number] CC:
[2017-01-11 04:00] VITALS: BP 130/70
[2017-01-11 07:08] LABS: ANION GAP 7 mmol/L (5-15); BLOOD UREA NITROGEN 11 mg/dL (7-18); CALCIUM 8.6 MG/DL (8.5-10.1); CARBON DIOXIDE 31 MMOL/L (21-32); CHLORIDE 106 MMOL/L (98-107); CREATININE 0.8 MG/DL (0.55-1.30); SODIUM 144 MMOL/L (136-145)
[2017-01-11 07:52] LABS: BASOPHILS % (AUTO) 0.8 % (0.0-2.0); EOSINOPHILS % (AUTO) 3.1 % (0.0-3.0); HEMATOCRIT 36.4 % (37.0-47.0); LYMPHOCYTES % (AUTO) 37.6 % (20.0-45.0); MEAN CORPUSCULAR VOLUME 98 FL (80-99); NEUTROPHILS % (AUTO) 50.5 % (45.0-75.0); PLATELET COUNT 347 K/UL (150-450); RED CELL DISTRIBUTION WIDTH 13.7 % (11.6-14.8); WHITE BLOOD COUNT 12.4 K/UL (4.8-10.8)
[2017-01-11 08:00] VITALS: BP 136/66
[2017-01-11] MEDS ORDERED: LEVAQUIN500 MG ORAL (08:52)
[2017-01-11] MEDS: PARoxetine 10mg tab ORAL SCH (08:56)
[2017-01-11] MEDS: Losartan 50mg tab ORAL SCH (08:56)
[2017-01-11] MEDS: Aspirin EC 81mg tab ORAL SCH (08:56)
[2017-01-11] MEDS: Heparin 5000 units/ml inj SUBQ SCH (08:59)
[2017-01-11] MEDS ORDERED: Levofloxacin 500mg tab ORAL SCH (09:00)
--- NOTE | 2017-01-11 09:01 | Pulmonology Progress Note ---
Assessment/Plan Assessment/Plan IMPRESSION: 1. Pulmonary congestion 2. Hemoptysis, 3. bronchitis 4. Chronic obstructive pulmonary disease per history. Recommendations: ok to dc Breo on discharge albuterol PRN off prednisone follow up for PFT and nitric oxide testing bronchoscopy if hemoptysis recurs impression, plan, and exam edited and reviewed in detail care discussed with RN Subjective Allergies: Coded Allergies: MORPHINE (Verified Allergy, Severe, Anaphylaxis, 11/14/16) PT RECEIVED 5 DOSES OF OXYCODONE ON PREVIOUS ADMISSION IN 06/2015. As per conversation with the patient. Patient denies having allergy reaction with [place]. She said " I have been taking [place] before and i have no allergy reactions. AMOXICILLIN (Verified Allergy, Mild, ITCHING, 06/15/15) itching CITRUS AND DERIVATIVES (Verified Allergy, Unknown, BREAKOUT, 06/15/15) breakout HYDROMORPHONE (Verified Allergy, Unknown, CHEST PAIN, 06/15/15) chest pain IODINE (Verified Allergy, Unknown, SWELLING, 06/15/15) swelling PENICILLINS (Verified Allergy, Unknown, ITCHING, 06/15/15) itching Uncoded Allergies: NYLON TAPE (Adverse Reaction, Intermediate, NIEVES THE SKIN, 06/21/15) Subjective stable NAD d/w Dr. Hdz remains comfortable and no distress Objective Last 24 Hour Vital Signs Date Time Temp Pulse Resp B/P (MAP) Pulse Ox O2 Delivery O2 Flow Rate FiO2 01/11/17 08:56 130/70 01/11/17 04:00 98.4 62 20 130/70 96 Room Air 01/11/17 00:15 98.1 62 20 121/65 96 Room Air 01/10/17 20:00 98.3 62 20 138/62 95 Room Air 01/10/17 16:00 97.2 66 20 136/56 98 Room Air 01/10/17 13:21 97.3 01/10/17 12:25 166/76 01/10/17 12:00 96.8 61 21 166/76 99 01/10/17 09:02 133/77 Objective WDWN NAD reduced breath sounds bilaterally without rhonchi or wheeze [id number] without MRG NABS nontender no HSM no CCE nonfocal fully alert Laboratory Tests 01/11/17 05:20: White Blood Count 12.4H, Red Blood Count 3.70L, Hemoglobin 11.0L, Hematocrit 36.4L, Mean Corpuscular Volume 98, Mean Corpuscular Hemoglobin 29.6, Mean Corpuscular Hemoglobin Concent 30.1L, Red Cell Distribution Width 13.7, Platelet Count 347, Mean Platelet Volume 5.4L, Neutrophils (%) (Auto) 50.5, Lymphocytes (%) (Auto) 37.6, Monocytes (%) (Auto) 8.0, Eosinophils (%) (Auto) 3.1H, Basophils (%) (Auto) 0.8, Sodium Level 144, Potassium Level 5.0, Chloride Level 106, Carbon Dioxide Level 31, Anion Gap 7, Blood Urea Nitrogen 11, Creatinine 0.8, Estimat Glomerular Filtration Rate > 60, Glucose Level 88, Calcium Level 8.6 Current Medications Medications (Trade) Dose Ordered Sig/Julita Route PRN Reason Start Time Stop Time Status Last Admin Dose Admin Al Hydroxide/Mg Hydroxide (Mylanta) 15 ml TIDPRN PRN ORAL Dyspepsia 01/08/17 19:30 02/07/17 19:29 Amikacin Protocol (Amikacin pharmacy to dose) 1 ea DAILY PRN MISC Per rx protocol 01/10/17 11:30 02/09/17 11:29 Amikacin Sulfate 1000 mg/Sodium Chloride 279 ml @ 279 mls/hr Q24H IV 01/08/17 18:00 01/15/17 17:59 01/10/17 18:15 Aspirin (Ecotrin) 81 mg DAILY ORAL 01/06/17 09:00 02/03/17 08:59 01/11/17 08:56 Clonidine HCl (Catapres) 0.1 mg Q4H PRN ORAL SBP >160 01/06/17 16:30 02/05/17 16:29 01/10/17 12:25 Clopidogrel Bisulfate (Plavix) 75 mg DAILY ORAL 01/06/17 09:00 02/03/17 08:59 01/11/17 08:56 Fluticasone/ Vilanterol (Breo Ellipta 200/25) 1 puffs DAILY INH 01/11/17 11:00 02/10/17 10:59 Gabapentin (Neurontin) 600 mg Q6HR ORAL 01/05/17 18:00 02/02/17 17:59 01/11/17 05:50 Heparin Sodium (Porcine) (Heparin 5000 units/ml) 5,000 units EVERY 12 HOURS SUBQ 01/05/17 21:00 02/03/17 20:59 01/11/17 08:59 Levofloxacin (Levaquin) 750 mg DAILY ORAL 01/11/17 09:00 01/18/17 08:59 01/11/17 08:57 Losartan Potassium (Cozaar) 50 mg DAILY ORAL 01/06/17 09:00 02/03/17 08:59 01/11/17 08:56 Nicotine (Nicoderm) 1 patch Q24H TDERMAL 01/08/17 13:30 02/07/17 13:29 01/10/17 12:25 Pantoprazole (Protonix) 40 mg ACBREAKFAST ORAL 01/06/17 06:30 02/03/17 06:29 01/11/17 05:50 Paroxetine HCl (Paxil) 30 mg BID ORAL 01/05/17 18:00 02/02/17 17:59 01/11/17 08:56 Pravastatin Sodium (Pravachol) 20 mg BEDTIME ORAL 01/05/17 21:00 02/02/17 20:59 01/10/17 22:28 Promethazine HCl/ Codeine (Phenergan with Codeine) 5 ml Q4H PRN ORAL For Cough 01/05/17 16:00 02/03/17 15:59 01/10/17 23:24 Tizanidine HCl (Zanaflex) 4 mg Q6H PRN ORAL Muscle Spasm 01/05/17 16:00 02/02/17 15:59 MARSHALL RUGGIERO Jan 11, 2017 09:01
[2017-01-11] MEDS ORDERED: Tubing IV Secondary IV ONE (10:50)
[2017-01-11] MEDS ORDERED: Breo Ellipta 200/25mcg-14 dose INH SCH (11:00)
[2017-01-11 12:00] VITALS: BP 129/55
--- NOTE | 2017-01-12 00:30 | Progress Note ---
DATE: 01/11/2017 CARDIOLOGY PROGRESS NOTE SUBJECTIVE: No chest pain. No shortness of breath. Less congestion. Ambulatory. Not smoking with a nicotine patch on. Blood pressure parameters have improved. OBJECTIVE: VITAL SIGNS: Blood pressure 129/55, pulse 74, and respirations 18. NECK: Supple. LUNGS: Few rhonchi. HEART: Regular rhythm and rate. Normal S1 and S2. ABDOMEN: Soft. EXTREMITIES: No edema. NEUROLOGIC: Mild facial asymmetry, unchanged from baseline. IMPRESSION: 1. Hypertension, controlled. 2. Chronic obstructive pulmonary disease exacerbation, resolved. 3. Multi-drug resistant pneumonia, recovered. 4. Pulmonary hypertension, chronic. 5. Cerebrovascular disease with chronic right carotid stenosis. 6. Nicotine abuse. PLAN: 1. Discharge home on current medications. 2. Nicotine patch ordered. Advised not to resume smoking, but if she had to, the patch should be immediately removed. 3. Cardiovascular medications including anti-platelet therapy and statin discussed. Rosendo Palacios M.D. DR: SNEHA JOB#: [id number] CC:
--- NOTE | 2017-01-12 02:00 | Discharge Summary ---
DATE OF ADMISSION: 01/03/2017 DATE OF DISCHARGE: 01/11/2017 ADMISSION DIAGNOSES: 1. Chronic obstructive pulmonary disease exacerbation. 2. Pneumonia. 3. Sepsis. 4. Toxic metabolic encephalopathy. 5. Acute renal failure. 6. Dehydration. 7. Anemia. DISCHARGE DIAGNOSES: 1. Chronic obstructive pulmonary disease exacerbation. 2. Pneumonia. 3. Sepsis. 4. Toxic metabolic encephalopathy. 5. Acute renal failure. 6. Dehydration. 7. Anemia. HOSPITAL COURSE: The patient is a pleasant female, admitted with complaints of fevers and shortness of breath. She was diagnosed with community-acquired pneumonia, sepsis, dehydration, acute renal failure, and COPD exacerbation. She received IV antibiotics. She was pancultured. She had an x-ray and later CT scan, venous duplex, as well as a V/Q scan. The patient's hospital course is complicated with recurrent bronchospasm, restarting of intravenous steroids. She received broad-spectrum antibiotic therapy. ID, Pulmonary, and Cardiology all followed the patient. On discharge, the patient was doing well. She will be discharged to complete 6 days of oral Levaquin therapy for community-acquired pneumonia. DISCHARGE MEDICATIONS: Please see discharge medication list for discharge medications. DIET: Cardiac. ACTIVITY: Ad-litzy. FOLLOWUP: The patient will follow up in the office in 1 to 2 weeks. Demario Hdz M.D. DR: OSCAR JOB#: [id number] CC:
== END 2017-01-11 13:25 | disposition home or self-care (01) | DRG 871 ==
LOC: EMR 11:05 → 2E 11:37 → EDBEDREQ 13:37 → 4E 01-05 13:48
DX: A41.9 Sepsis, unspecified organism (principal); J18.9 Pneumonia, unspecified organism; N17.9 Acute kidney failure, unspecified; E46 Unspecified protein-calorie malnutrition; G92 Toxic encephalopathy; I11.9 Hypertensive heart disease without heart failure; I27.20 Pulmonary hypertension, unspecified; J44.1 Chronic obstructive pulmonary disease with (acute) exacerbation; R04.2 Hemoptysis; E86.0 Dehydration; Z88.6 Allergy status to analgesic agent; Z88.1 Allergy status to other antibiotic agents; Z88.0 Allergy status to penicillin; Z86.73 Personal history of transient ischemic attack (TIA), and cerebral infarction without residual deficits; I25.10 Atherosclerotic heart disease of native coronary artery without angina pectoris; D64.9 Anemia, unspecified; E78.5 Hyperlipidemia, unspecified; G51.0 Bell's palsy; I51.3 Intracardiac thrombosis, not elsewhere classified; R73.9 Hyperglycemia, unspecified; T38.0X5A Adverse effect of glucocorticoids and synthetic analogues, initial encounter; J40 Bronchitis, not specified as acute or chronic; I65.21 Occlusion and stenosis of right carotid artery; F17.200 Nicotine dependence, unspecified, uncomplicated
CPT/HCPCS: 36415; 71010; 71250; 78579; 78580; 80048; 80053; 80150; 81003; 82164; 82550; 82553; 83605; 83880; 84484; 85007; 85025; 86710; 86738; 87040; 87070; 87181; 87205; 93005; 94640; 94664; 94760; 99285; A9503; J7620

== ENCOUNTER → 2017-01-30 | Outpatient (CLI) | payer MEDICARE, MEDICAID ==
[~2017-01-30] MED LIST changes: +DOXYCYCLINE MO100 MG ORAL; +LEVAQUIN500 MG ORAL
--- NOTE | 2017-01-30 16:00 | Diagnostic Imaging Report ---
Indication: Left upper quadrant abdominal pain Technique: Patient ingested oral contrast. No IV contrast, due to history of iodine allergy and for physician request. Spiral acquisitions obtained through the abdomen only, per ordering physician request Multiplanar reconstructions were generated. Total dose length product 512 mGycm. CTDIvol(s) 15 mGy. Radiation dose was minimized using automated exposure control Comparison: 06/17/[address] Findings: Beginning at the level of the splenic flexure of the colon, there is suggestion of mural thickening surrounding the contrast column and possible gas within the thickened colon wall. There is no pericolonic infiltration. This finding is not evident on the prior study or the recent chest CT of 01/07/2017. Previously demonstrated changes of ascending colon diverticulitis are no longer evident. Again demonstrated is extensive colonic diverticulosis. Again noted is a hiatal hernia, distal esophageal wall thickening, and postsurgical changes of the distal esophagus and stomach. There is residual contrast within the esophagus. The included small bowel demonstrates no evidence of wall thickening or distention. The lack of IV contrast limits assessment of the solid organs. The gallbladder is surgically absent. No gross hepatic abnormality. The bile ducts are unremarkable. The pancreas, spleen, adrenals, kidneys are unremarkable. Again demonstrated is atrophy of the rectus abdominis muscle. Calcifications are seen within the aorta. The included lung bases demonstrate a small cystic space in the right lower lobe. Minimal atelectasis is seen at the left lung base. The bones are remarkable for minimal degenerative spondylosis changes. There is a small amount of thickening or fluid in the anterior pericardium, not evident on the prior abdomen pelvis CT but described on more recent chest CT of 01/08/2017. Impression: Findings suggestive of wall thickening with pneumatosis of the descending colon beginning at the splenic flexure. This could be pseudo-pneumatosis due to predominantly peripheral distribution of feces. However, the possibility of true pneumatosis, and its various causes such as ischemia, infectious or noninfectious colitis, as well as benign pneumatosis should also be considered. This critical value finding was discussed by phone with Dr. Palacios at the time of interpretation Interim resolution of previously demonstrated ascending colon diverticulitis. There is again noted extensive colonic diverticulosis Post surgical changes of the distal esophagus and stomach. Small hiatal hernia. Stable wall thickening of the distal esophagus, could be related to the above or could indicate acute esophagitis changes. There is also dilatation of the esophagus proximal to this which is nonspecific Surgically absent gallbladder Other findings as noted, including right lower lobe cystic space, minimal degenerative spondylosis, minimal basilar pulmonary parenchymal atelectasis, rectus abdominis muscle atrophy, minimal anterior wall pericardial effusion versus thickening The CT scanner at [facility] is accredited by the [employer] [employer] and the scans are performed using protocols designed to limit radiation exposure to as low as reasonably achievable to attain images of sufficient resolution adequate for diagnostic evaluation.
== END | disposition home or self-care (01) ==
LOC: CAT 11:00
DX: R10.12 Left upper quadrant pain (principal); Z90.49 Acquired absence of other specified parts of digestive tract; M47.9 Spondylosis, unspecified; J98.11 Atelectasis; K44.9 Diaphragmatic hernia without obstruction or gangrene; K57.92 Diverticulitis of intestine, part unspecified, without perforation or abscess without bleeding
CPT/HCPCS: 74150

== ENCOUNTER 2017-02-14 09:43 | Inpatient (IN) | payer MEDICARE, MEDICAID ==
[~2017-02-14] VITALS: Ht 157.5 cm; Wt 72.6 kg
[~2017-02-14 09:43] MED LIST changes: -DOXYCYCLINE MO100 MG ORAL
[2017-02-14 10:05] VITALS: BP 114/88
[2017-02-14] MEDS ORDERED: DiphenhydrAMINE 50mg/ml Inj IVP ONE (10:30)
[2017-02-14] MEDS ORDERED: fentaNYL 100 mcg/2 mL IV ONE ×2 (10:30→13:30)
[2017-02-14] MEDS ORDERED: Metoclopramide 10mg/2ml Inj IVP ONE (10:30)
[2017-02-14 11:01] LABS: BASOPHILS % (AUTO) 1.8 % (0.0-2.0); EOSINOPHILS % (AUTO) 2.4 % (0.0-3.0); MEAN CORPUSCULAR HEMOGLOBIN 29.7 PG (27.0-31.0); MEAN CORPUSCULAR VOLUME 93 FL (80-99); MEAN PLATELET VOLUME 6.1 FL (6.5-10.1); NEUTROPHILS % (AUTO) 51.9 % (45.0-75.0); PLATELET COUNT 332 K/UL (150-450); RED BLOOD COUNT 4.41 M/UL (4.20-5.40); WHITE BLOOD COUNT 9.3 K/UL (4.8-10.8)
[2017-02-14 11:14] LABS: ANION GAP 6 mmol/L (5-15); CARBON DIOXIDE 27 MMOL/L (21-32); CHLORIDE 107 MMOL/L (98-107); CREATININE 0.7 MG/DL (0.55-1.30); GLOMERULAR FILTRATION RATE > 60 mL/min (>60); INR 0.9 (0.9-1.1); POTASSIUM 4.7 MMOL/L (3.5-5.1); PROTHROMBIN TIME 9.4 SEC (9.30-11.50); SODIUM 140 MMOL/L (136-145)
[2017-02-14 11:18] LABS: ALANINE AMINOTRANSFERASE 17 U/L (12-78); ALBUMIN/GLOBULIN RATIO 0.9 (1.0-2.7); ASPARTATE AMINO TRANSFERASE 23 U/L (15-37); LIPASE 118 U/L (73-393); TOTAL PROTEIN 7.3 G/DL (6.4-8.2)
[2017-02-14 11:25] LABS: KETONES,URINE NEGATIVE (NEGATIVE); LEUKOCYTE ESTERASE ,URINE NEGATIVE (NEGATIVE); NITRITE,URINE NEGATIVE (NEGATIVE); PH,URINE 5 (4.5-8.0); PROTEIN,URINE NEGATIVE (NEGATIVE); UROBILINOGEN,URINE NORMAL MG/DL (0.0-1.0)
[2017-02-14 11:28] LABS: APPEARANCE,URINE CLEAR
[2017-02-14 12:10] VITALS: BP 156/92
--- NOTE | 2017-02-14 13:09 | Emergency Room Report ---
History of Present Illness General Chief Complaint: Abdominal Pain Source: Patient Present Illness HPI The patient presents with abdominal pain. She states the 2 areas where she has pain. One is below the umbilicus and then one is the left upper flank anteriorly. She was seen by Dr. Harper and a CT was done January 30 which suggested she might have pneumatosis in the colon. She does take antibiotics right now. She's been unable to keep down pain medication and she rates her pain at 10/10. The pain is constant, sharp and pressure more L flank, LLQ. No dysuria, cough, chest pain, headache, dizziness. She has chronic knee pain. Depressed over continued pain. Allergies: Coded Allergies: MORPHINE (Verified Allergy, Severe, Anaphylaxis, 11/14/16) PT RECEIVED 5 DOSES OF OXYCODONE ON PREVIOUS ADMISSION IN 06/2015. As per conversation with the patient. Patient denies having allergy reaction with [place]. She said " I have been taking [place] before and i have no allergy reactions. CITRUS AND DERIVATIVES (Verified Allergy, Unknown, BREAKOUT, 06/15/15) breakout HYDROMORPHONE (Verified Allergy, Unknown, CHEST PAIN, 06/15/15) chest pain IODINE (Verified Allergy, Unknown, SWELLING, 06/15/15) swelling PENICILLINS (Verified Allergy, Unknown, ITCHING, 06/15/15) itching Uncoded Allergies: NYLON TAPE (Adverse Reaction, Intermediate, NIEVES THE SKIN, 06/21/15) Patient History Past Medical History: see triage record, old chart reviewed Past Surgical History: sivan, other - arthroscopies, mult Social History: Reports: smoking - former Social History Narrative at home Last Menstrual Period: NA Reviewed Nursing Documentation: PMH: Agreed, PSxH: Agreed Nursing Documentation-PMH Past Medical History: No History, Except For Hx Cardiac Problems: No Hx Hypertension: No Hx Pacemaker: No Hx Asthma: No Hx COPD: Yes Hx Diabetes: No Hx Cancer: No Hx Gastrointestinal Problems: No Hx Dialysis: No Hx Neurological Problems: Yes - 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 Hx Cerebrovascular Accident: Yes - TIA Hx Seizures: No Review of Systems All Other Systems: negative except mentioned in HPI Physical Exam Vital Signs Date Time Temp Pulse Resp B/P (MAP) Pulse Ox O2 Delivery O2 Flow Rate FiO2 02/14/17 09:55 97.9 64 16 116/59 95 Room Air Sp02 EP Interpretation: reviewed, normal General Appearance: well appearing, no apparent distress, GCS 15 Head: normocephalic, atraumatic Eyes: bilateral eye normal inspection, bilateral eye PERRL ENT: moist mucus membranes Neck: supple Respiratory: lungs clear, normal breath sounds Cardiovascular #1: regular rate, rhythm Cardiovascular #2: 2+ radial (R) Gastrointestinal: no mass, non-distended, no rebound, guarding, tenderness - L flank and over cellulitic area, overweight Genitourinary: no CVA tenderness Musculoskeletal: back normal, gait/station normal, normal range of motion Neurologic: alert, oriented x3, grossly normal Skin: warm/dry, other - erythema with some nodularity region beloe belly button , 4x5 cm, no fluctuance Medical Decision Making Diagnostic Impression: Primary Impression: Abdominal pain Qualified Codes: R10.32 - Left lower quadrant pain Additional Impression: Abdominal wall cellulitis ER Course Patient with abdominal pain and abnormal CT with evidence of cellulitis. Ddx: diverticulitis, GItis, colitis, exacerbation chronic pain, cellulitis pain. Patient also states not able to keep down pain medicines. Urgent evaluation with EKG, labs. As cellulitis worsening and unable to tolerate PO, will need admission for IV hydration, antibiotics and also analgesia (mult allergies noted ). Exam against abscess at this time. EKG no injury. Labs with normal WBC and lytes. CT reviewed from 01/30: Impression: Findings suggestive of wall thickening with pneumatosis of the descending colon beginning at the splenic flexure. This could be pseudo- pneumatosis due to predominantly peripheral distribution of feces. However, the possibility of true pneumatosis, and its various causes such as ischemia, infectious or noninfectious colitis, as well as benign pneumatosis should also be considered. This critical value finding was discussed by phone with Dr. Palacios at the time of interpretation Interim resolution of previously demonstrated ascending colon diverticulitis. There is again noted extensive colonic diverticulosis Post surgical changes of the distal esophagus and stomach. Small hiatal hernia. Stable wall thickening of the distal esophagus, could be related to the above or could indicate acute esophagitis changes. There is also dilatation of the esophagus proximal to this which is nonspecific Surgically absent gallbladder Other findings as noted, including right lower lobe cystic space, minimal degenerative spondylosis, minimal basilar pulmonary parenchymal atelectasis, rectus abdominis muscle atrophy, minimal anterior wall pericardial effusion versus thickening Patient improved but still with severe pain after fentanyl. Wants to eat. Ice chips ordered. Due to cellulitis and persistent abdominal pain, patient admitted for IV antibiotics, hydration and continued pain control. Admit Dr. Andreina kapoor Laboratory Tests Test 02/14/17 10:40 02/14/17 10:50 White Blood Count 9.3 K/UL (4.8-10.8) Red Blood Count 4.41 M/UL (4.20-5.40) Hemoglobin 13.1 G/DL (12.0-16.0) Hematocrit 41.0 % (37.0-47.0) Mean Corpuscular Volume 93 FL (80-99) Mean Corpuscular Hemoglobin 29.7 PG (27.0-31.0) Mean Corpuscular Hemoglobin Concent 32.0 G/DL (32.0-36.0) Red Cell Distribution Width 13.0 % (11.6-14.8) Platelet Count 332 K/UL (150-450) Mean Platelet Volume 6.1 FL (6.5-10.1) L Neutrophils (%) (Auto) 51.9 % (45.0-75.0) Lymphocytes (%) (Auto) 34.0 % (20.0-45.0) Monocytes (%) (Auto) 10.0 % (1.0-10.0) Eosinophils (%) (Auto) 2.4 % (0.0-3.0) Basophils (%) (Auto) 1.8 % (0.0-2.0) Prothrombin Time 9.4 SEC (9.30-11.50) Prothrombin Time INR 0.9 (0.9-1.1) PTT 25 SEC (23-33) Sodium Level 140 MMOL/L (136-145) Potassium Level 4.7 MMOL/L (3.5-5.1) Chloride Level 107 MMOL/L (98-107) Carbon Dioxide Level 27 MMOL/L (21-32) Anion Gap 6 mmol/L (5-15) Blood Urea Nitrogen 12 mg/dL (7-18) Creatinine 0.7 MG/DL (0.55-1.30) Estimate Glomerular Filtration Rate > 60 mL/min (>60) Glucose Level 91 MG/DL (74-106) Lactic Acid Level 1.00 mmol/L (0.66-2.22) Calcium Level 9.0 MG/DL (8.5-10.1) Total Bilirubin 0.3 MG/DL (0.2-1.0) Aspartate Amino Transferase (AST) 23 U/L (15-37) Alanine Aminotransferase (ALT) 17 U/L (12-78) Alkaline Phosphatase 83 U/L (46-116) Total Protein 7.3 G/DL (6.4-8.2) Albumin 3.5 G/DL (3.4-5.0) Globulin 3.8 g/dL Albumin/Globulin Ratio 0.9 (1.0-2.7) L Lipase 118 U/L (73-393) Urine Color Yellow Urine Appearance Clear Urine pH 5 (4.5-8.0) Urine Specific [place] 1.020 (1.005-1.035) Urine Protein Negative (NEGATIVE) Urine Glucose (UA) Negative (NEGATIVE) Urine Ketones Negative (NEGATIVE) Urine Occult Blood Negative (NEGATIVE) Urine Nitrite Negative (NEGATIVE) Urine Bilirubin Negative (NEGATIVE) Urine Urobilinogen Normal MG/DL (0.0-1.0) Urine Leukocyte Esterase Negative (NEGATIVE) EKG Diagnostic Results Rate: normal Rhythm: NSR ST Segments: no acute changes Rhythm Strip Diag. Results EP Interpretation: yes Rhythm: NSR, no PVC's, no ectopy Last Vital Signs Date Time Temp Pulse Resp B/P (MAP) Pulse Ox O2 Delivery O2 Flow Rate FiO2 02/14/17 14:17 98.3 67 20 131/58 95 Room Air Status: improved Disposition: ADMITTED INPATIENT Condition: Serious Referrals: JOEY CASTILLO (PCP) Rosendo Ramirez M.D. Feb 14, 2017 13:09
[2017-02-14] MEDS ORDERED: Cefepime HCl 1 GM in D5W 55 ML IVPB ONE (13:15)
[2017-02-14] MEDS ORDERED: Cefepime 1gm vial ONE (13:19)
[2017-02-14 14:02] VITALS: BP 131/58
[2017-02-14 15:30] VITALS: BP 124/73
[2017-02-14] MEDS ORDERED: Norco 10mg/325mg tab ORAL PRN (15:45)
[2017-02-14 20:00] VITALS: BP 122/54
[2017-02-14] MEDS: PARoxetine 10mg tab ORAL SCH (20:26)
[2017-02-14] MEDS ORDERED: Zolpidem 5mg tab ORAL PRN (21:00)
[2017-02-15] VITALS: BP 115/51
[2017-02-15 04:00] VITALS: BP 141/53
--- NOTE | 2017-02-15 05:45 | History and Physical Report ---
DATE OF ADMISSION: 02/14/2017 CHIEF COMPLAINT: Abdominal pain. HISTORY OF PRESENT ILLNESS: The patient is a very pleasant 66-year-old female. She has a history of Christiansen palsy, atherosclerotic cardiovascular disease, carotid stenosis, hypertension, and COPD, who presented from home with complaints of abdominal pain. The patient has a prior history of chronic abdominal pain. She has been undergoing a workup as an outpatient. A week ago, she had a CAT scan done that showed pneumatosis of the intestines at the splenic flexure. The patient was seen several days ago. At that time, she was pain free, but she developed recurrent left upper quadrant abdominal pain, presented to the emergency room in light of her severe pain and her recent CT results. She is now admitted for further evaluation and care. She denies any fevers or chills. No nausea. No vomiting. No diarrhea. No bright red blood per rectum. No melena or hematemesis. PAST MEDICAL HISTORY: As above. PAST SURGICAL HISTORY: Includes hysterectomy, history of gastric bypass, and cholecystectomy. CURRENT MEDICATIONS: Reconciled and reviewed. ALLERGIES: Include penicillin, hydromorphone, citrus, morphine, and penicillin. SOCIAL HISTORY: There is no known history of ethanol or drugs. The patient is a prior smoker. FAMILY HISTORY: Noncontributory. REVIEW OF SYSTEMS: GENERAL: No fevers or chills. HEENT: No headaches or visual changes. CARDIOPULMONARY: No chest pain or shortness of breath. GASTROINTESTINAL: Positive for abdominal pain. No nausea. No vomiting. No constipation. No diarrhea. GENITOURINARY: No urgency or frequency. MUSCULOSKELETAL: No joint pain or swelling. NEUROLOGIC: No evidence of seizures. PHYSICAL EXAMINATION: VITAL SIGNS: Temperature 98 degrees, pulse 74, respirations 18, and blood pressure 129/55. GENERAL: The patient is a well-developed female, in no apparent distress. She is awake, alert, and oriented x4. HEENT: Mucous membranes are moist. NECK: Supple. HEART: Regular rate and rhythm. LUNGS: Clear. ABDOMEN: Soft and mildly tender in the left upper quadrant. There is no rebound or guarding. EXTREMITIES: No clubbing, cyanosis, or edema. LABORATORY DATA: White count was 9, hemoglobin 13, and platelet count 332,000. Coags are normal. Sodium is 140, potassium 4.7, and creatinine was 0.7. LFTs were unremarkable. Lipase is 118. UA was clear. ASSESSMENT: This is a pleasant female with complaints of abdominal pain. 1. abdominal pain. 2. Recent CAT scan with pneumatosis. 3. History of cholecystectomy and hysterectomy. 4. Hypertension. 5. History of chronic obstructive pulmonary disease. 6. History of congestive heart failure. PLAN: Gastrointestinal consultation. Clear liquid diet. IV pain medications as needed. We will check stool cultures if the patient has any diarrhea. Further plan of care will be determined after discussion with consulting physician and review of pending tests. Cardiology consultation will also be obtained to assess the patient's blood pressure management. Demario Hdz M.D. DR: Terry JOB#: [id number] CC:
--- NOTE | 2017-02-15 07:38 | General Progress Note ---
Assessment/Plan Problem List: (1) Cellulitis ICD Codes: L03.90 - Cellulitis, unspecified SNOMED: 558508441 (2) COPD exacerbation ICD Codes: J44.1 - Chronic obstructive pulmonary disease with (acute) exacerbation SNOMED: 690842214, 986807089 (3) Rash and other nonspecific skin eruption ICD Codes: R21 - Rash and other nonspecific skin eruption SNOMED: 646622037, 892148256 (4) Abdominal pain ICD Codes: R10.9 - Unspecified abdominal pain SNOMED: 58272617 Qualifiers: Qualified Codes: R10.32 - Left lower quadrant pain Status: stable, progressing Assessment/Plan iv abx today gi eval re: pneumatosis dc planning later today if stable Subjective ROS Limited/Unobtainable: No Constitutional: Reports: no symptoms, weakness HEENT: Reports: no symptoms Cardiovascular: Reports: no symptoms Respiratory: Reports: no symptoms Gastrointestinal/Abdominal: Reports: abdominal pain Genitourinary: Reports: no symptoms Neurologic/Psychiatric: Reports: no symptoms Endocrine: Reports: no symptoms Hematologic/Lymphatic: Reports: no symptoms Allergies: Coded Allergies: MORPHINE (Verified Allergy, Severe, Anaphylaxis, 11/14/16) PT RECEIVED 5 DOSES OF OXYCODONE ON PREVIOUS ADMISSION IN 06/2015. As per conversation with the patient. Patient denies having allergy reaction with [place]. She said " I have been taking [place] before and i have no allergy reactions. CITRUS AND DERIVATIVES (Verified Allergy, Unknown, BREAKOUT, 06/15/15) breakout HYDROMORPHONE (Verified Allergy, Unknown, CHEST PAIN, 06/15/15) chest pain IODINE (Verified Allergy, Unknown, SWELLING, 06/15/15) swelling PENICILLINS (Verified Allergy, Unknown, ITCHING, 06/15/15) itching Uncoded Allergies: NYLON TAPE (Adverse Reaction, Intermediate, NIEVES THE SKIN, 06/21/15) All Systems: reviewed and negative except above Subjective abd pain/cellulitis improved. no pain now. no fevers. Objective Last 24 Hour Vital Signs Date Time Temp Pulse Resp B/P (MAP) Pulse Ox O2 Delivery O2 Flow Rate FiO2 02/15/17 04:00 98.8 69 20 141/53 94 02/15/17 00:00 98.6 71 20 115/51 95 02/14/17 20:00 98.0 74 18 122/54 95 02/14/17 15:30 96.3 70 18 124/73 98 Room Air 02/14/17 14:17 98.3 67 20 131/58 95 Room Air 02/14/17 14:02 98.3 67 20 131/58 95 Room Air 02/14/17 13:56 98.3 02/14/17 13:05 98.3 02/14/17 12:10 71 17 156/92 98 Room Air 02/14/17 10:05 97.7 61 17 114/88 98 Room Air 02/14/17 09:55 97.9 64 16 116/59 95 Room Air Laboratory Tests 02/14/17 10:40: White Blood Count 9.3, Red Blood Count 4.41, Hemoglobin 13.1, Hematocrit 41.0, Mean Corpuscular Volume 93, Mean Corpuscular Hemoglobin 29.7, Mean Corpuscular Hemoglobin Concent 32.0, Red Cell Distribution Width 13.0, Platelet Count 332, Mean Platelet Volume 6.1L, Neutrophils (%) (Auto) 51.9, Lymphocytes (%) (Auto) 34.0, Monocytes (%) (Auto) 10.0, Eosinophils (%) (Auto) 2.4, Basophils (%) (Auto ) 1.8, Prothrombin Time 9.4, Prothromb Time International Ratio 0.9, Activated Partial Thromboplast Time 25, Sodium Level 140, Potassium Level 4.7, Chloride Level 107, Carbon Dioxide Level 27, Anion Gap 6, Blood Urea Nitrogen 12, Creatinine 0.7, Estimat Glomerular Filtration Rate > 60, Glucose Level 91, Lactic Acid Level 1.00, Calcium Level 9.0, Total Bilirubin 0.3, Aspartate Amino Transf (AST/SGOT) 23, Alanine Aminotransferase (ALT/SGPT) 17, Alkaline Phosphatase 83, Total Protein 7.3, Albumin 3.5, Globulin 3.8, Albumin/Globulin Ratio 0.9L, Lipase 118 02/14/17 10:50: Urine Color Yellow, Urine Appearance Clear, Urine pH 5, Urine Specific [place] 1.020, Urine Protein Negative, Urine Glucose (UA) Negative, Urine Ketones Negative, Urine Occult Blood Negative, Urine Nitrite Negative, Urine Bilirubin Negative, Urine Urobilinogen Normal, Urine Leukocyte Esterase Negative Height (Feet): 5 Height (Inches): 2.00 Weight (Pounds): 160 General Appearance: WD/WN Neck: supple Cardiovascular: normal rate Respiratory/Chest: lungs clear Abdomen: normal bowel sounds, non tender, soft, no organomegaly, no mass Neurologic: alert, oriented x 3 JOEY CASTILLO Feb 15, 2017 07:38
[2017-02-15 08:00] VITALS: BP 154/84
[2017-02-15] MEDS ORDERED: Heparin 5000 units/ml inj SUBQ SCH (09:00)
[2017-02-15] MEDS ORDERED: Losartan 50mg tab ORAL SCH (09:00)
[2017-02-15] MEDS ORDERED: Breo Ellipta 100/25mcg - 14 dose INH SCH (09:00)
[2017-02-15] MEDS ORDERED: Aspirin EC 81mg tab ORAL SCH (09:00)
[2017-02-15] MEDS: PARoxetine 10mg tab ORAL SCH ×2 (09:09→18:41)
[2017-02-15] MEDS ORDERED: Vancomycin 1.5 GM/D5W 250ML IVPB ONE (09:30)
[2017-02-15 12:00] VITALS: BP 148/62
[2017-02-15] MEDS ORDERED: DOXYCYCLINE MO100 MG ORAL (14:57)
[2017-02-15 15:40] VITALS: BP 157/74
--- NOTE | 2017-02-15 21:34 | General Progress Note ---
Assessment/Plan Assessment/Plan GI CONSULT Dictated. Nando Subjective Allergies: Coded Allergies: MORPHINE (Verified Allergy, Severe, Anaphylaxis, 11/14/16) PT RECEIVED 5 DOSES OF OXYCODONE ON PREVIOUS ADMISSION IN 06/2015. As per conversation with the patient. Patient denies having allergy reaction with [place]. She said " I have been taking [place] before and i have no allergy reactions. CITRUS AND DERIVATIVES (Verified Allergy, Unknown, BREAKOUT, 06/15/15) breakout HYDROMORPHONE (Verified Allergy, Unknown, CHEST PAIN, 06/15/15) chest pain IODINE (Verified Allergy, Unknown, SWELLING, 06/15/15) swelling PENICILLINS (Verified Allergy, Unknown, ITCHING, 06/15/15) itching Uncoded Allergies: NYLON TAPE (Adverse Reaction, Intermediate, NIEVES THE SKIN, 06/21/15) Objective Last 24 Hour Vital Signs Date Time Temp Pulse Resp B/P (MAP) Pulse Ox O2 Delivery O2 Flow Rate FiO2 02/15/17 16:15 98.1 02/15/17 15:40 98.1 62 19 157/74 95 Room Air 02/15/17 12:00 97.7 67 18 148/62 94 02/15/17 09:01 141/53 02/15/17 08:00 98.1 69 18 154/84 97 02/15/17 04:00 98.8 69 20 141/53 94 02/15/17 00:00 98.6 71 20 115/51 95 Intake and Output 02/15/17 02/16/17 19:00 07:00 Intake Total 1040 ml Balance 1040 ml Intake Oral 1040 ml # Voids 2 Height (Feet): 5 Height (Inches): 2.00 Weight (Pounds): 160 KENNETH VILLA Feb 15, 2017 21:34
[2017-02-15] MEDS ORDERED: Vancomycin 750mg/NS 250ml IVPB SCH (22:00)
--- NOTE | 2017-02-16 20:15 | Consultation ---
DATE OF CONSULTATION: 02/15/2017 GASTROENTEROLOGY CONSULTATION CONSULTING PHYSICIAN: Juan Collier M.D. REFERRING PHYSICIAN: Demario Hdz M.D., and Rosendo Palacios M.D. CHIEF COMPLAINT: I was asked to see this patient by Dr. Demario Hdz and Dr. Rosendo Palacios, for evaluation of possible colonic pneumatosis. HISTORY OF PRESENT ILLNESS: The patient is a pleasant 66-year-old woman, who had a CT scan as an outpatient for abdominal pain about 10 days ago. The patient has had left upper quadrant abdominal pain for a few months intermittently, which was mild. She has no nausea or vomiting. The pain does not change with oral intake nor does it change with bowel movements. She only notes that it worsens with bending or coughing. She does have some degree of lung disease and quit smoking for about two months. Previously, she used to smoke one-third pack of cigarettes daily since age 26. The patient's last colonoscopy was in 10/2013, where some diverticulosis was identified, otherwise the study was negative. The patient also has had history of gastroplasty in 1984 for treatment of morbid obesity. The CT scan does comment on some thickening of the esophagus in that region. The patient is now admitted to the hospital for treatment of skin cellulitis of the lower abdominal wall. I was asked to see this patient for evaluation of the above findings. The patient is tolerating diet well and she is afebrile. Her white count is normal. PAST MEDICAL HISTORY: History of diverticulosis, history of morbid obesity, status post bariatric surgery, history of atherosclerotic cardiovascular disease, history of carotid stenosis, hypertension, and history of COPD. FAMILY HISTORY: Noncontributory. SOCIAL HISTORY: The patient has previous extensive history of smoking which she has now discontinued. She does not drink. ALLERGIES: Penicillin, hydromorphone. REVIEW OF SYSTEMS: Otherwise negative. PHYSICAL EXAMINATION: GENERAL: Pleasant woman seen in her room. HEENT: Normocephalic, atraumatic. Sclerae anicteric. Oropharynx clear. NECK: Supple. CHEST: Clear to auscultation. CARDIOVASCULAR: Regular rate. ABDOMEN: Soft. Good bowel sounds. It was nontender and nondistended with no organomegaly. EXTREMITIES: Revealed no edema. LABORATORY AND DIAGNOSTIC DATA: Laboratory data and CT scan results were noted. ASSESSMENT: This patient has had some left upper quadrant abdominal discomfort for the past few months, although she remarks that it only hurts when she bends or coughs. Nonetheless, the location of her abdominal discomfort corresponds to the CT findings and therefore, I suspect that the radiographic findings are true pneumatosis as opposed to pseudo-pneumatosis that would be caused by the separation of planes between stool and the colonic wall. The differential diagnosis of her pneumatosis is somewhat diverse and includes both benign and serious pathologies. In the case of this patient, her diverticulosis could potentially result in focal diverticulitis or otherwise disruption of the integrity of her colonic wall resulting in pneumatosis. Another possibility would be her upper gastrointestinal tract bariatric surgery. If there were ulcerations at the anastomotic site, it could lead to potential breakthrough and gas translocation. The patient also has history of chronic lung disease which itself is a risk factor for pneumatosis intestinalis. There are wide range of other associations with this radiographic finding such as inflammatory bowel disease, various infections, and cardiovascular disease, but they do not particularly seem to be risk factor in this patient. Given that her abdominal exam is completely benign and her white count is normal, the management can be conservative. I would suggest a course of antibiotics to treat any possible focal diverticulitis and this will be done with Cipro and Flagyl for about 10-14 days. The patient's imaging study can then be repeated in a month to see if the findings have resolved. The patient should ultimately also undergo an endoscopy and colonoscopy, but I would defer this for about a month or so, so that the structural weakness in the colonic wall has apparently healed. The endoscopy will be done also to evaluate the upper gastrointestinal tract. RECOMMENDATIONS: Per above discussion. The patient can follow up with me as an outpatient to complete the workup and management. Thank you for asking me to participate in the care of this patient. Juan Collier M.D. DR: RYAN JOB#: [id number] CC: JAYLIN
--- NOTE | 2017-02-17 14:49 | Cardiology Report ---
APPROVED REPORT EKG Measurement Heart [id number] Normal sinus rhythm Normal ECG
--- NOTE | 2017-02-18 11:02 | Discharge Summary ---
Discharge Summary Hospital Course Date of Admission Feb 14, 2017 at 10:57 Date of Discharge Feb 15, 2017 at 19:10 Admitting Diagnosis abdominal cellulitis HPI Mel Yusuf is a 66 year old female who was admitted on Feb 14, 2017 at 10:57 for Abdominal Cellulitis Hospital Course dc summary #[id number] Discharge Medications Continued Medications: Aspirin (Aspirin EC) 81 Mg Tabec 81 MG PO DAILY Clopidogrel Bisulfate* (Plavix*) 75 Mg Tablet 75 MG ORAL DAILY, TAB Dexlansoprazole (Dexilant) 30 Mg Cap.bp 30 MG ORAL DAILY, MG Diclofenac Epolamine (Flector) 1 Each Patch.td12 1 EACH TP, PATCH Doxycycline Monohydrate* (Doxycycline Monohydrate*) 100 Mg Capsule 100 MG ORAL TWICE A DAY, #20 CAP 0 Refills Fluticasone/Vilanterol (Breo Ellipta 100-25 Mcg INH) 1 Each Blst.w.dev 1 EACH IH DAILY, EACH Gabapentin (Neurontin) 300 Mg Cap 600 MG PO QID, #15 CAP Take 1 capsule by mouth three times a day. Hydrocodone Bit/Acetaminophen 10-325* (Castana 10-325*) 1 Each Tablet 1 TAB ORAL Q4HR PRN for For Pain, #10 TAB 0 Refills PRN PAIN Losartan Potassium* (Losartan Potassium*) 50 Mg Tablet 50 MG ORAL DAILY, TAB Paroxetine Hcl* (Paxil*) 10 Mg Tablet 30 MG PO BID Pravastatin Sod* (Pravastatin Sod*) 20 Mg Tablet 20 MG ORAL BEDTIME, TAB Tapentadol Hcl (Nucynta) 50 Mg Tablet 50 MG PO, TAB Tizanidine Hcl* (Zanaflex*) 4 Mg Tablet 4 MG ORAL Q6HR PRN for Muscle Spasm, #90 TAB 0 Refills Zolpidem Tartrate* (Ambien*) 10 Mg Tablet 10 MG ORAL HS PRN for Insomnia, TAB Discharge Discharge Disposition Patient was discharged to Home () Discharge Diagnoses: Discharge Instructions Discharge Instructions Special Instructions I have been assigned to complete a D/C Summary on this account. I was not involved in the patient management Yin Griffin NP ([place]) Feb 18, 2017 11:02
--- NOTE | 2017-02-18 17:15 | Discharge Summary 2 SIG ---
DATE OF ADMISSION: 02/14/2017 DATE OF DISCHARGE: 02/15/2017 REASON FOR ADMISSION: 66-year-old female with history of Christiansen palsy, atherosclerotic cardiovascular disease, carotid stenosis, hypertension, COPD, presented with complaint of abdominal pain. The patient with history of chronic abdominal pain and had undergone workup for it as an outpatient. Approximately a week ago, she had CAT scan of the abdomen which revealed that she had pneumatosis of the intestines at the splenic flexure. The patient was seen two days ago. At that time, she was pain-free. She was started on antibiotics, however, she developed left upper quadrant abdominal pain and presented to emergency room with complaint of severe pain and recent CT results. She denied fever, chills. No nausea. No vomiting. No diarrhea. No blood in the stool. No bright red blood in the stool. No tarry stools. No melena. No hematemesis. Laboratory workup was stable: lipase was within normal limits, LFT were unremarkable. The patient noted to have erythema with nodular region below belly button, but no fluctuance. The patient was admitted with diagnosis of abdominal pain, abdominal wall cellulitis, pneumatosis of intestines at splenic flexure, hypertension, and COPD. HOSPITAL COURSE: The patient was admitted. GI consult was requested. The patient initially was started on clear liquid diet. Pain management was addressed. Blood pressure was managed with current regimen and was stable. Pulse oximetry was stable on room air. Pulmonary toilet was on the standup, however, no signs of respiratory distress. Per GI specialist, a list of differential diagnoses of pneumatosis was somewhat diverse and included both benign and serious pathology. Given that abdominal exam was benign and white blood count was normal, GI recommended conservative management with course of antibiotic to treat any possible focal diverticulitis for 10-14 days, and repeat imaging in one month to see if the findings were resolved. The patient was recommended to have endoscopy and colonoscopy in about a month or so to allow structural weakness in the colonic wall to heal. GI cleared the patient for discharge. The patient was stable for discharge. Due to the rapid and unexpected improvement in the patient's condition, the patient was discharged in one day. FINAL DIAGNOSES: 1. Abdominal pain. 2. Pneumatosis of intestines at splenic flexure. 3. Abdominal wall cellulitis. 4. Hypertension. 5. History of chronic obstructive pulmonary disease. 6. History of congestive heart failure. DISCHARGE MEDICATIONS: See medication reconciliation list. DISCHARGE INSTRUCTIONS: The patient was discharged home. Follow up with primary doctor next week. Demario Hdz M.D. I have been assigned to dictate discharge summary on this account and I was not involved in the patient's management. Yin Griffin (Vanchtein) NCory DR: Altagracia JOB#: [id number] CC: JAYLIN
== END 2017-02-15 19:10 | disposition home or self-care (01) | DRG 603 ==
LOC: EMR 10:15 → EDBEDREQ 10:27 → 4E 10:57 → EDBEDREQ 11:52
DX: L03.311 Cellulitis of abdominal wall (principal); I50.9 Heart failure, unspecified; J44.9 Chronic obstructive pulmonary disease, unspecified; I11.0 Hypertensive heart disease with heart failure; I25.10 Atherosclerotic heart disease of native coronary artery without angina pectoris; R10.9 Unspecified abdominal pain; K63.89 Other specified diseases of intestine; Z98.84 Bariatric surgery status; Z88.6 Allergy status to analgesic agent; Z88.0 Allergy status to penicillin; Z87.891 Personal history of nicotine dependence; K57.90 Diverticulosis of intestine, part unspecified, without perforation or abscess without bleeding
CPT/HCPCS: 36415; 80053; 81003; 83605; 83690; 85025; 85610; 85730; 86850; 86900; 86901; 93005; 99285; J2765

== ENCOUNTER 2017-05-14 07:51 | Outpatient (CLI) | payer MEDICARE, MEDICAID ==
[~2017-05-14 07:51] MED LIST changes: +DOXYCYCLINE MO100 MG ORAL
--- NOTE | 2017-05-14 11:38 | Diagnostic Imaging Report ---
Indication: Abdominal pain Technique: Spiral acquisitions obtained through the abdomen and pelvis. Patient ingested oral contrast No IV contrast utilized, due to history of contrast allergy. Multiplanar reconstructions were generated. Total dose length product 757.28 mGycm. CTDIvol(s) 16.14 mGy. Dose reduction achieved using automated exposure control Comparison: 01/20/2017 Findings: The appendix is not definitely identified, but no findings to suggest acute appendicitis are evident. There is extensive colonic diverticulosis. No evidence of diverticulitis. There is evidence of prior gastric bypass surgery. There is a small sliding-type hiatal hernia again demonstrated. No small bowel distention. Contrast is seen all the way through the small bowel and well into the colon. No free or loculated intraperitoneal air or fluid is evident. There is evidence of prior anterior upper pelvic wall surgery. Previously demonstrated colon wall thickening is no longer evident. Lack of IV contrast limits assessment of the solid organs. There is evidence of prior cholecystectomy. The liver, bile ducts, pancreas, spleen, adrenals, kidneys are unremarkable. No pelvic mass or adenopathy. Uterus is not visualized, presumably surgically absent. No retroperitoneal or mesenteric mass or adenopathy. The included lung bases demonstrate some linear scarring and small bullae bilaterally. The bones demonstrate laminectomy defects at T11 and T12. There are degenerative changes of the lumbar spine. Atrophy of the rectus abdominis musculature is again demonstrated. Previously demonstrated anterior wall pericardial effusion has largely resolved Impression: No acute process Diverticulosis. No evidence of diverticulitis. Postsurgical changes, as described, including evidence of prior gastric bypass surgery, hysterectomy, cholecystectomy, T11 and T12 laminectomies Other findings as noted, including rectus abdominis atrophy, small sliding-type hiatal hernia The CT scanner at [facility] is accredited by the [employer] and the scans are performed using protocols designed to limit radiation exposure to as low as reasonably achievable to attain images of sufficient resolution adequate for diagnostic evaluation.
== END 2017-05-14 09:51 | disposition home or self-care (01) ==
LOC: CAT 07:51
DX: R10.9 Unspecified abdominal pain (principal); K57.90 Diverticulosis of intestine, part unspecified, without perforation or abscess without bleeding; Z90.710 Acquired absence of both cervix and uterus; Z90.49 Acquired absence of other specified parts of digestive tract; K44.9 Diaphragmatic hernia without obstruction or gangrene
CPT/HCPCS: 74176

== ENCOUNTER 2017-05-31 14:37 | Inpatient (IN) | payer MEDICARE, MEDICAID ==
[~2017-05-31] VITALS: Ht 157.5 cm; Wt 71.7 kg
--- NOTE | 2017-05-31 15:01 | Emergency Room Report ---
History of Present Illness General Chief Complaint: Pain Source: Patient (Walt Enciso) Present Illness HPI 66 yo female presents to ER complaining of intractable back pain x1 week. Reports worsening of pain over past week. Denies diarrhea, nausea. Reports single episode of vomiting yesterday, denies blood in vomit. Reports able to eat without vomiting since that time. Denies dysuria, hematuria. Reports back pain radiating down left left to calf. Reports no radiation of pain before. Also complains of abdominal pain during this time. Reports unable to walk secondary to pain. Reports "had to be carried" by family member around her house. Denies chest pain, SOB, fever. Reports taking 2 Boswell for pain without relief of symptoms. Reports seen in [place] 2 weeks ago, CT performed at that time was negative. Reports MRI previously performed. Reports hx of Medanales Palsy on left side of face. Denies hx of IVDA. Denies hx of bowel or bladder incontinence. (Walt Enciso) Allergies: Coded Allergies: MORPHINE (Verified Allergy, Severe, Anaphylaxis, 11/14/16) PT RECEIVED 5 DOSES OF OXYCODONE ON PREVIOUS ADMISSION IN 06/2015. As per conversation with the patient. Patient denies having allergy reaction with Boswell. She said " I have been taking Boswell before and i have no allergy reactions. CITRUS AND DERIVATIVES (Verified Allergy, Unknown, BREAKOUT, 06/15/15) breakout HYDROMORPHONE (Verified Allergy, Unknown, CHEST PAIN, 06/15/15) chest pain IODINE (Verified Allergy, Unknown, SWELLING, 06/15/15) swelling PENICILLINS (Verified Allergy, Unknown, ITCHING, 06/15/15) itching Uncoded Allergies: NYLON TAPE (Adverse Reaction, Intermediate, NIEVES THE SKIN, 06/21/15) Patient History Past Medical History: see triage record Reviewed Nursing Documentation: PMH: Agreed; PSxH: Agreed (Walt Enciso) Nursing Documentation-PMH Past Medical History: No History, Except For Hx Cardiac Problems: No Hx Hypertension: No Hx Pacemaker: No Hx Asthma: Yes Hx COPD: Yes Hx Diabetes: No Hx Cancer: No Hx Gastrointestinal Problems: Yes Hx Dialysis: No Hx Neurological Problems: Yes Hx Cerebrovascular Accident: Yes Hx Seizures: No (Walt Enciso) Review of Systems All Other Systems: negative except mentioned in HPI (Walt Enciso P.Regis) Physical Exam Vital Signs Date Time Temp Pulse Resp B/P (MAP) Pulse Ox O2 Delivery O2 Flow Rate FiO2 05/31/17 14:43 99.2 78 20 101/54 98 Room Air 99.1 Sp02 EP Interpretation: reviewed, normal General Appearance: well appearing, alert, GCS 15, non-toxic, mild distress Head: normocephalic, atraumatic Eyes: bilateral eye normal inspection, bilateral eye PERRL ENT: hearing grossly normal, normal pharynx, no angioedema, normal voice, uvula midline, moist mucus membranes Neck: full range of motion Respiratory: lungs clear, normal breath sounds, no rhonchi, no respiratory distress, no accessory muscle use, no wheezing, speaking full sentences Cardiovascular #1: regular rate, rhythm, no edema Gastrointestinal: soft, no mass, non-distended, no rebound, guarding, tenderness - generalized Genitourinary: no CVA tenderness Musculoskeletal: back normal, digits/nails normal, gait/station normal, normal range of motion, non-tender, no calf tenderness, Ace's Sign negative Neurologic: alert, oriented x3, responsive, motor strength/tone normal, sensory intact, facial droop - left, absent forehead wrinkles, other - pain with straight leg raise on left side Psychiatric: mood/affect normal Skin: no rash Lymphatic: no adenopathy (Walt Enciso) Medical Decision Making PA Attestation Dr. Ramirez is my supervising Physician whom patient management has been discussed with. (Walt Enciso) Diagnostic Impression: Primary Impression: Pain Additional Impressions: Intractable back pain Abdominal pain Qualified Codes: R10.30 - Lower abdominal pain, unspecified ER Course Pt. presents to the ED c/o back pain, abdominal pain and vomiting yesterday. Ddx considered but are not limited to UTI, strain, sprain, cauda equina. Low suspicion for cauda equina, no bowel or bladder incontinence or retention. Will order labs. CT performed 2 weeks ago, results reviewed, no acute process at that time. Will not order repeat imaging at this time. Vital signs: are WNL, pt. is afebrile ORDERS: CBC, CMP, Lipase, ESR, troponin, UA, fluids Zofran, and pain medication. ER COURSE: Consult with Dr. Ramirez. Patient seen and evaluated by Dr. Ramirez. Will order labs, pain medication and admit patient to med-surg for back pain and inability to walk. Patient does not need repeat CT in ER. 0420PM Patient reports feeling better following administration of medication. Labs unremarkable No elevation in WBC Troponin negative UA negative ESR elevated. Lipase and Amylase WNL LFTs WNL Patient admitted to Dr. Hdz. Labs Test 05/31/17 15:24 05/31/17 16:20 05/31/17 18:00 White Blood Count 9.5 K/UL (4.8-10.8) Red Blood Count 4.12 M/UL (4.20-5.40) Hemoglobin 12.0 G/DL (12.0-16.0) Hematocrit 36.0 % (37.0-47.0) Mean Corpuscular Volume 87 FL (80-99) Mean Corpuscular Hemoglobin 29.0 PG (27.0-31.0) Mean Corpuscular Hemoglobin Concent 33.2 G/DL (32.0-36.0) Red Cell Distribution Width 13.0 % (11.6-14.8) Platelet Count 388 K/UL (150-450) Mean Platelet Volume 5.3 FL (6.5-10.1) Neutrophils (%) (Auto) 46.8 % (45.0-75.0) Lymphocytes (%) (Auto) 40.8 % (20.0-45.0) Monocytes (%) (Auto) 7.7 % (1.0-10.0) Eosinophils (%) (Auto) 2.9 % (0.0-3.0) Basophils (%) (Auto) 1.7 % (0.0-2.0) Sodium Level 140 MMOL/L (136-145) Potassium Level 4.3 MMOL/L (3.5-5.1) Chloride Level 102 MMOL/L (98-107) Carbon Dioxide Level 31 MMOL/L (21-32) Anion Gap 7 mmol/L (5-15) Blood Urea Nitrogen 11 mg/dL (7-18) Creatinine 0.6 MG/DL (0.55-1.30) Estimat Glomerular Filtration Rate > 60 mL/min (>60) Glucose Level 94 MG/DL (74-106) Calcium Level 8.6 MG/DL (8.5-10.1) Total Bilirubin 0.2 MG/DL (0.2-1.0) Aspartate Amino Transf (AST/SGOT) 16 U/L (15-37) Alanine Aminotransferase (ALT/SGPT) 16 U/L (12-78) Alkaline Phosphatase 94 U/L (46-116) Troponin I 0.000 ng/mL (0.000-0.056) Total Protein 7.3 G/DL (6.4-8.2) Albumin 3.1 G/DL (3.4-5.0) Globulin 4.2 g/dL Albumin/Globulin Ratio 0.7 (1.0-2.7) Amylase Level 39 U/L (25-115) Lipase 98 U/L (73-393) Erythrocyte Sedimentation Rate 98 MM/HR (0-30) Urine Color Yellow Urine Appearance Clear Urine pH 6 (4.5-8.0) Urine Specific [place] 1.015 (1.005-1.035) Urine Protein Negative (NEGATIVE) Urine Glucose (UA) Negative (NEGATIVE) Urine Ketones Negative (NEGATIVE) Urine Occult Blood Negative (NEGATIVE) Urine Nitrite Negative (NEGATIVE) Urine Bilirubin Negative (NEGATIVE) Urine Urobilinogen Normal MG/DL (0.0-1.0) Urine Leukocyte Esterase Negative (NEGATIVE) (Walt Enciso) ER Course See above history, physical and assessment. I examined this patient and agree with the above assessment. Abdomen is non-surgical and no further imaging indicated. NB - sed rate elevated. Admit med. Dr. Hdz contacted. (Rosendo Ramirez M.D.) Last Vital Signs Date Time Temp Pulse Resp B/P (MAP) Pulse Ox O2 Delivery O2 Flow Rate FiO2 05/31/17 14:43 99.2 78 20 101/54 98 Room Air 99.1 Status: improved (Walt Enciso) Status: improved (Rosendo Ramirez M.D.) Disposition: ADMITTED INPATIENT Condition: Serious Walt Enciso May 31, 2017 15:01 Rosendo Ramirez M.D. Jun 01, 2017 04:34
[2017-05-31] MEDS ORDERED: Ketorolac 30mg Inj IV ONE (15:15)
[2017-05-31] MEDS ORDERED: fentaNYL 100 mcg/2 mL IV ONE (15:15)
[2017-05-31 15:18] VITALS: BP 101/54
[2017-05-31 15:54] LABS: BASOPHILS % (AUTO) 1.7 % (0.0-2.0); EOSINOPHILS % (AUTO) 2.9 % (0.0-3.0); LYMPHOCYTES % (AUTO) 40.8 % (20.0-45.0); MEAN CORPUSCULAR VOLUME 87 FL (80-99); MONOCYTES % (AUTO) 7.7 % (1.0-10.0); NEUTROPHILS % (AUTO) 46.8 % (45.0-75.0); PLATELET COUNT 388 K/UL (150-450); RED BLOOD COUNT 4.12 M/UL (4.20-5.40); WHITE BLOOD COUNT 9.5 K/UL (4.8-10.8)
[2017-05-31 16:05] LABS: ANION GAP 7 mmol/L (5-15); BLOOD UREA NITROGEN 11 mg/dL (7-18); CALCIUM 8.6 MG/DL (8.5-10.1); CARBON DIOXIDE 31 MMOL/L (21-32); CHLORIDE 102 MMOL/L (98-107); CREATININE 0.6 MG/DL (0.55-1.30); POTASSIUM 4.3 MMOL/L (3.5-5.1); SODIUM 140 MMOL/L (136-145)
[2017-05-31 16:09] LABS: ALANINE AMINOTRANSFERASE 16 U/L (12-78); ALBUMIN 3.1 G/DL (3.4-5.0); ALBUMIN/GLOBULIN RATIO 0.7 (1.0-2.7); ALKALINE PHOSPHATASE 94 U/L (46-116); AMYLASE 39 U/L (25-115); ASPARTATE AMINO TRANSFERASE 16 U/L (15-37); BILIRUBIN,TOTAL 0.2 MG/DL (0.2-1.0)
[2017-05-31 18:35] VITALS: BP 108/56
[2017-05-31 18:35] LABS: APPEARANCE,URINE CLEAR; BILIRUBIN, URINE NEGATIVE (NEGATIVE); GLUCOSE, URINE (UA) NEGATIVE (NEGATIVE); KETONES,URINE NEGATIVE (NEGATIVE); LEUKOCYTE ESTERASE ,URINE NEGATIVE (NEGATIVE); NITRITE,URINE NEGATIVE (NEGATIVE); PH,URINE 6 (4.5-8.0); PROTEIN,URINE NEGATIVE (NEGATIVE); UROBILINOGEN,URINE NORMAL MG/DL (0.0-1.0)
[2017-05-31 18:36] LABS: COLOR,URINE YELLOW
[2017-05-31] MEDS ORDERED: Albuterol/Ipratropium 3ml neb HHN PRN (18:45)
[2017-05-31] MEDS ORDERED: Promethazine/Codeine 5ml UD ORAL PRN (18:45)
[2017-05-31] MEDS ORDERED: Zolpidem 5mg tab ORAL PRN (18:45)
[2017-05-31] MEDS: D5NS 1,000 ML IV SCH (20:00)
[2017-05-31] MEDS: Heparin 5000 units/ml inj SUBQ SCH (20:37)
[2017-06-01 05:53] LABS: BASOPHILS % (AUTO) 1.4 % (0.0-2.0); EOSINOPHILS % (AUTO) 4.7 % (0.0-3.0); HEMATOCRIT 32.7 % (37.0-47.0); HEMOGLOBIN 11.2 G/DL (12.0-16.0); LYMPHOCYTES % (AUTO) 40.4 % (20.0-45.0); MEAN CORPUSCULAR VOLUME 88 FL (80-99); MONOCYTES % (AUTO) 8.5 % (1.0-10.0); PLATELET COUNT 370 K/UL (150-450); RED BLOOD COUNT 3.74 M/UL (4.20-5.40); WHITE BLOOD COUNT 7.4 K/UL (4.8-10.8)
[2017-06-01 05:55] LABS: ANION GAP 7 mmol/L (5-15); BLOOD UREA NITROGEN 19 mg/dL (7-18); CALCIUM 8.1 MG/DL (8.5-10.1); CARBON DIOXIDE 29 MMOL/L (21-32); CHLORIDE 107 MMOL/L (98-107); CREATININE 0.7 MG/DL (0.55-1.30); SODIUM 143 MMOL/L (136-145)
[2017-06-01 06:00] LABS: ALANINE AMINOTRANSFERASE 13 U/L (12-78); ALBUMIN 2.7 G/DL (3.4-5.0); ALBUMIN/GLOBULIN RATIO 0.7 (1.0-2.7); ALKALINE PHOSPHATASE 81 U/L (46-116); ASPARTATE AMINO TRANSFERASE 13 U/L (15-37); BILIRUBIN,TOTAL 0.2 MG/DL (0.2-1.0)
[2017-06-01 08:16] VITALS: BP 135/65
[2017-06-01] MEDS: Aspirin EC 81mg tab ORAL SCH (08:48)
[2017-06-01] MEDS: PARoxetine 10mg tab ORAL SCH ×2 (08:49→17:32)
[2017-06-01] MEDS: Losartan 50mg tab ORAL SCH (08:49)
[2017-06-01] MEDS: D5NS 1,000 ML IV SCH ×2 (08:50→20:21)
[2017-06-01] MEDS: Heparin 5000 units/ml inj SUBQ SCH ×2 (08:53→20:28)
--- NOTE | 2017-06-01 11:15 | History and Physical Report ---
DATE OF ADMISSION: 05/31/2017 CHIEF COMPLAINT: Intractable back pain, nausea, vomiting, and abdominal pain. HISTORY OF PRESENT ILLNESS: The patient is a pleasant 66-year-old female, who presented with complaints of worsening back pain, nausea, and vomiting. According to the patient, she was well until one week prior to admission, when she developed worsening and progressive lower back pain. The pain became severe and she was given oral medications were unable to control her pain. On the day of admission, she had multiple episodes of nausea and vomiting, presented to the emergency room. On evaluation there, CAT scan of the abdomen and pelvis was unremarkable. She was given intravenous fluids and antiemetics, but feels continued nausea, vomiting, and worse back pain. She is now admitted for further evaluation and care. PAST MEDICAL HISTORY: Significant for history of stroke, history of carotid stenosis, hypertension, hypertensive heart disease, COPD, and history of chronic low back pain. CURRENT MEDICATIONS: Reconciled and reviewed. ALLERGIES: Include citrus, hydromorphone, iodine, morphine, nylon, tape, and penicillin. FAMILY HISTORY: Noncontributory. SOCIAL HISTORY: The patient is a smoker. No alcohol. No drugs. REVIEW OF SYSTEMS: GENERAL: No fever or chills. HEENT: No headaches or visual changes. CARDIOPULMONARY: No chest pain. Positive shortness of breath. GASTROINTESTINAL: Positive nausea and vomiting. GENITOURINARY: No urgency or frequency. MUSCULOSKELETAL: No joint pain or swelling. Positive chronic lower back pain. NEUROLOGIC: No evidence of seizures. PHYSICAL EXAMINATION: VITAL SIGNS: Temperature 98, blood pressure 110/56, pulse 80, and respirations 18. GENERAL: The patient is well developed, no apparent distress. HEART: Regular rate and rhythm. LUNGS: Clear. ABDOMEN: Soft, nontender, nondistended. EXTREMITIES: Without clubbing, cyanosis, or edema. LABORATORY DATA: White count was 9, hemoglobin 12, hematocrit 36, and platelets of 388,000. ESR was 98. Troponin was negative. ASSESSMENT: This is a pleasant female admitted with complaints of intractable nausea and vomiting and severe back pain. PLAN: IV fluids. Antiemetics. Cardiology and GI consultation will be obtained. We will follow up CAT scan of the abdomen, order MRI of the back. Further plan of care will be determined after review of pending tests. Demario Hdz M.D. DR: MAKAYLA JOB#: [id number] CC:
[2017-06-01] MEDS: Breo Ellipta 100/25mcg - 14 dose INH SCH (11:22)
[2017-06-01 12:00] VITALS: BP 132/60
[2017-06-01 16:00] VITALS: BP 127/59
[2017-06-01 20:00] VITALS: BP 148/60
[2017-06-02 00:54] VITALS: BP 141/65
[2017-06-02 04:39] VITALS: BP 137/63
[2017-06-02 08:00] VITALS: BP 130/60
[2017-06-02] MEDS: D5NS 1,000 ML IV SCH (08:54)
[2017-06-02] MEDS: Losartan 50mg tab ORAL SCH (08:56)
[2017-06-02] MEDS: PARoxetine 10mg tab ORAL SCH ×2 (08:56→17:50)
[2017-06-02] MEDS: Aspirin EC 81mg tab ORAL SCH (08:56)
[2017-06-02] MEDS: Heparin 5000 units/ml inj SUBQ SCH ×2 (09:00→20:48)
[2017-06-02] MEDS: Breo Ellipta 100/25mcg - 14 dose INH SCH (09:27)
[2017-06-02 11:11] VITALS: BP 136/70
[2017-06-02 16:00] VITALS: BP 153/77
[2017-06-02 20:00] VITALS: BP 151/66
[2017-06-03] VITALS (7 sets, daily range): BP systolic 140–153; BP diastolic 60–81
[2017-06-03] MEDS: D5NS 1,000 ML IV SCH ×2 (02:25→17:47)
[2017-06-03] MEDS: PARoxetine 10mg tab ORAL SCH ×2 (10:10→17:47)
[2017-06-03] MEDS: Aspirin EC 81mg tab ORAL SCH (10:11)
[2017-06-03] MEDS: Losartan 50mg tab ORAL SCH (10:11)
[2017-06-03] MEDS: Heparin 5000 units/ml inj SUBQ SCH ×2 (10:12→21:11)
--- NOTE | 2017-06-03 12:27 | Diagnostic Imaging Report ---
Indication: Chronic low back pain Technique: Sagittal T1 and T2 fast spin echo, sagittal STIR, axial T1 and T2 fast spin-echo images of the lumbar spine Comparison: 10/23/2012 Findings: Vertebral body marrow signal is normal. Vertebral body heights are preserved. There is mild degenerative disc narrowing at L4-5. The remaining disc spaces are preserved. There is mild desiccation of the L2-3 through L5-S1 discs. The conus medullaris terminates at the L5-S1 disc level At L3-4, there is mild narrowing of the bilateral neural foramina due to facet arthrosis. No significant disc bulge or protrusion or spinal stenosis. At L4-5, there is central and right paracentral posterior disc protrusion. This does not significantly narrow the spinal canal, may impinge slightly on the right lateral recess. There is mild compromise of the right neural foramen by the disc. The left neural foramen is preserved. At L5-S1, there is broad-based central and left paracentral disc protrusion. This may impinge somewhat on the left lateral recess but does not significantly narrow the spinal canal. There is moderate narrowing of the left neural foramen by the disc and by facet arthrosis. The bulging disc results in mild narrowing of the right neural foramen. The surrounding soft tissues are unremarkable When compared to the prior exam, there is more right-sided component to the disc protrusion at L4-5. The findings at L5-S1 have progressed since the previous study Impression: Mild central and right paracentral posterior disc protrusion at L4-5, may impinge slightly on the bilateral recess and slightly compromises the right neural foramen. This is increased in extent since previous exam of October 2012 Broad-based central and left paracentral disc protrusion at L5-S1, may impinge somewhat on the left lateral recess, results in moderate narrowing of the left neural foramen. This is progressive since the previous study. No acute abnormality
[2017-06-03] MEDS: Breo Ellipta 100/25mcg - 14 dose INH SCH (13:40)
[2017-06-04 04:00] VITALS: BP 127/61
[2017-06-04] MEDS: D5NS 1,000 ML IV SCH ×2 (04:00→17:20)
[2017-06-04 08:00] VITALS: BP 151/68
[2017-06-04] MEDS: Aspirin EC 81mg tab ORAL SCH (09:00)
[2017-06-04] MEDS: PARoxetine 10mg tab ORAL SCH ×2 (09:01→18:49)
[2017-06-04] MEDS: Losartan 50mg tab ORAL SCH (09:01)
[2017-06-04] MEDS: Heparin 5000 units/ml inj SUBQ SCH ×2 (09:02→20:28)
[2017-06-04] MEDS: Breo Ellipta 100/25mcg - 14 dose INH SCH (09:08)
[2017-06-04 11:58] VITALS: BP 128/68
[2017-06-04 16:00] VITALS: BP 141/57
[2017-06-04 20:00] VITALS: BP 144/64
[2017-06-05] VITALS: BP 117/65
[2017-06-05 04:45] VITALS: BP 136/64
[2017-06-05] MEDS: D5NS 1,000 ML IV SCH (06:40)
[2017-06-05 07:52] VITALS: BP 156/67
[2017-06-05] MEDS: Aspirin EC 81mg tab ORAL SCH (08:08)
[2017-06-05] MEDS: Losartan 50mg tab ORAL SCH (08:08)
[2017-06-05] MEDS: PARoxetine 10mg tab ORAL SCH (08:11)
[2017-06-05] MEDS: Heparin 5000 units/ml inj SUBQ SCH (08:18)
[2017-06-05] MEDS: Breo Ellipta 100/25mcg - 14 dose INH SCH (08:56)
[2017-06-05 12:00] VITALS: BP 133/66
[2017-06-05] MEDS ORDERED: NS Irrig 1000ml ONE (15:44)
[2017-06-05] MEDS ORDERED: Tubing IV Secondary IV ONE (15:44)
[2017-06-05] MEDS ORDERED: D5NS 1000ml IV ONE ×2 (15:44)
--- NOTE | 2017-06-07 11:14 | Discharge Summary ---
Discharge Summary Discharge Summary Discharge Summary DATE OF ADMISSION: 05/31/2017 DATE OF DISCHARGE: 06/05/2017 BRIEF HOSPITAL COURSE: Patient is a 66-year-old female, who presented with complaints of worsening back pain, nausea, and vomiting. According to the patient, she was well until one week prior to admission, when she developed worsening and progressive low back pain. Pain became severe and she was given oral medications however was unable to control her pain. On the day of admission, she had multiple episodes of nausea and vomiting, she presented to the emergency room. On evaluation CAT scan of the abdomen and pelvis was unremarkable. She was given IV fluids and antiemetics, however continued to have nausea, vomiting and back pain. She was now admitted for further evaluation. She has medical history significant for stroke, history of carotid stenosis, history of hypertension, hypertensive heart disease, COPD and chronic low back pain. He was given pain management. He underwent MRI of the back findings showed mild central and right paracentral posterior disc protrusion at L4-L5, impinge slightly on the bilateral recess and slightly compresses the right neural foramen. There was broad-based central and left paracentral disc protrusion at L5-S1. There was moderate narrowing of the left neural foramen. There was no acute abnormality noted. She was given prednisone and Neurontin and Zanaflex. She was eventually discharged home. FINAL DIAGNOSES: Severe back pain Posterior disc protrusion at L4-L5 with impingement and slight compression on the right neural foramen Broad-based central and left paracentral disc protrusion at L5-S1 DISPOSITION: Patient was discharged home. DISCHARGE MEDICATIONS: Refer to Discharge Medication List. DISCHARGE INSTRUCTIONS: Follow up with Dr. Demario Hdz on 06/13/2017 at 11 AM. I have been assigned to dictate discharge summary on this account, and I was not involved in the patient's management. Mildred Islas NP Jun 07, 2017 11:14
== END 2017-06-05 15:45 | disposition home or self-care (01) | DRG 552 ==
LOC: EMR 15:19 → 3E 16:08 → EDBEDREQ 18:41
DX: M51.26 Other intervertebral disc displacement, lumbar region (principal); M51.27 Other intervertebral disc displacement, lumbosacral region; R11.2 Nausea with vomiting, unspecified; R10.9 Unspecified abdominal pain; I11.9 Hypertensive heart disease without heart failure; Z86.73 Personal history of transient ischemic attack (TIA), and cerebral infarction without residual deficits; J44.9 Chronic obstructive pulmonary disease, unspecified; Z88.6 Allergy status to analgesic agent; Z88.0 Allergy status to penicillin; Z88.8 Allergy status to other drugs, medicaments and biological substances; F17.200 Nicotine dependence, unspecified, uncomplicated
CPT/HCPCS: 36415; 72148; 80053; 81003; 82150; 83690; 84484; 85025; 85651; 94640; 99285; J2405

== ENCOUNTER 2017-09-24 10:59 | Inpatient (IN) | payer MEDICARE, MEDICAID ==
[~2017-09-24] VITALS: Ht 157.5 cm; Wt 61.7 kg
[2017-09-24 11:27] VITALS: BP 103/53
[2017-09-24 11:51] LABS: BASOPHILS % (AUTO) 1.7 % (0.0-2.0); EOSINOPHILS % (AUTO) 2.9 % (0.0-3.0); HEMATOCRIT 37.2 % (37.0-47.0); HEMOGLOBIN 11.6 G/DL (12.0-16.0); LYMPHOCYTES % (AUTO) 41.2 % (20.0-45.0); MEAN CORPUSCULAR VOLUME 87 FL (80-99); MONOCYTES % (AUTO) 7.7 % (1.0-10.0); NEUTROPHILS % (AUTO) 46.6 % (45.0-75.0); PLATELET COUNT 390 K/UL (150-450); RED BLOOD COUNT 4.26 M/UL (4.20-5.40); WHITE BLOOD COUNT 9.4 K/UL (4.8-10.8)
[2017-09-24 12:03] LABS: INR 0.9 (0.9-1.1)
[2017-09-24 12:05] LABS: ANION GAP 10 mmol/L (5-15); BLOOD UREA NITROGEN 12 mg/dL (7-18); CALCIUM 8.4 MG/DL (8.5-10.1); CARBON DIOXIDE 28 MMOL/L (21-32); CHLORIDE 101 MMOL/L (98-107); CREATININE 0.8 MG/DL (0.55-1.30); POTASSIUM 4.4 MMOL/L (3.5-5.1); SODIUM 139 MMOL/L (136-145)
[2017-09-24 12:10] LABS: ALANINE AMINOTRANSFERASE 19 U/L (12-78); ALBUMIN 3.4 G/DL (3.4-5.0); ALBUMIN/GLOBULIN RATIO 0.9 (1.0-2.7); ALKALINE PHOSPHATASE 84 U/L (46-116); ASPARTATE AMINO TRANSFERASE 15 U/L (15-37); BILIRUBIN,TOTAL 0.2 MG/DL (0.2-1.0)
--- NOTE | 2017-09-24 12:17 | Diagnostic Imaging Report ---
Indications: Right facial drooping and right-sided headache Technique: Spiral acquisitions obtained through the brain. Angled axial and coronal 5 x 5 mm slices were reconstructed. Total dose length product 1353 mGycm. CTDI vol(s) 70 mGy. Dose reduction achieved using automated exposure control Comparison: 11/13/2016 Findings: There is mild prominence of the ventricles and extra axial CSF spaces. There is a tiny lacunar infarct in the right lentiform nucleus, age indeterminate but probably old and equivocally evident previously. Old lacunar infarct is seen in the right frontal deep white matter, also previously demonstrated. Questionable low-attenuation areas in the midbrain and matheus are probably artifactual. No acute intracranial bleed or edema, mass effect, nor midline shift. Visualized orbits and sinuses are unremarkable. The calvarium is intact Impression: Age-indeterminate right basal ganglia lacunar infarct, suspect old. Consider MRI for further evaluation if clinically indicated Old right frontal deep white matter lacunar infarct, also previously described Mild age-related volume loss Negative for acute intracranial bleed or mass effect The CT scanner at [facility] is accredited by the [employer] and the scans are performed using protocols designed to limit radiation exposure to as low as reasonably achievable to attain images of sufficient resolution adequate for diagnostic evaluation.
[2017-09-24] MEDS ORDERED: Aspirin Baby 81mg ORAL ONE (12:45)
[2017-09-24 13:49] VITALS: BP 99/39
--- NOTE | 2017-09-24 14:42 | Diagnostic Imaging Report ---
Indication: Shortness of breath Technique: One view of the chest Comparison: 01/10/2017 Findings: There is atelectasis at the left lung base. The lungs and pleural spaces are clear otherwise. The heart size is normal. There are surgical clips in the right upper quadrant of the abdomen Impression: Minimal basilar atelectasis. No acute process otherwise
--- NOTE | 2017-09-24 15:02 | Emergency Room Report ---
History of Present Illness General Chief Complaint: Stroke Symptoms Source: Patient Present Illness HPI This patient with concern for stroke. The history was that she is more "altered " this am. No specific time can be stated. The daughter was concerned that her right facial droop is worsened and that mom is not thinking/speaking clearly. The patient is tired but denies specific complaint. No chest pain, no sob, no abd pain, no vomiting, normal urine/bm. No fever, no trauma. The patient had a stroke 1/2 year ago and sounds as though treated with TPA and [facility]. She was hospitalized for about a week acc to her and when she left she had no deficit and did not go to rehab. Later when her daughter came in I discovered she had been prescribed Zithromax and Promethazine with codeine. Allergies: Coded Allergies: MORPHINE (Verified Allergy, Severe, Anaphylaxis, 11/14/16) PT RECEIVED 5 DOSES OF OXYCODONE ON PREVIOUS ADMISSION IN 06/2015. As per conversation with the patient. Patient denies having allergy reaction with [place]. She said " I have been taking [place] before and i have no allergy reactions. CITRUS AND DERIVATIVES (Verified Allergy, Unknown, BREAKOUT, 06/15/15) breakout HYDROMORPHONE (Verified Allergy, Unknown, CHEST PAIN, 06/15/15) chest pain IODINE (Verified Allergy, Unknown, SWELLING, 06/15/15) swelling PENICILLINS (Verified Allergy, Unknown, ITCHING, 06/15/15) itching Uncoded Allergies: NYLON TAPE (Adverse Reaction, Intermediate, NIEVES THE SKIN, 06/21/15) Patient History Last Menstrual Period: n/a Nursing Documentation-H Hx Cardiac Problems: No Hx Hypertension: No Hx Pacemaker: No Hx Asthma: Yes Hx COPD: Yes Hx Diabetes: No Hx Cancer: No Hx Gastrointestinal Problems: Yes Hx Dialysis: No Hx Neurological Problems: Yes Hx Cerebrovascular Accident: Yes - July 2017 Hx Transient Ischemic Attacks: Yes - X3 in 2017 Hx Seizures: No Review of Systems Constitutional: Reports: see HPI Eye: Reports: no symptoms ENT: Reports: no symptoms Respiratory: Reports: no symptoms Cardiovascular: Reports: no symptoms Gastrointestinal: Reports: no symptoms Genitourinary: Reports: no symptoms Musculoskeletal: Reports: no symptoms Skin: Reports: no symptoms Psychiatric: Reports: no symptoms Neurological: Reports: see HPI, paresthesia, focal weakness Endocrine: Reports: no symptoms Hematologic/Lymphatic: Reports: no symptoms Allergic: Reports: no symptoms Physical Exam Vital Signs Date Time Temp Pulse Resp B/P (MAP) Pulse Ox O2 Delivery O2 Flow Rate FiO2 09/24/17 11:11 98.0 58 18 103/53 97 Room Air 98.1 Sp02 EP Interpretation: reviewed, normal General Appearance: normal inspection, well appearing, no apparent distress, alert, GCS 15, non-toxic Head: normocephalic, atraumatic Eyes: bilateral eye normal inspection, bilateral eye PERRL, bilateral eye EOMI ENT: normal ENT inspection, hearing grossly normal, normal pharynx, no angioedema, normal voice, moist mucus membranes Neck: normal inspection, full range of motion, supple, no meningismus, no bony tend Respiratory: normal inspection, lungs clear, normal breath sounds, no rhonchi, no respiratory distress, no retraction, no accessory muscle use, no wheezing Cardiovascular #1: normal inspection, regular rate, rhythm, no edema Gastrointestinal: normal inspection, normal bowel sounds, non tender, soft, no mass, non-distended Musculoskeletal: gait/station normal, normal range of motion Neurologic: normal inspection, alert, responsive, motor strength/tone normal, other - mildly slow to answer questions, had to repeat, falls asleep. also mild right facial droop. strength equal 4/4 all. Psychiatric: normal inspection, judgement/insight normal, memory normal Suicide Risk Assessment: Suicidal Ideation: No Had intent to initiate attempt: No Pt's plan for suicide attempt: No Has means to complete attempt: No Skin: normal inspection, normal color, no rash, warm/dry Medical Decision Making Diagnostic Impression: Primary Impression: Altered mental status ER Course admit I think symptoms due to promethazine/codeine but patient is still not back to baseline and she is high risk for CVA. Requires inpt. monitoring. Rhythm Strip Diag. Results Rhythm Strip Time: 11:00 EP Interpretation: yes Rhythm: NSR Last Vital Signs Date Time Temp Pulse Resp B/P (MAP) Pulse Ox O2 Delivery O2 Flow Rate FiO2 09/24/17 13:49 60 12 99/39 95 Room Air 09/24/17 11:11 98.0 98.1 Status: unchanged Disposition: ADMITTED INPATIENT Condition: Serious Referrals: NOT CHOSEN IPA/,REFERRING (PCP) Carmelo Velazco M.D. 24, 2018 15:02
[2017-09-24 16:00] VITALS: BP 135/57
[2017-09-24] MEDS ORDERED: Zolpidem 5mg tab ORAL PRN (16:30)
[2017-09-24 18:11] LABS: APPEARANCE,URINE CLEAR; BILIRUBIN, URINE NEGATIVE (NEGATIVE); COLOR,URINE PALE YELLOW; GLUCOSE, URINE (UA) NEGATIVE (NEGATIVE); KETONES,URINE NEGATIVE (NEGATIVE); LEUKOCYTE ESTERASE ,URINE NEGATIVE (NEGATIVE); NITRITE,URINE NEGATIVE (NEGATIVE); PH,URINE 7 (4.5-8.0); PROTEIN,URINE NEGATIVE (NEGATIVE); UROBILINOGEN,URINE NORMAL MG/DL (0.0-1.0)
[2017-09-24 20:00] VITALS: BP 124/64
[2017-09-24] MEDS: Albuterol/Ipratropium 3ml neb HHN SCH ×2 (20:01→23:39)
[2017-09-25] VITALS: BP 114/52
[2017-09-25] MEDS: Albuterol/Ipratropium 3ml neb HHN SCH ×6 (03:00→23:18)
[2017-09-25 04:00] VITALS: BP 118/61
[2017-09-25 08:00] VITALS: BP 123/63
[2017-09-25] MEDS: Aspirin EC 81mg tab ORAL SCH (09:54)
[2017-09-25] MEDS: Losartan 50mg tab ORAL SCH (09:55)
--- NOTE | 2017-09-25 11:07 | Diagnostic Imaging Report ---
Indications: Upper respiratory congestion and upper respiratory problems, history of sinusitis, history of sinus surgery 20 years ago, cough Technique: Spiral images obtained through the maxillofacial sinuses. No IV contrast utilized. Multiplanar reconstructions were generated.Total dose length product 518 mGycm. CTDIvol(s) 28 mGy. Dose reduction achieved using automated exposure control Comparison: none Findings: The frontal, ethmoid, sphenoid, and maxillary sinuses are all clear. The maxillary ostia are patent. No significant mucosal thickening seen in the nasal fossa. The nasal septum is midline. The patient is edentulous. The orbits are unremarkable. The visualized intracranial structures are unremarkable. Impression: Negative for evidence of maxillofacial sinus disease The CT scanner at [facility] is accredited by the [employer] and the scans are performed using protocols designed to limit radiation exposure to as low as reasonably achievable to attain images of sufficient resolution adequate for diagnostic evaluation.
[2017-09-25 12:00] VITALS: BP 110/57
[2017-09-25] MEDS: Norco 5mg/325mg tab ORAL PRN ×2 (15:13→23:12)
--- NOTE | 2017-09-25 15:39 | Cardiology Report ---
APPROVED REPORT EKG Measurement Heart [id number] Normal sinus rhythm Normal ECG
[2017-09-25 16:00] VITALS: BP 140/61
[2017-09-25 20:00] VITALS: BP 117/56
[2017-09-25] MEDS: Heparin 5000 units/ml inj SUBQ SCH (20:42)
--- NOTE | 2017-09-25 23:00 | History and Physical Report ---
DATE OF ADMISSION: 09/24/2017 REASON FOR ADMISSION: Left-sided weakness. HISTORY OF PRESENT ILLNESS: This is an female with a known history of significant cerebrovascular disease. She is 66 years old. She has occluded right carotid artery with collateralization from the left. Many years ago, she suffered a mild stroke and in a couple of months ago again had an acute cerebrovascular accident, that was treated with thrombolytics therapy and subsequent resolution of acute neurologic deficits. Today while at home doing some house chores, she noted weakness of her left side and dizziness. She could not move her left arm for a short period and felt the symptoms were similar to her prior strokes. She came to the emergency room at which point, her symptoms had nearly resolved. PAST MEDICAL HISTORY: Hypertension, cerebrovascular disease, and COPD. MEDICATIONS: Reviewed and reconciled. ALLERGIES: Hydromorphone, iodine and penicillin. SOCIAL HISTORY: Positive for smoking 50+ pack years. No alcohol or substance abuse. FAMILY HISTORY: Noncontributory. REVIEW OF SYSTEMS: A 10-point review of systems performed, all systems negative other than noted above. There is no history of cardiac arrhythmias, myocardial infarction or seizures. There is no history of diabetes. The patient has had prior echocardiograms, most recently in July of this year, normal ejection fraction noted with concentric hypertrophy and a diastolic relaxation abnormality. Approximately a week ago, the patient was seen by Dr. Hdz for cough, congestion and sputum production. She just completed a course of Zithromax. She continues to have some cough and sputum production, but no fevers or chills. PHYSICAL EXAMINATION: VITAL SIGNS: Blood pressure 103/53, pulse 58, respiratory rate 18, and afebrile. Mild facial asymmetry. NECK: Supple. No bruits. Jugular venous pressure normal. LUNGS: With coarse breath sounds. CARDIAC: Regular rhythm and rate. Normal S1 and S2 with a fourth heart sound. ABDOMEN: Soft and nontender. EXTREMITIES: Good pulses. No edema. NEUROLOGIC: Reveals slight weakness on the left. Otherwise, no focalities. No expressive or cognitive deficits noted. LABORATORY AND DIAGNOSTIC DATA: EKG revealed sinus rhythm and no acute abnormalities. Chest x-ray no acute process. CAT scan of the brain, no acute process. White count 9.4 and hemoglobin 11.6. Chemistry panel within normal limits. IMPRESSION: 1. TIA. 2. Cerebrovascular disease with known history of right carotid occlusion and prior strokes. 3. Hypertensive heart disease. 4. COPD with subacute bronchitis. 5. Paroxysmal bronchospasm. 6. Nicotine abuse. PLAN: 1. Continued anti-platelet therapy. 2. Neuro-Checks. 3. Hydration. 4. Bedrest. 5. DVT prophylaxis. 6. Bronchodilators. 7. Respiratory hygiene. 8. Avoid hypotensive trend. 9. Hold parameters for antihypertensive medications as such. Rosendo Palacios M.D. DR: RIDDHI JOB#: [id number] CC:
[2017-09-26] VITALS: BP 112/45
[2017-09-26] MEDS: Albuterol/Ipratropium 3ml neb HHN SCH ×6 (03:14→23:32)
--- NOTE | 2017-09-26 03:30 | Progress Note ---
DATE: 09/25/2017 CARDIOLOGY AND INTERNAL MEDICINE PROGRESS NOTE SUBJECTIVE: The patient has less cough and congestion. CAT scan of the sinuses negative. Chest x-ray, mild atelectasis, no acute process. The patient has not had any recurring neurologic deficits. She notes her strength at baseline and is ambulatory. She does feel global weakness. PHYSICAL EXAMINATION: VITAL SIGNS: Blood pressure 140/61, pulse 64, respiratory rate 20, and afebrile. LUNGS: With few rhonchi and coarse breath sounds. No wheezing. CARDIAC: Regular rhythm and rate. Normal S1 and S2 with a fourth heart sound. ABDOMEN: Soft. EXTREMITIES: No edema. NEUROLOGIC: With mild facial asymmetry and left-sided weakness, which is the patient's prior baseline. IMPRESSION: 1. TIA. 2. Cerebrovascular disease. 3. COPD. 4. Recovering acute bronchitis. PLAN: 1. Continue current regimen. 2. Physical therapy and mobilization. 3. Maintain anti-platelet and anti-lipid drugs. 4. Discharge planning if no new neurologic deficits. Rosendo Palacios M.D. DR: RIDDHI JOB#: [id number] CC:
[2017-09-26 04:00] VITALS: BP 106/52
[2017-09-26 08:00] VITALS: BP 136/58
[2017-09-26] MEDS: Losartan 50mg tab ORAL SCH (08:25)
[2017-09-26] MEDS: Aspirin EC 81mg tab ORAL SCH (08:25)
[2017-09-26] MEDS: Heparin 5000 units/ml inj SUBQ SCH ×2 (08:29→20:21)
[2017-09-26] MEDS: Norco 5mg/325mg tab ORAL PRN ×2 (08:38→17:58)
[2017-09-26 12:00] VITALS: BP 131/77
[2017-09-26 16:00] VITALS: BP 124/73
[2017-09-26 20:00] VITALS: BP 144/55
[2017-09-27] VITALS: BP 142/65
--- NOTE | 2017-09-27 00:45 | Progress Note ---
DATE: 09/26/2017 CARDIOLOGY PROGRESS NOTE SUBJECTIVE: The patient feels weak. Her mobility is at baseline with regard to strength, but seems to tire more easily. She is also attributing this to the current heat wave. OBJECTIVE: VITAL SIGNS: Blood pressure 144/55, pulse 70, respirations 20 and afebrile. LUNGS: Clear. CARDIAC: Regular. Normal S1 and S2 with a fourth heart sound. ABDOMEN: Soft. EXTREMITIES: Without edema. There is minimal weakness on the left with some facial asymmetry. IMPRESSION: 1. TIA. 2. Cerebrovascular disease. 3. Right carotid occlusion. 4. Mild hypovolemia and dehydration, corrected. 5. Acute bronchitis, resolving. 6. COPD. 7. Hypertension. PLAN: 1. Maintain adequate hydration. 2. Continue with anti-platelet and anti-lipid drugs. 3. No surgical option based on cerebrovascular anatomy. Limit over exertion and dehydration, as an outpatient. 4. Physical and occupational therapy evaluations with discharge planning to follow. The patient is unable to leave today due to inclement weather and high temperatures in her apartment. Rosendo Palacios M.D. DR: RIDDHI JOB#: [id number] CC:
[2017-09-27] MEDS: Albuterol/Ipratropium 3ml neb HHN SCH ×3 (03:33→12:23)
[2017-09-27 04:00] VITALS: BP 132/59
[2017-09-27 08:00] VITALS: BP 140/60
[2017-09-27] MEDS: Norco 5mg/325mg tab ORAL PRN (09:09)
[2017-09-27] MEDS: Aspirin EC 81mg tab ORAL SCH (09:10)
[2017-09-27] MEDS: Losartan 50mg tab ORAL SCH (09:10)
[2017-09-27] MEDS: Heparin 5000 units/ml inj SUBQ SCH (09:11)
[2017-09-27 12:00] VITALS: BP 148/61
--- NOTE | 2017-09-30 15:02 | Discharge Summary ---
Discharge Summary Discharge Summary _ DATE OF ADMISSION: 09/24/2017 DATE OF DISCHARGE: 09/27/2017 REASON FOR ADMISSION: 66 years old female with past medical history of COPD, TIA, recent CVA about 6 months ago, was brought in by her daughter with concern for possible CVA. According to the daughter , patient was more altered than usual , had worsening right facial droop according to daughter and was not speaking clearly. There was no chest pain or shortness of breath. Upon evaluation in emergency room CT of the head revealed no acute intracranial pathology but showed extensive cerebrovascular disease and evidence of old infarct. Chest x-ray [id number] no acute cardiopulmonary pathology but indicated mild atelectasis. Laboratory workup was unremarkable. Patient admitted for further management with diagnoses of TIA, cerebrovascular disease with history of right carotid occlusion, history of prior CVA , hypertension, COPD ,bronchospasm. HOSPITAL COURSE: Patient admitted to telemetry floor. Patient was on frequent neuro checks. No new neuro deficits noted. Patient was on IV hydration initially. Dual antiplatelet therapy with aspirin and Plavix resumed. Statin was continued. Blood pressure was managed with angiotensin receptor janae and remained stable. Supplemental oxygen provided as needed to keep pulse oximetry above 90%. Pulmonary toilet was on standby as needed . CT of maxillofacial revealed no evidence of maxillofacial sinus disease. DVT prophylaxis provided. Patient was working with physical and occupational therapists. Supportive care provided. Patient clinically improved, mental status back to baseline . Patient was stable for discharge home FINAL DIAGNOSES: TIA Cerebrovascular disease History of right carotid occlusion Dehydration History of CVA Acute bronchitis COPD Hypertension DISCHARGE MEDICATIONS: See Medication Reconciliation list. DISCHARGE INSTRUCTIONS: Patient was discharged home. Outpatient follow-up with her primary care provider in one week. I have been assigned to dictate discharge summary for this account. I was not involved in the patient's management. Yin Griffin NP Sep 30, 2017 15:02
== END 2017-09-27 12:55 | disposition home or self-care (01) | DRG 69 ==
LOC: EMR 11:50 → 2E 13:16 → EDBEDREQ 13:24
DX: G45.9 Transient cerebral ischemic attack, unspecified (principal); J44.0 Chronic obstructive pulmonary disease with (acute) lower respiratory infection; J44.9 Chronic obstructive pulmonary disease, unspecified; Z86.73 Personal history of transient ischemic attack (TIA), and cerebral infarction without residual deficits; I10 Essential (primary) hypertension; Z88.3 Allergy status to other anti-infective agents; Z88.0 Allergy status to penicillin; Z88.8 Allergy status to other drugs, medicaments and biological substances; Z87.891 Personal history of nicotine dependence; I11.9 Hypertensive heart disease without heart failure; J20.9 Acute bronchitis, unspecified; E86.0 Dehydration; I65.21 Occlusion and stenosis of right carotid artery; E86.1 Hypovolemia
CPT/HCPCS: 36415; 70450; 70486; 71045; 80053; 81003; 85025; 85610; 87070; 87181; 87205; 93005; 94640; 94664; J7620

== ENCOUNTER 2019-06-25 12:50 | Inpatient (IN) | payer MEDICARE, MEDICAID ==
[~2019-06-25] VITALS: Ht 157.5 cm; Wt 61.8 kg
[2019-06-25 20:00] VITALS: BP 127/41
[2019-06-25] MEDS ORDERED: Zolpidem 5mg tab ORAL PRN (20:45)
[2019-06-25 22:08] LABS: HEMOGLOBIN 7.1 G/DL (12.0-16.0); MEAN CORPUSCULAR VOLUME 72 FL (80-99); PLATELET COUNT 309 K/UL (150-450); RED BLOOD COUNT 3.34 M/UL (4.20-5.40); RED CELL DISTRIBUTION WIDTH 19.2 % (11.6-14.8)
[2019-06-25 22:19] LABS: % IRON SATURATION 3 % (15-50); IRON 11 ug/dL (50-175); TOTAL IRON BINDING CAPACITY 406 ug/dL (250-450)
[2019-06-25 22:26] LABS: ALANINE AMINOTRANSFERASE 50 U/L (12-78); ALBUMIN/GLOBULIN RATIO 0.8 (1.0-2.7); ALKALINE PHOSPHATASE 90 U/L (46-116); ANION GAP 11 mmol/L (5-15); ASPARTATE AMINO TRANSFERASE 29 U/L (15-37); BILIRUBIN,TOTAL 0.1 MG/DL (0.2-1.0); BLOOD UREA NITROGEN 10 mg/dL (7-18); CALCIUM 8.1 MG/DL (8.5-10.1); CARBON DIOXIDE 26 MMOL/L (21-32); CHLORIDE 108 MMOL/L (98-107); CREATININE 0.7 MG/DL (0.55-1.30); POTASSIUM 3.7 MMOL/L (3.5-5.1); SODIUM 145 MMOL/L (136-145)
[2019-06-25] MEDS: HYDROcodone/Acetamin 10/325 tab ORAL PRN (23:33)
[2019-06-26] VITALS: BP 132/51
--- NOTE | 2019-06-26 | NUR ---
Received patient as a direct admission. She is AOx 4. Has an unsteady gait, uses cane. Cane is at bed side. Respirations are unlabored. Pulses are present upon palpation. Patient was complaining of pain on right knee due to knee surgery in 2016. Skin is intact. Bed is in the lowest position, yellow socks given, and yellow gown. Call light is within reach. Side rails up x 2. Will continue plan of care.
--- NOTE | 2019-06-26 00:06 | NUR ---
Patients labs came back and WBC is 19.0 and Hgb is 7.1. Left a message for Dr. Palacios. awaiting for call back.
--- NOTE | 2019-06-26 00:21 | NUR ---
Dr. Palacios ordered 1 Unit of blood to be transfused. Will carry out as ordered.
[2019-06-26] MEDS: Albuterol/Ipratropium 3ml neb HHN SCH ×4 (01:02→19:06)
--- NOTE | 2019-06-26 01:14 | Consultation ---
DATE OF CONSULTATION: 06/25/2019 NOTE: INCOMPLETE DICTATION CARDIOLOGY CONSULTATION CONSULTING PHYSICIAN: Rosendo Palacios M.D. REFERRING PHYSICIAN: Demario Hdz M.D. REASON: Edema and shortness of breath. HISTORY OF PRESENT ILLNESS: This is a 68-year-old female with history of hypertension and COPD. She was seen in my office about a week ago for cardiac followup. Laboratory studies were obtained and she was noted to have a low hemoglobin level of 7.5. This was quite unusual for her. She was asked to come to repeat the blood tests either with me or Dr. Hdz. In the meantime, however she had developed worsening shortness of breath and leg swelling and hospitalization was initiated. PAST MEDICAL HISTORY: 1. COPD. 2. Paroxysmal bronchospasm. 3. Hypertensive heart disease. 4. Paroxysmal atrial fibrillation. 5. Cerebrovascular disease with history of cerebrovascular accident. 6. Endarterectomy and right carotid occlusion. 7. Degenerative disk disease. 8. Osteoarthritis. ALLERGIES: Include morphine. FAMILY HISTORY: Noncontributory. SOCIAL HISTORY: Greater than 68-[id number]-akam smoker. No alcohol or substance abuse. Presently not smoking. REVIEW OF SYSTEMS: Her most recent echocardiogram revealed normal ejection fraction, concentric hypertrophy, mildly elevated PA systolic pressure. She is on full anticoagulation with Eliquis as well as anti-platelet therapy with low-dose aspirin. She is not on steroids, but does use inhalers. She has not been wheezing. She has not had any new progression of her baseline neurologic deficits. She has not noted any change in bowel habits including black stool, red stool, or abdominal discomfort. PHYSICAL EXAMINATION: Rosendo Palacios M.D. DR: CHRYSTAL JOB#: [id number] CC:
--- NOTE | 2019-06-26 01:45 | Consultation ---
DATE OF CONSULTATION: 06/25/2019 NOTE: ADDENDUM CARDIOLOGY CONSULTATION PHYSICAL EXAMINATION: VITAL SIGNS: Blood pressure 137/80, heart rate 62, respirations 18. HEENT: Conjunctivae pink. Oropharynx clear. NECK: Supple. Jugular venous pressure is slightly elevated. CARDIAC: Regular rhythm and rate. Normal S1, S2. A 1/6 systolic murmur at apex. ABDOMEN: Soft. EXTREMITIES: 1+ lower extremity edema, left greater than right. NEUROLOGIC: Reveals facial asymmetry, wide-based gait, slight left-sided weakness. LABORATORY DATA: Pending. IMPRESSION: 1. Probable anemia. 2. Coagulopathy due to Eliquis. Rule out GI bleeding or other source of blood loss. 3. Acute on chronic diastolic congestive heart failure. 4. COPD with no active bronchospasm. 5. Cerebrovascular disease with baseline impairments. PLAN: 1. Await confirmation of low blood count. Transfuse as needed. 2. Stool occult blood. 3. Reassess continuation of anticoagulation at this time based on above results. 4. Diuresis. 5. Venous duplex scan. 6. Optimization of antihypertensive and anti-failure regimen. 7. Inhaled bronchodilators. 8. Further recommendations to follow. Rosendo Palacios M.D. DR: CHRYSTAL JOB#: [id number] CC:
[2019-06-26] MEDS ORDERED: Vancomycin 1gm in D5W 275ml IVPB SCH ×2 (02:00→05:00)
[2019-06-26 04:00] VITALS: BP 150/75
--- NOTE | 2019-06-26 07:10 | NUR ---
NURSE NOTES: Received report from LOUIS Harry. Pt A/O x4, no s/sx of acute distress. Breathing even and unlabored in RA. Complains of 9/10 pain on left leg that radiates to groin. Pt received 1 unit PRBC, per RN. Bed on lowest position, call light within reach. Will continue plan of care.
--- NOTE | 2019-06-26 07:37 | NUR ---
NURSE NOTES: Asked Dr Hdz for any orders for shingles. ordered Acyclovir 800mg 5x/day for 7days.
[2019-06-26 08:00] VITALS: BP 141/56
[2019-06-26] MEDS: HYDROcodone/Acetamin 10/325 tab ORAL PRN (08:38)
[2019-06-26] MEDS ORDERED: Aspirin EC 81mg tab ORAL SCH (09:00)
[2019-06-26] MEDS ORDERED: Eliquis 5mg tablet ORAL SCH (09:00)
[2019-06-26] MEDS: Vancomycin 1gm in D5W 275ml IVPB SCH ×2 (10:57→10:58)
[2019-06-26 10:58] LABS: BASOPHILS % (AUTO) 0.8 % (0.0-2.0); EOSINOPHILS % (AUTO) 1.1 % (0.0-3.0); HEMATOCRIT 26.9 % (37.0-47.0); HEMOGLOBIN 8.4 G/DL (12.0-16.0); LYMPHOCYTES % (AUTO) 17.7 % (20.0-45.0); MEAN CORPUSCULAR VOLUME 73 FL (80-99); NEUTROPHILS % (AUTO) 70.4 % (45.0-75.0); PLATELET COUNT 299 K/UL (150-450); RED BLOOD COUNT 3.71 M/UL (4.20-5.40); RED CELL DISTRIBUTION WIDTH 17.6 % (11.6-14.8); WHITE BLOOD COUNT 14.1 K/UL (4.8-10.8)
--- NOTE | 2019-06-26 11:14 | Diagnostic Imaging Report ---
Indication: Left greater than right leg edema Technique: Grayscale and duplex images of the bilateral lower extremity veins Comparison: Unilateral left leg venous study 8 2 10/18/2016 Findings: Bilaterally, grayscale and duplex images demonstrate no evidence of intraluminal thrombus. Normal phasic Doppler waveforms, demonstrating normal augmentation response and no evidence of valvular insufficiency. Greater saphenous vein(s) and tibial veins are patent. Normal compressibility. Incidentally noted is a hypoechoic avascular area in the left anterior knee soft tissues which measures approximately 3.2 x 2 x 0.9 cm. Impression: Negative for evidence of lower extremity deep venous thrombosis bilaterally 3.2 x 2 x 0.9 cm hypoechoic lesion within the anterior left knee soft tissues. Nonspecific, could indicate a small abscess, hematoma, or complicated cyst.
[2019-06-26 12:00] VITALS: BP 143/59
[2019-06-26 12:02] LABS: ALANINE AMINOTRANSFERASE 52 U/L (12-78); ALBUMIN/GLOBULIN RATIO 0.8 (1.0-2.7); ALKALINE PHOSPHATASE 90 U/L (46-116); ANION GAP 10 mmol/L (5-15); ASPARTATE AMINO TRANSFERASE 26 U/L (15-37); BILIRUBIN,TOTAL 0.4 MG/DL (0.2-1.0); BLOOD UREA NITROGEN 10 mg/dL (7-18); CALCIUM 8.1 MG/DL (8.5-10.1); CARBON DIOXIDE 27 MMOL/L (21-32); CHLORIDE 109 MMOL/L (98-107); CREATININE 0.6 MG/DL (0.55-1.30); POTASSIUM 3.7 MMOL/L (3.5-5.1); SODIUM 146 MMOL/L (136-145)
--- NOTE | 2019-06-26 12:05 | NUR ---
CASE MANAGEMENT:REVIEW 68 YR OLD FEMALE DIRECTLY ADMITTED FROM HOME CC: SOB AND EDEMA SI: PROBABLE ANEMIA. AC/CHR CHF. COPD 98.2 75 18 127/41 95% ON RA WBC+19.0 H/H-7.1/24.0 IS: IV VANCOMYCIN Q24HRS IV VENOFER QHS ACYCLOVIR PO 5X/DAY NORVASC PO BID DUONEB HHN Q6HRS RTC TRANSFUSE 1 UNIT PRBC'S VENOUS DUPLEX URINE CX : DIRECTLY ADMITTED TO TELEMETRY
--- NOTE | 2019-06-26 12:18 | Diagnostic Imaging Report ---
Indication: Cough Technique: One view of the chest Comparison: 09/24/2017 Findings: Hazy parenchymal opacity is seen in the left costophrenic sulcus. This could an artifact of overlying soft tissue but could also indicate infiltrate or pleural fluid. The remaining lungs pleural spaces are clear. The heart size is normal. Impression: Hazy left lateral basilar infiltrate and/or pleural fluid, versus overlying soft tissue artifact. Correlate with clinical findings
--- NOTE | 2019-06-26 12:30 | History and Physical Report ---
DATE OF ADMISSION: 06/25/2019 CHIEF COMPLAINT: Severe anemia. HISTORY OF PRESENT ILLNESS: The patient is a pleasant 68-year-old female, well known to me. She has a history of hypertension, COPD, and stroke. She has a history of paroxysmal atrial fibrillation and PFO. She saw her delivery associate several days prior to admission due to routine labs, she was noted to be markedly anemic. Because of her anemia, she is now admitted for further evaluation and care. The patient is on anticoagulation. She denies any bleeding, melena, hematuria, or bright red blood per rectum. She has had no chest pain. She has chronic shortness of breath. She has also chronic pain. PAST MEDICAL HISTORY: As above. PAST SURGICAL HISTORY: Includes endarterectomy. CURRENT MEDICATIONS: Reconciled and reviewed. ALLERGIES: Include morphine. FAMILY HISTORY: Noncontributory. SOCIAL HISTORY: The patient is a prior heavy smoker, but quit. No alcohol. No drugs. REVIEW OF SYSTEMS: GENERAL: No fevers or chills. HEENT: No headaches or visual changes. CARDIOPULMONARY: No chest pain. Chronic shortness of breath. No palpitations. GASTROINTESTINAL: No nausea or vomiting. No melena. No bright red blood per rectum. No hematemesis. GENITOURINARY: No hematuria or dysuria. MUSCULOSKELETAL: Chronic lower back pain. NEUROLOGIC: No history of seizures. PHYSICAL EXAMINATION: VITAL SIGNS: Temperature 98.9, pulse 74, respirations 20, and blood pressure 132/51. GENERAL: The patient is well-developed, no apparent distress. She is awake, alert. She has a facial droop, which is old. NECK: Supple. There is no jugular venous distention. No lymphadenopathy. HEART: Regular rate and rhythm. LUNGS: Clear to auscultation bilaterally. No wheezes or rales. ABDOMEN: Soft, nontender, nondistended. EXTREMITIES: Without clubbing, cyanosis, or edema. LABORATORY DATA: White count was 19,000, hemoglobin 7, hematocrit 24. Sodium 145, potassium 3.7, chloride 108, bicarb 26, BUN 10, creatinine 0.7. Iron level was only 11. ASSESSMENT: This is a pleasant 68-year-old female admitted with complaints of severe anemia, etiology of which is unclear. Her low iron level would be concerning for chronic iron loss, possibly GI. PLAN: Transfuse hemoglobin, iron supplementation. Check stool for occult blood. Repeat WBC. Check UA and a chest x-ray. Cardiology evaluation has also been obtained. Demario Hdz M.D. DR: MAKAYLA JOB#: [id number] CC:
--- NOTE | 2019-06-26 12:49 | NUR ---
RADIOLOGY DEPT., CHEST X-RAY DONE.-P.DYE
--- NOTE | 2019-06-26 14:06 | NUR ---
NURSE NOTES: Called the pharmacy, acyclovir not found in pyxis.
[2019-06-26 15:01] LABS: APPEARANCE,URINE CLEAR; BILIRUBIN, URINE NEGATIVE (NEGATIVE); GLUCOSE, URINE (UA) NEGATIVE (NEGATIVE); KETONES,URINE NEGATIVE (NEGATIVE); LEUKOCYTE ESTERASE ,URINE NEGATIVE (NEGATIVE); NITRITE,URINE NEGATIVE (NEGATIVE); PH,URINE 6 (4.5-8.0); PROTEIN,URINE 1+ (NEGATIVE); UROBILINOGEN,URINE 1 MG/DL (0.0-1.0)
--- NOTE | 2019-06-26 15:02 | NUR ---
NURSE NOTES: Informed Dr Palacios that pt Hgb improved from 7.1 to 8.4 after blood transfusion of 1 unit PRBC last night, WBC trending down from 19 to 14.1, and Sodium 146 today. Addendum: 06/26/19 at 1505 by Paula Jerez RN No new orders.
[2019-06-26 15:03] LABS: COLOR,URINE YELLOW
[2019-06-26 16:00] VITALS: BP 120/57
--- NOTE | 2019-06-26 18:19 | NUR ---
NURSE NOTES: Held amlodipine. Per protocol, hold if SBP below 130. (BP: 120/57)
--- NOTE | 2019-06-26 19:23 | NUR ---
HAND-OFF: Report given to LOUIS Harry. Pt in stable condition, endorsed plan of care.
[2019-06-26 20:00] VITALS: BP 132/62
[2019-06-26] MEDS: Iron Sucrose 100 MG in NS 55 ML IV SCH (20:32)
[2019-06-27] VITALS: BP 150/68
[2019-06-27] MEDS: Albuterol/Ipratropium 3ml neb HHN SCH ×4 (01:07→21:08)
[2019-06-27 04:00] VITALS: BP 161/63
[2019-06-27] MEDS: HYDROcodone/Acetamin 10/325 tab ORAL PRN ×4 (04:56→20:22)
--- NOTE | 2019-06-27 05:44 | Progress Note ---
DATE: 06/26/2019 CARDIOLOGY PROGRESS NOTE SUBJECTIVE: The patient's pain has worsened, erythema and redness has decreased. There is signs of dermatomal pattern to her rash. The patient has not had a bowel movement and stool occult blood is pending. She remains off anti-platelet and anticoagulation therapy. OBJECTIVE: LUNGS: Clear. CARDIAC: Regular. Normal S1, S2 with a 1/6 systolic murmur at lower left sternal border. ABDOMEN: Soft. EXTREMITIES: No edema. LABORATORY DATA: White count 14, hemoglobin 8.4. Sodium 146, potassium 3.7, BUN 10, creatinine 0.6. Albumin 3. IMPRESSION: 1. Dehydration. 2. Hypernatremia. 3. . 4. Severe anemia . 5. Mild protein-calorie malnutrition. 6. Improved leukocytosis. 7. Lower extremity cellulitis. 8. Paroxysmal atrial fibrillation. 9. Cerebrovascular disease . 10. Hypertensive heart disease. 11. Hemoglobin up to 8.4 following one unit of packed red blood cells. 12. Zoster of left leg with secondary bacterial cellulitis. PLAN: 1. Await stool occult blood test. 2. Start iron replacement. 3. Free water replacement. 4. Continue to hold anti-platelet and anticoagulation therapy pending stool occult blood test. 5. Continue antiviral and antibacterial therapy for leg cellulitis. Rosendo Palacios M.D. DR: Shana JOB#: [id number] CC:
[2019-06-27 08:00] VITALS: BP 159/71
--- NOTE | 2019-06-27 08:00 | NUR ---
NURSE NOTES: Patient stable AOx4 with no complaints and no s/sx of distress. RR even and unlabored on RA. Shingles rash noted to LT Leg. Vancomycin given at this time. Side rails upx2, call light within reach, bed low and locked. Will continue monitor.
--- NOTE | 2019-06-27 08:06 | NUR ---
HAND-OFF: Report given to LOUIS Dunn.Patient in stable condition. Endorsed plan of care.
[2019-06-27] MEDS: Vancomycin 1gm in D5W 275ml IVPB SCH (08:10)
[2019-06-27 08:21] LABS: BASOPHILS % (AUTO) 1.4 % (0.0-2.0); EOSINOPHILS % (AUTO) 1.5 % (0.0-3.0); HEMATOCRIT 27.3 % (37.0-47.0); HEMOGLOBIN 8.7 G/DL (12.0-16.0); MEAN CORPUSCULAR VOLUME 72 FL (80-99); MONOCYTES % (AUTO) 11.3 % (1.0-10.0); NEUTROPHILS % (AUTO) 58.7 % (45.0-75.0); PLATELET COUNT 318 K/UL (150-450); RED BLOOD COUNT 3.81 M/UL (4.20-5.40); RED CELL DISTRIBUTION WIDTH 18.1 % (11.6-14.8); WHITE BLOOD COUNT 11.5 K/UL (4.8-10.8)
--- NOTE | 2019-06-27 08:30 | General Progress Note ---
Assessment/Plan Problem List: (1) Shingles ICD Codes: B02.9 - Zoster without complications SNOMED: 4191096 (2) GIB (gastrointestinal bleeding) ICD Codes: K92.2 - Gastrointestinal hemorrhage, unspecified SNOMED: 54828174 (3) Afib ICD Codes: I48.91 - Unspecified atrial fibrillation SNOMED: 60266019 (4) Anemia ICD Codes: D64.9 - Anemia, unspecified SNOMED: 264274494 (5) TIA CVA rule out (6) Rash and other nonspecific skin eruption ICD Codes: R21 - Rash and other nonspecific skin eruption SNOMED: 945788343, 446464218 (7) Cellulitis ICD Codes: L03.90 - Cellulitis, unspecified SNOMED: 085177755 Status: stable Assessment/Plan: cont current rx iv abx and po antiviral rx bowel regime await stool ob PPI transfuse as needed anticoag on hold surgery eval re: ?abscess of duplex- doubt BP rx per cards Subjective ROS Limited/Unobtainable: No Constitutional: Reports: malaise, weakness HEENT: Reports: no symptoms Cardiovascular: Reports: no symptoms Respiratory: Reports: no symptoms Gastrointestinal/Abdominal: Reports: constipated Genitourinary: Reports: no symptoms Neurologic/Psychiatric: Reports: no symptoms Endocrine: Reports: no symptoms Hematologic/Lymphatic: Reports: no symptoms Allergies: Coded Allergies: MORPHINE (Verified Allergy, Severe, Anaphylaxis, 11/14/16) PT RECEIVED 5 DOSES OF OXYCODONE ON PREVIOUS ADMISSION IN 06/2015. As per conversation with the patient. Patient denies having allergy reaction with [place]. She said " I have been taking [place] before and i have no allergy reactions. CITRUS AND DERIVATIVES (Verified Allergy, Unknown, BREAKOUT, 06/15/15) breakout HYDROMORPHONE (Verified Allergy, Unknown, CHEST PAIN, 06/15/15) chest pain IODINE (Verified Allergy, Unknown, SWELLING, 06/15/15) swelling PENICILLINS (Verified Allergy, Unknown, ITCHING, 06/15/15) itching Uncoded Allergies: NYLON TAPE (Adverse Reaction, Intermediate, NIEVES THE SKIN, 06/21/15) All Systems: reviewed and negative except above Subjective no new complaints. no bleeding noted. labs pending for today. duplex neg ? abscess on US. on iv abx and po acyclovir. Objective Last 24 Hour Vital Signs Date Time Temp Pulse Resp B/P (MAP) Pulse Ox O2 Delivery O2 Flow Rate FiO2 06/27/19 05:26 98.8 06/27/19 04:00 98.8 75 20 161/63 (95) 89 06/27/19 01:06 71 15 98 Room Air 21 65 15 96 06/27/19 00:00 97.9 79 20 150/68 (95) 96 06/26/19 21:00 Room Air 06/26/19 20:00 98.5 81 20 132/62 (85) 97 06/26/19 19:06 75 16 99 Room Air 21 70 16 95 06/26/19 18:00 79 120/57 06/26/19 16:15 79 06/26/19 16:00 98.1 71 19 120/57 (78) 97 06/26/19 13:50 77 16 99 Room Air 21 68 14 94 06/26/19 12:00 96.8 69 18 143/59 (87) 96 06/26/19 11:44 86 06/26/19 09:00 Room Air 06/26/19 08:37 88 141/56 Intake and Output 06/26/19 06/27/19 19:00 07:00 Intake Total 600 ml Balance 600 ml Intake Oral 600 ml # Voids 4 2 Laboratory Tests 06/26/19 10:20: White Blood Count 14.1H, Red Blood Count 3.71L, Hemoglobin 8.4L, Hematocrit 26.9L, Mean Corpuscular Volume 73L, Mean Corpuscular Hemoglobin 22.5L, Mean Corpuscular Hemoglobin Concent 31.1L, Red Cell Distribution Width 17.6H, Platelet Count 299, Mean Platelet Volume 5.3L, Neutrophils (%) (Auto) 70.4, Lymphocytes (%) (Auto) 17.7L, Monocytes (%) (Auto) 10.0, Eosinophils (%) (Auto) 1.1, Basophils (%) (Auto) 0.8, Sodium Level 146H, Potassium Level 3.7, Chloride Level 109H, Carbon Dioxide Level 27, Anion Gap 10, Blood Urea Nitrogen 10, Creatinine 0.6, Estimat Glomerular Filtration Rate > 60, Glucose Level 102, Calcium Level 8.1L, Magnesium Level 1.9, Total Bilirubin 0.4, Aspartate Amino Transf (AST/SGOT) 26, Alanine Aminotransferase (ALT/SGPT) 52, Alkaline Phosphatase 90, Total Protein 6.9, Albumin 3.0L, Globulin 3.9, Albumin/Globulin Ratio 0.8L, Carcinoembryonic Antigen 8.3H 06/26/19 14:15: Urine Color Yellow, Urine Appearance Clear, Urine pH 6, Urine Specific Ethel 1.015, Urine Protein 1+H, Urine Glucose (UA) Negative, Urine Ketones Negative, Urine Blood Negative, Urine Nitrite Negative, Urine Bilirubin Negative, Urine Urobilinogen 1H, Urine Leukocyte Esterase Negative, Urine RBC 0, Urine WBC 0, Urine Squamous Epithelial Cells None, Urine Bacteria Occasional 06/27/19 06:40: White Blood Count [Pending], Red Blood Count [Pending], Hemoglobin [Pending], Hematocrit [Pending], Mean Corpuscular Volume [Pending], Mean Corpuscular Hemoglobin [Pending], Mean Corpuscular Hemoglobin Concent [Pending], Red Cell Distribution Width [Pending], Platelet Count [Pending], Mean Platelet Volume [ Pending], Neutrophils (%) (Auto) [Pending], Lymphocytes (%) (Auto) [Pending], Monocytes (%) (Auto) [Pending], Eosinophils (%) (Auto) [Pending], Basophils (%) (Auto) [Pending], Sodium Level [Pending], Potassium Level [Pending], Chloride Level [Pending], Carbon Dioxide Level [Pending], Blood Urea Nitrogen [Pending], Creatinine [Pending], Estimat Glomerular Filtration Rate [Pending], Glucose Level [Pending], Calcium Level [Pending], Magnesium Level [Pending] Height (Feet): 5 Height (Inches): 2.00 Weight (Pounds): 132 General Appearance: WD/WN, alert EENT: normal ENT inspection Neck: non-tender, normal alignment, supple Cardiovascular: normal peripheral pulses, normal rate, regular rhythm Respiratory/Chest: chest wall non-tender, lungs clear, normal breath sounds, no respiratory distress, no accessory muscle use Abdomen: normal bowel sounds, non tender, soft, no organomegaly Edema: no edema noted Arm (L), no edema noted Arm (R), no edema noted Leg (L), no edema noted Leg (R), no edema noted Pedal (L), no edema noted Pedal (R), no edema noted Generalized Neurologic: alert, oriented x 3, responsive Skin: rash - left ant knee +vesicles Demario Hdz MD Jun 27, 2019 08:30
[2019-06-27 09:04] LABS: ANION GAP 11 mmol/L (5-15); BLOOD UREA NITROGEN 7 mg/dL (7-18); CALCIUM 8.7 MG/DL (8.5-10.1); CARBON DIOXIDE 28 MMOL/L (21-32); CHLORIDE 105 MMOL/L (98-107); CREATININE 0.5 MG/DL (0.55-1.30); POTASSIUM 3.9 MMOL/L (3.5-5.1); SODIUM 143 MMOL/L (136-145)
[2019-06-27] MEDS ORDERED: NS 275ml ONE (09:58)
[2019-06-27 12:00] VITALS: BP 134/60
[2019-06-27 16:00] VITALS: BP 137/70
--- NOTE | 2019-06-27 19:48 | NUR ---
NURSE NOTES: Received patient report from LOUIS Dunn. Patient shows no signs of distress at this time. IV is in place and intact. There are no signs of erythema, infiltration or bleeding. Patient still has pain related to shingles, will give [place] as ordered. Bed is in the lowest position, call light is within reach, her cane is within reach and I instructed patient to call for assistance if she needs to use the restroom, and side rails up x 2. Will continue plan of care.
--- NOTE | 2019-06-27 19:52 | NUR ---
HAND-OFF: Report given to Kamryn Rodriguez RN. Patient stable still complaining of pain but medication not due at this time. Plan of care endorsed.
[2019-06-27 20:00] VITALS: BP 140/69
[2019-06-27] MEDS: Iron Sucrose 100 MG in NS 55 ML IV SCH (20:22)
[2019-06-28] VITALS (7 sets, daily range): BP systolic 102–158; BP diastolic 52–73
[2019-06-28] MEDS: Albuterol/Ipratropium 3ml neb HHN SCH ×4 (01:00→19:49)
[2019-06-28] MEDS: HYDROcodone/Acetamin 10/325 tab ORAL PRN ×5 (02:36→20:34)
--- NOTE | 2019-06-28 07:07 | NUR ---
HAND-OFF: Report given to LOUIS Dunn. Patient shows no signs of distress at this time. Endorsed plan of care.
[2019-06-28] MEDS: Vancomycin 1gm in D5W 275ml IVPB SCH (08:19)
--- NOTE | 2019-06-28 08:46 | General Progress Note ---
Assessment/Plan Problem List: (1) Shingles ICD Codes: B02.9 - Zoster without complications SNOMED: 2450559 (2) GIB (gastrointestinal bleeding) ICD Codes: K92.2 - Gastrointestinal hemorrhage, unspecified SNOMED: 88053588 (3) Afib ICD Codes: I48.91 - Unspecified atrial fibrillation SNOMED: 03537978 (4) Anemia ICD Codes: D64.9 - Anemia, unspecified SNOMED: 177660478 (5) TIA CVA rule out (6) Rash and other nonspecific skin eruption ICD Codes: R21 - Rash and other nonspecific skin eruption SNOMED: 885962957, 806781188 (7) Cellulitis ICD Codes: L03.90 - Cellulitis, unspecified SNOMED: 947111982 Status: stable Assessment/Plan: cont current rx iv abx and po antiviral rx bowel regime await stool ob PPI transfuse as needed anticoag on hold dc gabapentin. trial lyrica for pain control for zoster BP rx per cards Subjective ROS Limited/Unobtainable: No Constitutional: Reports: no symptoms HEENT: Reports: no symptoms Cardiovascular: Reports: no symptoms Respiratory: Reports: no symptoms Gastrointestinal/Abdominal: Reports: constipated Genitourinary: Reports: no symptoms Neurologic/Psychiatric: Reports: pre-existing deficit Endocrine: Reports: no symptoms Hematologic/Lymphatic: Reports: anemia Allergies: Coded Allergies: MORPHINE (Verified Allergy, Severe, Anaphylaxis, 11/14/16) PT RECEIVED 5 DOSES OF OXYCODONE ON PREVIOUS ADMISSION IN 06/2015. As per conversation with the patient. Patient denies having allergy reaction with [place]. She said " I have been taking [place] before and i have no allergy reactions. CITRUS AND DERIVATIVES (Verified Allergy, Unknown, BREAKOUT, 06/15/15) breakout HYDROMORPHONE (Verified Allergy, Unknown, CHEST PAIN, 06/15/15) chest pain IODINE (Verified Allergy, Unknown, SWELLING, 06/15/15) swelling PENICILLINS (Verified Allergy, Unknown, ITCHING, 06/15/15) itching Uncoded Allergies: NYLON TAPE (Adverse Reaction, Intermediate, NIEVES THE SKIN, 06/21/15) All Systems: reviewed and negative except above Subjective no new complaints except uncontrolled pain left leg. no bleeding noted. h/h stable. still no bowel movements yet. wbc trending down. pain uncontrolled. Objective Last 24 Hour Vital Signs Date Time Temp Pulse Resp B/P (MAP) Pulse Ox O2 Delivery O2 Flow Rate FiO2 06/28/19 04:00 98.1 71 20 155/63 (93) 88 06/28/19 03:06 97.9 06/28/19 00:00 97.9 75 20 148/65 (92) 89 06/27/19 21:08 68 16 98 Room Air 21 67 16 94 06/27/19 21:00 Room Air 06/27/19 20:00 98.2 79 20 140/69 (92) 92 06/27/19 18:53 73 137/70 06/27/19 16:00 98.2 73 20 137/70 (92) 94 06/27/19 14:50 75 16 99 Room Air 21 73 18 95 06/27/19 12:00 98.0 74 20 134/60 (84) 94 06/27/19 10:29 83 159/71 06/27/19 09:00 Room Air Intake and Output 06/27/19 06/28/19 19:00 07:00 Intake Total 300 ml 200 ml Balance 300 ml 200 ml Intake Oral 300 ml 200 ml # Voids 3 1 Height (Feet): 5 Height (Inches): 2.00 Weight (Pounds): 132 Objective General Appearance: WD/WN, alert EENT: normal ENT inspection Neck: non-tender, normal alignment, supple Cardiovascular: normal peripheral pulses, normal rate, regular rhythm Respiratory/Chest: chest wall non-tender, lungs clear, normal breath sounds, no respiratory distress, no accessory muscle use Abdomen: normal bowel sounds, non tender, soft, no organomegaly Edema: no edema noted Arm (L), no edema noted Arm (R), no edema noted Leg (L), no edema noted Leg (R), no edema noted Pedal (L), no edema noted Pedal (R), no edema noted Generalized Neurologic: alert, oriented x 3, responsive Skin: rash - left ant knee +vesicles Demario Hdz MD Jun 28, 2019 08:46
[2019-06-28] MEDS: Lyrica 50mg cap ORAL SCH ×3 (10:17→18:57)
--- NOTE | 2019-06-28 19:15 | NUR ---
HAND-OFF: Report given to Kamryn Rodriguez RN. Patient stable. Plan of care endorsed. Med/Surg bed available now but room is not ready for transfer at this time.
--- NOTE | 2019-06-28 20:15 | NUR ---
NURSE NOTES: Received patient report from LOUIS Dunn. Patient shows no signs of distress at this time. IV is in place and intact. There are no signs of erythema, infiltration or bleeding. Awaiting for bed in fourth floor to transfer her. Bed is in the lowest position, call light is within reach, her cane is within reach and I instructed patient to call for assistance if she needs to use the restroom, and side rails up x 2. Will continue plan of care.
[2019-06-28] MEDS: Iron Sucrose 100 MG in NS 55 ML IV SCH (20:29)
--- NOTE | 2019-06-28 21:50 | Consultation ---
History of Present Illness Present Illness HPI 68 year old female with multiple medical comorbidities was admitted for sob care and management. lower extremity edema noted and venous duplex ordered with abnormal region possible abscess. surgery called to evaluate and assist with care. noted to have anemia possible GI bleed? Allergies: Coded Allergies: MORPHINE (Verified Allergy, Severe, Anaphylaxis, 11/14/16) PT RECEIVED 5 DOSES OF OXYCODONE ON PREVIOUS ADMISSION IN 06/2015. As per conversation with the patient. Patient denies having allergy reaction with [place]. She said " I have been taking [place] before and i have no allergy reactions. CITRUS AND DERIVATIVES (Verified Allergy, Unknown, BREAKOUT, 06/15/15) breakout HYDROMORPHONE (Verified Allergy, Unknown, CHEST PAIN, 06/15/15) chest pain IODINE (Verified Allergy, Unknown, SWELLING, 06/15/15) swelling PENICILLINS (Verified Allergy, Unknown, ITCHING, 06/15/15) itching Uncoded Allergies: NYLON TAPE (Adverse Reaction, Intermediate, NIEVES THE SKIN, 06/21/15) COVID-19 Screening Contact w/high risk pt: No Recent Travel to affected area: No Experienced COVID-19 symptoms?: No Medication History Scheduled Aspirin (Aspirin EC), 81 MG PO DAILY, (Reported) Clopidogrel Bisulfate* (Plavix*), 75 MG ORAL DAILY, (Reported) Dexlansoprazole (Dexilant), 30 MG ORAL DAILY, (Reported) Doxycycline Monohydrate* (Doxycycline Monohydrate*), 100 MG ORAL TWICE A DAY, ( Reported) Fluticasone/Vilanterol (Breo Ellipta 100-25 Mcg INH), 1 EACH IH DAILY, (Reported ) Gabapentin (Neurontin), 600 MG PO QID, (Reported) Levofloxacin* (Levaquin*), 750 MG ORAL DAILY Losartan Potassium* (Losartan Potassium*), 50 MG ORAL DAILY, (Reported) Paroxetine Hcl* (Paxil*), 30 MG PO BID, (Reported) Pravastatin Sod* (Pravastatin Sod*), 20 MG ORAL BEDTIME, (Reported) Scheduled PRN Hydrocodone Bit/Acetaminophen 10-325* ([place] 10-325*), 1 TAB ORAL Q4HR PRN for For Pain, (Reported) Tizanidine Hcl* (Zanaflex*), 4 MG ORAL Q6HR PRN for Muscle Spasm, (Reported) Zolpidem Tartrate* (Ambien*), 10 MG ORAL HS PRN for Insomnia, (Reported) Miscellaneous Medications Diclofenac Epolamine (Flector), 1 EACH TP, (Reported) Tapentadol Hcl (Nucynta), 50 MG PO, (Reported) Patient History History Provided By: Medical Record, PMD Healthcare decision maker Julius Logan Resuscitation status Full Code Advanced Directive on File Yes Past Medical/Surgical History Past Medical/Surgical History: (1) Arthritis of knee, left (2) Myalgia (3) Sciatic leg pain (4) Hemoptysis (5) Carotid stenosis (6) COPD exacerbation (7) Shingles (8) Anemia (9) Cellulitis (10) Rash and other nonspecific skin eruption (11) GIB (gastrointestinal bleeding) (12) Afib (13) TIA CVA rule out (14) S/P cholecystectomy (15) History of hysterectomy (16) H/O gastric bypass Review of Systems Review of Symptoms General ROS: no weight loss or fever Psychological ROS: no depression or mood changes, no memory loss Ophthalmic ROS: no visual changes or eye irritation ENT ROS: no nasal congestion, hearing loss, dizziness Allergy and Immunology ROS: no allergic symptoms or urticaria Hematological and Lymphatic ROS: no swollen glands, unusual bleeding or bruising Endocrine ROS: no polyuria, polydipsia, weight changes, temperature intolerance Respiratory ROS: no cough, shortness of breath, or wheezing Cardiovascular ROS: no chest pain or dyspnea on exertion Gastrointestinal ROS: denies abdominal pain, bright red blood in stool. Musculoskeletal ROS: no myalgias or arthralgias Neurological ROS: no TIA or stroke symptoms Dermatological ROS: no new or changing skin lesions, rashes or pruritis Physical Exam Physical Exam General appearance: alert, cooperative, no distress, appears stated age Head: Normocephalic, without obvious abnormality, atraumatic Eyes: conjunctivae/corneas clear. PERRL, EOM's intact. Fundi benign Throat: Lips, mucosa, and tongue normal. Teeth and gums normal Neck: supple, symmetrical, trachea midline, no adenopathy, thyroid: not enlarged, symmetric, no tenderness/mass/nodules, no carotid bruit and no JVD Lungs: clear to auscultation bilaterally Heart: regular rate and rhythm, S1, S2 normal, no murmur, click, rub or gallop Abdomen: soft, non-tender. Bowel sounds normal. No masses, no organomegaly Extremities: extremities edema b/l Pulses: 2+ and symmetric Skin: Skin color, texture, turgor normal. No rashes or lesions Neurologic: Grossly normal Last 24 Hour Vital Signs Date Time Temp Pulse Resp B/P (MAP) Pulse Ox O2 Delivery O2 Flow Rate FiO2 06/28/19 19:49 67 18 99 Room Air 21 69 18 94 06/28/19 18:57 67 139/69 06/28/19 16:00 98.9 67 20 139/69 (92) 94 06/28/19 13:45 65 18 97 Room Air 21 65 18 95 06/28/19 12:00 Room Air 06/28/19 12:00 98.1 64 20 158/70 (99) 95 06/28/19 10:47 98.1 06/28/19 10:19 66 144/73 06/28/19 10:11 66 144/73 (96) 06/28/19 08:00 98.1 71 20 102/66 (78) 95 06/28/19 04:00 98.1 71 20 155/63 (93) 88 06/28/19 00:00 97.9 75 20 148/65 (92) 89 Intake and Output 06/27/19 06/28/19 19:00 07:00 Intake Total 300 ml 200 ml Balance 300 ml 200 ml Intake Oral 300 ml 200 ml # Voids 3 1 Height (Feet): 5 Height (Inches): 2.00 Weight (Pounds): 132 Medications Current Medications Medications (Trade) Dose Ordered Sig/Julita Route PRN Reason Start Time Stop Time Status Last Admin Dose Admin Acetaminophen/ Hydrocodone Bitart ([place] 10/325) 1 tab Q4H PRN ORAL For Pain 06/27/19 15:15 07/04/19 15:14 06/28/19 20:34 Acyclovir (Zovirax) 800 mg FIVE TIMES A DAY ORAL 06/26/19 10:00 07/03/19 11:00 06/28/19 18:56 Albuterol/ Ipratropium (Albuterol/ Ipratropium) 3 ml Q6HRT HHN 06/26/19 01:00 07/01/19 00:59 06/28/19 19:49 Amlodipine Besylate (Norvasc) 5 mg BID ORAL 06/26/19 09:00 07/26/19 08:59 06/28/19 18:57 Diphenhydramine HCl (Benadryl) 50 mg Q6H PRN ORAL Itching 06/25/19 21:00 07/25/19 20:59 06/28/19 15:50 Iron Sucrose 100 mg/Sodium Chloride 60 ml @ 240 mls/hr BEDTIME IV 06/26/19 21:00 06/30/19 21:14 06/28/19 20:29 Pravastatin Sodium (Pravachol) 20 mg BEDTIME ORAL 06/26/19 00:00 07/26/19 00:00 06/28/19 20:28 Pregabalin (Lyrica) 50 mg THREE TIMES A DAY ORAL 06/28/19 09:00 08/12/19 08:59 06/28/19 18:57 Vancomycin HCl (Vanco rx to dose) 1 ea DAILY PRN MISC Per rx protocol 06/26/19 01:00 07/26/19 00:59 Vancomycin HCl 1 gm/Dextrose 275 ml @ 183.708 mls/hr Q24H IVPB 06/26/19 08:00 07/01/19 07:59 06/28/19 08:19 Zolpidem Tartrate (Ambien) 5 mg HSPRN PRN ORAL Insomnia 06/25/19 20:45 07/02/19 20:44 Assessment/Plan Problem List: (1) Cellulitis Assessment & Plan: Bilaterally, grayscale and duplex images demonstrate no evidence of intraluminal thrombus. Normal phasic Doppler waveforms, demonstrating normal augmentation response and no evidence of valvular insufficiency. Greater saphenous vein(s) and tibial veins are patent. Normal compressibility. Incidentally noted is a hypoechoic avascular area in the left anterior knee soft tissues which measures approximately 3.2 x 2 x 0.9 cm. Impression: Negative for evidence of lower extremity deep venous thrombosis bilaterally 3.2 x 2 x 0.9 cm hypoechoic lesion within the anterior left knee soft tissues. Nonspecific, could indicate a small abscess, hematoma, or complicated cyst. Evaluated at bedside left anterior knee lateral there is some slight old blistering of the skin from a rash which is now resolving. No fluid collection palpable clearly identified. No cellulitis no signs of active acute infection discussed patient in detail will monitor ICD Codes: L03.90 - Cellulitis, unspecified SNOMED: 585376493 (2) Rash and other nonspecific skin eruption ICD Codes: R21 - Rash and other nonspecific skin eruption SNOMED: 464032864, 169471286 (3) GIB (gastrointestinal bleeding) Assessment & Plan: on anticoagulation possible gi bleed anemia trend labs transfuse prn occult stool will follow with recs ICD Codes: K92.2 - Gastrointestinal hemorrhage, unspecified SNOMED: 51290610 (4) Afib ICD Codes: I48.91 - Unspecified atrial fibrillation SNOMED: 76149505 (5) TIA CVA rule out (6) Myalgia ICD Codes: M79.1 - Myalgia SNOMED: 60070752 (7) Hemoptysis ICD Codes: R04.2 - Hemoptysis SNOMED: 32603453 (8) Carotid stenosis ICD Codes: I65.29 - Occlusion and stenosis of unspecified carotid artery SNOMED: 52401510 (9) COPD exacerbation ICD Codes: J44.1 - Chronic obstructive pulmonary disease with (acute) exacerbation SNOMED: 548386969, 036253925 (10) Arthritis of knee, left ICD Codes: M19.90 - Unspecified osteoarthritis, unspecified site SNOMED: 142303551 (11) Sciatic leg pain ICD Codes: M54.30 - Sciatica, unspecified side SNOMED: 10624919 Sincere Strange Jun 28, 2019 21:50
[2019-06-29] VITALS (7 sets, daily range): BP systolic 115–142; BP diastolic 48–59
[2019-06-29] MEDS ORDERED: Albuterol/Ipratropium 3ml neb HHN SCH (01:00)
[2019-06-29] MEDS ORDERED: HYDROcodone/Acetamin 10/325 tab ORAL PRN (01:45)
[2019-06-29] MEDS: HYDROcodone/Acetamin 10/325 tab ORAL PRN ×4 (02:22→21:56)
[2019-06-29] MEDS: Enoxaparin 60mg Inj SUBQ SCH ×3 (03:00→20:16)
--- NOTE | 2019-06-29 05:29 | Progress Note ---
DATE: 06/27/2019 CARDIOLOGY PROGRESS NOTE SUBJECTIVE: Leg pain slightly improved. No chest pain or shortness of breath. Status post packed red blood cell transfusion. No bleeding noted. Stool occult blood test still pending. OBJECTIVE: VITAL SIGNS: Blood pressure 140/69, heart rate 79, respiratory rate 20, afebrile, and room air oxygen saturation 88 to 94%. LUNGS: Diminished breath sounds. CARDIAC: Regular rhythm and rate. Normal S1 and S2 with a fourth heart sound. ABDOMEN: Soft. EXTREMITIES: No edema. IMPRESSION: 1. Iron-deficiency anemia. 2. Possible gastrointestinal bleeding. 3. Hypertensive heart disease. 4. Cerebrovascular disease. 5. Paroxysmal atrial fibrillation. 6. History of carotid stenosis. PLAN: Continue to hold anticoagulation and anti-platelet therapy, additional 24 hours. Rosendo Palacios M.D. DR: BLANCA JOB#: [id number] CC:
--- NOTE | 2019-06-29 05:29 | Progress Note ---
DATE: 06/28/2019 SUBJECTIVE: The patient continues on therapy for pain control and anti-infectives for cellulitis and zoster of left leg. The patient had 1 unit of packed red blood cells for her severe iron deficiency and anemia. Stool occult blood is pending. CEA level was elevated at 8. The patient is a smoker. No chest pain or shortness of breath. No signs of bleeding per the patient. OBJECTIVE: VITAL SIGNS: Vitals are stable. LUNGS: Clear. CARDIAC: Regular. ABDOMEN: Soft. EXTREMITIES: No edema. IMPRESSION: 1. Paroxysmal atrial fibrillation. 2. Cerebrovascular disease. 3. Carotid stenosis. 4. Iron deficiency anemia. 5. Shingle/herpes zoster of left leg. 6. Left lower extremity cellulitis. PLAN: 1. Stool occult blood test. 2. Hold anticoagulation and anti-platelet therapy additional day. 3. May need panendoscopy. 4. Maintain remainder of cardiovascular regimen without change. Rosendo Palacios M.D. DR: Lawrence JOB#: [id number] CC:
[2019-06-29] MEDS: Albuterol/Ipratropium 3ml neb HHN SCH ×3 (07:12→20:09)
--- NOTE | 2019-06-29 07:35 | NUR ---
NURSE NOTES: Received patient report from LOUIS Bryant. Patient shows no signs of distress at this time. sitting on the edge of the bed having breakfast. IV is inplaced and intact. There are no signs of erythema, infiltration or bleeding. Bed is in the lowest position, siderails are up x3. call light is within reach, ambulates with assist cane @ bedside. Will continue plan of care.
[2019-06-29] MEDS ORDERED: Vancomycin 1 GM in D5W 275 ML IVPB SCH ×4 (08:00)
[2019-06-29 08:16] LABS: BASOPHILS % (AUTO) 1.2 % (0.0-2.0); EOSINOPHILS % (AUTO) 2.9 % (0.0-3.0); HEMATOCRIT 28.5 % (37.0-47.0); HEMOGLOBIN 9.1 G/DL (12.0-16.0); LYMPHOCYTES % (AUTO) 26.4 % (20.0-45.0); MEAN CORPUSCULAR VOLUME 71 FL (80-99); MONOCYTES % (AUTO) 11.2 % (1.0-10.0); NEUTROPHILS % (AUTO) 58.2 % (45.0-75.0); PLATELET COUNT 367 K/UL (150-450); RED BLOOD COUNT 3.99 M/UL (4.20-5.40); RED CELL DISTRIBUTION WIDTH 17.9 % (11.6-14.8); WHITE BLOOD COUNT 11.4 K/UL (4.8-10.8)
[2019-06-29 08:36] LABS: ALANINE AMINOTRANSFERASE 23 U/L (12-78); ALBUMIN 2.9 G/DL (3.4-5.0); ALBUMIN/GLOBULIN RATIO 0.7 (1.0-2.7); ALKALINE PHOSPHATASE 81 U/L (46-116); ANION GAP 9 mmol/L (5-15); ASPARTATE AMINO TRANSFERASE 12 U/L (15-37); BILIRUBIN,TOTAL 0.2 MG/DL (0.2-1.0); BLOOD UREA NITROGEN 11 mg/dL (7-18); CALCIUM 8.7 MG/DL (8.5-10.1); CARBON DIOXIDE 29 MMOL/L (21-32); CHLORIDE 105 MMOL/L (98-107); CREATININE 0.6 MG/DL (0.55-1.30); POTASSIUM 4.2 MMOL/L (3.5-5.1); SODIUM 143 MMOL/L (136-145)
[2019-06-29] MEDS ORDERED: Lyrica 50mg cap ORAL SCH ×2 (09:00)
--- NOTE | 2019-06-29 09:10 | General Progress Note ---
Assessment/Plan Problem List: (1) Shingles ICD Codes: B02.9 - Zoster without complications SNOMED: 5911172 (2) GIB (gastrointestinal bleeding) ICD Codes: K92.2 - Gastrointestinal hemorrhage, unspecified SNOMED: 29317927 (3) Afib ICD Codes: I48.91 - Unspecified atrial fibrillation SNOMED: 86532163 (4) Anemia ICD Codes: D64.9 - Anemia, unspecified SNOMED: 068780920 (5) TIA CVA rule out (6) Rash and other nonspecific skin eruption ICD Codes: R21 - Rash and other nonspecific skin eruption SNOMED: 963748455, 805210213 (7) Cellulitis ICD Codes: L03.90 - Cellulitis, unspecified SNOMED: 387610319 Status: stable Assessment/Plan: cont current rx iv abx and po antiviral rx bowel regime await stool ob PPI transfuse as needed anticoag on hold dc gabapentin. trial lyrica for pain control for zoster. will increase dose BP rx per cards Subjective ROS Limited/Unobtainable: No Constitutional: Reports: malaise, weakness HEENT: Reports: no symptoms Cardiovascular: Reports: no symptoms Respiratory: Reports: no symptoms Gastrointestinal/Abdominal: Reports: no symptoms Genitourinary: Reports: no symptoms Neurologic/Psychiatric: Reports: no symptoms Endocrine: Reports: no symptoms Hematologic/Lymphatic: Reports: anemia Allergies: Coded Allergies: MORPHINE (Verified Allergy, Severe, Anaphylaxis, 11/14/16) PT RECEIVED 5 DOSES OF OXYCODONE ON PREVIOUS ADMISSION IN 06/2015. As per conversation with the patient. Patient denies having allergy reaction with [place]. She said " I have been taking [place] before and i have no allergy reactions. CITRUS AND DERIVATIVES (Verified Allergy, Unknown, BREAKOUT, 06/15/15) breakout HYDROMORPHONE (Verified Allergy, Unknown, CHEST PAIN, 06/15/15) chest pain IODINE (Verified Allergy, Unknown, SWELLING, 06/15/15) swelling PENICILLINS (Verified Allergy, Unknown, ITCHING, 06/15/15) itching Uncoded Allergies: NYLON TAPE (Adverse Reaction, Intermediate, NIEVES THE SKIN, 06/21/15) All Systems: reviewed and negative except above Subjective still c/o uncontrolled pain left leg. still with shingles vesicle on left knee. no fever or chills. no sob. surgery and cards appreciated. had BM but flushed it - still waiting to collect stool ob. Objective Last 24 Hour Vital Signs Date Time Temp Pulse Resp B/P (MAP) Pulse Ox O2 Delivery O2 Flow Rate FiO2 06/29/19 08:48 80 127/59 06/29/19 04:00 97.7 73 20 127/55 (79) 94 06/29/19 02:52 98.3 06/29/19 00:00 98.3 77 18 124/48 (73) 93 06/28/19 21:00 Room Air 06/28/19 20:00 98.6 70 20 130/52 (78) 93 06/28/19 19:49 67 18 99 Room Air 21 69 18 94 06/28/19 18:57 67 139/69 06/28/19 16:00 98.9 67 20 139/69 (92) 94 06/28/19 13:45 65 18 97 Room Air 21 65 18 95 06/28/19 12:00 Room Air 06/28/19 12:00 98.1 64 20 158/70 (99) 95 06/28/19 10:47 98.1 06/28/19 10:19 66 144/73 06/28/19 10:11 66 144/73 (96) Intake and Output 06/28/19 06/29/19 19:00 07:00 Intake Total 675.000 ml 120 ml Balance 675.000 ml 120 ml Intake Oral 400 ml 120 ml IV Total 275.000 ml # Voids 2 Laboratory Tests 06/29/19 07:00: White Blood Count 11.4H, Red Blood Count 3.99L, Hemoglobin 9.1L, Hematocrit 28.5L, Mean Corpuscular Volume 71L, Mean Corpuscular Hemoglobin 22.9L, Mean Corpuscular Hemoglobin Concent 32.1, Red Cell Distribution Width 17.9H, Platelet Count 367, Mean Platelet Volume 5.2L, Neutrophils (%) (Auto) 58.2, Lymphocytes (%) (Auto) 26.4, Monocytes (%) (Auto) 11.2H, Eosinophils (%) (Auto) 2.9, Basophils (%) (Auto) 1.2, Erythrocyte Sedimentation Rate [Pending], Prothrombin Time 10.2, Prothromb Time International Ratio 1.0, Activated Partial Thromboplast Time 33, Sodium Level 143, Potassium Level 4.2, Chloride Level 105, Carbon Dioxide Level 29, Anion Gap 9, Blood Urea Nitrogen 11, Creatinine 0.6, Estimat Glomerular Filtration Rate > 60, Glucose Level 85, Calcium Level 8.7, Total Bilirubin 0.2, Aspartate Amino Transf (AST/SGOT) 12L, Alanine Aminotransferase (ALT/SGPT) 23, Alkaline Phosphatase 81, C-Reactive Protein, Quantitative 6.7H, Total Protein 7.0, Albumin 2.9L, Globulin 4.1, Albumin/Globulin Ratio 0.7L, Vancomycin Level Trough [Pending] Height (Feet): 5 Height (Inches): 2.00 Weight (Pounds): 132 Objective General Appearance: WD/WN, alert EENT: normal ENT inspection Neck: non-tender, normal alignment, supple Cardiovascular: normal peripheral pulses, normal rate, regular rhythm Respiratory/Chest: chest wall non-tender, lungs clear, normal breath sounds, no respiratory distress, no accessory muscle use Abdomen: normal bowel sounds, non tender, soft, no organomegaly Edema: no edema noted Arm (L), no edema noted Arm (R), no edema noted Leg (L), no edema noted Leg (R), no edema noted Pedal (L), no edema noted Pedal (R), no edema noted Generalized Neurologic: alert, oriented x 3, responsive Skin: rash - left ant knee +vesicles Demario Hdz MD Jun 29, 2019 09:10
--- NOTE | 2019-06-29 12:22 | NUR ---
RD ASSESSMENT & RECOMMENDATIONS SEE CARE ACTIVITY FOR COMPLETE ASSESSMENT DAILY ESTIMATED NEEDS: Needs based on CARDIAC/ 57.2kg 25-30 kcals/kg 4407-2322 total kcals 1-1.2 g protein/kg 57-86 g total protein 25-30 mL/kg 3207-7541 total fluid mLs NUTRITION DIAGNOSIS: * Decreased sodium intake needs R/T cardiac hx as evidenced by hx of CVA, HTN, CHF dx. CURRENT DIET: VEGA soft easy chew PO DIET RECOMMENDATIONS: Low NA/ Soft easy chew ADDITIONAL RECOMMENDATIONS: * Obtain a standing weight as able * Diet texture as tolerated * Snacks in b/w meals
[2019-06-29] MEDS: Lyrica 50mg cap ORAL SCH ×2 (13:48→17:30)
--- NOTE | 2019-06-29 14:30 | NUR ---
CASE MANAGEMENT:REVIEW SI: SHINGLES. GI BLEED. ANEMIA. A-FIB. CELLULITIS. TIA/CVA RULE OUT. 98.2 80 20 115/53 93% ON RA WBC 11.4 H/H 9.1/28.5 CRP 6.7 ALB 2.9 IS;VANCOMYCIN IV Q12 HRS IRON SUCROSE IV HS NORVASC PO BID ACYCLOVIR PO Q5D DUO NEB HHN Q6 HRT LOVENOX SUBQ Q12 HRS MED SURG STATUS DCP;PATIENT IS FROM HOME PLAN;STOOL OCCULT BLOOD MAY NEED PANENDOSCOPY
--- NOTE | 2019-06-29 15:25 | Surgery Progress Note ---
Surgery Progress Note Subjective Additional Comments leukocytosis improved esr / crp noted us reviewed again and exam still unable to identify abscess skin changes improving small blisters resolving Objective Last 24 Hour Vital Signs Date Time Temp Pulse Resp B/P (MAP) Pulse Ox O2 Delivery O2 Flow Rate FiO2 06/29/19 12:00 98.2 71 20 115/53 (73) 93 06/29/19 09:31 97.7 06/29/19 09:00 Room Air 06/29/19 08:48 80 127/59 06/29/19 08:00 98.0 80 20 127/59 (81) 95 06/29/19 07:22 72 18 99 Room Air 21 71 18 95 06/29/19 04:00 97.7 73 20 127/55 (79) 94 06/29/19 00:00 98.3 77 18 124/48 (73) 93 06/28/19 21:00 Room Air 06/28/19 20:00 98.6 70 20 130/52 (78) 93 06/28/19 19:49 67 18 99 Room Air 21 69 18 94 06/28/19 18:57 67 139/69 06/28/19 16:00 98.9 67 20 139/69 (92) 94 I&O Intake and Output 06/28/19 06/29/19 19:00 07:00 Intake Total 675.000 ml 120 ml Balance 675.000 ml 120 ml Intake Oral 400 ml 120 ml IV Total 275.000 ml # Voids 2 Dressing: other Wound: other Drains: other Cardiovascular: RSR Respiratory: decreased breath sounds Abdomen: soft, non-tender, present bowel sounds, non-distended Extremities: no edema, no tenderness, no cyanosis Laboratory Tests Test 06/29/19 07:00 White Blood Count 11.4 K/UL (4.8-10.8) H Red Blood Count 3.99 M/UL (4.20-5.40) L Hemoglobin 9.1 G/DL (12.0-16.0) L Hematocrit 28.5 % (37.0-47.0) L Mean Corpuscular Volume 71 FL (80-99) L Mean Corpuscular Hemoglobin 22.9 PG (27.0-31.0) L Mean Corpuscular Hemoglobin Concent 32.1 G/DL (32.0-36.0) Red Cell Distribution Width 17.9 % (11.6-14.8) H Platelet Count 367 K/UL (150-450) Mean Platelet Volume 5.2 FL (6.5-10.1) L Neutrophils (%) (Auto) 58.2 % (45.0-75.0) Lymphocytes (%) (Auto) 26.4 % (20.0-45.0) Monocytes (%) (Auto) 11.2 % (1.0-10.0) H Eosinophils (%) (Auto) 2.9 % (0.0-3.0) Basophils (%) (Auto) 1.2 % (0.0-2.0) Erythrocyte Sedimentation Rate 52 MM/HR (0-30) H Prothrombin Time 10.2 SEC (9.30-11.50) Prothromb Time International Ratio 1.0 (0.9-1.1) Activated Partial Thromboplast Time 33 SEC (23-33) Sodium Level 143 MMOL/L (136-145) Potassium Level 4.2 MMOL/L (3.5-5.1) Chloride Level 105 MMOL/L (98-107) Carbon Dioxide Level 29 MMOL/L (21-32) Anion Gap 9 mmol/L (5-15) Blood Urea Nitrogen 11 mg/dL (7-18) Creatinine 0.6 MG/DL (0.55-1.30) Estimat Glomerular Filtration Rate > 60 mL/min (>60) Glucose Level 85 MG/DL (74-106) Calcium Level 8.7 MG/DL (8.5-10.1) Total Bilirubin 0.2 MG/DL (0.2-1.0) Aspartate Amino Transf (AST/SGOT) 12 U/L (15-37) L Alanine Aminotransferase (ALT/SGPT) 23 U/L (12-78) Alkaline Phosphatase 81 U/L (46-116) C-Reactive Protein, Quantitative 6.7 mg/dL (0.00-0.90) H Total Protein 7.0 G/DL (6.4-8.2) Albumin 2.9 G/DL (3.4-5.0) L Globulin 4.1 g/dL Albumin/Globulin Ratio 0.7 (1.0-2.7) L Vancomycin Level Trough 4.6 ug/mL (5.0-12.0) L Plan Problems: (1) Cellulitis Assessment & Plan: Bilaterally, grayscale and duplex images demonstrate no evidence of intraluminal thrombus. Normal phasic Doppler waveforms, demonstrating normal augmentation response and no evidence of valvular insufficiency. Greater saphenous vein(s) and tibial veins are patent. Normal compressibility. Incidentally noted is a hypoechoic avascular area in the left anterior knee soft tissues which measures approximately 3.2 x 2 x 0.9 cm. Impression: Negative for evidence of lower extremity deep venous thrombosis bilaterally 3.2 x 2 x 0.9 cm hypoechoic lesion within the anterior left knee soft tissues. Nonspecific, could indicate a small abscess, hematoma, or complicated cyst. Evaluated at bedside left anterior knee lateral there is some slight old blistering of the skin from a rash which is now resolving. No fluid collection palpable clearly identified. No cellulitis no signs of active acute infection discussed patient in detail will monitor leukocytosis improved esr / crp noted us reviewed again and exam still unable to identify abscess skin changes improving small blisters resolving will monitor clinically may consider CT but given no signs of infection at bedside clinical exam (2) Rash and other nonspecific skin eruption (3) GIB (gastrointestinal bleeding) Assessment & Plan: on anticoagulation possible gi bleed anemia trend labs transfuse prn occult stool will follow with recs (4) Afib (5) TIA CVA rule out (6) Myalgia (7) Hemoptysis (8) Carotid stenosis (9) COPD exacerbation (10) Arthritis of knee, left (11) Sciatic leg pain Sincere Strange Jun 29, 2019 15:25
--- NOTE | 2019-06-29 19:10 | NUR ---
NURSE NOTES: Received report from TIFFANI Jc. AAO x 4, on room air, ambulatory. Able to make needs known. No acute distress noted. IV site intact. Bed locked, lowest position, side rails up, alarm on, call light within reach. Will continue to monitor.
--- NOTE | 2019-06-29 19:11 | NUR ---
HAND-OFF: Report given to Rody.
[2019-06-29] MEDS: Iron Sucrose 100 MG in NS 55 ML IV SCH (20:15)
[2019-06-29] MEDS ORDERED: Zolpidem 5mg tab ORAL PRN (20:45)
[2019-06-29] MEDS ORDERED: Iron Sucrose 100 MG in NS 55 ML IV SCH (21:00)
[2019-06-29] MEDS: Zolpidem 5mg tab ORAL PRN (21:55)
[2019-06-29] MEDS: Vancomycin 1gm/D5W 275ml IVPB SCH ×2 (21:56)
[2019-06-30] MEDS: Albuterol/Ipratropium 3ml neb HHN SCH ×4 (01:24→19:59)
[2019-06-30 04:00] VITALS: BP 112/50
--- NOTE | 2019-06-30 06:00 | Progress Note ---
DATE: 06/29/2019 SUBJECTIVE: Zoster related pain has improved. Shingle vesicle was noted by Dr. Hdz, on her left leg. Awaiting stool occult blood test. OBJECTIVE: Blood pressure 127/55, pulse 73, respiratory rate 20. LUNGS: Diminished breath sounds. ABDOMEN: Soft. CARDIAC: Regular rhythm and rate. Normal S1, S2. EXTREMITIES: No edema. LABORATORY DATA: White count 11.4, hemoglobin 9.1. Sodium 143, potassium 4.2, bicarb 29, BUN 11, creatinine 0.6 albumin 2.9. IMPRESSION: 1. Paroxysmal atrial fibrillation. 2. Cerebrovascular disease with right-sided carotid occlusion. 3. Hypertensive heart disease. 4. Chronic obstructive pulmonary disease. 5. Zoster and associated pain on left leg. 6. Iron deficiency anemia. PLAN: 1. Await stool occult blood test. 2. Continue pain control and antimicrobials. 3. Lovenox at this time for anticoagulation, pending decision for gastrointestinal intervention, hold aspirin for now. Rosendo Palacios M.D. DR: Lawrence JOB#: [id number] CC:
[2019-06-30] MEDS: HYDROcodone/Acetamin 10/325 tab ORAL PRN ×4 (06:42→22:41)
[2019-06-30 08:00] VITALS: BP 143/71
--- NOTE | 2019-06-30 08:04 | NUR ---
HAND-OFF: Report given to LOUIS Noguera.
--- NOTE | 2019-06-30 08:10 | NUR ---
NURSE NOTES: PT AXOX4, CALM, RESTING IN BED. STATES PAIN OF LEFT LEG, RADIATING TO LEFT GROIN. RN EDUCATED PT ON PRN SCHEDULE OF [place]. PT VERBALIZED UNDERSTANDING. VSS AND IN NO APPARENT DISTRESS AT THIS TIME. WILL CONTINUE TO MONITOR.
[2019-06-30 08:36] LABS: BASOPHILS % (AUTO) 1.1 % (0.0-2.0); EOSINOPHILS % (AUTO) 2.8 % (0.0-3.0); HEMATOCRIT 31.1 % (37.0-47.0); LYMPHOCYTES % (AUTO) 21.6 % (20.0-45.0); MEAN CORPUSCULAR VOLUME 72 FL (80-99); MONOCYTES % (AUTO) 8.2 % (1.0-10.0); NEUTROPHILS % (AUTO) 66.3 % (45.0-75.0); PLATELET COUNT 404 K/UL (150-450); RED BLOOD COUNT 4.31 M/UL (4.20-5.40); RED CELL DISTRIBUTION WIDTH 18.8 % (11.6-14.8); WHITE BLOOD COUNT 12.9 K/UL (4.8-10.8)
[2019-06-30 08:58] LABS: ANION GAP 12 mmol/L (5-15); BLOOD UREA NITROGEN 11 mg/dL (7-18); CALCIUM 8.7 MG/DL (8.5-10.1); CARBON DIOXIDE 26 MMOL/L (21-32); CHLORIDE 106 MMOL/L (98-107); CREATININE 0.6 MG/DL (0.55-1.30); POTASSIUM 3.8 MMOL/L (3.5-5.1); SODIUM 144 MMOL/L (136-145)
[2019-06-30] MEDS: Lyrica 50mg cap ORAL SCH ×3 (09:21→17:31)
[2019-06-30] MEDS: Enoxaparin 60mg Inj SUBQ SCH ×2 (09:22→20:26)
--- NOTE | 2019-06-30 10:09 | General Progress Note ---
Assessment/Plan Problem List: (1) Shingles ICD Codes: B02.9 - Zoster without complications SNOMED: 0779296 (2) GIB (gastrointestinal bleeding) ICD Codes: K92.2 - Gastrointestinal hemorrhage, unspecified SNOMED: 42684943 (3) Afib ICD Codes: I48.91 - Unspecified atrial fibrillation SNOMED: 94012223 (4) Anemia ICD Codes: D64.9 - Anemia, unspecified SNOMED: 013047530 (5) TIA CVA rule out (6) Rash and other nonspecific skin eruption ICD Codes: R21 - Rash and other nonspecific skin eruption SNOMED: 053049847, 003577653 (7) Cellulitis ICD Codes: L03.90 - Cellulitis, unspecified SNOMED: 775160898 Status: stable Assessment/Plan: cont current rx iv abx and po antiviral rx bowel regime await stool ob PPI transfuse as needed lyrica for pain BP rx per cards dc planning Subjective ROS Limited/Unobtainable: No Allergies: Coded Allergies: MORPHINE (Verified Allergy, Severe, Anaphylaxis, 11/14/16) PT RECEIVED 5 DOSES OF OXYCODONE ON PREVIOUS ADMISSION IN 06/2015. As per conversation with the patient. Patient denies having allergy reaction with [place]. She said " I have been taking [place] before and i have no allergy reactions. CITRUS AND DERIVATIVES (Verified Allergy, Unknown, BREAKOUT, 06/15/15) breakout HYDROMORPHONE (Verified Allergy, Unknown, CHEST PAIN, 06/15/15) chest pain IODINE (Verified Allergy, Unknown, SWELLING, 06/15/15) swelling PENICILLINS (Verified Allergy, Unknown, ITCHING, 06/15/15) itching Uncoded Allergies: NYLON TAPE (Adverse Reaction, Intermediate, NIEVES THE SKIN, 06/21/15) Subjective still c/o uncontrolled pain left leg. still with shingles vesicle on left knee but now appear dry. no fever or chills. no sob. surgery and cards appreciated. stool ob pending. h/h trending up. pain difficult to control. Objective Last 24 Hour Vital Signs Date Time Temp Pulse Resp B/P (MAP) Pulse Ox O2 Delivery O2 Flow Rate FiO2 06/30/19 09:21 76 143/71 06/30/19 07:53 77 20 98 Room Air 21 76 20 96 06/30/19 04:00 98.1 73 20 112/50 (70) 90 06/30/19 01:34 80 18 99 Room Air 21 06/30/19 01:24 83 18 95 Room Air 21 06/29/19 23:36 98.4 87 20 116/57 (76) 90 06/29/19 21:00 Room Air 06/29/19 20:19 79 18 98 Room Air 21 06/29/19 20:09 77 18 96 Room Air 21 06/29/19 20:00 98.4 76 18 142/58 (86) 90 06/29/19 18:07 98.1 06/29/19 17:30 87 123/49 06/29/19 16:00 98.1 87 18 123/49 (73) 90 06/29/19 12:00 98.2 71 20 115/53 (73) 93 Intake and Output 06/29/19 06/30/19 19:00 07:00 Intake Total 800 ml 400 ml Balance 800 ml 400 ml Intake Oral 800 ml 400 ml # Voids 6 # Bowel Movements 1 Laboratory Tests 06/29/19 21:30: Stool Occult Blood [Pending] 06/30/19 08:10: White Blood Count 12.9H, Red Blood Count 4.31, Hemoglobin 10.0L, Hematocrit 31.1L, Mean Corpuscular Volume 72L, Mean Corpuscular Hemoglobin 23.3L, Mean Corpuscular Hemoglobin Concent 32.2, Red Cell Distribution Width 18.8H, Platelet Count 404, Mean Platelet Volume 5.1L, Neutrophils (%) (Auto) 66.3, Lymphocytes (%) (Auto) 21.6, Monocytes (%) (Auto) 8.2, Eosinophils (%) (Auto) 2.8, Basophils (%) (Auto) 1.1, Sodium Level 144, Potassium Level 3.8, Chloride Level 106, Carbon Dioxide Level 26, Anion Gap 12, Blood Urea Nitrogen 11, Creatinine 0.6, Estimat Glomerular Filtration Rate > 60, Glucose Level 158H, Calcium Level 8.7 Height (Feet): 5 Height (Inches): 2.00 Weight (Pounds): 132 Objective General Appearance: WD/WN, alert EENT: normal ENT inspection Neck: non-tender, normal alignment, supple Cardiovascular: normal peripheral pulses, normal rate, regular rhythm Respiratory/Chest: chest wall non-tender, lungs clear, normal breath sounds, no respiratory distress, no accessory muscle use Abdomen: normal bowel sounds, non tender, soft, no organomegaly Edema: no edema noted Arm (L), no edema noted Arm (R), no edema noted Leg (L), no edema noted Leg (R), no edema noted Pedal (L), no edema noted Pedal (R), no edema noted Generalized Neurologic: alert, oriented x 3, responsive Skin: rash - left ant knee +vesicles Demario Hdz MD Jun 30, 2019 10:09
[2019-06-30] MEDS: Vancomycin 1gm/D5W 275ml IVPB SCH ×4 (10:59→23:35)
[2019-06-30 12:00] VITALS: BP 140/59
--- NOTE | 2019-06-30 13:00 | Surgery Progress Note ---
Surgery Progress Note Subjective Additional Comments doing well no complaints no n/v/f/c labs noted wbc 12k no signs of infection from lower extremity clinically Objective Last 24 Hour Vital Signs Date Time Temp Pulse Resp B/P (MAP) Pulse Ox O2 Delivery O2 Flow Rate FiO2 06/30/19 12:00 97.9 80 18 140/59 (86) 94 06/30/19 09:21 76 143/71 06/30/19 09:00 Room Air 06/30/19 08:00 98.4 76 18 143/71 (95) 92 06/30/19 07:53 77 20 98 Room Air 21 76 20 96 06/30/19 04:00 98.1 73 20 112/50 (70) 90 06/30/19 01:34 80 18 99 Room Air 21 06/30/19 01:24 83 18 95 Room Air 21 06/29/19 23:36 98.4 87 20 116/57 (76) 90 06/29/19 21:00 Room Air 06/29/19 20:19 79 18 98 Room Air 06/29/19 20:09 77 18 96 Room Air 21 06/29/19 20:00 98.4 76 18 142/58 (86) 90 06/29/19 18:07 98.1 06/29/19 17:30 87 123/49 06/29/19 16:00 98.1 87 18 123/49 (73) 90 I&O Intake and Output 06/29/19 06/30/19 19:00 07:00 Intake Total 800 ml 400 ml Balance 800 ml 400 ml Intake Oral 800 ml 400 ml # Voids 6 # Bowel Movements 1 Dressing: dry, other Wound: clean, other Drains: other Cardiovascular: RSR Respiratory: decreased breath sounds Abdomen: soft, non-tender, present bowel sounds Extremities: no edema, no tenderness, no cyanosis, pulses Laboratory Tests Test 06/29/19 21:30 06/30/19 08:10 Stool Occult Blood Pending White Blood Count 12.9 K/UL (4.8-10.8) H Red Blood Count 4.31 M/UL (4.20-5.40) Hemoglobin 10.0 G/DL (12.0-16.0) L Hematocrit 31.1 % (37.0-47.0) L Mean Corpuscular Volume 72 FL (80-99) L Mean Corpuscular Hemoglobin 23.3 PG (27.0-31.0) L Mean Corpuscular Hemoglobin Concent 32.2 G/DL (32.0-36.0) Red Cell Distribution Width 18.8 % (11.6-14.8) H Platelet Count 404 K/UL (150-450) Mean Platelet Volume 5.1 FL (6.5-10.1) L Neutrophils (%) (Auto) 66.3 % (45.0-75.0) Lymphocytes (%) (Auto) 21.6 % (20.0-45.0) Monocytes (%) (Auto) 8.2 % (1.0-10.0) Eosinophils (%) (Auto) 2.8 % (0.0-3.0) Basophils (%) (Auto) 1.1 % (0.0-2.0) Sodium Level 144 MMOL/L (136-145) Potassium Level 3.8 MMOL/L (3.5-5.1) Chloride Level 106 MMOL/L (98-107) Carbon Dioxide Level 26 MMOL/L (21-32) Anion Gap 12 mmol/L (5-15) Blood Urea Nitrogen 11 mg/dL (7-18) Creatinine 0.6 MG/DL (0.55-1.30) Estimat Glomerular Filtration Rate > 60 mL/min (>60) Glucose Level 158 MG/DL (74-106) H Calcium Level 8.7 MG/DL (8.5-10.1) Plan Problems: (1) Cellulitis Assessment & Plan: Bilaterally, grayscale and duplex images demonstrate no evidence of intraluminal thrombus. Normal phasic Doppler waveforms, demonstrating normal augmentation response and no evidence of valvular insufficiency. Greater saphenous vein(s) and tibial veins are patent. Normal compressibility. Incidentally noted is a hypoechoic avascular area in the left anterior knee soft tissues which measures approximately 3.2 x 2 x 0.9 cm. Impression: Negative for evidence of lower extremity deep venous thrombosis bilaterally 3.2 x 2 x 0.9 cm hypoechoic lesion within the anterior left knee soft tissues. Nonspecific, could indicate a small abscess, hematoma, or complicated cyst. Evaluated at bedside left anterior knee lateral there is some slight old blistering of the skin from a rash which is now resolving. No fluid collection palpable clearly identified. No cellulitis no signs of active acute infection discussed patient in detail will monitor leukocytosis improved esr / crp noted us reviewed again and exam still unable to identify abscess skin changes improving small blisters resolving will monitor clinically may consider CT but given no signs of infection at bedside clinical exam clinically stable and without sign of infection in leg (2) Rash and other nonspecific skin eruption (3) GIB (gastrointestinal bleeding) Assessment & Plan: on anticoagulation possible gi bleed anemia trend labs transfuse prn occult stool will follow with recs (4) Afib (5) TIA CVA rule out (6) Myalgia (7) Hemoptysis (8) Carotid stenosis (9) COPD exacerbation (10) Arthritis of knee, left (11) Sciatic leg pain Sincere Strange Jun 30, 2019 13:00
[2019-06-30 16:00] VITALS: BP 155/60
--- NOTE | 2019-06-30 19:20 | NUR ---
NURSE NOTES: Received report from LOUIS Noguera. AAO x 4, on room air, ambulatory. Able to make needs known. No acute distress noted. IV site intact. Bed locked, lowest position, side rails up, alarm on, call light within reach. Will continue to monitor.
--- NOTE | 2019-06-30 19:44 | NUR ---
HAND-OFF: Report given to Jorge A MONTAÑO RN.
[2019-06-30 20:00] VITALS: BP 124/52
[2019-06-30] MEDS: Iron Sucrose 100 MG in NS 55 ML IV SCH (20:29)
[2019-06-30] MEDS: Zolpidem 5mg tab ORAL PRN (22:41)
[2019-07-01] VITALS: BP 128/56
[2019-07-01] MEDS ORDERED: Iron Sucrose 100 MG in NS 55 ML IV SCH (02:15)
--- NOTE | 2019-07-01 03:00 | NUR ---
NURSE NOTES: Pain is difficult to control with [place]. Applied hot packs on the L leg.
[2019-07-01] MEDS: HYDROcodone/Acetamin 10/325 tab ORAL PRN ×4 (03:18→21:42)
[2019-07-01 04:00] VITALS: BP 134/58
--- NOTE | 2019-07-01 04:30 | Progress Note ---
DATE: 06/30/2019 CARDIOLOGY PROGRESS NOTE SUBJECTIVE: Leg pain is slightly better. Vesicles are dry. The patient's stool occult blood test was negative. Hemoglobin improved. OBJECTIVE: VITAL SIGNS: Blood pressure 112/50, pulse 73, and respirations 20. LUNGS: Clear. CARDIAC: Regular. Normal S1 and S2 with a fourth heart sound. ABDOMEN: Soft. EXTREMITIES: Trace edema. NEUROLOGIC: Baseline facial asymmetry. LABORATORY DATA: Hemoglobin 10. Potassium 3.8. IMPRESSION: 1. Anemia, iron deficiency. No signs of GI blood loss. 2. Elevated CEA, not likely of clinical significance. 3. Paroxysmal atrial fibrillation. 4. Cerebrovascular disease with history of CVA. 5. Occluded right carotid artery. PLAN: 1. We will review prior gastrointestinal workup. 2. Resume anticoagulation and anti-platelet therapy. 3. Iron replacement. Rosendo Palacios M.D. DR: FRANK JOB#: [id number] CC:
[2019-07-01 06:54] LABS: ANION GAP 6 mmol/L (5-15); BLOOD UREA NITROGEN 11 mg/dL (7-18); CARBON DIOXIDE 31 MMOL/L (21-32); CHLORIDE 105 MMOL/L (98-107); CREATININE 0.7 MG/DL (0.55-1.30); POTASSIUM 4.6 MMOL/L (3.5-5.1); SODIUM 142 MMOL/L (136-145)
--- NOTE | 2019-07-01 07:00 | NUR ---
HAND-OFF: Report given to LOUIS Noguera.
[2019-07-01 07:05] LABS: BASOPHILS % (AUTO) 1.5 % (0.0-2.0); HEMATOCRIT 28.3 % (37.0-47.0); HEMOGLOBIN 9.5 G/DL (12.0-16.0); LYMPHOCYTES % (AUTO) 21.3 % (20.0-45.0); MEAN CORPUSCULAR VOLUME 71 FL (80-99); MONOCYTES % (AUTO) 12.1 % (1.0-10.0); PLATELET COUNT 389 K/UL (150-450); RED CELL DISTRIBUTION WIDTH 18.5 % (11.6-14.8); WHITE BLOOD COUNT 12.5 K/UL (4.8-10.8)
[2019-07-01 08:00] VITALS: BP 145/58
[2019-07-01] MEDS: Lyrica 50mg cap ORAL SCH ×3 (08:31→17:35)
[2019-07-01] MEDS: Aspirin Baby 81mg ORAL SCH (08:31)
[2019-07-01] MEDS: Eliquis 5mg tablet ORAL SCH ×2 (08:31→17:36)
[2019-07-01] MEDS: Vancomycin 1gm/D5W 275ml IVPB SCH ×4 (10:46→22:51)
[2019-07-01 12:00] VITALS: BP 143/69
--- NOTE | 2019-07-01 15:38 | Surgery Progress Note ---
Surgery Progress Note Subjective Additional Comments no acute events comfortable stable pain improved no signs of active infection leg okay labs stable afebrile, HD stable Objective Last 24 Hour Vital Signs Date Time Temp Pulse Resp B/P (MAP) Pulse Ox O2 Delivery O2 Flow Rate FiO2 07/01/19 12:00 97.9 73 18 143/69 (93) 93 07/01/19 09:00 Room Air 07/01/19 08:31 79 134/58 07/01/19 08:00 99.1 72 18 145/58 (87) 94 07/01/19 04:00 98.7 79 18 134/58 (83) 92 07/01/19 00:00 98.6 77 16 128/56 (80) 94 06/30/19 21:00 Room Air 06/30/19 20:00 90 20 99 Room Air 21 88 20 98 06/30/19 20:00 98.4 81 16 124/52 (76) 95 06/30/19 17:31 89 155/60 06/30/19 16:00 97.7 89 20 155/60 (91) 90 I&O Intake and Output 06/30/19 07/01/19 19:00 07:00 Intake Total 1275.000 ml 480 ml Balance 1275.000 ml 480 ml Intake Oral 1000 ml 480 ml IV Total 275.000 ml # Voids 6 1 Dressing: other Wound: other Drains: other Cardiovascular: RSR Respiratory: decreased breath sounds Abdomen: soft, non-tender, present bowel sounds Extremities: no edema, no tenderness, no cyanosis, pulses, other Laboratory Tests Test 06/30/19 22:00 07/01/19 05:55 Vancomycin Level Trough 10.9 ug/mL (5.0-12.0) White Blood Count 12.5 K/UL (4.8-10.8) H Red Blood Count 4.00 M/UL (4.20-5.40) L Hemoglobin 9.5 G/DL (12.0-16.0) L Hematocrit 28.3 % (37.0-47.0) L Mean Corpuscular Volume 71 FL (80-99) L Mean Corpuscular Hemoglobin 23.7 PG (27.0-31.0) L Mean Corpuscular Hemoglobin Concent 33.4 G/DL (32.0-36.0) Red Cell Distribution Width 18.5 % (11.6-14.8) H Platelet Count 389 K/UL (150-450) Mean Platelet Volume 5.2 FL (6.5-10.1) L Neutrophils (%) (Auto) 61.0 % (45.0-75.0) Lymphocytes (%) (Auto) 21.3 % (20.0-45.0) Monocytes (%) (Auto) 12.1 % (1.0-10.0) H Eosinophils (%) (Auto) 4.0 % (0.0-3.0) H Basophils (%) (Auto) 1.5 % (0.0-2.0) Sodium Level 142 MMOL/L (136-145) Potassium Level 4.6 MMOL/L (3.5-5.1) Chloride Level 105 MMOL/L (98-107) Carbon Dioxide Level 31 MMOL/L (21-32) Anion Gap 6 mmol/L (5-15) Blood Urea Nitrogen 11 mg/dL (7-18) Creatinine 0.7 MG/DL (0.55-1.30) Estimat Glomerular Filtration Rate > 60 mL/min (>60) Glucose Level 101 MG/DL (74-106) Calcium Level 9.0 MG/DL (8.5-10.1) Plan Problems: (1) Cellulitis Assessment & Plan: Bilaterally, grayscale and duplex images demonstrate no evidence of intraluminal thrombus. Normal phasic Doppler waveforms, demonstrating normal augmentation response and no evidence of valvular insufficiency. Greater saphenous vein(s) and tibial veins are patent. Normal compressibility. Incidentally noted is a hypoechoic avascular area in the left anterior knee soft tissues which measures approximately 3.2 x 2 x 0.9 cm. Impression: Negative for evidence of lower extremity deep venous thrombosis bilaterally 3.2 x 2 x 0.9 cm hypoechoic lesion within the anterior left knee soft tissues. Nonspecific, could indicate a small abscess, hematoma, or complicated cyst. Evaluated at bedside left anterior knee lateral there is some slight old blistering of the skin from a rash which is now resolving. No fluid collection palpable clearly identified. No cellulitis no signs of active acute infection discussed patient in detail will monitor leukocytosis improved esr / crp noted us reviewed again and exam still unable to identify abscess skin changes improving small blisters resolving will monitor clinically may consider CT but given no signs of infection at bedside clinical exam clinically stable and without sign of infection in leg (2) Rash and other nonspecific skin eruption (3) GIB (gastrointestinal bleeding) Assessment & Plan: on anticoagulation possible gi bleed anemia trend labs transfuse prn occult stool will follow with recs (4) Afib (5) TIA CVA rule out (6) Myalgia (7) Hemoptysis (8) Carotid stenosis (9) COPD exacerbation (10) Arthritis of knee, left (11) Sciatic leg pain Sincere Strange Jul 01, 2019 15:38
--- NOTE | 2019-07-01 15:46 | NUR ---
CASE MANAGEMENT:REVIEW SI: SHINGLES. GI BLEED. ANEMIA. A-FIB. CELLULITIS. TIA/CVA RULE OUT. 99.1 79 18 145/58 92% ON RA WBC 12.5 STOOL OB (-) IS;IRON SUCROSE IV HS ELIQUIS PO BID ASA PO QD VANCOMYCIN IV Q12 HRS ACYCLOVIR 5X DAY MED SURG STATUS DCP;PATIENT IS FROM HOME PLAN;CONT IV IRON REPLACEMENT
[2019-07-01 16:00] VITALS: BP 148/73
--- NOTE | 2019-07-01 16:16 | NUR ---
NURSE NOTES: PT AXOX4, CALM, RESTING IN BED. IN NO APPARENT DISTRESS AT THIS TIME. PT IS INDEPENDENTLY AMBULATORY. DENIES SOB OR DIZZINESS. CALL LIGHT WITHIN REACH. WILL CONTINUE TO MONITOR.
--- NOTE | 2019-07-01 16:57 | General Progress Note ---
Assessment/Plan Problem List: (1) Shingles ICD Codes: B02.9 - Zoster without complications SNOMED: 0607518 (2) GIB (gastrointestinal bleeding) ICD Codes: K92.2 - Gastrointestinal hemorrhage, unspecified SNOMED: 35356671 (3) Afib ICD Codes: I48.91 - Unspecified atrial fibrillation SNOMED: 51926417 (4) Anemia ICD Codes: D64.9 - Anemia, unspecified SNOMED: 285226616 (5) TIA CVA rule out (6) Rash and other nonspecific skin eruption ICD Codes: R21 - Rash and other nonspecific skin eruption SNOMED: 064715529, 290542359 (7) Cellulitis ICD Codes: L03.90 - Cellulitis, unspecified SNOMED: 346789681 Status: stable Assessment/Plan: cont current rx iv abx and po antiviral rx bowel regime monitor for bleeding PPI transfuse as needed lyrica for pain BP rx per cards dc planning Subjective ROS Limited/Unobtainable: No Constitutional: Reports: malaise, weakness HEENT: Reports: no symptoms Cardiovascular: Reports: no symptoms Respiratory: Reports: cough Gastrointestinal/Abdominal: Reports: no symptoms Genitourinary: Reports: no symptoms Neurologic/Psychiatric: Reports: anxiety, pre-existing deficit Endocrine: Reports: no symptoms Hematologic/Lymphatic: Reports: anemia Allergies: Coded Allergies: MORPHINE (Verified Allergy, Severe, Anaphylaxis, 11/14/16) PT RECEIVED 5 DOSES OF OXYCODONE ON PREVIOUS ADMISSION IN 06/2015. As per conversation with the patient. Patient denies having allergy reaction with [place]. She said " I have been taking [place] before and i have no allergy reactions. CITRUS AND DERIVATIVES (Verified Allergy, Unknown, BREAKOUT, 06/15/15) breakout HYDROMORPHONE (Verified Allergy, Unknown, CHEST PAIN, 06/15/15) chest pain IODINE (Verified Allergy, Unknown, SWELLING, 06/15/15) swelling PENICILLINS (Verified Allergy, Unknown, ITCHING, 06/15/15) itching Uncoded Allergies: NYLON TAPE (Adverse Reaction, Intermediate, NIEVES THE SKIN, 06/21/15) All Systems: reviewed and negative except above Subjective No significant overnight events. No bleeding noted. Hemoglobin is stable. Stool for occult blood was negative. Still complains of severe pain on the left knee anterior aspect. No chest pain or shortness of. No fevers noted. Back on antiplatelet treatment and anticoagulation. Objective Last 24 Hour Vital Signs Date Time Temp Pulse Resp B/P (MAP) Pulse Ox O2 Delivery O2 Flow Rate FiO2 07/01/19 12:00 97.9 73 18 143/69 (93) 93 07/01/19 09:00 Room Air 07/01/19 08:31 79 134/58 07/01/19 08:00 99.1 72 18 145/58 (87) 94 07/01/19 04:00 98.7 79 18 134/58 (83) 92 07/01/19 00:00 98.6 77 16 128/56 (80) 94 06/30/19 21:00 Room Air 06/30/19 20:00 90 20 99 Room Air 21 88 20 98 06/30/19 20:00 98.4 81 16 124/52 (76) 95 06/30/19 17:31 89 155/60 Intake and Output 06/30/19 07/01/19 19:00 07:00 Intake Total 1275.000 ml 480 ml Balance 1275.000 ml 480 ml Intake Oral 1000 ml 480 ml IV Total 275.000 ml # Voids 6 1 Laboratory Tests 06/30/19 22:00: Vancomycin Level Trough 10.9 07/01/19 05:55: White Blood Count 12.5H, Red Blood Count 4.00L, Hemoglobin 9.5L, Hematocrit 28.3L, Mean Corpuscular Volume 71L, Mean Corpuscular Hemoglobin 23.7L, Mean Corpuscular Hemoglobin Concent 33.4, Red Cell Distribution Width 18.5H, Platelet Count 389, Mean Platelet Volume 5.2L, Neutrophils (%) (Auto) 61.0, Lymphocytes (%) (Auto) 21.3, Monocytes (%) (Auto) 12.1H, Eosinophils (%) (Auto) 4.0H, Basophils (%) (Auto) 1.5, Sodium Level 142, Potassium Level 4.6, Chloride Level 105, Carbon Dioxide Level 31, Anion Gap 6, Blood Urea Nitrogen 11, Creatinine 0.7, Estimat Glomerular Filtration Rate > 60, Glucose Level 101, Calcium Level 9.0 Height (Feet): 5 Height (Inches): 2.00 Weight (Pounds): 136 Objective General Appearance: WD/WN, alert EENT: normal ENT inspection Neck: non-tender, normal alignment, supple Cardiovascular: normal peripheral pulses, normal rate, regular rhythm Respiratory/Chest: chest wall non-tender, lungs clear, normal breath sounds, no respiratory distress, no accessory muscle use Abdomen: normal bowel sounds, non tender, soft, no organomegaly Edema: no edema noted Arm (L), no edema noted Arm (R), no edema noted Leg (L), no edema noted Leg (R), no edema noted Pedal (L), no edema noted Pedal (R), no edema noted Generalized Neurologic: alert, oriented x 3, responsive Skin: rash - left ant knee +vesicles Demario Hdz MD Jul 01, 2019 16:57
--- NOTE | 2019-07-01 19:28 | NUR ---
HAND-OFF: Report given to Tato CARDONA RN.
[2019-07-01 20:00] VITALS: BP 145/59
[2019-07-01] MEDS: Iron Sucrose 100 MG in NS 55 ML IV SCH (21:41)
[2019-07-01] MEDS ORDERED: Albuterol/Ipratropium 3ml neb HHN PRN ×2 (22:00→22:30)
[2019-07-02] VITALS: BP 148/60
--- NOTE | 2019-07-02 02:45 | Progress Note ---
DATE: 07/01/2019 CARDIOLOGY PROGRESS NOTE SUBJECTIVE: The patient has no signs of bleeding. Stool occult blood is negative. No drop in hemoglobin following transfusions noted. She does have continued left knee and skin pain. No chest pain. No shortness of breath. She was restarted on anti-platelet and anticoagulant over the past 2 days once her stool occult blood was found to be negative. OBJECTIVE: VITAL SIGNS: Blood pressure 143/69, pulse 73, respirations 18, afebrile, and oxygen saturation 93% on room air. LUNGS: Clear with slightly diminished breath sounds. CARDIAC: Regular rhythm and rate. Normal S1, S2 with a 1/6 systolic murmur at the lower left sternal border. ABDOMEN: Soft. EXTREMITIES: There is no edema. SKIN: There are drying vesicles on the left knee area with minimal erythema. IMPRESSION: 1. Left lower extremity cellulitis. 2. Herpes zoster, left lower extremity dermatome. 3. Paroxysmal atrial fibrillation. 4. Cerebrovascular disease. 5. History of CVA with right carotid occlusion. 6. Hypertensive heart disease. 7. Nicotine dependence and abuse. 8. COPD. 9. Anemia, likely due to iron deficiency and chronic disease. PLAN: 1. Continue iron replacement. 2. Monitor hemoglobin. 3. No plan for repeat GI workup as that was done last year. 4. Consider outpatient GI input regarding elevated CEA level. 5. Maintain current cardiovascular regimen. 6. Pain control. 7. Recheck lab studies. 8. Discharge planning per primary care physician. Rosendo Palacios M.D. DR: Vicki JOB#: [id number] CC:
[2019-07-02 04:00] VITALS: BP 141/55
[2019-07-02] MEDS: HYDROcodone/Acetamin 10/325 tab ORAL PRN ×4 (05:04→22:31)
[2019-07-02 07:17] LABS: HEMATOCRIT 32.9 % (37.0-47.0); HEMOGLOBIN 10.3 G/DL (12.0-16.0); MEAN CORPUSCULAR VOLUME 75 FL (80-99); PLATELET COUNT 434 K/UL (150-450); RED BLOOD COUNT 4.37 M/UL (4.20-5.40); RED CELL DISTRIBUTION WIDTH 23.7 % (11.6-14.8)
[2019-07-02 07:30] LABS: WHITE BLOOD COUNT 23.7 K/UL (4.8-10.8)
--- NOTE | 2019-07-02 07:30 | NUR ---
NURSE NOTES: Received patient in bed. Awake, A/O x4. On room air, respirations unlabored. Patient denies pain. IV in the Left forearm, site is intact. Cane within reach for ambulation. Bed at the lowest position, bed locked, call light within reach.
--- NOTE | 2019-07-02 07:33 | NUR ---
HAND-OFF: Report given to Shay Franz RN.
[2019-07-02 08:00] VITALS: BP 130/69
[2019-07-02 08:03] LABS: ALANINE AMINOTRANSFERASE 30 U/L (12-78); ALBUMIN 3.2 G/DL (3.4-5.0); ALBUMIN/GLOBULIN RATIO 0.7 (1.0-2.7); ALKALINE PHOSPHATASE 101 U/L (46-116); ANION GAP 9 mmol/L (5-15); ASPARTATE AMINO TRANSFERASE 16 U/L (15-37); BILIRUBIN,TOTAL 0.3 MG/DL (0.2-1.0); BLOOD UREA NITROGEN 11 mg/dL (7-18); CALCIUM 8.9 MG/DL (8.5-10.1); CARBON DIOXIDE 29 MMOL/L (21-32); CHLORIDE 104 MMOL/L (98-107); CREATININE 0.6 MG/DL (0.55-1.30); SODIUM 141 MMOL/L (136-145)
[2019-07-02] MEDS: Lyrica 50mg cap ORAL SCH ×4 (09:00→18:00)
--- NOTE | 2019-07-02 09:00 | NUR ---
NURSE NOTES: WBC reported to Dr. Hdz. Repeat CBC ordered tomorrow. Addendum: 07/02/19 at 1003 by Shay Franz RN CBC ordered for today.
--- NOTE | 2019-07-02 09:13 | General Progress Note ---
Assessment/Plan Problem List: (1) Shingles ICD Codes: B02.9 - Zoster without complications SNOMED: 9375904 (2) GIB (gastrointestinal bleeding) ICD Codes: K92.2 - Gastrointestinal hemorrhage, unspecified SNOMED: 57572550 (3) Afib ICD Codes: I48.91 - Unspecified atrial fibrillation SNOMED: 34421281 (4) Anemia ICD Codes: D64.9 - Anemia, unspecified SNOMED: 691539902 (5) TIA CVA rule out (6) Rash and other nonspecific skin eruption ICD Codes: R21 - Rash and other nonspecific skin eruption SNOMED: 711515624, 841905930 (7) Cellulitis ICD Codes: L03.90 - Cellulitis, unspecified SNOMED: 633763272 Status: stable Assessment/Plan: cont current rx bowel regime monitor for bleeding PPI transfuse as needed lyrica for pain BP rx per cards repeat wbc ?dc planning if wbc better Subjective ROS Limited/Unobtainable: No Constitutional: Reports: weakness HEENT: Reports: no symptoms Cardiovascular: Reports: no symptoms Respiratory: Reports: no symptoms Gastrointestinal/Abdominal: Reports: no symptoms Genitourinary: Reports: no symptoms Neurologic/Psychiatric: Reports: no symptoms Endocrine: Reports: no symptoms Hematologic/Lymphatic: Reports: anemia Allergies: Coded Allergies: MORPHINE (Verified Allergy, Severe, Anaphylaxis, 11/14/16) PT RECEIVED 5 DOSES OF OXYCODONE ON PREVIOUS ADMISSION IN 06/2015. As per conversation with the patient. Patient denies having allergy reaction with [place]. She said " I have been taking [place] before and i have no allergy reactions. CITRUS AND DERIVATIVES (Verified Allergy, Unknown, BREAKOUT, 06/15/15) breakout HYDROMORPHONE (Verified Allergy, Unknown, CHEST PAIN, 06/15/15) chest pain IODINE (Verified Allergy, Unknown, SWELLING, 06/15/15) swelling PENICILLINS (Verified Allergy, Unknown, ITCHING, 06/15/15) itching Uncoded Allergies: NYLON TAPE (Adverse Reaction, Intermediate, NIEVES THE SKIN, 06/21/15) All Systems: reviewed and negative except above Subjective No significant overnight events. No bleeding noted. Hemoglobin trending up. Stool for occult blood was negative. Still complains of severe pain on the left knee anterior aspect. No chest pain or shortness of. No fevers noted. Back on antiplatelet treatment and anticoagulation.wbc to 23K? Objective Last 24 Hour Vital Signs Date Time Temp Pulse Resp B/P (MAP) Pulse Ox O2 Delivery O2 Flow Rate FiO2 07/02/19 05:39 97.9 07/02/19 04:00 98.9 81 20 141/55 (83) 94 07/02/19 00:00 97.9 80 20 148/60 (89) 99 07/01/19 23:03 90 18 99 Room Air 21 92 18 95 07/01/19 21:17 Room Air 07/01/19 20:00 98.0 80 18 145/59 (87) 94 07/01/19 17:34 82 148/73 07/01/19 16:00 98.2 82 18 148/73 (98) 93 07/01/19 12:00 97.9 73 18 143/69 (93) 93 Intake and Output 07/01/19 07/02/19 19:00 07:00 Intake Total 1075.000 ml 335.000 ml Balance 1075.000 ml 335.000 ml Intake Oral 800 ml IV Total 275.000 ml 335.000 ml # Voids 3 3 Laboratory Tests 07/02/19 06:15: Sodium Level 141, Potassium Level 4.0, Chloride Level 104, Carbon Dioxide Level 29, Anion Gap 9, Blood Urea Nitrogen 11, Creatinine 0.6, Estimat Glomerular Filtration Rate > 60, Glucose Level 109H, Calcium Level 8.9, Magnesium Level 2.0 , Total Bilirubin 0.3, Aspartate Amino Transf (AST/SGOT) 16, Alanine Aminotransferase (ALT/SGPT) 30, Alkaline Phosphatase 101, Pro-B-Type Natriuretic Peptide 58, Total Protein 8.0, Albumin 3.2L, Globulin 4.8, Albumin/ Globulin Ratio 0.7L 07/02/19 06:50: White Blood Count 23.7#*H, Red Blood Count 4.37, Hemoglobin 10.3L, Hematocrit 32.9L, Mean Corpuscular Volume 75L, Mean Corpuscular Hemoglobin 23.6L, Mean Corpuscular Hemoglobin Concent 31.3L, Red Cell Distribution Width 23.7H, Platelet Count 434, Mean Platelet Volume 5.5L, Neutrophils (%) (Auto) , Lymphocytes (%) (Auto) , Monocytes (%) (Auto) , Eosinophils (%) (Auto) , Basophils (%) (Auto) , Neutrophils % (Manual) [Pending], Lymphocytes % (Manual) [Pending], Platelet Estimate [Pending], Platelet Morphology [Pending] Height (Feet): 5 Height (Inches): 2.00 Weight (Pounds): 136 Objective General Appearance: WD/WN, alert EENT: normal ENT inspection Neck: non-tender, normal alignment, supple Cardiovascular: normal peripheral pulses, normal rate, regular rhythm Respiratory/Chest: chest wall non-tender, lungs clear, normal breath sounds, no respiratory distress, no accessory muscle use Abdomen: normal bowel sounds, non tender, soft, no organomegaly Edema: no edema noted Arm (L), no edema noted Arm (R), no edema noted Leg (L), no edema noted Leg (R), no edema noted Pedal (L), no edema noted Pedal (R), no edema noted Generalized Neurologic: alert, oriented x 3, responsive Skin: rash - left ant knee +vesicles Demario Hdz MD Jul 02, 2019 09:13
[2019-07-02] MEDS: Aspirin Baby 81mg ORAL SCH (09:31)
[2019-07-02] MEDS: Eliquis 5mg tablet ORAL SCH ×2 (09:31→18:00)
[2019-07-02] MEDS: Vancomycin 1gm/D5W 275ml IVPB SCH ×4 (10:09→23:10)
[2019-07-02 10:41] LABS: HEMATOCRIT 32.7 % (37.0-47.0); HEMOGLOBIN 10.4 G/DL (12.0-16.0); MEAN CORPUSCULAR VOLUME 75 FL (80-99); PLATELET COUNT 431 K/UL (150-450); RED BLOOD COUNT 4.35 M/UL (4.20-5.40); RED CELL DISTRIBUTION WIDTH 23.9 % (11.6-14.8)
[2019-07-02 10:58] LABS: WHITE BLOOD COUNT 25.4 K/UL (4.8-10.8)
--- NOTE | 2019-07-02 11:25 | NUR ---
NURSE NOTES: Dr. Hdz notified of WBC 25.4. Awaiting response.
[2019-07-02 12:00] VITALS: BP 135/55
--- NOTE | 2019-07-02 15:00 | NUR ---
NURSE NOTES: Order for repeat CBC tomorrow in AM for f/u WBC from Dr. Hdz. Addendum: 07/02/19 at 1558 by Shay Franz RN To also monitor symptoms for WBC level from Dr. Hdz.
[2019-07-02 15:52] VITALS: BP 117/51
--- NOTE | 2019-07-02 17:01 | Surgery Progress Note ---
Surgery Progress Note Subjective Additional Comments Significant rise in leukocytosis 24,000 today. Patient otherwise well dressed in her own closed walking with a cane comfortably. Still has some left thigh pain muscular in nature. No nausea vomiting fever chills. Unsure of acute leukocytosis Objective Last 24 Hour Vital Signs Date Time Temp Pulse Resp B/P (MAP) Pulse Ox O2 Delivery O2 Flow Rate FiO2 07/02/19 15:52 98.2 79 20 117/51 (73) 90 07/02/19 12:00 99.1 80 18 135/55 (81) 95 07/02/19 09:31 96 130/69 07/02/19 09:00 Room Air 07/02/19 08:00 97.2 96 18 130/69 (89) 95 07/02/19 05:39 97.9 07/02/19 04:00 98.9 81 20 141/55 (83) 94 07/02/19 00:00 97.9 80 20 148/60 (89) 99 07/01/19 23:03 90 18 99 Room Air 21 92 18 95 07/01/19 21:17 Room Air 07/01/19 20:00 98.0 80 18 145/59 (87) 94 07/01/19 17:34 82 148/73 I&O Intake and Output 07/01/19 07/02/19 19:00 07:00 Intake Total 1075.000 ml 335.000 ml Balance 1075.000 ml 335.000 ml Intake Oral 800 ml IV Total 275.000 ml 335.000 ml # Voids 3 3 Dressing: other Wound: other Drains: other Cardiovascular: RSR Respiratory: decreased breath sounds Abdomen: soft, non-tender, present bowel sounds, non-distended Extremities: no edema, no tenderness, no cyanosis, pulses, other Laboratory Tests Test 07/02/19 06:15 07/02/19 06:50 07/02/19 10:22 Sodium Level 141 MMOL/L (136-145) Potassium Level 4.0 MMOL/L (3.5-5.1) Chloride Level 104 MMOL/L (98-107) Carbon Dioxide Level 29 MMOL/L (21-32) Anion Gap 9 mmol/L (5-15) Blood Urea Nitrogen 11 mg/dL (7-18) Creatinine 0.6 MG/DL (0.55-1.30) Estimat Glomerular Filtration Rate > 60 mL/min (>60) Glucose Level 109 MG/DL (74-106) H Calcium Level 8.9 MG/DL (8.5-10.1) Magnesium Level 2.0 MG/DL (1.8-2.4) Total Bilirubin 0.3 MG/DL (0.2-1.0) Aspartate Amino Transf (AST/SGOT) 16 U/L (15-37) Alanine Aminotransferase (ALT/SGPT) 30 U/L (12-78) Alkaline Phosphatase 101 U/L (46-116) Pro-B-Type Natriuretic Peptide 58 pg/mL (0-125) Total Protein 8.0 G/DL (6.4-8.2) Albumin 3.2 G/DL (3.4-5.0) L Globulin 4.8 g/dL Albumin/Globulin Ratio 0.7 (1.0-2.7) L White Blood Count 23.7 K/UL (4.8-10.8) #*H 25.4 K/UL (4.8-10.8) *H Red Blood Count 4.37 M/UL (4.20-5.40) 4.35 M/UL (4.20-5.40) Hemoglobin 10.3 G/DL (12.0-16.0) L 10.4 G/DL (12.0-16.0) L Hematocrit 32.9 % (37.0-47.0) L 32.7 % (37.0-47.0) L Mean Corpuscular Volume 75 FL (80-99) L 75 FL (80-99) L Mean Corpuscular Hemoglobin 23.6 PG (27.0-31.0) L 24.0 PG (27.0-31.0) L Mean Corpuscular Hemoglobin Concent 31.3 G/DL (32.0-36.0) L 32.0 G/DL (32.0-36.0) Red Cell Distribution Width 23.7 % (11.6-14.8) H 23.9 % (11.6-14.8) H Platelet Count 434 K/UL (150-450) 431 K/UL (150-450) Mean Platelet Volume 5.5 FL (6.5-10.1) L 5.2 FL (6.5-10.1) L Neutrophils (%) (Auto) % (45.0-75.0) % (45.0-75.0) Lymphocytes (%) (Auto) % (20.0-45.0) % (20.0-45.0) Monocytes (%) (Auto) % (1.0-10.0) % (1.0-10.0) Eosinophils (%) (Auto) % (0.0-3.0) % (0.0-3.0) Basophils (%) (Auto) % (0.0-2.0) % (0.0-2.0) Differential Total Cells Counted 100 100 Neutrophils % (Manual) 84 % (45-75) H 86 % (45-75) H Lymphocytes % (Manual) 10 % (20-45) L 9 % (20-45) L Monocytes % (Manual) 5 % (1-10) 4 % (1-10) Eosinophils % (Manual) 1 % (0-3) 0 % (0-3) Basophils % (Manual) 0 % (0-2) 1 % (0-2) Band Neutrophils 0 % (0-8) 0 % (0-8) Platelet Estimate Adequate Adequate Platelet Morphology Normal Normal Hypochromasia 1+ Anisocytosis 4+ Microcytosis 1+ Plan Problems: (1) Cellulitis Assessment & Plan: Bilaterally, grayscale and duplex images demonstrate no evidence of intraluminal thrombus. Normal phasic Doppler waveforms, demonstrating normal augmentation response and no evidence of valvular insufficiency. Greater saphenous vein(s) and tibial veins are patent. Normal compressibility. Incidentally noted is a hypoechoic avascular area in the left anterior knee soft tissues which measures approximately 3.2 x 2 x 0.9 cm. Impression: Negative for evidence of lower extremity deep venous thrombosis bilaterally 3.2 x 2 x 0.9 cm hypoechoic lesion within the anterior left knee soft tissues. Nonspecific, could indicate a small abscess, hematoma, or complicated cyst. Evaluated at bedside left anterior knee lateral there is some slight old blistering of the skin from a rash which is now resolving. No fluid collection palpable clearly identified. No cellulitis no signs of active acute infection discussed patient in detail will monitor leukocytosis improved esr / crp noted us reviewed again and exam still unable to identify abscess skin changes improving small blisters resolving will monitor clinically may consider CT but given no signs of infection at bedside clinical exam clinically stable and without sign of infection in leg wbc repeat am labs (2) Rash and other nonspecific skin eruption (3) GIB (gastrointestinal bleeding) Assessment & Plan: on anticoagulation possible gi bleed anemia trend labs transfuse prn occult stool will follow with recs (4) Afib (5) TIA CVA rule out (6) Myalgia (7) Hemoptysis (8) Carotid stenosis (9) COPD exacerbation (10) Arthritis of knee, left (11) Sciatic leg pain Sincere Strange Jul 02, 2019 17:01
--- NOTE | 2019-07-02 19:20 | NUR ---
HAND-OFF: Report given to Elizabeth MYERS.
--- NOTE | 2019-07-02 19:21 | NUR ---
NURSE NOTES: Patient is in bed, awake and alert x4. On room air with no signs of distress or SOB. IV in place and patent. Bed locked and in lowest position. Call light in reach. Will continue to monitor the patient.
[2019-07-02 20:00] VITALS: BP 109/47
[2019-07-02] MEDS: Iron Sucrose 100 MG in NS 55 ML IV SCH (22:21)
[2019-07-02] MEDS: Zolpidem 5mg tab ORAL PRN (23:19)
[2019-07-03] VITALS (7 sets, daily range): BP systolic 123–149; BP diastolic 51–72
--- NOTE | 2019-07-03 05:15 | Progress Note ---
DATE: 07/02/2019 CARDIOLOGY PROGRESS NOTE SUBJECTIVE: Decreasing pain. Hemoglobin stabilized. Stool occult blood negative. Back on anticoagulation. PHYSICAL EXAMINATION: VITAL SIGNS: Blood pressure 141/55, heart rate 81, respiratory rate 20, and regular heart rhythm. LUNGS: Clear. Baseline right-sided weakness. CARDIAC: Regular rhythm and rate. Normal S1, S2. There is a fourth heart sound. ABDOMEN: Soft. EXTREMITIES: No edema. Knee with no redness or vesicles and dry patches and zoster sites. No redness. LABORATORY DATA: White count 25, hemoglobin 10. Potassium 4, BUN 11, creatinine 0.6. IMPRESSION: 1. Anemia of chronic disease, iron deficiency, no signs of GI blood loss. 2. Mild elevation of CEA. 3. Recent negative GI workup. 4. Paroxysmal atrial fibrillation. 5. Cerebrovascular disease. 6. History of cerebrovascular accident. 7. Carotid occlusion on the right. 8. Persisting leukocytosis. PLAN: Recheck chest x-ray. Recheck urine studies. Continue anticoagulation. Monitor hemoglobin. Rosendo Palacios M.D. DR: BRO JOB#: [id number] CC:
[2019-07-03] MEDS: HYDROcodone/Acetamin 10/325 tab ORAL PRN ×4 (06:01→22:37)
--- NOTE | 2019-07-03 07:00 | NUR ---
NURSE NOTES: Received patient in bed. Awake, A/O x4. On room air, respirations unlabored. Patient has 3/10 pain, previously medicated. IV in the Left forearm, site intact. Cane at the bedside for ambulation. Bed low and locked, bed locked, call light within reach.
[2019-07-03 07:02] LABS: APPEARANCE,URINE CLEAR; BILIRUBIN, URINE NEGATIVE (NEGATIVE); COLOR,URINE PALE YELLOW; GLUCOSE, URINE (UA) NEGATIVE (NEGATIVE); KETONES,URINE NEGATIVE (NEGATIVE); LEUKOCYTE ESTERASE ,URINE 1+ (NEGATIVE); NITRITE,URINE NEGATIVE (NEGATIVE); PH,URINE 6.5 (4.5-8.0); PROTEIN,URINE NEGATIVE (NEGATIVE); UROBILINOGEN,URINE NORMAL MG/DL (0.0-1.0)
[2019-07-03 07:17] LABS: EOSINOPHILS % (AUTO) 2.4 % (0.0-3.0); HEMATOCRIT 31.3 % (37.0-47.0); HEMOGLOBIN 9.7 G/DL (12.0-16.0); LYMPHOCYTES % (AUTO) 20.3 % (20.0-45.0); MEAN CORPUSCULAR VOLUME 75 FL (80-99); MONOCYTES % (AUTO) 9.2 % (1.0-10.0); NEUTROPHILS % (AUTO) 67.1 % (45.0-75.0); PLATELET COUNT 397 K/UL (150-450); RED BLOOD COUNT 4.16 M/UL (4.20-5.40); RED CELL DISTRIBUTION WIDTH 24.2 % (11.6-14.8); WHITE BLOOD COUNT 14.1 K/UL (4.8-10.8)
[2019-07-03 07:34] LABS: ALANINE AMINOTRANSFERASE 27 U/L (12-78); ALBUMIN 2.9 G/DL (3.4-5.0); ALBUMIN/GLOBULIN RATIO 0.6 (1.0-2.7); ALKALINE PHOSPHATASE 88 U/L (46-116); ANION GAP 9 mmol/L (5-15); ASPARTATE AMINO TRANSFERASE 24 U/L (15-37); BILIRUBIN,TOTAL 0.3 MG/DL (0.2-1.0); BLOOD UREA NITROGEN 15 mg/dL (7-18); CALCIUM 8.8 MG/DL (8.5-10.1); CARBON DIOXIDE 28 MMOL/L (21-32); CHLORIDE 107 MMOL/L (98-107); CREATININE 0.5 MG/DL (0.55-1.30); SODIUM 144 MMOL/L (136-145)
--- NOTE | 2019-07-03 07:58 | General Progress Note ---
Assessment/Plan Problem List: (1) Shingles ICD Codes: B02.9 - Zoster without complications SNOMED: 3179916 (2) GIB (gastrointestinal bleeding) ICD Codes: K92.2 - Gastrointestinal hemorrhage, unspecified SNOMED: 20953225 (3) Afib ICD Codes: I48.91 - Unspecified atrial fibrillation SNOMED: 31492637 (4) Anemia ICD Codes: D64.9 - Anemia, unspecified SNOMED: 062591287 (5) TIA CVA rule out (6) Rash and other nonspecific skin eruption ICD Codes: R21 - Rash and other nonspecific skin eruption SNOMED: 520939191, 085415047 (7) Cellulitis ICD Codes: L03.90 - Cellulitis, unspecified SNOMED: 398785221 Status: stable Assessment/Plan: cont current rx bowel regime monitor for bleeding PPI transfuse as needed lyrica for pain BP rx per cards repeat cxr ct left hip ordered Subjective ROS Limited/Unobtainable: No Constitutional: Reports: malaise, weakness HEENT: Reports: no symptoms Cardiovascular: Reports: no symptoms Respiratory: Reports: no symptoms Gastrointestinal/Abdominal: Reports: no symptoms Genitourinary: Reports: no symptoms Neurologic/Psychiatric: Reports: anxiety, depressed Endocrine: Reports: no symptoms Hematologic/Lymphatic: Reports: anemia Allergies: Coded Allergies: MORPHINE (Verified Allergy, Severe, Anaphylaxis, 11/14/16) PT RECEIVED 5 DOSES OF OXYCODONE ON PREVIOUS ADMISSION IN 06/2015. As per conversation with the patient. Patient denies having allergy reaction with [place]. She said " I have been taking [place] before and i have no allergy reactions. CITRUS AND DERIVATIVES (Verified Allergy, Unknown, BREAKOUT, 06/15/15) breakout HYDROMORPHONE (Verified Allergy, Unknown, CHEST PAIN, 06/15/15) chest pain IODINE (Verified Allergy, Unknown, SWELLING, 06/15/15) swelling PENICILLINS (Verified Allergy, Unknown, ITCHING, 06/15/15) itching Uncoded Allergies: NYLON TAPE (Adverse Reaction, Intermediate, NIEVES THE SKIN, 06/21/15) All Systems: reviewed and negative except above Subjective has significant pain left hip/thigh. wbc up to 25k yesterday. no new complaints. no cough. no fevers. remains on iv abx and antiviral rx Objective Last 24 Hour Vital Signs Date Time Temp Pulse Resp B/P (MAP) Pulse Ox O2 Delivery O2 Flow Rate FiO2 07/03/19 04:00 97.9 71 18 130/51 (77) 90 07/03/19 00:00 98.2 73 18 123/72 (89) 94 07/02/19 20:25 Room Air 07/02/19 20:00 98.2 72 18 109/47 (67) 90 07/02/19 18:00 79 117/51 07/02/19 15:52 98.2 79 20 117/51 (73) 90 07/02/19 12:00 99.1 80 18 135/55 (81) 95 07/02/19 09:31 96 130/69 07/02/19 09:00 Room Air 07/02/19 08:00 97.2 96 18 130/69 (89) 95 Intake and Output 07/02/19 07/03/19 19:00 07:00 Intake Total 1200 ml 480 ml Balance 1200 ml 480 ml Intake Oral 1200 ml 480 ml # Voids 7 3 Laboratory Tests 07/02/19 10:22: White Blood Count 25.4*H, Red Blood Count 4.35, Hemoglobin 10.4L, Hematocrit 32.7L, Mean Corpuscular Volume 75L, Mean Corpuscular Hemoglobin 24.0L, Mean Corpuscular Hemoglobin Concent 32.0, Red Cell Distribution Width 23.9H, Platelet Count 431, Mean Platelet Volume 5.2L, Neutrophils (%) (Auto) , Lymphocytes (%) (Auto) , Monocytes (%) (Auto) , Eosinophils (%) (Auto) , Basophils (%) (Auto) , Differential Total Cells Counted 100, Neutrophils % ( Manual) 86H, Lymphocytes % (Manual) 9L, Monocytes % (Manual) 4, Eosinophils % ( Manual) 0, Basophils % (Manual) 1, Band Neutrophils 0, Platelet Estimate Adequate, Platelet Morphology Normal, Hypochromasia 1+, Anisocytosis 4+, Microcytosis 1+ 07/03/19 05:10: White Blood Count 14.1H, Red Blood Count 4.16L, Hemoglobin 9.7L, Hematocrit 31.3L, Mean Corpuscular Volume 75L, Mean Corpuscular Hemoglobin 23.4L, Mean Corpuscular Hemoglobin Concent 31.1L, Red Cell Distribution Width 24.2H, Platelet Count 397, Mean Platelet Volume 5.2L, Neutrophils (%) (Auto) 67.1, Lymphocytes (%) (Auto) 20.3, Monocytes (%) (Auto) 9.2, Eosinophils (%) (Auto) 2.4, Basophils (%) (Auto) 1.0, Erythrocyte Sedimentation Rate [Pending], Sodium Level 144, Potassium Level 4.0, Chloride Level 107, Carbon Dioxide Level 28, Anion Gap 9, Blood Urea Nitrogen 15, Creatinine 0.5L, Estimat Glomerular Filtration Rate > 60, Glucose Level 83, Calcium Level 8.8, Total Bilirubin 0.3, Aspartate Amino Transf (AST/SGOT) 24, Alanine Aminotransferase (ALT/SGPT) 27, Alkaline Phosphatase 88, C-Reactive Protein, Quantitative 10.5H, Total Protein 7.4, Albumin 2.9L, Globulin 4.5, Albumin/Globulin Ratio 0.6L 07/03/19 05:30: Urine Color Pale yellow, Urine Appearance Clear, Urine pH 6.5, Urine Specific [place] 1.010, Urine Protein Negative, Urine Glucose (UA) Negative, Urine Ketones Negative, Urine Blood Negative, Urine Nitrite Negative, Urine Bilirubin Negative, Urine Urobilinogen Normal, Urine Leukocyte Esterase 1+H, Urine RBC 0-2 , Urine WBC 0-2, Urine Squamous Epithelial Cells Occasional, Urine Bacteria Occasional Height (Feet): 5 Height (Inches): 2.00 Weight (Pounds): 136 Objective General Appearance: WD/WN, alert EENT: normal ENT inspection Neck: non-tender, normal alignment, supple Cardiovascular: normal peripheral pulses, normal rate, regular rhythm Respiratory/Chest: chest wall non-tender, lungs clear, normal breath sounds, no respiratory distress, no accessory muscle use Abdomen: normal bowel sounds, non tender, soft, no organomegaly Edema: no edema noted Arm (L), no edema noted Arm (R), no edema noted Leg (L), no edema noted Leg (R), no edema noted Pedal (L), no edema noted Pedal (R), no edema noted Generalized Neurologic: alert, oriented x 3, responsive Skin: rash - left ant knee +vesicles Demario Hdz MD July 03, 2019 07:58
--- NOTE | 2019-07-03 07:59 | NUR ---
HAND-OFF: Report given to LOUIS Day.
[2019-07-03] MEDS: Eliquis 5mg tablet ORAL SCH ×2 (10:14→18:25)
[2019-07-03] MEDS: Aspirin Baby 81mg ORAL SCH (10:15)
[2019-07-03] MEDS: Lyrica 50mg cap ORAL SCH ×3 (10:15→18:26)
[2019-07-03] MEDS: Vancomycin 1gm/D5W 275ml IVPB SCH ×2 (10:16)
--- NOTE | 2019-07-03 10:56 | Diagnostic Imaging Report ---
Indication: Cough Technique: 2 views of the chest Comparison: None Findings: Lungs and pleural spaces are clear. The heart size is normal. The aorta is somewhat tortuous and calcified. The bones are unremarkable. Cholecystectomy clips and evidence of prior gastric bypass surgery is noted. No significant interim change. Impression: No acute process. Incidental findings as noted
--- NOTE | 2019-07-03 11:01 | NUR ---
RADIOLOGY: 2V CXR COMPLETED 0930HRS. WHEN CAT SCAN WAS BEING PERFORMED. NF
--- NOTE | 2019-07-03 11:02 | Diagnostic Imaging Report ---
Indication: Left hip pain Technique: Noncontrast spiral acquisitions obtained through the this and left hip. Multiplanar reconstructions were generated. Total dose length product 183 mGycm. CTDIvol(s) 5 mGy. Radiation dose was minimized using automated exposure control Comparison: Reference made to prior abdomen pelvis CT dated 05/14/2017 Findings: No acute fractures. No dislocations. The joint spaces are preserved. There are some degenerative changes of the pubic symphysis and of the lumbosacral junction. There are mild degenerative changes of the bilateral sacroiliac joints. No evidence of significant soft tissue contusion. There is mild distention of the rectum by feces. There are colonic diverticula. Impression: No acute abnormality. No definite findings to explain stated clinical history of left hip pain Degenerative changes of the pubic symphysis, lumbosacral junction, and bilateral sacroiliac joints Colonic diverticulosis The CT scanner at [facility] is accredited by the [employer] and the scans are performed using protocols designed to limit radiation exposure to as low as reasonably achievable to attain images of sufficient resolution adequate for diagnostic evaluation.
--- NOTE | 2019-07-03 11:41 | Surgery Progress Note ---
Surgery Progress Note Subjective Additional Comments leukocytosis improved CT noted and benign still with left thigh muscle discomfort but exam clinically benign labs improved esr/crp noted Objective Last 24 Hour Vital Signs Date Time Temp Pulse Resp B/P (MAP) Pulse Ox O2 Delivery O2 Flow Rate FiO2 07/03/19 10:15 73 145/59 07/03/19 09:00 Room Air 07/03/19 08:00 98.0 73 17 145/59 (87) 97 07/03/19 04:00 97.9 71 18 130/51 (77) 90 07/03/19 00:00 98.2 73 18 123/72 (89) 94 07/02/19 20:25 Room Air 07/02/19 20:00 98.2 72 18 109/47 (67) 90 07/02/19 18:00 79 117/51 07/02/19 15:52 98.2 79 20 117/51 (73) 90 07/02/19 12:00 99.1 80 18 135/55 (81) 95 I&O Intake and Output 07/02/19 07/03/19 19:00 07:00 Intake Total 1200 ml 480 ml Balance 1200 ml 480 ml Intake Oral 1200 ml 480 ml # Voids 7 3 Cardiovascular: RSR Respiratory: clear Abdomen: soft, non-tender, present bowel sounds Extremities: no tenderness, no cyanosis, other Laboratory Tests Test 07/03/19 05:10 07/03/19 05:30 White Blood Count 14.1 K/UL (4.8-10.8) H Red Blood Count 4.16 M/UL (4.20-5.40) L Hemoglobin 9.7 G/DL (12.0-16.0) L Hematocrit 31.3 % (37.0-47.0) L Mean Corpuscular Volume 75 FL (80-99) L Mean Corpuscular Hemoglobin 23.4 PG (27.0-31.0) L Mean Corpuscular Hemoglobin Concent 31.1 G/DL (32.0-36.0) L Red Cell Distribution Width 24.2 % (11.6-14.8) H Platelet Count 397 K/UL (150-450) Mean Platelet Volume 5.2 FL (6.5-10.1) L Neutrophils (%) (Auto) 67.1 % (45.0-75.0) Lymphocytes (%) (Auto) 20.3 % (20.0-45.0) Monocytes (%) (Auto) 9.2 % (1.0-10.0) Eosinophils (%) (Auto) 2.4 % (0.0-3.0) Basophils (%) (Auto) 1.0 % (0.0-2.0) Erythrocyte Sedimentation Rate 59 MM/HR (0-30) H Sodium Level 144 MMOL/L (136-145) Potassium Level 4.0 MMOL/L (3.5-5.1) Chloride Level 107 MMOL/L (98-107) Carbon Dioxide Level 28 MMOL/L (21-32) Anion Gap 9 mmol/L (5-15) Blood Urea Nitrogen 15 mg/dL (7-18) Creatinine 0.5 MG/DL (0.55-1.30) L Estimat Glomerular Filtration Rate > 60 mL/min (>60) Glucose Level 83 MG/DL (74-106) Calcium Level 8.8 MG/DL (8.5-10.1) Total Bilirubin 0.3 MG/DL (0.2-1.0) Aspartate Amino Transf (AST/SGOT) 24 U/L (15-37) Alanine Aminotransferase (ALT/SGPT) 27 U/L (12-78) Alkaline Phosphatase 88 U/L (46-116) C-Reactive Protein, Quantitative 10.5 mg/dL (0.00-0.90) H Total Protein 7.4 G/DL (6.4-8.2) Albumin 2.9 G/DL (3.4-5.0) L Globulin 4.5 g/dL Albumin/Globulin Ratio 0.6 (1.0-2.7) L Urine Color Pale yellow Urine Appearance Clear Urine pH 6.5 (4.5-8.0) Urine Specific [place] 1.010 (1.005-1.035) Urine Protein Negative (NEGATIVE) Urine Glucose (UA) Negative (NEGATIVE) Urine Ketones Negative (NEGATIVE) Urine Blood Negative (NEGATIVE) Urine Nitrite Negative (NEGATIVE) Urine Bilirubin Negative (NEGATIVE) Urine Urobilinogen Normal MG/DL (0.0-1.0) Urine Leukocyte Esterase 1+ (NEGATIVE) H Urine RBC 0-2 /HPF (0 - 2) Urine WBC 0-2 /HPF (0 - 2) Urine Squamous Epithelial Cells Occasional /LPF Urine Bacteria Occasional /HPF (NONE) Plan Problems: (1) Cellulitis Assessment & Plan: Bilaterally, grayscale and duplex images demonstrate no evidence of intraluminal thrombus. Normal phasic Doppler waveforms, demonstrating normal augmentation response and no evidence of valvular insufficiency. Greater saphenous vein(s) and tibial veins are patent. Normal compressibility. Incidentally noted is a hypoechoic avascular area in the left anterior knee soft tissues which measures approximately 3.2 x 2 x 0.9 cm. Impression: Negative for evidence of lower extremity deep venous thrombosis bilaterally 3.2 x 2 x 0.9 cm hypoechoic lesion within the anterior left knee soft tissues. Nonspecific, could indicate a small abscess, hematoma, or complicated cyst. Evaluated at bedside left anterior knee lateral there is some slight old blistering of the skin from a rash which is now resolving. No fluid collection palpable clearly identified. No cellulitis no signs of active acute infection discussed patient in detail will monitor leukocytosis improved esr / crp noted us reviewed again and exam still unable to identify abscess skin changes improving small blisters resolving will monitor clinically may consider CT but given no signs of infection at bedside clinical exam clinically stable and without sign of infection in leg wbc repeat am labs No acute fractures. No dislocations. The joint spaces are preserved. There are some degenerative changes of the pubic symphysis and of the lumbosacral junction. There are mild degenerative changes of the bilateral sacroiliac joints. No evidence of significant soft tissue contusion. There is mild distention of the rectum by feces. There are colonic diverticula. Impression: No acute abnormality. No definite findings to explain stated clinical history of left hip pain Degenerative changes of the pubic symphysis, lumbosacral junction, and bilateral sacroiliac joints Colonic diverticulosis (2) Rash and other nonspecific skin eruption (3) GIB (gastrointestinal bleeding) Assessment & Plan: on anticoagulation possible gi bleed anemia trend labs transfuse prn occult stool will follow with recs (4) Afib (5) TIA CVA rule out (6) Myalgia (7) Hemoptysis (8) Carotid stenosis (9) COPD exacerbation (10) Arthritis of knee, left (11) Sciatic leg pain Sincere Strange July 03, 2019 11:41
--- NOTE | 2019-07-03 16:18 | NUR ---
CASE MANAGEMENT:REVIEW SI:SHINGLES. GI BLEED. ANEMIA. A-FIB. CELLULITIS. 98.2 73 20 149/69 90% ON RA WBC 14.1 ALB 2.9 IS;DUO NEB HHN Q4 HRS PRN IRON SUCROSE IV HS ASA PO QD VANCOMYCIN IV Q12 HRS NORVASC PO BID MED SURG STATUS DCP;PATIENT IS FROM HOME
--- NOTE | 2019-07-03 19:15 | NUR ---
HAND-OFF: Report given to Kailash MYERS.
--- NOTE | 2019-07-03 19:30 | Progress Note ---
DATE: 07/03/2019 CARDIOLOGY PROGRESS NOTE SUBJECTIVE: The patient has hip pain. White blood count has decreased today. Chest x-ray reveals no acute process. X-ray of the hip revealed degenerative changes only. PHYSICAL EXAMINATION: VITAL SIGNS: Blood pressure 123/72 to 149/69, heart rate 69, respiratory rate 20, afebrile, oxygen saturation room air 94%. Baseline neurologic deficits. LUNGS: Diminished breath sounds. HEART: Regular rhythm and rate. Normal S1, S2. ABDOMEN: Soft. EXTREMITIES: No edema. Left leg shingle site is now dry and scaly. IMPRESSION: Anemia of chronic disease, stable. PLAN: 1. Monitor blood counts. 2. Pain control. 3. Titration of antihypertensives. 4. Hold parameters to avoid orthostasis. 5. Skin care. 6. Pain control. 7. Mobilization in anticipation of discharge. 8. Followup white blood count. 9. Presently, off antibiotics with no definitive source of infection. Vancomycin was discontinued after one week course. Rosendo Palacios M.D. DR: Shana JOB#: [id number] CC:
--- NOTE | 2019-07-03 20:00 | NUR ---
NURSE NOTES: Patient received in bed, awake and alert. No acute distress at this time. Will continue to monitor.
[2019-07-03] MEDS: Iron Sucrose 100 MG in NS 55 ML IV SCH (20:06)
[2019-07-03] MEDS: Zolpidem 5mg tab ORAL PRN (23:16)
[2019-07-04 04:00] VITALS: BP 150/57
--- NOTE | 2019-07-04 07:20 | NUR ---
HAND-OFF: Report given to Shay Garnett RN.
--- NOTE | 2019-07-04 07:30 | NUR ---
NURSE NOTES: Received patient in bed. Awake, A/O x4. On room air. IV in the right forearm, site intact. Cane within reach for ambulation. Bed low and locked, call light within reach.
--- NOTE | 2019-07-04 07:37 | General Progress Note ---
Assessment/Plan Problem List: (1) Shingles ICD Codes: B02.9 - Zoster without complications SNOMED: 3806433 (2) GIB (gastrointestinal bleeding) ICD Codes: K92.2 - Gastrointestinal hemorrhage, unspecified SNOMED: 23028379 (3) Afib ICD Codes: I48.91 - Unspecified atrial fibrillation SNOMED: 74928784 (4) Anemia ICD Codes: D64.9 - Anemia, unspecified SNOMED: 897351981 (5) TIA CVA rule out (6) Rash and other nonspecific skin eruption ICD Codes: R21 - Rash and other nonspecific skin eruption SNOMED: 794559923, 791097108 (7) Cellulitis ICD Codes: L03.90 - Cellulitis, unspecified SNOMED: 335783266 Status: stable Assessment/Plan: cont current rx bowel regime monitor for bleeding PPI transfuse as needed lyrica for pain added lidoderm patch BP rx per cards follow up pending labs dc planning if pain ok Subjective ROS Limited/Unobtainable: No Constitutional: Reports: malaise, weakness HEENT: Reports: no symptoms Cardiovascular: Reports: no symptoms Respiratory: Reports: no symptoms Gastrointestinal/Abdominal: Reports: no symptoms Genitourinary: Reports: no symptoms Neurologic/Psychiatric: Reports: anxiety, depressed Endocrine: Reports: no symptoms Hematologic/Lymphatic: Reports: anemia Allergies: Coded Allergies: MORPHINE (Verified Allergy, Severe, Anaphylaxis, 11/14/16) PT RECEIVED 5 DOSES OF OXYCODONE ON PREVIOUS ADMISSION IN 06/2015. As per conversation with the patient. Patient denies having allergy reaction with [place]. She said " I have been taking [place] before and i have no allergy reactions. [place] AND DERIVATIVES (Verified Allergy, Unknown, BREAKOUT, 06/15/15) breakout HYDROMORPHONE (Verified Allergy, Unknown, CHEST PAIN, 06/15/15) chest pain IODINE (Verified Allergy, Unknown, SWELLING, 06/15/15) swelling PENICILLINS (Verified Allergy, Unknown, ITCHING, 06/15/15) itching Uncoded Allergies: NYLON TAPE (Adverse Reaction, Intermediate, NIEVES THE SKIN, 06/21/15) All Systems: reviewed and negative except above Subjective still with left thigh pain. unable to walk due to pain. CT negative- only OA. no fevers. no bleeding noted. AM labs pending for this am. Objective Last 24 Hour Vital Signs Date Time Temp Pulse Resp B/P (MAP) Pulse Ox O2 Delivery O2 Flow Rate FiO2 07/04/19 04:00 97.5 70 18 150/57 (88) 90 07/03/19 23:59 98.1 75 18 127/59 (81) 91 07/03/19 21:00 Room Air 07/03/19 20:00 98.1 77 18 135/58 (83) 92 07/03/19 18:26 71 130/62 07/03/19 16:00 98.0 71 17 130/62 (84) 92 07/03/19 12:00 98.2 69 20 149/69 (95) 94 07/03/19 10:15 73 145/59 07/03/19 09:00 Room Air 07/03/19 08:00 98.0 73 17 145/59 (87) 97 Intake and Output 07/03/19 07/04/19 19:00 07:00 Intake Total 680 ml 610 ml Balance 680 ml 610 ml Intake Oral 680 ml 550 ml IV Total 60 ml # Voids 3 3 Laboratory Tests 07/04/19 05:40: White Blood Count [Pending], Red Blood Count [Pending], Hemoglobin [Pending], Hematocrit [Pending], Mean Corpuscular Volume [Pending], Mean Corpuscular Hemoglobin [Pending], Mean Corpuscular Hemoglobin Concent [Pending], Red Cell Distribution Width [Pending], Platelet Count [Pending], Mean Platelet Volume [ Pending], Neutrophils (%) (Auto) [Pending], Lymphocytes (%) (Auto) [Pending], Monocytes (%) (Auto) [Pending], Eosinophils (%) (Auto) [Pending], Basophils (%) (Auto) [Pending] Height (Feet): 5 Height (Inches): 2.00 Weight (Pounds): 136 Objective General Appearance: WD/WN, alert EENT: normal ENT inspection Neck: non-tender, normal alignment, supple Cardiovascular: normal peripheral pulses, normal rate, regular rhythm Respiratory/Chest: chest wall non-tender, lungs clear, normal breath sounds, no respiratory distress, no accessory muscle use Abdomen: normal bowel sounds, non tender, soft, no organomegaly Edema: no edema noted Arm (L), no edema noted Arm (R), no edema noted Leg (L), no edema noted Leg (R), no edema noted Pedal (L), no edema noted Pedal (R), no edema noted Generalized Neurologic: alert, oriented x 3, responsive Skin: rash - left ant knee +vesicles Demario Hdz MD July 04, 2019 07:37
[2019-07-04] MEDS: HYDROcodone/Acetamin 10/325 tab ORAL PRN (07:53)
[2019-07-04 08:00] VITALS: BP 122/65
[2019-07-04 08:21] LABS: EOSINOPHILS % (AUTO) 2.4 % (0.0-3.0); HEMATOCRIT 31.6 % (37.0-47.0); HEMOGLOBIN 10.1 G/DL (12.0-16.0); LYMPHOCYTES % (AUTO) 19.2 % (20.0-45.0); MEAN CORPUSCULAR VOLUME 76 FL (80-99); MONOCYTES % (AUTO) 9.4 % (1.0-10.0); PLATELET COUNT 471 K/UL (150-450); RED BLOOD COUNT 4.15 M/UL (4.20-5.40); RED CELL DISTRIBUTION WIDTH 25.3 % (11.6-14.8)
--- NOTE | 2019-07-04 08:33 | NUR ---
RD ASSESSMENT & RECOMMENDATIONS SEE CARE ACTIVITY FOR COMPLETE ASSESSMENT DAILY ESTIMATED NEEDS: Needs based on CARDIAC/ 57.2kg 25-30 kcals/kg 3364-8953 total kcals 1-1.2 g protein/kg 57-86 g total protein 25-30 mL/kg 2890-5711 total fluid mLs NUTRITION DIAGNOSIS: * Decreased sodium intake needs R/T cardiac hx as evidenced by hx of CVA, HTN, CHF dx. CURRENT DIET: VEGA soft easy chew PO DIET RECOMMENDATIONS: Low NA/ Soft easy chew ADDITIONAL RECOMMENDATIONS: * Obtain a standing weight as able * Diet texture as tolerated * Monitor for continued good PO intake .
[2019-07-04] MEDS: Eliquis 5mg tablet ORAL SCH ×2 (09:07→17:31)
[2019-07-04] MEDS: Aspirin Baby 81mg ORAL SCH (09:07)
[2019-07-04] MEDS: Lyrica 50mg cap ORAL SCH ×3 (09:07→17:31)
--- NOTE | 2019-07-04 10:44 | Surgery Progress Note ---
Surgery Progress Note Subjective Additional Comments afebrile, HD stable no complaints states lido patch helps no n/v/f/c tolerating diet ambulatory wbc 15k esr crp up off abx Heme consult / ID consult Objective Last 24 Hour Vital Signs Date Time Temp Pulse Resp B/P (MAP) Pulse Ox O2 Delivery O2 Flow Rate FiO2 07/04/19 09:07 73 122/65 07/04/19 09:00 Room Air 07/04/19 08:00 98.2 81 17 122/65 (84) 99 07/04/19 04:00 97.5 70 18 150/57 (88) 90 07/03/19 23:59 98.1 75 18 127/59 (81) 91 07/03/19 21:00 Room Air 07/03/19 20:00 98.1 77 18 135/58 (83) 92 07/03/19 18:26 71 130/62 07/03/19 16:00 98.0 71 17 130/62 (84) 92 07/03/19 12:00 98.2 69 20 149/69 (95) 94 I&O Intake and Output 07/03/19 07/04/19 19:00 07:00 Intake Total 680 ml 610 ml Balance 680 ml 610 ml Intake Oral 680 ml 550 ml IV Total 60 ml # Voids 3 3 Dressing: other Wound: other Drains: other Cardiovascular: RSR Respiratory: decreased breath sounds Abdomen: soft, non-tender, present bowel sounds, non-distended Extremities: tenderness - muscle , no edema, no cyanosis, pulses Laboratory Tests Test 07/04/19 05:40 White Blood Count 15.0 K/UL (4.8-10.8) H Red Blood Count 4.15 M/UL (4.20-5.40) L Hemoglobin 10.1 G/DL (12.0-16.0) L Hematocrit 31.6 % (37.0-47.0) L Mean Corpuscular Volume 76 FL (80-99) L Mean Corpuscular Hemoglobin 24.2 PG (27.0-31.0) L Mean Corpuscular Hemoglobin Concent 31.8 G/DL (32.0-36.0) L Red Cell Distribution Width 25.3 % (11.6-14.8) H Platelet Count 471 K/UL (150-450) H Mean Platelet Volume 5.9 FL (6.5-10.1) L Neutrophils (%) (Auto) 68.0 % (45.0-75.0) Lymphocytes (%) (Auto) 19.2 % (20.0-45.0) L Monocytes (%) (Auto) 9.4 % (1.0-10.0) Eosinophils (%) (Auto) 2.4 % (0.0-3.0) Basophils (%) (Auto) 1.0 % (0.0-2.0) Plan Problems: (1) Cellulitis Assessment & Plan: Bilaterally, grayscale and duplex images demonstrate no evidence of intraluminal thrombus. Normal phasic Doppler waveforms, demonstrating normal augmentation response and no evidence of valvular insufficiency. Greater saphenous vein(s) and tibial veins are patent. Normal compressibility. Incidentally noted is a hypoechoic avascular area in the left anterior knee soft tissues which measures approximately 3.2 x 2 x 0.9 cm. Impression: Negative for evidence of lower extremity deep venous thrombosis bilaterally 3.2 x 2 x 0.9 cm hypoechoic lesion within the anterior left knee soft tissues. Nonspecific, could indicate a small abscess, hematoma, or complicated cyst. Evaluated at bedside left anterior knee lateral there is some slight old blistering of the skin from a rash which is now resolving. No fluid collection palpable clearly identified. No cellulitis no signs of active acute infection discussed patient in detail will monitor leukocytosis improved esr / crp noted us reviewed again and exam still unable to identify abscess skin changes improving small blisters resolving will monitor clinically may consider CT but given no signs of infection at bedside clinical exam clinically stable and without sign of infection in leg wbc repeat am labs No acute fractures. No dislocations. The joint spaces are preserved. There are some degenerative changes of the pubic symphysis and of the lumbosacral junction. There are mild degenerative changes of the bilateral sacroiliac joints. No evidence of significant soft tissue contusion. There is mild distention of the rectum by feces. There are colonic diverticula. Impression: No acute abnormality. No definite findings to explain stated clinical history of left hip pain Degenerative changes of the pubic symphysis, lumbosacral junction, and bilateral sacroiliac joints Colonic diverticulosis persistent leukocytosis ID / Heme eval (2) Rash and other nonspecific skin eruption (3) GIB (gastrointestinal bleeding) Assessment & Plan: on anticoagulation possible gi bleed anemia trend labs transfuse prn occult stool will follow with recs (4) Afib (5) TIA CVA rule out (6) Myalgia (7) Hemoptysis (8) Carotid stenosis (9) COPD exacerbation (10) Arthritis of knee, left (11) Sciatic leg pain Sincere Strange July 04, 2019 10:44
[2019-07-04 12:00] VITALS: BP 138/61
[2019-07-04 16:00] VITALS: BP 123/57
--- NOTE | 2019-07-04 19:10 | NUR ---
HAND-OFF: Report given to Jerryu RN.
[2019-07-04 20:00] VITALS: BP 122/64
--- NOTE | 2019-07-04 20:00 | NUR ---
NURSE NOTES: Patient received in bed, no acute distress at this time. IV is infiltrated. Will restart new IV. Call light in reach. Will continue plan of care.
[2019-07-04] MEDS: Iron Sucrose 100 MG in NS 55 ML IV SCH (20:03)
[2019-07-05] VITALS: BP 120/53
[2019-07-05] MEDS: HYDROcodone/Acetamin 10/325 tab ORAL PRN ×4 (00:39→22:26)
[2019-07-05] MEDS: Zolpidem 5mg tab ORAL PRN ×2 (01:29→22:19)
--- NOTE | 2019-07-05 02:14 | Progress Note ---
DATE: 07/04/2019 CARDIOLOGY PROGRESS NOTE SUBJECTIVE: The patient still has left leg pain. She had a fever this morning. Her Lidoderm patch was added. OBJECTIVE: VITAL SIGNS: Blood pressure 150/57, heart rate 70, respiratory rate 18, and afebrile. T-max was 99. LUNGS: Diminished breath sounds. No wheezing. HEART: Regular rhythm and rate. Normal S1, S2. ABDOMEN: Soft. EXTREMITIES: No edema. LABORATORY DATA: White count 15, hemoglobin 10.1. Chemistry panel was not repeated today. IMPRESSION: 1. Zoster. 2. Cellulitis. 3. Acute on chronic pain. 4. Fevers and leukocytosis with no obvious source of infection. 5. Hypertensive heart disease. 6. Cerebrovascular disease with prior CVAs. 7. Paroxysmal atrial fibrillation. 8. Anemia of chronic disease and iron deficiency. No signs of acute blood loss. PLAN: 1. Skin care and off antimicrobials. 2. Observe for signs of infection. 3. Continue iron replacement. 4. Maintain current cardiovascular regimen. 5. Full anticoagulation. Rosendo Palacios M.D. DR: BLANCA JOB#: [id number] CC:
[2019-07-05 04:00] VITALS: BP 140/57
[2019-07-05 07:06] LABS: BASOPHILS % (AUTO) 1.5 % (0.0-2.0); EOSINOPHILS % (AUTO) 2.3 % (0.0-3.0); HEMATOCRIT 34.1 % (37.0-47.0); HEMOGLOBIN 10.7 G/DL (12.0-16.0); LYMPHOCYTES % (AUTO) 28.5 % (20.0-45.0); MEAN CORPUSCULAR VOLUME 78 FL (80-99); MONOCYTES % (AUTO) 9.4 % (1.0-10.0); NEUTROPHILS % (AUTO) 58.3 % (45.0-75.0); PLATELET COUNT 547 K/UL (150-450); RED BLOOD COUNT 4.39 M/UL (4.20-5.40); RED CELL DISTRIBUTION WIDTH 26.6 % (11.6-14.8); WHITE BLOOD COUNT 14.3 K/UL (4.8-10.8)
--- NOTE | 2019-07-05 07:19 | NUR ---
HAND-OFF: Report given to Misa MYERS.
--- NOTE | 2019-07-05 07:20 | NUR ---
HAND-OFF: Report given to LOUIS Steiner.
--- NOTE | 2019-07-05 07:22 | NUR ---
NURSE NOTES: Received report from LOUIS Linder. Patient A&OX4. On room air, no signs of distress or labored breathing. IV intact, patent, and saline locked. Bed in lowest position with call light in reach. Side rails up x2. Will continue with plan of care.
[2019-07-05 07:42] LABS: ANION GAP 7 mmol/L (5-15); BLOOD UREA NITROGEN 17 mg/dL (7-18); CALCIUM 9.1 MG/DL (8.5-10.1); CARBON DIOXIDE 31 MMOL/L (21-32); CHLORIDE 105 MMOL/L (98-107); CREATININE 0.6 MG/DL (0.55-1.30); POTASSIUM 4.7 MMOL/L (3.5-5.1); SODIUM 143 MMOL/L (136-145)
[2019-07-05 08:00] VITALS: BP 141/57
--- NOTE | 2019-07-05 08:37 | General Progress Note ---
Assessment/Plan Problem List: (1) Shingles ICD Codes: B02.9 - Zoster without complications SNOMED: 4458871 (2) GIB (gastrointestinal bleeding) ICD Codes: K92.2 - Gastrointestinal hemorrhage, unspecified SNOMED: 35458251 (3) Afib ICD Codes: I48.91 - Unspecified atrial fibrillation SNOMED: 92162613 (4) Anemia ICD Codes: D64.9 - Anemia, unspecified SNOMED: 702516004 (5) TIA CVA rule out (6) Rash and other nonspecific skin eruption ICD Codes: R21 - Rash and other nonspecific skin eruption SNOMED: 874146683, 562764025 (7) Cellulitis ICD Codes: L03.90 - Cellulitis, unspecified SNOMED: 283225576 Status: stable Assessment/Plan: cont current rx bowel regime monitor for bleeding PPI transfuse as needed added lidoderm patch BP rx per cards id eval called monitor wbc Subjective ROS Limited/Unobtainable: No Constitutional: Reports: malaise, weakness HEENT: Reports: no symptoms Cardiovascular: Reports: no symptoms Respiratory: Reports: no symptoms Gastrointestinal/Abdominal: Reports: no symptoms Genitourinary: Reports: no symptoms Neurologic/Psychiatric: Reports: pre-existing deficit Endocrine: Reports: no symptoms Hematologic/Lymphatic: Reports: anemia Allergies: Coded Allergies: MORPHINE (Verified Allergy, Severe, Anaphylaxis, 11/14/16) PT RECEIVED 5 DOSES OF OXYCODONE ON PREVIOUS ADMISSION IN 06/2015. As per conversation with the patient. Patient denies having allergy reaction with [place]. She said " I have been taking [place] before and i have no allergy reactions. CITRUS AND DERIVATIVES (Verified Allergy, Unknown, BREAKOUT, 06/15/15) breakout HYDROMORPHONE (Verified Allergy, Unknown, CHEST PAIN, 06/15/15) chest pain IODINE (Verified Allergy, Unknown, SWELLING, 06/15/15) swelling PENICILLINS (Verified Allergy, Unknown, ITCHING, 06/15/15) itching Uncoded Allergies: NYLON TAPE (Adverse Reaction, Intermediate, NIEVES THE SKIN, 06/21/15) All Systems: reviewed and negative except above Subjective decreased pain with lidoderm. D/w surgery. concern regarding persistent leukocytosis. ID called yesterday. no bleeding. no fever or chills. no abd pain. no diarrhea. no vomiting. Objective Last 24 Hour Vital Signs Date Time Temp Pulse Resp B/P (MAP) Pulse Ox O2 Delivery O2 Flow Rate FiO2 07/05/19 04:00 97.9 69 20 140/57 (84) 90 07/05/19 00:00 97.8 74 18 120/53 (75) 93 07/04/19 21:00 Room Air 07/04/19 20:00 99.0 76 18 122/64 (83) 92 07/04/19 17:31 79 123/57 07/04/19 16:00 97.9 79 18 123/57 (79) 93 07/04/19 12:00 97.9 85 18 138/61 (86) 94 07/04/19 09:07 73 122/65 07/04/19 09:00 Room Air Intake and Output 07/04/19 07/05/19 19:00 07:00 Intake Total 860 ml 60 ml Balance 860 ml 60 ml Intake Oral 860 ml IV Total 60 ml # Voids 6 2 Laboratory Tests 07/05/19 05:20: White Blood Count 14.3H, Red Blood Count 4.39, Hemoglobin 10.7L, Hematocrit 34.1L, Mean Corpuscular Volume 78L, Mean Corpuscular Hemoglobin 24.4L, Mean Corpuscular Hemoglobin Concent 31.5L, Red Cell Distribution Width 26.6H, Platelet Count 547H, Mean Platelet Volume 5.5L, Neutrophils (%) (Auto) 58.3, Lymphocytes (%) (Auto) 28.5, Monocytes (%) (Auto) 9.4, Eosinophils (%) (Auto) 2.3, Basophils (%) (Auto) 1.5, Sodium Level 143, Potassium Level 4.7, Chloride Level 105, Carbon Dioxide Level 31, Anion Gap 7, Blood Urea Nitrogen 17, Creatinine 0.6, Estimat Glomerular Filtration Rate > 60, Glucose Level 87, Calcium Level 9.1 Height (Feet): 5 Height (Inches): 2.00 Weight (Pounds): 136 Objective General Appearance: WD/WN, alert EENT: normal ENT inspection Neck: non-tender, normal alignment, supple Cardiovascular: normal peripheral pulses, normal rate, regular rhythm Respiratory/Chest: chest wall non-tender, lungs clear, normal breath sounds, no respiratory distress, no accessory muscle use Abdomen: normal bowel sounds, non tender, soft, no organomegaly Edema: no edema noted Arm (L), no edema noted Arm (R), no edema noted Leg (L), no edema noted Leg (R), no edema noted Pedal (L), no edema noted Pedal (R), no edema noted Generalized Neurologic: alert, oriented x 3, responsive Skin: rash - left ant knee +vesicles Demario Hdz MD July 05, 2019 08:37
[2019-07-05] MEDS: Eliquis 5mg tablet ORAL SCH ×2 (08:59→17:35)
[2019-07-05] MEDS: Lyrica 50mg cap ORAL SCH ×3 (08:59→17:35)
[2019-07-05] MEDS: Aspirin Baby 81mg ORAL SCH (08:59)
[2019-07-05 12:00] VITALS: BP 100/84
[2019-07-05 16:00] VITALS: BP 119/59
[2019-07-05 20:00] VITALS: BP 127/64
--- NOTE | 2019-07-05 20:57 | NUR ---
NURSE NOTES: Pt is in bed, awake and alert. No acute distress noted. Vitas stable. Pt is able to ambulate to the bathroom with cane. Room air. Fall precaution in place. Instructed to call before getting out of bed. Pt will be monitored.
--- NOTE | 2019-07-05 21:38 | Surgery Progress Note ---
Surgery Progress Note Subjective Additional Comments Patient seen and examined bedside. Doing well. Leukocytosis improving. States she is been researching different diagnosis is on her iPad. No nausea vomiting fever chills. Comfortable. Objective Last 24 Hour Vital Signs Date Time Temp Pulse Resp B/P (MAP) Pulse Ox O2 Delivery O2 Flow Rate FiO2 07/05/19 20:00 97.7 18 127/64 (85) 95 07/05/19 17:34 83 119/59 07/05/19 16:00 98.6 83 18 119/59 (79) 95 07/05/19 12:00 97.6 87 18 100/84 (89) 93 07/05/19 09:00 Room Air 07/05/19 08:58 81 141/57 07/05/19 08:00 97.9 81 19 141/57 (85) 95 07/05/19 04:00 97.9 69 20 140/57 (84) 90 07/05/19 00:00 97.8 74 18 120/53 (75) 93 I&O Intake and Output 07/04/19 07/05/19 19:00 07:00 Intake Total 860 ml 60 ml Balance 860 ml 60 ml Intake Oral 860 ml IV Total 60 ml # Voids 6 2 Dressing: dry Wound: clean, dry Cardiovascular: RSR Respiratory: clear Abdomen: soft, flat, non-tender, present bowel sounds Extremities: no edema, no tenderness, no cyanosis Laboratory Tests Test 07/05/19 05:20 White Blood Count 14.3 K/UL (4.8-10.8) H Red Blood Count 4.39 M/UL (4.20-5.40) Hemoglobin 10.7 G/DL (12.0-16.0) L Hematocrit 34.1 % (37.0-47.0) L Mean Corpuscular Volume 78 FL (80-99) L Mean Corpuscular Hemoglobin 24.4 PG (27.0-31.0) L Mean Corpuscular Hemoglobin Concent 31.5 G/DL (32.0-36.0) L Red Cell Distribution Width 26.6 % (11.6-14.8) H Platelet Count 547 K/UL (150-450) H Mean Platelet Volume 5.5 FL (6.5-10.1) L Neutrophils (%) (Auto) 58.3 % (45.0-75.0) Lymphocytes (%) (Auto) 28.5 % (20.0-45.0) Monocytes (%) (Auto) 9.4 % (1.0-10.0) Eosinophils (%) (Auto) 2.3 % (0.0-3.0) Basophils (%) (Auto) 1.5 % (0.0-2.0) Sodium Level 143 MMOL/L (136-145) Potassium Level 4.7 MMOL/L (3.5-5.1) Chloride Level 105 MMOL/L (98-107) Carbon Dioxide Level 31 MMOL/L (21-32) Anion Gap 7 mmol/L (5-15) Blood Urea Nitrogen 17 mg/dL (7-18) Creatinine 0.6 MG/DL (0.55-1.30) Estimat Glomerular Filtration Rate > 60 mL/min (>60) Glucose Level 87 MG/DL (74-106) Calcium Level 9.1 MG/DL (8.5-10.1) Plan Problems: (1) Cellulitis Assessment & Plan: Bilaterally, grayscale and duplex images demonstrate no evidence of intraluminal thrombus. Normal phasic Doppler waveforms, demonstrating normal augmentation response and no evidence of valvular insufficiency. Greater saphenous vein(s) and tibial veins are patent. Normal compressibility. Incidentally noted is a hypoechoic avascular area in the left anterior knee soft tissues which measures approximately 3.2 x 2 x 0.9 cm. Impression: Negative for evidence of lower extremity deep venous thrombosis bilaterally 3.2 x 2 x 0.9 cm hypoechoic lesion within the anterior left knee soft tissues. Nonspecific, could indicate a small abscess, hematoma, or complicated cyst. Evaluated at bedside left anterior knee lateral there is some slight old blistering of the skin from a rash which is now resolving. No fluid collection palpable clearly identified. No cellulitis no signs of active acute infection discussed patient in detail will monitor leukocytosis improved esr / crp noted us reviewed again and exam still unable to identify abscess skin changes improving small blisters resolving will monitor clinically may consider CT but given no signs of infection at bedside clinical exam clinically stable and without sign of infection in leg wbc repeat am labs No acute fractures. No dislocations. The joint spaces are preserved. There are some degenerative changes of the pubic symphysis and of the lumbosacral junction. There are mild degenerative changes of the bilateral sacroiliac joints. No evidence of significant soft tissue contusion. There is mild distention of the rectum by feces. There are colonic diverticula. Impression: No acute abnormality. No definite findings to explain stated clinical history of left hip pain Degenerative changes of the pubic symphysis, lumbosacral junction, and bilateral sacroiliac joints Colonic diverticulosis persistent leukocytosis ID / Heme eval (2) Rash and other nonspecific skin eruption (3) GIB (gastrointestinal bleeding) Assessment & Plan: on anticoagulation possible gi bleed anemia trend labs transfuse prn occult stool will follow with recs (4) Afib (5) TIA CVA rule out (6) Myalgia (7) Hemoptysis (8) Carotid stenosis (9) COPD exacerbation (10) Arthritis of knee, left (11) Sciatic leg pain Sincere Strange July 05, 2019 21:38
[2019-07-05] MEDS: Iron Sucrose 100 MG in NS 55 ML IV SCH (22:00)
--- NOTE | 2019-07-05 22:29 | Consultation ---
DATE OF CONSULTATION: 07/05/2019 INFECTIOUS DISEASES CONSULTATION This consult is for coverage of Dr. Bullard. CONSULTING PHYSICIAN: Oni Polk MD. PRIMARY ATTENDING PHYSICIAN: Demario Hdz MD. REASON FOR CONSULTATION: Herpes zoster. HISTORY OF PRESENT ILLNESS: The patient is a 68-year-old female admitted on 06/25/2019 because of shortness of breath and edema. She was find to have anemia with hemoglobin of 7.1. In the course of hospitalization, she developed rash in the left lower extremity consistent with herpes zoster, started on acyclovir for 06/29/2019 and finished the course in 07/03/2019. Also getting antibiotic for couple of days with impression of cellulitis. She was on acyclovir and vancomycin both started on 06/26/2019 and the patient received one week of treatment. PAST MEDICAL HISTORY: COPD, hypertension, heavy smoking, history of CVA, paroxysmal atrial fibrillation, carotid stenosis, diastolic CHF, gastric bypass, Christiansen's Palsy, left knee surgery, cholecystectomy. ALLERGIES: Hydromorphone, morphine, penicillin, citrus. MEDICATIONS: [place], albuterol ipratropium inhaler, apixaban, aspirin, atorvastatin, amlodipine, diphenhydramine. SOCIAL HISTORY: Smoker, stopped smoking 3 to 4 days before admission. Smokes 10 to 12 cigarettes a day, has history of more than 60-pack year smoking. Single, have grownup children. No drug abuse. REVIEW OF SYSTEMS: Thinks she had fever yesterday. No coughing. No chest pain. No shortness of breath. No problem passing urine. PHYSICAL EXAMINATION: VITAL SIGNS: Temperature 97.6, afebrile since admission, pulse 87, blood pressure 100/84. GENERAL APPEARANCE: No acute distress. Seems to have normal weight. HEAD AND NECK: Has denture. HEART: Normal rate. LUNGS: Clear. ABDOMEN: Soft. EXTREMITIES: She has no edema, muscle atrophy in legs. SKIN: Seems to have pale rash pain in anterior border of the left knee. NEUROLOGIC: Awake, alert, oriented x3. LABORATORY AND DIAGNOSTIC DATA: Stool occult blood was negative. WBC 14.3, hemoglobin 10.7, hematocrit 34.1, and platelets is 547. Sodium 143, potassium 4.7, chloride 105, bicarb 31, BUN 17, creatinine 0.6, glucose 87. Urine culture negative. CT of the left hip showed no acute abnormality, degenerative changes, colonic diverticulosis. Chest x-ray on 07/03/2019 was negative. IMPRESSION: Hepatitis zoster seems to be treated. The patient had severe anemia, COPD, diastolic CHF, hypertension. RECOMMENDATION: Observe off antibiotic. At the end of my exam, I thank Dr. Hdz, for involving me in the care of this patient. Oni Polk M.D. DR: Leola JOB#: [id number] CC: JAYLIN
--- NOTE | 2019-07-06 00:45 | Progress Note ---
DATE: 07/05/2019 CARDIOLOGY PROGRESS NOTE SUBJECTIVE: Pain control is slightly better with Lidoderm. The patient still has left leg pain due to her zoster. PHYSICAL EXAMINATION: VITAL SIGNS: Blood pressure parameters stable. No fevers. LUNGS: Clear. CARDIAC: Regular. ABDOMEN: Soft. EXTREMITIES: No edema. LABORATORY DATA: White count remains elevated at 14, hemoglobin 10.7. Chemistry panel within normal limits. IMPRESSION: 1. Persisting leukocytosis. 2. Vascular cellulitis, recovered. 3. Elevated C-reactive protein of 10.5 on July 02. 4. Hypertensive heart disease with controlled blood pressure. 5. 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 He is on chronic anticoagulation with history of paroxysmal atrial fibrillation. PLAN: 1. Await ID and Surgical input, continue anti-platelet and anticoagulant therapy for now, maintain current antihypertensives. 2. We will follow. 3. Continue respiratory hygiene and pain control. Rosendo Palacios M.D. DR: GERALD JOB#: [id number] CC:
[2019-07-06 04:00] VITALS: BP 103/71
[2019-07-06 04:58] VITALS: BP 103/71
--- NOTE | 2019-07-06 06:30 | NUR ---
NURSE NOTES: Pt is in bed, awake and alert. No acute distress noted.
--- NOTE | 2019-07-06 07:20 | NUR ---
HAND-OFF: Report given to Sunny Garnett RN.
--- NOTE | 2019-07-06 07:30 | NUR ---
NURSE NOTES: Received patient in bed. Awake, A/O x4. On room air. Patient denies pain at this time. Cane at the bedside for ambulation. IV in the Left wrist, site is intact. Bed low and locked, call light within reach.
[2019-07-06 07:56] LABS: BASOPHILS % (AUTO) 1.9 % (0.0-2.0); EOSINOPHILS % (AUTO) 2.8 % (0.0-3.0); HEMATOCRIT 33.3 % (37.0-47.0); HEMOGLOBIN 10.3 G/DL (12.0-16.0); LYMPHOCYTES % (AUTO) 24.5 % (20.0-45.0); MEAN CORPUSCULAR VOLUME 79 FL (80-99); MONOCYTES % (AUTO) 12.3 % (1.0-10.0); NEUTROPHILS % (AUTO) 58.5 % (45.0-75.0); PLATELET COUNT 634 K/UL (150-450); RED BLOOD COUNT 4.22 M/UL (4.20-5.40); RED CELL DISTRIBUTION WIDTH 26.8 % (11.6-14.8); WHITE BLOOD COUNT 11.2 K/UL (4.8-10.8)
[2019-07-06 08:00] VITALS: BP 105/70
[2019-07-06 08:14] LABS: ALANINE AMINOTRANSFERASE 29 U/L (12-78); ALBUMIN 3.2 G/DL (3.4-5.0); ALBUMIN/GLOBULIN RATIO 0.7 (1.0-2.7); ALKALINE PHOSPHATASE 84 U/L (46-116); ANION GAP 5 mmol/L (5-15); ASPARTATE AMINO TRANSFERASE 16 U/L (15-37); BILIRUBIN,TOTAL 0.2 MG/DL (0.2-1.0); BLOOD UREA NITROGEN 19 mg/dL (7-18); CALCIUM 9.3 MG/DL (8.5-10.1); CARBON DIOXIDE 31 MMOL/L (21-32); CHLORIDE 104 MMOL/L (98-107); CREATININE 0.6 MG/DL (0.55-1.30); POTASSIUM 4.4 MMOL/L (3.5-5.1); SODIUM 140 MMOL/L (136-145)
[2019-07-06] MEDS: Aspirin Baby 81mg ORAL SCH (09:03)
[2019-07-06] MEDS: Eliquis 5mg tablet ORAL SCH ×2 (09:04→17:29)
[2019-07-06] MEDS: Lyrica 50mg cap ORAL SCH ×3 (09:05→17:30)
--- NOTE | 2019-07-06 11:12 | Infectious Diseases Prog Note ---
Assessment/Plan Assessment/Plan antibiotics : none A 1. zoster s/p rx 2. leucocytosis resolved 3. COPD 4. hypertension 5. CHF 6. CVA P 1. continue off antibiotics Subjective Constitutional: Denies: fever, chills Respiratory: Denies: shortness of breath, dry cough Gastrointestinal/Abdominal: Denies: nausea, vomiting, diarrhea Musculoskeletal: Reports: pain - in left leg Allergies: Coded Allergies: MORPHINE (Verified Allergy, Severe, Anaphylaxis, 11/14/16) PT RECEIVED 5 DOSES OF OXYCODONE ON PREVIOUS ADMISSION IN 06/2015. As per conversation with the patient. Patient denies having allergy reaction with [place]. She said " I have been taking [place] before and i have no allergy reactions. CITRUS AND DERIVATIVES (Verified Allergy, Unknown, BREAKOUT, 06/15/15) breakout HYDROMORPHONE (Verified Allergy, Unknown, CHEST PAIN, 06/15/15) chest pain IODINE (Verified Allergy, Unknown, SWELLING, 06/15/15) swelling PENICILLINS (Verified Allergy, Unknown, ITCHING, 06/15/15) itching Uncoded Allergies: NYLON TAPE (Adverse Reaction, Intermediate, NIEVES THE SKIN, 06/21/15) Objective Vital Signs Last 24 Hour Vital Signs Date Time Temp Pulse Resp B/P (MAP) Pulse Ox O2 Delivery O2 Flow Rate FiO2 07/06/19 09:00 71 103/71 07/06/19 08:00 97.9 84 17 105/70 (82) 97 07/06/19 04:58 98.1 71 17 103/71 (82) 92 07/05/19 21:00 Room Air 07/05/19 20:00 97.7 18 127/64 (85) 95 07/05/19 17:34 83 119/59 07/05/19 16:00 98.6 83 18 119/59 (79) 95 07/05/19 12:00 97.6 87 18 100/84 (89) 93 Height (Feet): 5 Height (Inches): 2.00 Weight (Pounds): 136 Respiratory/Chest: lungs clear Cardiovascular: normal rate, regular rhythm, no gallop/murmur Abdomen: soft, non tender Extremities: no edema, other - left knee rash scabbed Laboratory Tests Test 07/06/19 07:35 White Blood Count 11.2 K/UL (4.8-10.8) H Red Blood Count 4.22 M/UL (4.20-5.40) Hemoglobin 10.3 G/DL (12.0-16.0) L Hematocrit 33.3 % (37.0-47.0) L Mean Corpuscular Volume 79 FL (80-99) L Mean Corpuscular Hemoglobin 24.4 PG (27.0-31.0) L Mean Corpuscular Hemoglobin Concent 31.0 G/DL (32.0-36.0) L Red Cell Distribution Width 26.8 % (11.6-14.8) H Platelet Count 634 K/UL (150-450) H Mean Platelet Volume 5.5 FL (6.5-10.1) L Neutrophils (%) (Auto) 58.5 % (45.0-75.0) Lymphocytes (%) (Auto) 24.5 % (20.0-45.0) Monocytes (%) (Auto) 12.3 % (1.0-10.0) H Eosinophils (%) (Auto) 2.8 % (0.0-3.0) Basophils (%) (Auto) 1.9 % (0.0-2.0) Sodium Level 140 MMOL/L (136-145) Potassium Level 4.4 MMOL/L (3.5-5.1) Chloride Level 104 MMOL/L (98-107) Carbon Dioxide Level 31 MMOL/L (21-32) Anion Gap 5 mmol/L (5-15) Blood Urea Nitrogen 19 mg/dL (7-18) H Creatinine 0.6 MG/DL (0.55-1.30) Estimat Glomerular Filtration Rate > 60 mL/min (>60) Glucose Level 94 MG/DL (74-106) Calcium Level 9.3 MG/DL (8.5-10.1) Total Bilirubin 0.2 MG/DL (0.2-1.0) Aspartate Amino Transf (AST/SGOT) 16 U/L (15-37) Alanine Aminotransferase (ALT/SGPT) 29 U/L (12-78) Alkaline Phosphatase 84 U/L (46-116) Total Protein 7.7 G/DL (6.4-8.2) Albumin 3.2 G/DL (3.4-5.0) L Globulin 4.5 g/dL Albumin/Globulin Ratio 0.7 (1.0-2.7) L Current Medications Medications (Trade) Dose Ordered Sig/Julita Route PRN Reason Start Time Stop Time Status Last Admin Dose Admin Acetaminophen/ Hydrocodone Bitart ([place] 10/325) 1 tab Q3H PRN ORAL For Pain 07/06/19 11:15 07/13/19 11:14 UNV Albuterol/ Ipratropium (Albuterol/ Ipratropium) 3 ml Q4H PRN HHN Shortness of Breath 07/01/19 22:30 07/06/19 22:29 07/01/19 23:03 Amlodipine Besylate (Norvasc) 5 mg BID ORAL 06/29/19 09:00 07/26/19 08:59 07/05/19 08:58 Apixaban (Eliquis) 5 mg BID ORAL 07/01/19 09:00 09/29/19 08:59 07/06/19 09:04 Aspirin (ASA) 81 mg DAILY ORAL 07/01/19 09:00 08/15/19 08:59 07/06/19 09:03 Diphenhydramine HCl (Benadryl) 50 mg Q6H PRN ORAL Itching 06/29/19 02:00 07/25/19 01:59 07/05/19 17:34 Lidocaine (Lidoderm 5% PATCH) 1 patch DAILY TDERMAL 07/04/19 09:00 10/02/19 08:59 07/06/19 09:05 Pravastatin Sodium (Pravachol) 20 mg BEDTIME ORAL 06/29/19 21:00 07/26/19 00:00 07/05/19 22:00 Pregabalin (Lyrica) 100 mg THREE TIMES A DAY ORAL 06/29/19 13:00 07/29/19 12:59 07/06/19 09:05 Zolpidem Tartrate (Ambien) 5 mg HSPRN PRN ORAL Insomnia 07/02/19 23:15 07/09/19 23:14 07/05/19 22:19 Hallie Bullard MD July 06, 2019 11:12
[2019-07-06] MEDS: HYDROcodone/Acetamin 10/325 tab ORAL PRN ×2 (11:41→17:30)
[2019-07-06 12:00] VITALS: BP 103/76
--- NOTE | 2019-07-06 15:02 | Surgery Progress Note ---
Surgery Progress Note Subjective Symptoms: improved, tolerating diet, voiding well, passing flatus Additional Comments wbc improved states she is well ambulatory moving well lido patch working Objective Last 24 Hour Vital Signs Date Time Temp Pulse Resp B/P (MAP) Pulse Ox O2 Delivery O2 Flow Rate FiO2 07/06/19 12:00 97.8 86 18 103/76 (85) 95 07/06/19 09:00 Room Air 07/06/19 09:00 71 103/71 07/06/19 08:00 97.9 84 17 105/70 (82) 97 07/06/19 04:58 98.1 71 17 103/71 (82) 92 07/05/19 21:00 Room Air 07/05/19 20:00 97.7 18 127/64 (85) 95 07/05/19 17:34 83 119/59 07/05/19 16:00 98.6 83 18 119/59 (79) 95 I&O Intake and Output 07/05/19 07/06/19 19:00 07:00 Intake Total 240 ml Balance 240 ml Intake Oral 240 ml # Voids 4 2 Dressing: dry Wound: clean Cardiovascular: RSR Respiratory: clear Abdomen: soft, non-tender, present bowel sounds Extremities: no tenderness, no cyanosis Laboratory Tests Test 07/06/19 07:35 White Blood Count 11.2 K/UL (4.8-10.8) H Red Blood Count 4.22 M/UL (4.20-5.40) Hemoglobin 10.3 G/DL (12.0-16.0) L Hematocrit 33.3 % (37.0-47.0) L Mean Corpuscular Volume 79 FL (80-99) L Mean Corpuscular Hemoglobin 24.4 PG (27.0-31.0) L Mean Corpuscular Hemoglobin Concent 31.0 G/DL (32.0-36.0) L Red Cell Distribution Width 26.8 % (11.6-14.8) H Platelet Count 634 K/UL (150-450) H Mean Platelet Volume 5.5 FL (6.5-10.1) L Neutrophils (%) (Auto) 58.5 % (45.0-75.0) Lymphocytes (%) (Auto) 24.5 % (20.0-45.0) Monocytes (%) (Auto) 12.3 % (1.0-10.0) H Eosinophils (%) (Auto) 2.8 % (0.0-3.0) Basophils (%) (Auto) 1.9 % (0.0-2.0) Sodium Level 140 MMOL/L (136-145) Potassium Level 4.4 MMOL/L (3.5-5.1) Chloride Level 104 MMOL/L (98-107) Carbon Dioxide Level 31 MMOL/L (21-32) Anion Gap 5 mmol/L (5-15) Blood Urea Nitrogen 19 mg/dL (7-18) H Creatinine 0.6 MG/DL (0.55-1.30) Estimat Glomerular Filtration Rate > 60 mL/min (>60) Glucose Level 94 MG/DL (74-106) Calcium Level 9.3 MG/DL (8.5-10.1) Total Bilirubin 0.2 MG/DL (0.2-1.0) Aspartate Amino Transf (AST/SGOT) 16 U/L (15-37) Alanine Aminotransferase (ALT/SGPT) 29 U/L (12-78) Alkaline Phosphatase 84 U/L (46-116) Total Protein 7.7 G/DL (6.4-8.2) Albumin 3.2 G/DL (3.4-5.0) L Globulin 4.5 g/dL Albumin/Globulin Ratio 0.7 (1.0-2.7) L Plan Problems: (1) Cellulitis Assessment & Plan: Bilaterally, grayscale and duplex images demonstrate no evidence of intraluminal thrombus. Normal phasic Doppler waveforms, demonstrating normal augmentation response and no evidence of valvular insufficiency. Greater saphenous vein(s) and tibial veins are patent. Normal compressibility. Incidentally noted is a hypoechoic avascular area in the left anterior knee soft tissues which measures approximately 3.2 x 2 x 0.9 cm. Impression: Negative for evidence of lower extremity deep venous thrombosis bilaterally 3.2 x 2 x 0.9 cm hypoechoic lesion within the anterior left knee soft tissues. Nonspecific, could indicate a small abscess, hematoma, or complicated cyst. Evaluated at bedside left anterior knee lateral there is some slight old blistering of the skin from a rash which is now resolving. No fluid collection palpable clearly identified. No cellulitis no signs of active acute infection discussed patient in detail will monitor leukocytosis improved esr / crp noted us reviewed again and exam still unable to identify abscess skin changes improving small blisters resolving will monitor clinically may consider CT but given no signs of infection at bedside clinical exam clinically stable and without sign of infection in leg wbc repeat am labs No acute fractures. No dislocations. The joint spaces are preserved. There are some degenerative changes of the pubic symphysis and of the lumbosacral junction. There are mild degenerative changes of the bilateral sacroiliac joints. No evidence of significant soft tissue contusion. There is mild distention of the rectum by feces. There are colonic diverticula. Impression: No acute abnormality. No definite findings to explain stated clinical history of left hip pain Degenerative changes of the pubic symphysis, lumbosacral junction, and bilateral sacroiliac joints Colonic diverticulosis persistent leukocytosis ID / Heme eval (2) Rash and other nonspecific skin eruption (3) GIB (gastrointestinal bleeding) Assessment & Plan: on anticoagulation possible gi bleed anemia trend labs transfuse prn occult stool will follow with recs (4) Afib (5) TIA CVA rule out (6) Myalgia (7) Hemoptysis (8) Carotid stenosis (9) COPD exacerbation (10) Arthritis of knee, left (11) Sciatic leg pain Sincere Strange July 06, 2019 15:02
--- NOTE | 2019-07-06 15:15 | NUR ---
NURSE NOTES: Patient stated her daughter Madie will be here by 1800 to take patient home.
[2019-07-06 16:00] VITALS: BP 112/42
[2019-07-06 18:10] VITALS: BP 112/42
--- NOTE | 2019-07-06 18:35 | NUR ---
NURSE NOTES: Patient discharged to home with daughter. ID band removed, IV site removed, patient belongings list verified. VSS.
--- NOTE | 2019-07-06 21:44 | Discharge Summary ---
DATE OF ADMISSION: 06/25/2019 DATE OF DISCHARGE: 07/06/2019 ADMISSION DIAGNOSES: 1. Anemia. 2. Possible GI bleed. 3. History of paroxysmal atrial fibrillation. 4. Hypertension. 5. Prior history of stroke. 6. Christiansen's palsy. 7. Hypertensive heart disease. DISCHARGE DIAGNOSES: 1. Anemia. 2. Possible GI bleed. 3. History of paroxysmal atrial fibrillation. 4. Hypertension. 5. Prior history of stroke. 6. Christiansen's palsy. 7. Hypertensive heart disease. 8. Possible sepsis. 9. Shingles. 10. Possible cellulitis. 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 There are no reports of any bleeding, but because the patient is on anticoagulation, there was concern about possible GI bleed. She was admitted. She was transfused. Her stool occult blood returned back negative. Her Eliquis was initially discontinued until bleeding was ruled out. This was later resumed after stool came back positive. She was noted on admission to have shingles and cellulitis of the left lower extremity. She was started on acyclovir as well as IV vancomycin for cellulitis. Her white count peaked at 25,000 and gradually trended down. She had a CAT scan of the leg that showed a questionable abscess. She was seen by Surgery who felt that there was no abscess there and no intervention or ID was needed. The patient continued to have leukocytosis, but this gradually improved. ID consultation was obtained. On discharge, the patient remained stable off antibiotics. She will be discharged home. DISCHARGE MEDICATIONS: Please see discharge medications list for discharge medications. DIET: Cardiac diet. ACTIVITY: Ad-litzy. FOLLOWUP: The patient to follow up 1 to 2 weeks in the office. Demario Hdz M.D. DR: Kaylyn JOB#: [id number] CC:
--- NOTE | 2019-07-07 06:29 | Progress Note ---
DATE: 07/06/2019 CARDIOLOGY PROGRESS NOTE SUBJECTIVE: The patient has less leg pain on the left. She has no cough. PHYSICAL EXAMINATION: VITAL SIGNS: Blood pressure 112/42, pulse 79, respiratory rate 19, afebrile. LUNGS: Diminished breath sounds. No wheezing. CARDIAC: Regular rhythm and rate. Normal S1, S2 with no new murmur. ABDOMEN: Soft. EXTREMITIES: No edema. LABORATORY AND DIAGNOSTIC DATA: Chemistry panel, BUN 19, creatinine 0.6. Albumin 3.2. Potassium 4.4. White count 11.2 hemoglobin 10.3. IMPRESSION: 1. Significant improvement in anemia. 2. Normalization of white blood count. 3. No signs of acute infection. 4. Resolving zoster of left lower extremity. 5. Hypertensive heart disease with controlled blood pressure. 6. Cerebrovascular disease. 7. No signs of GI bleeding following resumption of full anticoagulation and anti-platelet therapy with low-dose aspirin. PLAN: 1. Outpatient followup. 2. Stable for discharge on current cardiovascular regimen including full anticoagulation, anti-platelet, and anti-lipid regimen. 3. Continue outpatient iron replacement as well. Rosendo Palacios M.D. DR: Shana JOB#: [id number] CC:
== END 2019-07-06 18:35 | disposition home or self-care (01) | DRG 377 ==
LOC: 2E 19:45 → 4E 06-29 00:28
PROC: 30233N1 Transfusion of Nonautologous Red Blood Cells into Peripheral Vein, Percutaneous Approach (ICD-10-PCS; principal; 2019-06-26)
DX: K92.2 Gastrointestinal hemorrhage, unspecified (principal); I50.33 Acute on chronic diastolic (congestive) heart failure; E44.1 Mild protein-calorie malnutrition; J44.1 Chronic obstructive pulmonary disease with (acute) exacerbation; B02.8 Zoster with other complications; L03.116 Cellulitis of left lower limb; D50.0 Iron deficiency anemia secondary to blood loss (chronic); I11.0 Hypertensive heart disease with heart failure; Z68.24 Body mass index [BMI] 24.0-24.9, adult; I48.0 Paroxysmal atrial fibrillation; Z79.01 Long term (current) use of anticoagulants; I10 Essential (primary) hypertension; Z86.73 Personal history of transient ischemic attack (TIA), and cerebral infarction without residual deficits; G51.0 Bell's palsy; J44.9 Chronic obstructive pulmonary disease, unspecified; M19.90 Unspecified osteoarthritis, unspecified site; Z88.6 Allergy status to analgesic agent; Z87.891 Personal history of nicotine dependence; Z88.0 Allergy status to penicillin; M17.12 Unilateral primary osteoarthritis, left knee; E86.0 Dehydration; I65.21 Occlusion and stenosis of right carotid artery; M54.30 Sciatica, unspecified side; M79.10 Myalgia, unspecified site
CPT/HCPCS: 36415; 71045; 71046; 80048; 80053; 80202; 81003; 82270; 82378; 83540; 83550; 83735; 83880; 85007; 85025; 85610; 85651; 85730; 86140; 86850; 86900; 86901; 86920; 87086; 93005; 93970; 94640; J7620